=== PATIENT | male | born 1990 | race Hispanic/Latino ===

== ENCOUNTER 2023-03-18 17:21 | Inpatient (IN) | payer SELFPAY ==
[2023-03-18 18:14] LABS: Absolute Lymphocytes (CBC) 1.1 K/uL (0.7-4.9); Hematocrit 32.3 % (39.6-49.0); Lymphocytes % 29.8 % (15.3-44.8); RBC Red Blood Cell Count 3.17 M/uL (4.33-5.43)
[2023-03-18 18:19] LABS: Protime INR 1.43
--- NOTE | 2023-03-18 18:25 | RAD REPORT ---
EXAM DESCRIPTION: Jelani Single View03/18/2023 6:11 pm CLINICAL HISTORY: Abdominal pain COMPARISON: none FINDINGS: Mild opacity medial right base. Left lung appears clear. Heart is normal size IMPRESSION: Mild opacity medial right base may represent confluence of ribs and vessels or a mild in filtrate.
[2023-03-18 18:31] LABS: Albumin 2.3 g/dL (3.4-5.0); Bilirubin Total 2.9 mg/dL (0.2-1.0); Potassium 3.8 mEq/L (3.5-5.1); Protein, Total 7.9 g/dL (6.4-8.2)
[2023-03-18 18:42] LABS: Specific Gravity 1.017 (1.005-1.030); Urine Bacteria None Seen /HPF (<20); Urine Bilirubin 1+ (Negative); Urine Blood 2+ (Negative); Urine Clarity Clear (Clear); Urine Color Yellow (Yellow); Urine Crystals Unidentified Few /HPF (None Seen); Urine Glucose NEGATIVE (Negative); Urine Mucus Slight /HPF (None Seen); Urine Protein TRACE (Negative); Urine Urobilinogen 2+ (Normal); Urine pH 6.5 (5.0-7.0)
[2023-03-18 18:55] LABS: Barbiturates NEGATIVE (NEGATIVE); Benzodiazepines NEGATIVE (NEGATIVE); Cocaine NEGATIVE (NEGATIVE); METHAMPHETAM NEGATIVE (NEGATIVE); Methadone NEGATIVE (NEGATIVE); Opiates NEGATIVE (NEGATIVE); Phencyclidine NEGATIVE (NEGATIVE); THC Cannibis POSITIVE (NEGATIVE)
--- NOTE | 2023-03-18 20:04 | RAD REPORT ---
EXAM DESCRIPTION: CT - Abdomen Pelvis W Contrast - 03/18/2023 7:42 pm CLINICAL HISTORY: Abdominal pain COMPARISON: none. TECHNIQUE: Computed axial tomography of the abdomen pelvis was obtained. 100 cc Isovue-300 was admin istered intravenously. Oral contrast was not requested which limits evaluation of bowel and appendix All CT scans are performed using dose optimization technique as appropriate and may include automated exposure control or mA/KV adjustment according to patient size. FINDINGS: Cirrhotic liver. Mild fatty infiltration. A 1 centimeter nodule extends off of anterior as pect of the left lobe of the liver Spleen, pancreas, adrenals and kidneys unremarkable Large amount of ascites within the abdomen pelvis No evidence diverticulitis Umbilical hernia. Neck 1 centimeter. Herniated sac 3.5 centimeters. It contains ascites IMPRESSION: Cirrhosis Large amount ascites 1 centimeter hepatic nodule. Nonemergent MRI recommended for further evaluation
--- NOTE | 2023-03-18 20:47 | ER ---
Nurse's Notes [facility] Name: Hernando Maciel Age: 32 yrs Sex: Male : 1990 Arrival Date: 03/18/2023 Time: 17:21 Bed 19 Private MD: Diagnosis: Alcoholic cirrhosis of liver with ascites;Hepatic failure, unspecified without coma Presentation: 03/18 17:29 Chief complaint: Spouse and/or significant other states: "The last few weeks his mb9 stomach has been getting bloated and discomfort. He feels like SOB and nauseous. His belly button is sticking out and is growing". Coronavirus screen: At this time, the client does not indicate any symptoms associated with coronavirus-19. Ebola Screen: No symptoms or risks identified at this time. Initial Sepsis Screen: Does the patient meet any 2 criteria? No. Patient's initial sepsis screen is negative. Does the patient have a suspected source of infection? No. Patient's initial sepsis screen is negative. Risk Assessment: Do you want to hurt yourself or someone else? Patient reports no desire to harm self or others. Onset of symptoms was March 18, 2023. 17:29 Method Of Arrival: Ambulatory 9 17:29 Acuity: JAMA 3 mb9 Triage Assessment: 17:35 General: Appears uncomfortable, Behavior is calm, cooperative. Pain: Denies pain. EENT: mb9 Neuro: Garcia Agitation-Sedation Scale (RASS): 0 - Alert and Calm Level of Consciousness is awake, alert, obeys commands, Oriented to person, place, time, situation, Appropriate for age. Cardiovascular: Patient's skin is warm and dry. Respiratory: Airway is patent Respiratory effort is even, unlabored, Respiratory pattern is regular, symmetrical. Respiratory: Reports shortness of breath on exertion. GI: Abdomen is round distended, Bowel sounds present X 4 quads. Abd is soft and non tender X 4 quads. Patient currently denies nausea. Musculoskeletal: Range of motion: intact in all extremities. 17:35 Derm: Skin is jaundiced. mb9 17:35 EENT: Eyes eyes are jaundiced . mb9 Historical: - Allergies: 17:32 No Known Allergies; mb9 - Home Meds: 17:32 None [Active]; mb9 - PMHx: 17:32 None; mb9 - PSHx: 17:32 None; mb9 - Immunization history:: Adult Immunizations up to date. - Social history:: Smoking status: Patient reports the use of cigarette tobacco products, denies chronic smoking, but will smoke occasionally, Patient uses alcohol, 12 pack of beer daily x 12 yrs. Screenin:34 [facility] ED Fall Risk Assessment (Adult) History of falling in the last 3 months, mb9 including since admission No falls in past 3 months (0 pts) Confusion or Disorientation No (0 pts) Intoxicated or Sedated No (0 pts) Impaired Gait No (0 pts) Mobility Assist Device Used No (0 pt) Altered Elimination No (0 pt) Score/Fall Risk Level 0 - 2 = Low Risk Oriented to surroundings, Maintained a safe environment, Educated pt \\T\\ family on fall prevention, incl call for assistance when getting out of bed. Abuse screen: Denies threats or abuse. Nutritional screening: No deficits noted. Tuberculosis screening: No symptoms or risk factors identified. 21:28 [facility] [place] Withdrawal Assessment for Alcohol, revised (CIWA-Ar): mb9 Nausea/Vomitin - Intermittent nausea with dry heaves Headache: 0 - Not present Paroxysmal Sweats: 0 - No sweats visible Anxiety: 0 - No anxiety, at ease Agitation: 0 - Normal actiivty Tremor: 4 - Moderate when client's hands extended Auditory Disturbances: 0 - Not present Visual Disturbances: 0 - Not present Tactile Disturbances: 0 - None Orientation and Clouding of Sensorium: 0 - Oriented and can do serial additions Total Score: < 10 Very mild withdrawal. Assessment: 17:35 Reassessment: see triage assessment. mb9 20:07 Reassessment: No changes from previously documented assessment. Patient and/or family mb9 updated on plan of care and expected duration. Pain level reassessed. Patient is alert, oriented x 3, equal unlabored respirations, skin warm/dry/pink. Vital Signs: 17:29 BP 133 / 90; Pulse 88; Resp 18; Temp 99.2(O); Pulse Ox 98% on R/A; Weight 86.18 kg; mb9 Height 5 ft. 4 in. ; Pain 0/10; 18:29 BP 132 / 91; Pulse 78; Resp 19; Pulse Ox 98% on R/A; Pain 0/10; mb9 20:07 BP 134 / 71; Pulse 82; Resp 16; Pulse Ox 97% on R/A; mb9 21:29 BP 134 / 92; Pulse 90; Resp 17; Pulse Ox 98% on R/A; mb9 17:29 Body Mass Index 32.61 (86.18 kg, 162.56 cm) mb9 17:29 Pain Scale: Adult mb9 18:29 Pain Scale: Adult mb9 ED Course: 17:24 Patient arrived in ED. ts1 17:25 [facility] Garc[facility] cp 17:25 Ryne Mayen MD is Attending Physician. cp 17:32 Triage completed. mb9 17:32 Arm band placed on. mb9 17:34 Bessy Samuel, RN is Primary Nurse. mb9 17:34 No provider procedures requiring assistance completed. mb9 17:36 Placed in gown. Bed in low position. Call light in reach. Side rails up X 1. Client mb9 placed on continuous cardiac and pulse oximetry monitoring. NIBP monitoring applied. 17:52 Inserted saline lock: 18 gauge in left antecubital area, using aseptic technique. mb9 17:54 First set of blood cultures drawn by me. mb9 18:00 Second set of blood cultures drawn by me. mb9 18:06 AMMONIA Sent. mb9 18:06 Blood Culture Adult (2) Sent. mb9 18:06 CBC with Diff Sent. mb9 18:06 CMP Sent. mb9 18:06 ETOH Level Sent. mb9 18:06 Ptt, Activated Sent. mb9 18:06 Protime (+inr) Sent. mb9 18:06 Lactate w/ 2H reflex if indic. Sent. mb9 18:13 Chest Single View XRAY In Process Unspecified. EDMS 18:29 Urine collected: clean catch specimen, sydnee colored, EKG done, by ED staff, reviewed mb9 by Abilio WRIGHT. 18:30 UDS Sent. mb9 18:30 Urinalysis w/ reflexes Sent. mb9 19:44 CT Abd/Pelvis - IV Contrast Only In Process Unspecified. EDMS 20:44 Tee Méndez FNP-C is Hospitalizing Provider. cp 22:08 Hospitalizing Provider role handed off by Tee Méndez FNP-C mw 22:08 Fabián Mayen MD is Hospitalizing Provider. mw 22:43 Attending Physician role handed off by Ryne Mayen MD kd3 22:43 Primary Nurse role handed off by Bessy Samuel RN kd3 22:45 Patient admitted, IV remains in place. ll3 Administered Medications: 20:30 CANCELLED (Physician Discretion): Albumin IVPB 25 grams 100 ml IVPB once; (Note: cp Albumin 25% concentration) 20:50 Drug: Rocephin - Rocephin (cefTRIAXone) IVPB 1 grams Route: IVPB; Infused Over: 30 mb9 mins; Site: left antecubital; 21:27 Follow up: Response: No adverse reaction; IV Status: Completed infusion mb9 21:07 Drug: Phytonadione Sub-Q 10 mg Route: Sub-Q; Site: right upper arm; mb9 21:28 Follow up: Response: No adverse reaction mb9 21:07 Drug: Albumin IVPB 12.5 grams Volume: 50 ml; Route: IVPB; Site: left antecubital; mb9 21:27 Follow up: Response: No adverse reaction; IV Status: Completed infusion mb9 21:27 Drug: Ativan IVP 1 mg Route: IVP; Site: left antecubital; mb9 Medication: 17:34 VIS not applicable for this client. mb9 Outcome: 20:46 Decision to Hospitalize by Provider. cp 22:40 Patient left the ED. rv1 22:45 Admitted to ICU accompanied by nurse, via stretcher, room 2, on monitor, with chart, ll3 Report called to AURA Preciado 22:45 Condition: stable 22:45 Instructed on the need for admit, Demonstrated understanding of instructions. 22:55 Patient left the ED. jb4 Signatures: Dispatcher [employer] EDMS Estrella Taveras RN RN mw Page, Corey, PA PA cp Sid Gerber RN RN jb4 Ny Beasley RN RN ll3 Marlena Singh RN RN kd3 Bessy Samuel, AURA RN mb9 Katrina Radford rv1 Hafsa Diggs PAS PAS ts1 Corrections: (The following items were deleted from the chart) 17:32 17:29 Pulse 88bpm; Resp 18bpm; Pulse Ox 98% RA; Temp 99.2F Oral; 70.31 kg; Height 5 ft. mb9 4 in.; BMI: 26.6; Pain 0/10, Adult; mb9 17:34 17:29 BP 133 / 90; Pulse 88bpm; Resp 18bpm; Pulse Ox 98% RA; Temp 99.2F Oral; 70.31 kg; mb9 Height 5 ft. 4 in.; BMI: 26.6; Pain 0/10, Adult; mb9 :42 17:35 EENT: No deficits noted. 9 mb9 43 17:32 Social history: Smoking status: Patient reports the use of cigarette tobacco mb9 products, denies chronic smoking, but will smoke occasionally, 9 43 17:35 Derm: Skin is pink, warm \\T\\ dry. mb9 mb9 43 17:42 Derm: mb9 mb9
--- NOTE | 2023-03-18 20:47 | EDPHYS ---
Physician Documentation [facility] Name: Hernando Maciel Age: 32 yrs Sex: Male : 1990 Arrival Date: 03/18/2023 Time: 17:21 Bed 19 Private MD: ED Physician HPI: 03/18 17:55 This 32 yrs old Male presents to ER via Ambulatory with complaints of cp Abdominal Pain. 17:55 The patient presents with abdominal distention that is diffuse. Onset: The cp symptoms/episode began/occurred gradually, over past several weeks. 17:55 The symptoms do not radiate. Associated signs and symptoms: Pertinent positives: cp nausea, shortness of breath, Pertinent negatives: blood in stools, chest pain, vomiting. The symptoms are described as pressure. Severity of pain: in the emergency department the pain is unchanged despite home interventions. translating. Reports patient with history of daily drinking of 12 pack beer daily for 10 years. Historical: - Allergies: 17:32 No Known Allergies; mb9 - Home Meds: 17:32 None [Active]; mb9 - PMHx: 17:32 None; mb9 - PSHx: 17:32 None; mb9 - Immunization history:: Adult Immunizations up to date. - Social history:: Smoking status: Patient reports the use of cigarette tobacco products, denies chronic smoking, but will smoke occasionally, Patient uses alcohol, 12 pack of beer daily x 12 yrs. ROS: 18:00 Constitutional: Negative for body aches, chills, fever, poor PO intake. cp 18:00 Eyes: Negative for injury, pain, redness, and discharge. cp 18:00 ENT: Negative for drainage from ear(s), ear pain, sore throat, difficulty swallowing, difficulty handling secretions. 18:00 Cardiovascular: Positive for edema, Negative for chest pain, palpitations. 18:00 Respiratory: Positive for shortness of breath, at rest. 18:00 Abdomen/GI: Positive for abdominal pain, abdominal distension, Negative for black/tarry stool. 18:00 Neuro: Negative for altered mental status, dizziness, headache, syncope, weakness. cp 18:00 All other systems are negative. Exam: 18:05 Constitutional: The patient appears in no acute distress, alert, awake, cp non-diaphoretic, non-toxic, well developed, well nourished, uncomfortable. 18:05 Head/Face: Normocephalic, atraumatic. cp 18:05 Eyes: Periorbital structures: appear normal, Conjunctiva: normal, no exudate, no injection, Sclera: icterus, is present, Lids and lashes: appear normal, bilaterally. 18:05 ENT: External ear(s): are unremarkable, Nose: is normal, Mouth: Lips: moist, Oral mucosa: pink and intact, moist, Posterior pharynx: is normal, airway is patent, no erythema, no exudate. 18:05 Neck: ROM/movement: is normal, is supple, without pain, no range of motions limitations. 18:05 Chest/axilla: Inspection: normal. 18:05 Cardiovascular: Rate: normal, Rhythm: regular. 18:05 Respiratory: the patient does not display signs of respiratory distress, Respirations: normal, no use of accessory muscles, no retractions, labored breathing, is not present, Breath sounds: are clear throughout, no decreased breath sounds, no stridor, no wheezing. 18:05 Abdomen/GI: Inspection: distension, that is severe, Bowel sounds: active, all quadrants, Palpation: soft, in all quadrants, mild abdominal tenderness, in all quadrants. 18:05 Back: pain, is absent, ROM is normal. 18:05 Neuro: Orientation: to person, place \T\ time. Mentation: is normal, Motor: moves all fours, strength is normal. 18:29 ECG was reviewed by the Attending Physician. cp Vital Signs: 17:29 BP 133 / 90; Pulse 88; Resp 18; Temp 99.2(O); Pulse Ox 98% on R/A; Weight 86.18 kg; mb9 Height 5 ft. 4 in. ; Pain 0/10; 18:29 BP 132 / 91; Pulse 78; Resp 19; Pulse Ox 98% on R/A; Pain 0/10; mb9 20:07 BP 134 / 71; Pulse 82; Resp 16; Pulse Ox 97% on R/A; mb9 21:29 BP 134 / 92; Pulse 90; Resp 17; Pulse Ox 98% on R/A; mb9 17:29 Body Mass Index 32.61 (86.18 kg, 162.56 cm) mb9 17:29 Pain Scale: Adult mb9 18:29 Pain Scale: Adult mb9 MDM: 17:35 Patient medically screened. 20:35 Data reviewed: vital signs, nurses notes, lab test result(s), EKG, radiologic studies, cp CT scan. 20:35 Management of patient was discussed with the following: Political Theory Professor: DR Ladd who will cp be available for consult. Counseling: I had a detailed discussion with the patient and/or guardian regarding: the historical points, exam findings, and any diagnostic results supporting the discharge/admit diagnosis, lab results, radiology results, the need for further work-up and treatment in the hospital. 03/18 17:51 Order name: Blood Culture Adult (2) 03/18 17:51 Order name: CBC with Diff; Complete Time: 19:10 03/18 19:10 Interpretation: Normal except: WBC 3.80; RBC 3.17; HGB 10.6; HCT 32.3; MCV 102.0; PLT cp 67; RDW 16.0; MN% 16.5. 03/18 17:51 Order name: CMP; Complete Time: 19:10 03/18 19:10 Interpretation: Normal except: CL 109; BUN 5; CRE 0.44; AST 126; ALK 261; BILIT 2.9; CA cp 7.9; ALB 2.3; GLOB 5.6; A/G 0.4. 03/18 17:51 Order name: Lactate w/ 2H reflex if indic.; Complete Time: 19:10 03/18 17:51 Order name: Protime (+inr); Complete Time: 19:10 03/18 19:11 Interpretation: Abnormal: PT 15.7. 03/18 17:51 Order name: Ptt, Activated; Complete Time: 19:10 03/18 17:51 Order name: Urinalysis w/ reflexes; Complete Time: 19:10 03/18 17:51 Order name: AMMONIA; Complete Time: 19:10 03/18 17:51 Order name: ETOH Level; Complete Time: 19:10 03/18 19:12 Interpretation: Abnormal: ETOH 99. 03/18 17:51 Order name: UDS; Complete Time: 19:10 03/18 19:11 Interpretation: Normal except: THC POSITIVE. 03/18 17:51 Order name: Chest Single View XRAY; Complete Time: 19:10 03/18 19:16 Order name: CT Abd/Pelvis - IV Contrast Only; Complete Time: 20:05 cp 03/18 20:06 Interpretation: Report reviewed. 03/18 17:51 Order name: EKG; Complete Time: 17:52 cp 03/18 17:51 Order name: Accucheck; Complete Time: 18:06 cp 03/18 17:51 Order name: Cardiac monitoring; Complete Time: 17:52 cp 03/18 17:51 Order name: EKG - Nurse/Tech; Complete Time: 18:30 cp 03/18 17:51 Order name: IV Saline Lock - Large Bore; Complete Time: 17:52 cp 03/18 17:51 Order name: Labs collected and sent; Complete Time: 17:52 cp 03/18 17:51 Order name: O2 Per Protocol; Complete Time: 17:52 cp 03/18 17:51 Order name: O2 Sat Monitoring; Complete Time: 17:52 cp 03/18 17:51 Order name: Vital Signs; Complete Time: 17:52 cp EC:29 Rate is 70 beats/min. Rhythm is regular. WA interval is normal. QRS interval is normal. cp QT interval is normal. T waves are Inverted in lead III. Interpreted by me. Reviewed by me. Administered Medications: 20:30 CANCELLED (Physician Discretion): Albumin IVPB 25 grams 100 ml IVPB once; (Note: cp Albumin 25% concentration) 20:50 Drug: Rocephin - Rocephin (cefTRIAXone) IVPB 1 grams Route: IVPB; Infused Over: 30 mb9 mins; Site: left antecubital; 21:27 Follow up: Response: No adverse reaction; IV Status: Completed infusion mb9 21:07 Drug: Phytonadione Sub-Q 10 mg Route: Sub-Q; Site: right upper arm; mb9 21:28 Follow up: Response: No adverse reaction mb9 21:07 Drug: Albumin IVPB 12.5 grams Volume: 50 ml; Route: IVPB; Site: left antecubital; mb9 21:27 Follow up: Response: No adverse reaction; IV Status: Completed infusion mb9 21:27 Drug: Ativan IVP 1 mg Route: IVP; Site: left antecubital; mb9 Disposition Summary: 03/18/23 20:46 Hospitalization Ordered Hospitalization Status: Inpatient Admission cp Condition: Stable cp Problem: new cp Symptoms: have improved cp Bed/Room Type: Standard cp Location: Intensive Care Unit(03/18/23 22:08) mw Room Assignment: 2-(03/18/23 22:08) Provider: Fabián Mayen(03/18/23 22:08) colin Diagnosis - Alcoholic cirrhosis of liver with ascites cp - Hepatic failure, unspecified without coma cp Forms: - Medication Reconciliation Form cp - SBAR form cp Addendum: 03/20/2023 20:02 I agree with the assessment and plan of care. I reviewed the patient's care provided by calvin noble Advanced Practice Provider and agree with the diagnosis and treatment plan. Signatures: Dispatcher [employer] EDEstrella Edge RN RN Ryne Mayen MD MD rn Page, Corey, PA PA cp Breneman, Mary Beth, RN RN mb9 Corrections: (The following items were deleted from the chart) 03/18 17:43 17:32 Social history: Smoking status: Patient reports the use of cigarette tobacco mb9 products, denies chronic smoking, but will smoke occasionally, mb9 20:30 20:27 Albumin IVPB 25 grams 100 ml IVPB once; (Note: Albumin 25% concentration) cp ordered. cp 22:08 20:46 Tee Méndez cp 22:08 20:46 Telemetry/MedSurg (Inpatient) cp 22:08 20:46 cp mw
[2023-03-18] MEDS ORDERED: VITAMIN K (ADULT) 10 MG/ML ONE (20:48)
[2023-03-18] MEDS ORDERED: CEFTRIAXONE 1000 MG/VIAL ONE (20:48)
[2023-03-18] MEDS ORDERED: ALBUMIN HUMAN 25% 50 ML IV ONE (20:49)
[2023-03-18] MEDS ORDERED: LORazepam 2 MG/ML VIAL ONE (21:29)
--- NOTE | 2023-03-18 21:57 | P.HP ---
Certification for Inpatient Patient admitted to: Inpatient With expected LOS: >2 Midnights Patient will require the following post-hospital care: None Practitioner: I am a practitioner with admitting privileges, knowledge of patient current condition, hospital course, and medical plan of care. Services: Services provided to patient in accordance with Admission requirements found in Title 42 Section 412.3 of the Code of Federal Regulations Patient History Date of Service: 03/18/23 Reason for admission: Alcoholic cirrhosis, ascites History of Present Illness: 32-year-old male with history of chronic alcohol abuse presents emergency department with chief complaint of abdominal swelling/pain, shortness of breath. He is noted to have scleral icterus which his family reports is been there for "a few years". He reports increased abdominal swelling over the course of the last 2 to 3 weeks. He is never been diagnosed with alcoholic hepatitis/cirrh osis he drinks between 12 and 18 beers a day for the last 7 days cannot remember a time when he is gone more than a day without alcohol. He was evaluated in the emergency department his labs are significant for pancytopenia, macrocytic anemia, thrombocytopenia PT 15.7 INR 1.43 AST 126 ALT 49 alk phos 261 T. bili 2.9 lactic acid 1.2 alcohol level is 99 also positive for THC. CT was performed and revealed cirrhosis, large volume ascites, 1 cm hepatic nodule nonemergent MRI recommended to further evaluate. ED provider discussed case with GI services on-call who recommend Rocephin, albumin, admission, paracentesis. Patient is at high risk for alcohol withdrawals. - Past Medical/Surgical History -: None -: None Psychosocial/ Personal History: Patient is at home with his family - Family History Family History: Reviewed- Non-Contributory - Social History Smoking Status: Never smoker Alcohol use: Yes CD- Drugs: No Caffeine use: Yes Place of Residence: Home Review of Systems 10-point ROS is otherwise unremarkable Cardiovascular: Orthopnea, Edema Gastrointestinal: Nausea, Abdominal Pain Physical Examination - Physical Exam General: Alert, In no apparent distress, Oriented x3 HEENT: Atraumatic, PERRLA, Mucous membr. moist/pink, EOMI, Sclerae nonicteric Neck: Supple, 2+ carotid pulse no bruit, No LAD, Without JVD or thyroid ab normality Respiratory: Clear to auscultation bilaterally, Normal air movement Cardiovascular: Regular rate/rhythm, Normal S1 S2, Edema Capillary refill: <2 Seconds Gastrointestinal: Normal bowel sounds, No tenderness, Distended, Ascites Musculoskeletal: No tenderness Integumentary: No rashes Neurological: Normal speech, Normal strength at 5/5 x4 extr, Normal tone, Normal affect - Studies Laboratory Data (last 24 hrs) 03/18/23 18:00: PT 15.7 H, INR 1.43, APTT 36.4 03/18/23 18:00: Sodium 137, Potassium 3.8, BUN 5 L, Creatinine 0.44 L, Glucose 103, Total Bilirubin 2.9 H, AST 126 H, ALT 49, Alkaline Phosphatase 261 H 03/18/23 18:00: WBC 3.80 L, Hgb 10.6 L, Hct 32.3 L, Plt Count 67 L Assessment and Plan - Plan Assessment: Alcoholic cirrhosis of the liver with large volume ascites Chronic alcohol abuse/alcohol use disorder Pancytopenia/thrombocytopenia related to above Plan: Alcoholic cirrhosis of the liver with large volume ascites Chronic alcohol abuse/alcohol use disorder Pancytopenia/thrombocytopenia related to above GI consult in place, continue with banana bag, Librium/as needed Ativan, alcohol withdrawal assessments. Hepatitis panel, paracentesis ordered. No signs of active bleeding currently. Patient reports drinking 12-18 beers per day for last 7 years, at high risk for alcohol withdrawals. Counseled extensively on need for immediate cessation of all alcohol. Patient speaks Kiswahili primarily. DVT PPX: SCDs given thrombocytopenia Code status: Full Discharge Plan: Home Plan to discharge in: 72 Hours - Advance Directives Does patient have a Living Will: No Does patient have a Durable POA for Healthcare: Yes - Code Status/Comfort Care Code Status Assessed: Yes (Full code) Critical Care: No Time Spent Managing Pts Care (In Minutes): 70
[2023-03-18] MEDS ORDERED: ONDANSETRON 4 MG/2 ML VIAL IV PRN (22:55)
[2023-03-18] MEDS ORDERED: FOLIC ACID 1 MG, MULTIVITAMINS INJ 10 ML, THIAMINE HCL 100 MG in NA CHLORIDE 0.9% 1,000 ML IV SCH (23:00)
[2023-03-18 23:38] VITALS: BMI 30.2
[2023-03-19 00:25] VITALS: O2SAT 98
[2023-03-19] MEDS ORDERED: NA CHLORIDE 0.9% 1,000 ML ONE (00:45)
[2023-03-19] MEDS ORDERED: THIAMINE 200 MG/2 ML INJ ONE ×2 (00:45→07:33)
[2023-03-19] MEDS ORDERED: MULTIVITAMINS 10 ML VIAL (INJ) IV ONE (01:28)
[2023-03-19] MEDS ORDERED: Ringers Lactate 1,000 ML IV SCH (01:30)
[2023-03-19] MEDS: chlordiazePOXIDE HCl 25 MG CAP PO SCH ×4 (01:30→13:04)
[2023-03-19] MEDS ORDERED: Ringers Lactate 1,000 ML IV ONE (01:41)
[2023-03-19] MEDS ORDERED: CEPHALEXIN 250 MG CAP ONE (02:15)
[2023-03-19] MEDS ORDERED: TETANUS & DIPHTHERIA TOX,ADULT 0.5 ML VIAL ONE (02:15)
[2023-03-19 05:48] LABS: Protime INR 1.55
[2023-03-19 05:51] LABS: Hematocrit 28.4 % (39.6-49.0); Lymphocytes % 28.7 % (15.3-44.8); MCV 101.6 fL (80-100); MPV 8.3 fL (7.6-11.3); RBC Red Blood Cell Count 2.79 M/uL (4.33-5.43)
[2023-03-19 06:07] LABS: Albumin 2.1 g/dL (3.4-5.0); Bilirubin Total 2.7 mg/dL (0.2-1.0); Potassium 3.7 mEq/L (3.5-5.1)
[2023-03-19 06:13] LABS: Thyroid Stimulating Hormone 5.22 uIU/mL (0.358-3.740)
[2023-03-19] MEDS: LORazepam 2 MG/ML VIAL IV PRN ×4 (06:19→21:12)
--- NOTE | 2023-03-19 06:58 | P.PN ---
Date of Service: 03/19/23 Subjective: Feels like its much easier to breathe today after paracentesis (5.5L removed) no nausea / diarrhea / vomiting afebrile ROS: 10 point ROS as noted above, otherwise negative Physical Exam: GEN: Alert, oriented, NAD HEENT: Normal conjunctiva, sclera anicteric CV: Regular rate and rhythm, 2-3+ pitting edema b/l lower extremities Pulm: Nonlabored respirations on room air ABD: Soft, nontender, mild distention, +Ascites MSK: No joint tenderness Integumentary: No rashes Neuro: Normal speech, normal affect vitals reviewed Problem List: Alcoholic cirrhosis of the liver with large volume ascites Chronic alcohol abuse/alcohol use disorder Pancytopenia/thrombocytopenia related to above Alcoholic cirrhosis of the liver with large volume ascites Chronic alcohol abuse/alcohol use disorder Pancytopenia/thrombocytopenia related to above Patient reports drinking 12-18 beers per day for last 7 years, at high risk for alcohol withdrawal Counseled extensively on need for immediate cessation of all alcohol. Patient speaks Greek primarily. at bedside No signs of active bleeding currently. plt remain low, prolonged inr, low albumin, secondary to cirrhosis CT abdomen 03/18 - Cirrhosis, ascites, 1cm hepatic nodule discussed with Dr. Ladd - recommends MRI to eval nodule check AFP level s/p paracentesis 03/19 initial results - not consistent with infection further results pending start lasix/gita, monitor BP Blood cultures pending continue with banana bag, Librium/as needed Ativan, alcohol withdrawal assessments. VTE: SCD Code: Full Dispo: Home ~1-2 days
[2023-03-19] MEDS ORDERED: NA CHLORIDE 0.9% 0 ML ONE (07:33)
[2023-03-19] MEDS: NA CHLORIDE 0.9% 1,000 ML IV SCH (07:43)
[2023-03-19] MEDS: CEFTRIAXONE 2,000 MG in NA CHLORIDE 0.9% 100 ML IV SCH (07:44)
[2023-03-19] MEDS: THIAMINE 200 MG/2 ML INJ IV SCH (07:44)
[2023-03-19 08:16] LABS: Hepatitis B Core IgM Nonreactive (Nonreactive); Hepatitis B surface AG Interp. Nonreactive (Nonreactive); Hepatitis C Virus Ab Nonreactive (Nonreactive)
--- NOTE | 2023-03-19 09:25 | RAD REPORT ---
EXAM DESCRIPTION: US - Paracentesis Proc Guidance - 03/19/2023 9:11 am CLINICAL HISTORY: dyspnea, ascites Ascites COMPARISON: No comparisons FINDINGS: Informed consent was obtained and time-out was performed. Patient's abdomen was prepped and draped in the usual sterile fashion. 1% lidocaine was used for loca l anesthetic purposes. A small skin incision was made. A paracentesis catheter was guided into the peroneal cavity under son ographic guidance. A small amount of fluid was sent for requested lab studies. A large volume paracentesis was performed . The patient tolerated the procedure well. Patient was administered IV albumin per protocol following the procedure. IMPRESSION: Successful ultrasound-guided paracentesis.
[2023-03-19] MEDS: FOLIC ACID 1 MG in NA CHLORIDE 0.9% 50 ML IV SCH (09:50)
[2023-03-19 11:06] LABS: Specific Gravity 1.012 (1.005-1.030); Urine Bacteria None Seen /HPF (<20); Urine Bilirubin NEGATIVE (Negative); Urine Blood 1+ (Negative); Urine Clarity Clear (Clear); Urine Color Yellow (Yellow); Urine Glucose NEGATIVE (Negative); Urine Mucus Slight /HPF (None Seen); Urine Protein NEGATIVE (Negative); Urine Urobilinogen 2+ (Normal); Urine pH 7.5 (5.0-7.0)
[2023-03-19 11:39] LABS: Body Fluid WBC 116 /mm^3
[2023-03-19 11:49] LABS: Body Fluid Source PERITONEAL; Color of fluid Yellow (COLORLESS)
[2023-03-19 11:50] LABS: Appearance SLT. TURBID (CLEAR)
[2023-03-19] MEDS ORDERED: ALBUMIN HUMAN 25% 200 ML IV ONE (12:47)
[2023-03-19] MEDS: ALBUMIN HUMAN 25% 100 ML IV SCH ×3 (13:04→15:10)
--- NOTE | 2023-03-19 15:59 | EKG ---
Test Date: 2023-03-18 Test Time: 18:23:10 Mantel Craftsman: MB MEASUREMENT RESULTS: Intervals: Rate: 70 [place]: 158 QRSD: 80 QT: 404 QTc: 436 [place]: P: 9 [place]: 158 QRS: 13 T: 0 INTERPRETIVE STATEMENTS: Normal sinus rhythm Normal ECG No previous ECG available for comparison Electronically Signed On 03-19-23 15:57:23 CDT by Jonathan Green
[2023-03-19] MEDS: FUROSEMIDE 40 MG TABLET PO SCH (18:54)
[2023-03-19] MEDS: SPIRONOLACTONE 100 MG TAB PO SCH (18:54)
[2023-03-19] MEDS ORDERED: INSULIN LISPRO 100 UNIT/1 ML ONE (18:56)
--- NOTE | 2023-03-19 19:41 | RAD REPORT ---
EXAM DESCRIPTION: MRI - Mri Abdomen W/Wo Cont - 03/19/2023 6:38 pm CLINICAL HISTORY: eval liver lesion Abdominal pain, liver lesion. COMPARISON: Paracentesis Proc Guidance dated 03/19/2023; Abdomen Pelvis W Contrast dated 03/18/2023 FINDINGS: The liver is enlarged and heterogenous enhancement pattern noted. There is nodular appeara nce to the liver parenchyma likely related to underlying regenerating nodules. This would indicate ci rrhosis. There is no early arterial phase enhancing liver lesions identified. No intra or extrahepatic biliary tree dilatation. The spleen is normal size. The pancreas, adrenal glands and kidneys are within normal limits. Mild free fluid is seen. IMPRESSION: Mild ascites. Liver nodularity likely due underlying regenerating nodules. No lesion seen suspicious for an aggress wes neoplastic lesion.
[2023-03-20] MEDS: chlordiazePOXIDE HCl 25 MG CAP PO SCH ×6 (00:45→17:13)
[2023-03-20] MEDS: NA CHLORIDE 0.9% 1,000 ML IV SCH ×2 (00:47→10:40)
[2023-03-20 04:56] LABS: Absolute Lymphocytes (CBC) 1.1 K/uL (0.7-4.9); Hematocrit 30.5 % (39.6-49.0); Lymphocytes % 35.9 % (15.3-44.8); MCV 100.8 fL (80-100); MPV 7.9 fL (7.6-11.3); RBC Red Blood Cell Count 3.03 M/uL (4.33-5.43)
[2023-03-20 05:05] LABS: Protime INR 1.89
[2023-03-20 05:14] LABS: Albumin 2.7 g/dL (3.4-5.0); Bilirubin Total 3.9 mg/dL (0.2-1.0); Magnesium 1.6 mg/dL (1.6-2.4); Potassium 3.5 mEq/L (3.5-5.1); Protein, Total 7.2 g/dL (6.4-8.2)
[2023-03-20 05:29] LABS: Blood Morphology Comment NOTED (NOT SEEN); Platelet Estimate DECR; Target Cells 1+
[2023-03-20] MEDS ORDERED: MAGNESIUM SULFATE 1 gm IVPB 1 GM/100 ML BAG IV ONE (05:48)
--- NOTE | 2023-03-20 06:49 | P.PN ---
Date of Service: 03/20/23 Subjective: Feeling pretty good today, swelling improved no pain noted this morning, breathing is easier ~5L UOP after diuretics yesterday/overnight slightly tremulous last night; no tremors this morning ROS: 10 point ROS as noted above, otherwise negative Physical Exam: GEN: Alert, oriented, NAD HEENT: Normal conjunctiva, sclera mild icterus CV: Regular rate and rhythm, 1-2+ pitting edema b/l lower extremities to knees Pulm: Nonlabored respirations on room air ABD: Soft, nontender, non-distended Neuro: Normal speech, normal affect vitals reviewed Problem List: Alcoholic cirrhosis of the liver with large volume ascites Chronic alcohol abuse/alcohol use disorder Pancytopenia/thrombocytopenia related to above Alcoholic cirrhosis of the liver with large volume ascites Chronic alcohol abuse/alcohol use disorder Pancytopenia/thrombocytopenia related to above Patient reports drinking 12-18 beers per day for last 7 years, at high risk for alcohol withdrawal Counseled extensively on need for immediate cessation of all alcohol. Patient speaks Monegasque primarily. at bedside No signs of active bleeding currently. plt remain low, prolonged inr, low albumin, secondary to cirrhosis CT abdomen 03/18 - Cirrhosis, ascites, 1cm hepatic nodule Abdomen u/s 03/20 ordered to eval rise in tbili, suspect hepatocellular disease, no RUQ Tenderness on exam discussed with Dr. Ladd - recommends MRI to eval nodule MRI 03/19 - Mild ascites. Liver nodularity likely due underlying regenerating nodules check AFP level s/p paracentesis 03/19 initial results - not consistent with infection further results pending continue lasix/gita, monitor BP responded well, will lower dose Blood cultures pending continue with banana bag, Librium/as needed Ativan, alcohol withdrawal assessments. Code: Full Dispo: Home ~1 day
[2023-03-20] MEDS ORDERED: POTASSIUM 25 MEQ EFFERV TAB PO ONE (08:00)
[2023-03-20] MEDS: CEFTRIAXONE 2,000 MG in NA CHLORIDE 0.9% 100 ML IV SCH (09:49)
[2023-03-20] MEDS: FUROSEMIDE 40 MG TABLET PO SCH (09:49)
[2023-03-20] MEDS: FOLIC ACID 1 MG in NA CHLORIDE 0.9% 50 ML IV SCH (09:54)
[2023-03-20] MEDS: THIAMINE 200 MG/2 ML INJ IV SCH (09:55)
[2023-03-20] MEDS: SPIRONOLACTONE 100 MG TAB PO SCH (09:55)
--- NOTE | 2023-03-20 10:48 | RAD REPORT ---
EXAM DESCRIPTION: US - Abdomen Exam Limited - 03/20/2023 9:05 am CLINICAL HISTORY: eval gallbladder COMPARISON: Mri Abdomen W/Wo Cont dated 03/19/2023 TECHNIQUE: Sonographic grayscale and color flow images of the right upper abdominal quadrant were obtained. FINDINGS: The gallbladder demonstrates no gallstones. Contracted morphology. Diffuse gallbladder wal l thickening, with wall measuring up to 9 millimeter in thickness. Mild ascites. The common bile duct is normal measuring 3 mm. The liver demonstrates no findings of intrahepatic biliary dilatation. IMPRESSION: Mild ascites. Contracted gallbladder with diffuse wall thickening, a nonspecific finding in the setting of suspecte d cirrhosis and presence of ascites. No gallstone. No intra or extrahepatic biliary ductal dilation.
[2023-03-20] MEDS: LORazepam 2 MG/ML VIAL IV PRN (22:01)
[2023-03-21] MEDS: chlordiazePOXIDE HCl 25 MG CAP PO SCH ×2 (01:05→09:01)
[2023-03-21 03:35] LABS: Protime INR 1.75
[2023-03-21 03:36] LABS: Absolute Lymphocytes (CBC) 0.9 K/uL (0.7-4.9); Hematocrit 32.5 % (39.6-49.0); Lymphocytes % 26.3 % (15.3-44.8); MCV 102.3 fL (80-100); MPV 8.1 fL (7.6-11.3); RBC Red Blood Cell Count 3.17 M/uL (4.33-5.43)
[2023-03-21 03:52] LABS: Albumin 2.6 g/dL (3.4-5.0); Bilirubin Total 2.2 mg/dL (0.2-1.0); Potassium 3.6 mEq/L (3.5-5.1); Protein, Total 7.1 g/dL (6.4-8.2)
--- NOTE | 2023-03-21 07:09 | P.DS ---
Admission Date: 03/18/23 Discharge Date: 03/21/23 Disposition: ROUTINE DISCHARGE Discharge Condition: GOOD Reason for Admission: Alcoholic cirrhosis, ascites Consultations: Gastrointestinal - Dr. Ladd Brief History of Present Illness: 32yo M, PMH: chronic alcohol abuse Patient presents to the emergency department with chief complaint of abdominal swelling/pain, shortness of breath. He is noted to have scleral icterus which his family reports is been there for "a few years". He reports increased abdominal swelling over the course of the last 2 to 3 weeks. He is never been diagnosed with alcoholic hepatitis/cirrhosis he drinks between 12 and 18 beers a day for the last 7 days cannot remember a time when he is gone more than a day without alcohol. He was evaluated in the emergency department his labs are significant for pancytopenia, macrocytic anemia, thrombocytopenia PT 15.7 INR 1.43 AST 126 ALT 49 alk phos 261 T. bili 2.9 lactic acid 1.2 alcohol level is 99 also positive for THC. CT was performed and revealed cirrhosis, large volume ascites, 1 cm hepatic nodule nonemergent MRI recommended to further evaluate. ED provider discussed case with GI services on-call who recommend Rocephin, albumin, admission, paracentesis. Patient is at high risk for alcohol withdrawals. Hospital Course: Problem List: Alcoholic cirrhosis of the liver with large volume ascites Chronic alcohol abuse/alcohol use disorder Pancytopenia/thrombocytopenia related to above Patient presented with abdominal swelling/pain, shortness of breath. He was found to have signicant lower extremity edema and ascites by CT with incidental 1cm hepatic nodule. (cirrhosis with large volume ascites, 1 cm hepatic nodule) GI was consulted. Dr. Ladd recommended paracentesis. Initial fluid analysis consistent with cirrhosis/ascites, no infection noted. Patient's symptoms resolved after paracentesis (~5L removed). MRI of liver was performed per Dr. Ladd's recommendation to evaluate the hepatic nodule. Imaging more consistent with healing nodule and unlikely to be cancer. He was prophylactically treated with IV rocephin, remained afebrile and no evidence of infection. He also received prophylactic librium due to his significant daily alcohol use. He had mild tremors which improved as well. He received 40mg PO lasix and 100mg Spironolactone and responded very well with ~5L urine output in the first day. He was noted to have low-normal ranged blood pressure. Lasix and spironolactone dose cut in half on discharge. He is to continue with 2 more days of librium. Counselled on importance of discontinuation of alcohol use. Liver cirrhosis is significant and will worsen with high morbidity and mortality if continues to drink. New prescriptions: Furosemide/Lasix Spironolactone Librium Thiamine Follow up: PCP 3-5 days Gastrointestinal ~3-4 weeks Advised to monitor blood pressure, if feels lightheaded and blood pressure <110 systolic, hold diuretics (lasix/spironolactone) for that day. Physical Exam: GEN: Alert, oriented, NAD HEENT: Normal conjunctiva, sclera mild icterus CV: Regular rate and rhythm, no edema Pulm: Nonlabored respirations on room air ABD: Soft, nontender, non-distended Neuro: Normal speech, normal affect Vital Signs/Physical Exam: Temp Pulse Resp BP Pulse Ox 99.7 F 73 18 109/54 L 97 03/21/23 04:00 03/21/23 04:00 03/21/23 04:00 03/21/23 04:00 03/21/23 04:00 Laboratory Data at Discharge: WBC 3.60 thou/uL (4.3-10.9) L 03/21/23 02:55 Hgb 10.9 g/dL (13.6-17.9) L 03/21/23 02:55 Hct 32.5 % (39.6-49.0) L 03/21/23 02:55 Plt Count 81 thou/uL (152-406) L 03/21/23 02:55 PT 19.2 SECONDS (9.5-12.5) H 03/21/23 02:55 INR 1.75 03/21/23 02:55 APTT 36.4 SECONDS (24.3-36.9) 03/18/23 18:00 Sodium 136 mEq/L (136-145) 03/21/23 02:55 Potassium 3.6 mEq/L (3.5-5.1) 03/21/23 02:55 BUN 10 mg/dL (7-18) 03/21/23 02:55 Creatinine 0.54 mg/dL (0.70-1.30) L 03/21/23 02:55 Glucose 104 mg/dL (74-106) 03/21/23 02:55 Magnesium 1.6 mg/dL (1.6-2.4) 03/20/23 04:33 Total Bilirubin 2.2 mg/dL (0.2-1.0) H 03/21/23 02:55 AST 78 U/L (15-37) H 03/21/23 02:55 ALT 35 U/L (16-61) 03/21/23 02:55 Alkaline Phosphatase 159 U/L (45-117) H 03/21/23 02:55 Triglycerides 54 mg/dL (<150) 03/19/23 04:28 Cholesterol 84 mg/dL (<200) 03/19/23 04:28 HDL Cholesterol 22 mg/dL (40-60) L 03/19/23 04:28 Cholesterol/HDL Ratio 3.82 03/19/23 04:28 Home Medications: Folic Acid 1 mg PO DAILY 30 Days #30 tab 03/21/23 Furosemide [Lasix] 20 mg PO DAILY 30 Days #30 tab 03/21/23 Spironolactone [Aldactone] 50 mg PO DAILY 30 Days #30 tab 03/21/23 Thiamine HCl [B-1] 100 mg PO DAILY 30 Days #30 tab 03/21/23 chlordiazePOXIDE HCl [Librium] 25 mg PO SEECOM 3 Days #4 cap 03/21/23 New Medications: Spironolactone [Aldactone] 50 mg PO DAILY 30 Days #30 tab Thiamine HCl [B-1] 100 mg PO DAILY 30 Days #30 tab Folic Acid 1 mg PO DAILY 30 Days #30 tab Furosemide [Lasix] 20 mg PO DAILY 30 Days #30 tab chlordiazePOXIDE HCl [Librium] 25 mg PO SEECOM 3 Days #4 cap Physician Discharge Instructions: Patient presented with abdominal swelling/pain, shortness of breath. He was found to have signicant lower extremity edema and ascites by CT with incidental 1cm hepatic nodule. (cirrhosis with large volume ascites, 1 cm hepatic nodule) GI was consulted. Dr. Ladd recommended paracentesis. Initial fluid analysis consistent with cirrhosis/ascites, no infection noted. Patient's symptoms resolved after paracentesis (~5L removed). MRI of liver was performed per Dr. Ladd's recommendation to evaluate the hepatic nodule. Imaging more consistent with healing nodule and unlikely to be cancer. He was prophylactically treated with IV rocephin, remained afebrile and no evidence of infection. He also received prophylactic librium due to his significant daily alcohol use. He had mild tremors which improved as well. He received 40mg PO lasix and 100mg Spironolactone and responded very well with ~5L urine output in the first day. He was noted to have low-normal ranged blood pressure. Lasix and spironolactone dose cut in half on discharge. He is to continue with 2 more days of librium. Counselled on importance of discontinuation of alcohol use. Liver cirrhosis is significant and will worsen with high morbidity and mortality if continues to drink. New prescriptions: Furosemide/Lasix Spironolactone Librium Thiamine and folic acid Follow up: PCP 3-5 days Gastrointestinal ~3-4 weeks Advised to monitor blood pressure, if feels lightheaded and blood pressure <110 systolic, hold diuretics (lasix/spironolactone) for that day. May need to further decrease dose of furosemide/spironolactone in near future Followup: Unknown,U [Primary Care Provider] - Time spent managing pt's care (in minutes): 45
[2023-03-21 08:28] VITALS: BP 123/64; TEMP 98.9
[2023-03-21] MEDS ORDERED: FUROSEMIDE 20 MG TABLET PO SCH (09:00)
[2023-03-21] MEDS ORDERED: POTASSIUM CL SA 10 MEQ TAB PO ONE (09:00)
[2023-03-21] MEDS ORDERED: SPIRONOLACTONE 25 MG TABLET PO SCH (09:00)
[2023-03-21] MEDS ORDERED: MULTIVITAMIN TAB PO SCH (09:00)
[2023-03-21] MEDS: FOLIC ACID 1 MG in NA CHLORIDE 0.9% 50 ML IV SCH (09:01)
[2023-03-21] MEDS: CEFTRIAXONE 2,000 MG in NA CHLORIDE 0.9% 100 ML IV SCH (09:01)
[2023-03-21] MEDS: THIAMINE 200 MG/2 ML INJ IV SCH (09:01)
[2023-03-23 20:07] LABS: GLUCOSE, PERITONEAL FLUID 99 mg/dL; LD, PERITONEAL FLUID 77 U/L (<63); TOTAL PROTEIN,PERITONEAL FLUID <3.0 g/dL
== END 2023-03-21 10:53 | disposition home or self-care (01) | DRG 433 ==
LOC: ER 17:21 → 3RD-ICU 22:14 → 2ND 03-20 13:17
PROVIDERS: ADMIT Hospitalist; ATTEND Hospitalist
DX: K70.31 Alcoholic cirrhosis of liver with ascites (principal); D61.818 Other pancytopenia; F10.10 Alcohol abuse, uncomplicated; D69.6 Thrombocytopenia, unspecified; R25.1 Tremor, unspecified; K76.89 Other specified diseases of liver; R60.0 Localized edema; F12.90 Cannabis use, unspecified, uncomplicated; K72.90 Hepatic failure, unspecified without coma; Z71.41 Alcohol abuse counseling and surveillance of alcoholic; F17.210 Nicotine dependence, cigarettes, uncomplicated
CPT/HCPCS: 36415; 49083; 71045; 74177; 74183; 76705; 80053; 80061; 80074; 80307; 81001; 82042; 82105; 82140; 82945; 82947; 83605; 83615; 83735; 84157; 84439; 84443; 85025; 85610; 85730; 87040; 89050; 90714; 93005; 96365; 96372; 96375; 99285; A9577; G0480; J0696; J1815; J3411; J3430; J3475; J7030; J7120; P9047; Q9967

== ENCOUNTER 2024-01-09 08:50 | Inpatient (IN) | payer SELFPAY ==
[2024-01-09] MEDS ORDERED: FUROSEMIDE 40 MG/4 ML VIAL ONE (09:13)
[2024-01-09 09:42] LABS: Absolute Basophils 0.1 K/uL (0-0.5); Absolute Lymphocytes (CBC) 1.8 K/uL (0.7-4.9); Absolute Monocytes 0.7 K/uL (0.1-1.3); Absolute Neutrophil 2.1 K/uL (1.8-8.0); Basophils % 1.3 % (0-1.3); Eosinophils % 0.1 % (0-4.4); Hematocrit 21.2 % (39.6-49.0); Hemoglobin 7.1 g/dL (13.6-17.9); Lymphocytes % 39.1 % (15.3-44.8); MCH 27.5 pg (27.0-35.0); MCHC 33.5 g/dL (32.0-36.0); MCV 82.3 fL (80-100); MPV 7.6 fL (7.6-11.3); Monocytes % 14.3 % (3.3-12.3); Neutrophils % 45.2 % (41.7-73.7); Platelets 168 thou/uL (152-406); RBC Red Blood Cell Count 2.58 M/uL (4.33-5.43)
[2024-01-09] MEDS ORDERED: IBUPROFEN 400 MG TAB ONE ×2 (09:45→09:50)
[2024-01-09 09:50] LABS: SARS-CoV-2 Antigen Rapid Res Negative (Negative)
--- NOTE | 2024-01-09 09:55 | RAD REPORT ---
[facility]16 [facility] CLINICAL HISTORY: Dyspnea;Cough COMPARISON: Chest Single View dated 03/18/2023 TECHNIQUE: Portable AP view of the chest. FINDINGS: The lungs are clear. No pneumothorax or effusion. The cardiomediastinal contours are unre markable. IMPRESSION: No acute cardiopulmonary process.
[2024-01-09 10:04] LABS: Albumin 1.7 g/dL (3.4-5.0); Albumin/Globulin Ratio 0.3 (1.1-1.8); Anion Gap 9.7 mEq/L (5.0-15.0); Bilirubin Direct 0.6 mg/dL (0-0.2); Bilirubin Indirect, Calculated 0.5 mg/dL (0.2-0.8); Bilirubin Total 1.1 mg/dL (0.2-1.0); Globulin 5.3 g/dL (2.3-3.5); Magnesium 1.4 mg/dL (1.6-2.4); Potassium 3.7 mEq/L (3.5-5.1); Troponin High Sensitivity 25.5 pg/mL (<58.9)
[2024-01-09 10:13] LABS: PT Prothrombin Time 19.3 SECONDS (9.5-12.5); PTT, Activated Partial Thromb 39.6 SECONDS (24.3-36.9); Protime INR 1.78
--- NOTE | 2024-01-09 11:00 | RAD REPORT ---
EXAM DESCRIPTION: CT - Abdomen Pelvis W Contrast - 01/09/2024 10:14 am CLINICAL HISTORY: abd distension, cirrhosis COMPARISON: Abdomen Pelvis W Contrast dated 03/18/2023; Mri Abdomen W/Wo Cont dated 03/19/2023 TECHNIQUE: Thin cut axial CT imaging of the abdomen and pelvis was performed following intravenous a dministration of iodinated contrast. Multiplanar reformats were generated and reviewed. All CT scans are performed using dose optimization technique as appropriate and may include automated exposure control or mA/KV adjustment according to patient size. FINDINGS: No suspicious findings in the lung bases. The liver again demonstrates contour nodularity suggesting cirrhosis. Adrenal glands, spleen, and whipple creas show no suspicious findings. Gallbladder and biliary tree are also without suspicious finding. Symmetric renal function is seen with no hydronephrosis or suspicious renal mass. No dilated bowel loops or bowel wall thickening. Large volume free situs. New enlarged lymph nodes al abdias the right external iliac chain/ pelvic sidewall, largest measuring 2.8 cm. Umbilical hernia conta ining fluid has slightly increased in size since the prior exam. No free air, fluid collections, or i nflammatory stranding. No suspicious mass or bulky lymphadenopathy. The urinary bladder is without si gnificant finding. Mild prostatomegaly. No suspicious bony findings. IMPRESSION: Stigmata of cirrhosis with large volume free ascites. New lymphadenopathy along the right external iliac chain/ pelvic sidewall, nonspecific, and may be re active/ inflammatory in nature. Other stable findings as above.
--- NOTE | 2024-01-09 11:38 | EDPHYS ---
Physician Documentation [facility] Name: Hernando Crenshaw Age: 33 yrs Sex: Male : 1990 Arrival Date: 01/09/2024 Time: 08:50 Bed 6 Private MD: ED Physician Ryne Mayen HPI: 01/08 09:28 This 33 yrs old Male presents to ER via Ambulatory with complaints of rn Shortness Of Breath, Fever. 09:28 The patient has shortness of breath at rest, with light activity. Onset: The rn symptoms/episode began/occurred 3 day(s) ago. The patient's shortness of breath is aggravated by exertion, supine position, talking, walking. Severity of symptoms: At their worst the symptoms were moderate in the emergency department the symptoms are unchanged. The patient has experienced similar episodes in the past. Patient reports here for 2 problems. Feels like he is swollen all over for the last 2 weeks, still making urine, but abdomen feels swollen. Denies abdominal pain or vomiting. Also here for fever for the last 3 days and productive cough. No hemoptysis. Last drink was 2 days ago.. Historical: - Allergies: 09:14 No Known Allergies; hb - PMHx: 09:07 Cirrhosis of liver; rs5 - Immunization history:: Adult Immunizations unknown. - Family history:: not pertinent. - Social history:: Smoking status: Patient denies any tobacco usage or history of. - Hospitalizations: : No recent hospitalization is reported. ROS: 09:28 Constitutional: Positive for fever and chills Cardiovascular: Negative for chest pain, rn palpitations, and edema, Respiratory: Positive for cough and shortness of breath Abdomen/GI: Positive for abdominal distention but negative for abdominal pain MS/Extremity: Negative for injury and deformity, Skin: Negative for injury, rash, and discoloration, Neuro: Negative for headache, weakness, numbness, tingling, and seizure, Exam: 09:28 Constitutional: Patient ambulatory to triage, mild tachypnea noted Head/Face: rn Normocephalic, atraumatic. ENT: Dry mucous membranes, no stridor Cardiovascular: Tachycardic, regular. Respiratory: Moderate tachypnea, crackles at bases. Abdomen/GI: Soft, no focal tenderness or guarding or rebound. Positive for fluid wave and umbilical hernia that is easily reducible with primarily fluid contents inside. MS/ Extremity: Pulses equal, no cyanosis. 2+ pitting edema bilateral lower extremities Neuro: Awake and alert, GCS 15 Vital Signs: 09:04 BP 115 / 67; Pulse 90; Resp 32; Temp 101.6(TE); Pulse Ox 98% on R/A; Pain 5/10; hb 09:41 BP 128 / 88; Pulse 84; Resp 24; Pulse Ox 99% on R/A; mb9 10:37 Temp 100.6(O); rs5 10:52 BP 117 / 63; Pulse 79; Resp 24; Pulse Ox 99% on R/A; mb9 11:50 BP 112 / 59; Pulse 80; Resp 22; Temp 98.6(O); Pulse Ox 99% on R/A; rs5 09:04 Pain Scale: Adult hb MDM: 09:01 Patient medically screened. rn 11:06 Data reviewed: vital signs, nurses notes, lab test result(s), radiologic studies, CT rn scan, plain films, and as a result, I will admit patient. I considered the following discharge prescriptions or medication management in the emergency department. Care significantly affected by the following chronic conditions: Liver Disease. 11:35 Differential diagnosis: pneumonia, Pneumothorax pulmonary edema, Volume overload, rn priscila. Counseling: I had a detailed discussion with the patient and/or guardian regarding the historical points, exam findings, and any diagnostic results supporting the discharge/admit diagnosis, lab results, radiology results, the need for further work-up and treatment in the hospital. Response to treatment: the patient's symptoms have mildly improved after treatment, and as a result, I will admit patient. ED course: Patient clinically with pneumonia, blood cultures lactate ordered, antibiotics administered. Chest x-ray is clear. No significant pulmonary edema. Will admit to hospitalist for IV antibiotics for pneumonia as well as diuresis for anasarca. Patient with abdominal distention but does not require immediate paracentesis at this time. No abdominal tenderness or guarding on exam. 01/08 09:06 Order name: BMP; Complete Time: 11:04 [facility] 01/08 09:06 Order name: Blood Culture Adult (2) [facility] 01/08 09:06 Order name: CBC with Diff; Complete Time: 11:04 01/08 09:06 Order name: Hepatic Function; Complete Time: 11:04 01/08 09:06 Order name: Lipase; Complete Time: 11:04 01/08 09:06 Order name: Magnesium; Complete Time: 11:04 01/08 09:06 Order name: NT PRO-BNP; Complete Time: 11:04 01/08 09:06 Order name: PT-INR; Complete Time: 11:04 01/08 09:06 Order name: Ptt, Activated; Complete Time: 11:04 01/08 09:06 Order name: Troponin HS; Complete Time: 11:04 01/08 09:06 Order name: Lactate w/ 2H reflex if indic.; Complete Time: 11:01/08 09:06 Order name: SARS RAPID; Complete Time: 11:04 01/08 09:06 Order name: Flu; Complete Time: 11:04 01/08 09:06 Order name: Strep 7 01/08 09:51 Order name: Throat Culture EDMS 01/08 12:54 Order name: Urinalysis w/ reflexes EDMS 01/08 12:54 Order name: CBC with Automated Diff EDMS 01/08 12:54 Order name: CBC with Automated Diff EDMS 01/08 12:54 Order name: CBC with Automated Diff EDMS 01/08 12:54 Order name: CBC with Automated Diff EDMS 01/08 12:54 Order name: Comprehensive Metabolic Panel EDMS 01/08 12:54 Order name: Comprehensive Metabolic Panel EDMS 01/08 12:54 Order name: Comprehensive Metabolic Panel EDMS 01/08 12:54 Order name: Comprehensive Metabolic Panel EDMS 01/08 12:54 Order name: Magnesium EDMS 01/08 12:54 Order name: Magnesium EDMS 01/08 12:54 Order name: Magnesium EDMS 01/08 12:54 Order name: Magnesium EDMS 01/08 09:06 Order name: XRAY CXR (1 view); Complete Time: 11:04 01/08 09:06 Order name: CT Abd/Pelvis - IV Contrast Only; Complete Time: 11:04 01/08 13:01 Order name: Paracentesis Proc Guidance EDMS 01/08 09:06 Order name: EKG; Complete Time: 09:07 01/08 09:06 Order name: Cardiac monitoring; Complete Time: 09:41 01/08 09:06 Order name: EKG - Nurse/Tech; Complete Time: 10:01/08 09:06 Order name: IV Saline Lock; Complete Time: 10:01/08 09:06 Order name: Labs collected and sent; Complete Time: 10:01/08 09:06 Order name: O2 Per Protocol; Complete Time: :01/08 09:06 Order name: O2 Sat Monitoring; Complete Time: : Administered Medications: 09:51 Drug: Ibuprofen PO 800 mg PO once Route: PO; rs5 11:50 Follow up: Response: No adverse reaction; Temperature is decreased rs5 09:52 Drug: Furosemide IVP 40 mg IVP once; give over 2 minutes Route: IVP; Site: right rs5 antecubital; 10:15 Follow up: Response: No adverse reaction rs5 11:57 Drug: Rocephin IV 1 grams IV at calculated rate once; Given slow IV push per pharmacy as6 instructions Route: IV; Rate: calculated rate; Site: right antecubital; 12:15 Follow up: Response: No adverse reaction rs5 11:57 Drug: Zithromax IVPB 500 mg IVPB once over 1 hrs; mix in 250 mL NS Route: IVPB; Infused as6 Over: 1 hrs; Site: right antecubital; 12:15 Follow up: Response: No adverse reaction rs5 Disposition Summary: 01/09/24 11:38 Hospitalization Ordered Notes: Hospitalization Status: Inpatient Admission rn Provider: Fabián Mayen rn Condition: Stable rn Problem: new rn Symptoms: have improved rn Bed/Room Type: Standard rn Location: Intensive Care Unit(01/09/24 13:04) [email or web address] Room Assignment: 1-(01/09/24 13:04) [facility] Diagnosis - Pneumonia, unspecified organism rn - Alcoholic cirrhosis of liver with ascites rn - Priscila rn Forms: - Medication Reconciliation Form rn - SBAR form rn - Leadership Thank You Letter rn Signatures: Dispatcher [employer] Ryne Miller MD MD rn Baxter, Heather RN David Clifford RN RN jl7 Giuseppe De La Garza RN RN as6 Justin Bran RN RN rs5 Veda Moran jr12 Corrections: (The following items were deleted from the chart) : 11:38 Telemetry/MedSurg (Inpatient) lynda jr12 : 11:38 lynda jr12
--- NOTE | 2024-01-09 11:38 | ER ---
Nurse's Notes [facility] Name: Hernando Crenshaw Age: 33 yrs Sex: Male : 1990 Arrival Date: 01/09/2024 Time: 08:50 Bed 6 Private MD: Diagnosis: Pneumonia, unspecified organism;Alcoholic cirrhosis of liver with ascites;Anasarca Presentation: 01/08 09:04 Chief complaint: BLE and abdominal swelling x 2 weeks, fever, SOB, and cough x 3 days. hb Coronavirus screen: At this time, the client does not indicate any symptoms associated with coronavirus-19. Ebola Screen: No symptoms or risks identified at this time. Initial Sepsis Screen: Does the patient meet any 2 criteria? RR > 20 per min. Temp <36.0*C (96.8*F)) or > 38.3*C (100.9*F). Yes Does the patient have a suspected source of infection? No. Patient's initial sepsis screen is negative. Risk Assessment: Do you want to hurt yourself or someone else? Patient reports no desire to harm self or others. Onset of symptoms was December 26, 2023. 09:04 Method Of Arrival: Ambulatory 09:04 Acuity: JAMA 2 hb Triage Assessment: 09:14 General: Appears distressed, uncomfortable, ill, Behavior is calm, cooperative. Pain: hb Pain currently is 5 out of 10 on a pain scale. Neuro: Level of Consciousness is awake, alert, obeys commands, Oriented to person, place, time, situation. Cardiovascular: Patient's skin is warm and dry. Rhythm is regular. Respiratory: Reports shortness of breath at rest on exertion cough that is Airway is patent Respiratory effort is labored, Respiratory pattern is tachypnea Onset: The symptoms/episode began/occurred 3 days, the patient has moderate shortness of breath. GI: Abdomen is distended. Historical: - Allergies: 09:14 No Known Allergies; hb - PMHx: 09:07 Cirrhosis of liver; rs5 - Immunization history:: Adult Immunizations unknown. - Family history:: not pertinent. - Social history:: Smoking status: Patient denies any tobacco usage or history of. - Hospitalizations: : No recent hospitalization is reported. Screenin:10 [facility] ED Fall Risk Assessment (Adult) History of falling in the last 3 months, rs5 including since admission No falls in past 3 months (0 pts) Confusion or Disorientation No (0 pts) Intoxicated or Sedated No (0 pts) Impaired Gait No (0 pts) Mobility Assist Device Used No (0 pt) Altered Elimination No (0 pt) Score/Fall Risk Level 0 - 2 = Low Risk Oriented to surroundings, Maintained a safe environment. Abuse screen: Denies threats or abuse. Nutritional screening: No deficits noted. Tuberculosis screening: No symptoms or risk factors identified. Assessment: 09:07 General: Appears uncomfortable, Behavior is cooperative. Pain: Complains of pain in rs5 chest and head Pain does not radiate. Pain currently is 5 out of 10 on a pain scale. Quality of pain is described as aching, Pain began one week ago Is continuous. Neuro: Level of Consciousness is awake, alert, obeys commands, Oriented to person, place, time, situation. Cardiovascular: Patient's skin is warm and dry. Rhythm is regular. Respiratory: Airway is patent Respiratory effort is even, unlabored, Respiratory pattern is symmetrical, Breath sounds with wheezes. GI: Abdomen is round distended, large hernia noted to mid lower abdomen, pt states "the hernia doesn't hurt, this happened several years ago, and I was told by a doctor that I didn't need surgery " Bowel sounds present X 4 quads. Reports bloating, Patient currently denies nausea, pain. : No signs and/or symptoms were reported regarding the genitourinary system. EENT: No signs and/or symptoms were reported regarding the EENT system. Derm: Skin is intact, Skin is dry, Skin is normal. Musculoskeletal: Circulation, motion, and sensation intact. Range of motion: intact in all extremities. 09:08 Reassessment: pt states "I used to drink about 12 beers a day, now I only drink about rs5 4. I'm trying to stop drinking, I haven't drank with alcohol in two days". 09:20 Reassessment: pt dropped ibuprofen tablets on the floor. rs5 10:40 Reassessment: Patient and/or family updated on plan of care and expected duration. Pain rs5 level reassessed. Patient is alert, oriented x 3, equal unlabored respirations, skin warm/dry/pink. Patient denies pain at this time. 12:02 Reassessment: No changes from previously documented assessment. rs5 Vital Signs: 09:04 BP 115 / 67; Pulse 90; Resp 32; Temp 101.6(TE); Pulse Ox 98% on R/A; Pain 5/10; hb 09:41 BP 128 / 88; Pulse 84; Resp 24; Pulse Ox 99% on R/A; mb9 10:37 Temp 100.6(O); rs5 10:52 BP 117 / 63; Pulse 79; Resp 24; Pulse Ox 99% on R/A; mb9 11:50 BP 112 / 59; Pulse 80; Resp 22; Temp 98.6(O); Pulse Ox 99% on R/A; rs5 09:04 Pain Scale: Adult hb ED Course: 08:53 Patient arrived in ED. mg5 09:01 Ryne Mayen MD is Attending Physician. rn 09:06 Justin Bran RN is Primary Nurse. rs5 09:10 Patient has correct armband on for positive identification. Bed in low position. Call rs5 light in reach. Side rails up X2. 09:14 Triage completed. hb 09:14 Arm band placed on left wrist. hb 09:15 Client placed on continuous cardiac and pulse oximetry monitoring. NIBP monitoring hb applied. conveyor monitor on. Pulse ox on. NIBP on. 09:18 XRAY CXR (1 view) In Process Unspecified. EDMS 10:16 CT Abd/Pelvis - IV Contrast Only In Process Unspecified. EDMS 11:37 Fabián Mayen MD is Hospitalizing Provider. rn 12:34 No provider procedures requiring assistance completed. Patient admitted, IV remains in rs5 place. Administered Medications: 09:51 Drug: Ibuprofen PO 800 mg PO once Route: PO; rs5 11:50 Follow up: Response: No adverse reaction; Temperature is decreased rs5 09:52 Drug: Furosemide IVP 40 mg IVP once; give over 2 minutes Route: IVP; Site: right rs5 antecubital; 10:15 Follow up: Response: No adverse reaction rs5 11:57 Drug: Rocephin IV 1 grams IV at calculated rate once; Given slow IV push per pharmacy as6 instructions Route: IV; Rate: calculated rate; Site: right antecubital; 12:15 Follow up: Response: No adverse reaction rs5 11:57 Drug: Zithromax IVPB 500 mg IVPB once over 1 hrs; mix in 250 mL NS Route: IVPB; Infused as6 Over: 1 hrs; Site: right antecubital; 12:15 Follow up: Response: No adverse reaction rs5 Medication: 12:33 VIS not applicable for this client. rs5 Outcome: 11:38 Decision to Hospitalize by Provider. rn 12:34 Admitted to ER Hold. Please see [facility] for further documentation. rs5 12:34 Condition: stable 12:34 Discharge instructions given to patient, Instructed on the need for admit, Demonstrated understanding of instructions, 13:21 Patient left the ED. rs5 Signatures: Dispatcher [employer] EDMS Ryne Mayen MD MD rn Baxter, Heather, RN RN hb Slawson, Ashby, RN RN as6 Bessy Samuel RN RN mb9 Justin Bran RN RN rs5 Padmini Luciano mg5 Corrections: (The following items were deleted from the chart) 12:32 12:31 Response: No adverse reaction; Temperature is decreased rs5 rs5
[2024-01-09] MEDS ORDERED: CEFTRIAXONE 1000 MG/VIAL ONE (11:50)
[2024-01-09] MEDS ORDERED: AZITHROMYCIN 500 MG INJ IVPB ONE (11:50)
[2024-01-09] MEDS ORDERED: NA CHLORIDE 0.9% 250 ML ONE (11:50)
[2024-01-09] MEDS ORDERED: ONDANSETRON 4 MG/2 ML VIAL IV PRN (12:50)
--- NOTE | 2024-01-09 13:05 | P.HP ---
Certification for Inpatient Patient admitted to: Inpatient With expected LOS: >2 Midnights Practitioner: I am a practitioner with admitting privileges, knowledge of patient current condition, hospital course, and medical plan of care. Services: Services provided to patient in accordance with Admission requirements found in Title 42 Section 412.3 of the Code of Federal Regulations Patient History Date of Service: 01/09/24 Reason for admission: sepsis, decompensated cirrhosis History of Present Illness: 33yo M, PMH: alcoholic cirrhosis presents to ED due to ~1 week of fever, cough, generalized malaise, and worsening abdominal distention and lower extremity edema. He states he stopped taking his lasix/aldactone a few months ago and starting drinking beer again. Over the last 3 months, he has slowly been retaining fluid. He denies nausea/vomiting, no diarrhea, no rashes/skin lesions, no sick contacts. He has been having chills and fever at home, much worse in the last day. He described abdominal pain due to the swelling and "tightness". He has taken some tylenol for fever/chills at home. ~1 year ago he was drinking ~12 beers/day and was hospitalized for similar. He quit for a few months, then started feeling better, and unfortunately stopped taking his meds and started drinking. In the ED he was noted to have a fever of 101, lactate: 1.6, mildly elevated LFTs, elevated INR, hyponatremia, and significant ascites/edema. CXR was without acute findings. He received empiric antibiotics - after cultures were obtained. Radiology consulted for paracentesis Allergies No Known Allergies Allergy (Unverified 03/18/23 22:54) Home Medications: NK [No Home Meds] 01/09/24 - Past Medical/Surgical History Diabetic: No -: hypercholesterolemia -: alcoholic cirrhosis Past Surgical History: Patient denies surgical history -: None Psychosocial/ Personal History: Patient is at home with his family - Family History Family History: Reviewed- Non-Contributory - Family History Mother -: Diabetes - Social History Smoking Status: Former smoker Alcohol use: Yes CD- Drugs: Yes Caffeine use: Yes Place of Residence: Home Review of Systems 10-point ROS is otherwise unremarkable Physical Examination - Physical Exam General: Alert, Oriented x3, Mild distress HEENT: PERRLA, EOMI, Sclerae nonicteric, Scleral icterus Neck: Supple, No LAD Respiratory: Diminished, Other (shallow respirations, non labored at rest) Cardiovascular: Edema (2+ b/l lower extremities) Gastrointestinal: Hypoactive, Ascites, Tenderness (mild; no guarding, no rebound) Musculoskeletal: No contractures, No tenderness Integumentary: No rashes, No significant lesion Neurological: Normal speech, Normal strength at 5/5 x4 extr, Normal affect - Studies Laboratory Data (last 24 hrs) 01/09/24 01/09/24 01/09/24 09:50 09:25 09:25 WBC 4.70 Hgb 7.1 L Hct 21.2 L Plt Count 168 PT 19.3 H INR 1.78 APTT 39.6 H Sodium 125 L Potassium 3.7 BUN 9 Creatinine 0.95 Glucose 101 Magnesium 1.4 L Total Bilirubin 1.1 H AST 129 H ALT 39 Alkaline Phosphatase 155 H Lipase 63 Microbiology Data (last 24 hrs): 01/09/24 09:25 Nasopharnyx Influenza Type A Antigen Screen - Final 01/09/24 09:25 Nasopharnyx Influenza Type B Antigen Screen - Final 01/09/24 09:25 Throat Group A Streptococcus Rapid Screen - Final Assessment and Plan - Advance Directives Does patient have a Living Will: No Does patient have a Durable POA for Healthcare: No Physician Review Additional Text: Problem List: Alcoholic cirrhosis of the liver with large volume ascites Sepsis, with unclear etiology, possible SBP Chronic alcohol dependence/alcohol use disorder hypoalbuminemia secondary to above Anemia, acute on chronic. Alcoholic cirrhosis of the liver with large volume ascites Sepsis, with unclear etiology, possible SBP Patient reports drinking 12-18 beers per day for last 7 years up until the last year, now drinking ~4-6 beers/day was hospitalized for similar last year and started on lasix/spironolactone stopped these medications ~3 months ago, and started drinking alcohol again progressive ascites and now lower extremity edema over the last 2-3 months Counseled extensively on need for immediate cessation of all alcohol. Patient speaks [place] primarily hypoalbuminemia sepsis - febrile, tachypneic, briefly tachycardic with unclear etiology lactate 1.6 reports cough, chills, and abdominal discomfort for last week no sick contacts abd discomfort described as mild, and more due to distention; only minimally tender to deep palpation, no peritoneal signs less likely SBP, however he is at high risk CT with new lymphadenopathy - right external iliac chain/ pelvic sidewall, nonspecific, and may be reactive/ inflammatory in nature f/u cultures, check urine - denies any dysuria, no diarrhea, no vomiting, no meningeal signs paracentesis ordered, diagnostic and therapeutic, will likely need albumin after monitor in ICU for now MELD: 24 INR: 1.7 Chronic alcohol dependence/alcohol use disorder withdrawal protocol ordered IV thiamine / folic acid ICU for now currently not in withdrawal Anemia, acute on chronic. No signs of active bleeding currently. reports ~1 week of having bleeding gums and dark stool, resolved ~1 month ago denies melena currently Code: full Dispo: admit to ICU for liver failure, alcohol withdrawal Time Spent Managing Pts Care (In Minutes): 65
[2024-01-09 14:00] VITALS: BMI 28.4
[2024-01-09] MEDS ORDERED: FLUMAZENIL 0.1 MG/ML (5 mL VIAL) IV PRN (14:28)
--- NOTE | 2024-01-09 14:36 | RAD REPORT ---
EXAM DESCRIPTION: US - Paracentesis Proc Guidance - 01/09/2024 1:58 pm CLINICAL HISTORY: Ascites. Diagnostic and therapeutic COMPARISON: Paracentesis Proc Guidance dated 03/19/2023 FINDINGS: Informed consent was obtained and time-out was performed. Patient's abdomen was prepped and draped in the usual sterile fashion. 1% lidocaine was used for loca l anesthetic purposes. A small skin incision was made. A paracentesis catheter was guided into the peroneal cavity under son ographic guidance. Return of straw-colored ascitic fluid was noted. A small amount of fluid was sent for requested lab studies. A large volume paracentesis was performed . The patient tolerated the procedure well. Patient was administered IV albumin per protocol following the procedure. IMPRESSION: Successful ultrasound-guided diagnostic and therapeutic paracentesis.
[2024-01-09 16:01] LABS: Appearance CLEAR (CLEAR); Body Fluid Source PERITONEAL; Body Fluid WBC 38 /mm^3; Color of Supernate Not Xanthochromic (Not Xantho); Color of fluid Yellow (COLORLESS)
[2024-01-09 16:04] LABS: Body Fluid Lymphocytes 16 %; Fluid Total Cells Count 100
[2024-01-09 16:33] LABS: Specific Gravity 1.011 (1.005-1.030); Urine Bacteria <20 /HPF (<20); Urine Bilirubin NEGATIVE (Negative); Urine Blood 3+ (Negative); Urine Clarity Clear (Clear); Urine Color Colorless (Yellow); Urine Glucose NEGATIVE (Negative); Urine Mucus Slight /HPF (None Seen); Urine Protein NEGATIVE (Negative); Urine Urobilinogen Normal (Normal)
[2024-01-09] MEDS: FUROSEMIDE 20 MG/ 2ML VIAL IV SCH (17:16)
[2024-01-09] MEDS: LORazepam 2 MG/ML VIAL IV ONE (17:51)
[2024-01-09] MEDS: ACETAMINOPHEN 325 MG TABLET PO PRN (20:00)
[2024-01-09] MEDS ORDERED: ACETAMINOPHEN 325 MG TABLET ONE (20:03)
[2024-01-09] MEDS ORDERED: THIAMINE HCL 100 MG TABLET ONE (20:04)
[2024-01-09] MEDS ORDERED: FOLIC ACID 1 MG TABLET ONE (20:04)
[2024-01-09] MEDS: FOLIC ACID 1 MG TABLET PO SCH (20:07)
[2024-01-09] MEDS: SPIRONOLACTONE 25 MG TABLET PO SCH (20:08)
[2024-01-09] MEDS: THIAMINE 200 MG/2 ML INJ IVP SCH (20:11)
[2024-01-09] MEDS ORDERED: THIAMINE 200 MG/2 ML INJ ONE (20:11)
[2024-01-09] MEDS: LORazepam 2 MG/ML VIAL IV PRN (21:29)
[2024-01-10 05:05] LABS: Absolute Lymphocytes (CBC) 1.7 K/uL (0.7-4.9); Absolute Monocytes 0.5 K/uL (0.1-1.3); Absolute Neutrophil 1.6 K/uL (1.8-8.0); Basophils % 0.6 % (0-1.3); Eosinophils % 0.1 % (0-4.4); Hemoglobin 7.6 g/dL (13.6-17.9); Lymphocytes % 44.6 % (15.3-44.8); MCH 27.4 pg (27.0-35.0); MCHC 33.2 g/dL (32.0-36.0); MCV 82.4 fL (80-100); MPV 7.8 fL (7.6-11.3); Monocytes % 13.7 % (3.3-12.3); Percent Reticulocyte Count 1.57 % (0.4-2.05); Platelets 149 thou/uL (152-406); RBC Red Blood Cell Count 2.79 M/uL (4.33-5.43); Red Cell Distribution Width 20.1 % (12.1-15.2)
[2024-01-10 05:43] LABS: Albumin 1.5 g/dL (3.4-5.0); Albumin/Globulin Ratio 0.3 (1.1-1.8); Anion Gap 8.6 mEq/L (5.0-15.0); Ferritin 131.2 ng/mL (26-388); Globulin 4.7 g/dL (2.3-3.5); Magnesium 1.4 mg/dL (1.6-2.4); Potassium 3.6 mEq/L (3.5-5.1); Protein, Total 6.2 g/dL (6.4-8.2)
[2024-01-10] MEDS ORDERED: NA CHLORIDE 0.9% 100 ML ONE ×2 (06:06→08:08)
[2024-01-10] MEDS: Magnesium Sulfate 2gm IVPB 2 G/50 ML BAG IV ONE (06:10)
[2024-01-10] MEDS: ALBUMIN HUM 5% 500 ML IV ONE ×2 (07:00→08:37)
--- NOTE | 2024-01-10 07:27 | P.PN ---
Date of Service: 01/10/24 Subjective: had diagnostic / therapeutic paracentesis done yesterday ~6L removed mild-mod tremors reported overnight +sweating and fever throughout the night denies any significant abdominal pain / discomfort ROS: 10 point ROS as noted above, otherwise negative Physical Exam: GEN: Alert, oriented, drowsy HEENT: Normal conjunctiva, sclera anicteric CV: Regular rate and rhythm, 1+ b/l lower extremities Pulm: shallow respirations on room air, diminished at bases b/l ABD: Hypoactive, mild tenderness on deep palpation, no guarding, no rebound, +Ascites, +umbilical hernia Neuro: Normal speech, drowsy, +tremors vitals reviewed Problem List: Alcoholic cirrhosis of the liver with large volume ascites Sepsis, with unclear etiology, possible SBP Hypocalcemia / Pseudohypocalcemia in setting of hypoalbuminemia Chronic alcohol dependence/alcohol use disorder hypoalbuminemia secondary to above Mod-severe Iron deficiency anemia, acute on chronic. Alcoholic cirrhosis of the liver with large volume ascites Sepsis, with unclear etiology, possible SBP Hypocalcemia / Pseudohypocalcemia in setting of hypoalbuminemia Patient reports drinking 12-18 beers per day for last 7 years up until the last year, now drinking ~4-6 beers/day was hospitalized for similar last year and started on lasix/spironolactone stopped these medications ~3 months ago, and started drinking alcohol again sepsis - febrile, tachypneic, briefly tachycardic with unclear etiology lactate 1.6 reports cough, chills, and abdominal discomfort for last week. no sick contacts abd discomfort described as mild, and more due to distention; only minimally tender to deep palpation, no peritoneal signs less likely SBP, however he is at high risk CT with new lymphadenopathy - right external iliac chain/ pelvic sidewall, nonspecific, and may be reactive/ inflammatory in nature f/u cultures, check urine - denies any dysuria, no diarrhea, no vomiting, no meningeal signs Blood cx (01/08): NGTD Paracentesis cx (01/08): prelim no growth febrile to 102 overnight, expanded to cefepime/vanc on 01/09 monitor in ICU for now MELD: 24 INR: 1.7 s/p diagnostic and therapeutic paracentesis (01/08) ~6L removed given albumin / Chronic alcohol dependence/alcohol use disorder withdrawal protocol ordered IV thiamine / folic acid ICU for now mild-mod tremors noted overnight, +sweating / fever PRN ativan will monitor today, may need scheduled regimen suspect some of symptoms from fever severe Iron deficiency anemia, acute on chronic. No signs of active bleeding currently. reports ~1 week of having bleeding gums and dark stool, resolved ~1 month ago iron studies this hospitalization consistent with severe iron deficiency denies melena currently Code: Full Dispo: home, ~2 days Continue ICU level of care
[2024-01-10] MEDS ORDERED: FOLIC ACID 1 MG TABLET ONE ×2 (08:08→19:40)
[2024-01-10] MEDS ORDERED: CEFEPIME 2 GM VIAL ONE ×2 (08:08→15:34)
[2024-01-10] MEDS ORDERED: THIAMINE 200 MG/2 ML INJ ONE ×2 (08:08→19:40)
[2024-01-10] MEDS: CEFEPIME 2 GM in NA CHLORIDE 0.9% 100 ML IV SCH ×2 (08:24→09:00)
[2024-01-10] MEDS: POTASSIUM 25 MEQ EFFERV TAB PO ONE (08:24)
[2024-01-10] MEDS: VANCOMYCIN 2 GM in NA CHLORIDE 0.9% 500 ML IVPB ONE (08:38)
[2024-01-10] MEDS ORDERED: CEFTRIAXONE 2,000 MG in NA CHLORIDE 0.9% 100 ML IV SCH (09:00)
[2024-01-10] MEDS ORDERED: VANCOMYCIN 1.5 GM in NA CHLORIDE 0.9% 500 ML IVPB SCH (09:00)
[2024-01-10 09:05] LABS: Anisocytosis 1+; Blood Morphology Comment NOTED (NOT SEEN); Hypochromasia 1+; Platelet Estimate ADEQ; White Blood Cell Scan OK (OK)
[2024-01-10] MEDS ORDERED: ACETAMINOPHEN 325 MG TABLET ONE (15:33)
[2024-01-10] MEDS ORDERED: NA CHLORIDE 0.9% 50 ML ONE (15:34)
[2024-01-10] MEDS: VANCOMYCIN 1.5 GM in NA CHLORIDE 0.9% 500 ML IVPB SCH (20:04)
[2024-01-11 05:13] LABS: Absolute Lymphocytes (CBC) 1.4 K/uL (0.7-4.9); Absolute Monocytes 0.5 K/uL (0.1-1.3); Absolute Neutrophil 0.4 K/uL (1.8-8.0); Basophils % 1.3 % (0-1.3); Eosinophils % 1.8 % (0-4.4); Hematocrit 19.8 % (39.6-49.0); Hemoglobin 6.6 g/dL (13.6-17.9); Lymphocytes % 55.9 % (15.3-44.8); MCH 27.6 pg (27.0-35.0); MCHC 33.5 g/dL (32.0-36.0); MCV 82.3 fL (80-100); Neutrophils % 18.4 % (41.7-73.7); Nucleated Red Blood Cells % 0.2 % (0-0); Platelets 144 thou/uL (152-406); Red Cell Distribution Width 20.5 % (12.1-15.2)
[2024-01-11 05:15] LABS: Monocytes % 22.6 % (3.3-12.3)
[2024-01-11 05:20] LABS: Albumin 1.4 g/dL (3.4-5.0); Albumin/Globulin Ratio 0.3 (1.1-1.8); Anion Gap 9.5 mEq/L (5.0-15.0); Bilirubin Total 0.9 mg/dL (0.2-1.0); Globulin 4.2 g/dL (2.3-3.5); Magnesium 1.7 mg/dL (1.6-2.4); Phosphorus 2.7 mg/dL (2.5-4.9); Potassium 3.5 mEq/L (3.5-5.1); Protein, Total 5.6 g/dL (6.4-8.2)
[2024-01-11] MEDS: MAGNESIUM SULFATE 1 gm IVPB 1 GM/100 ML BAG IV ONE (05:48)
[2024-01-11] MEDS: PANTOPRAZOLE 40MG TABLET PO SCH (06:25)
[2024-01-11] MEDS ORDERED: NA CHLORIDE 0.9% 250 ML IV SCH (07:00)
[2024-01-11] MEDS ORDERED: FOLIC ACID 1 MG TABLET ONE ×2 (07:13→19:49)
[2024-01-11] MEDS ORDERED: THIAMINE 200 MG/2 ML INJ ONE ×2 (07:13→19:49)
[2024-01-11] MEDS ORDERED: ACETAMINOPHEN 325 MG TABLET ONE ×2 (07:17→16:43)
--- NOTE | 2024-01-11 07:30 | P.PN ---
Date of Service: 01/11/24 Subjective: Mild tremors noted overnight Intermittent fever continues, 101 temp overnight +tachypneic, +soft BP, HR stable in 70-80s overall feels better lasix/aldactone held yesterday due to low/borderline BP ROS: 10 point ROS as noted above, otherwise negative Physical Exam: GEN: Alert, oriented, NAD HEENT: Normal conjunctiva, sclera anicteric CV: Regular rate and rhythm, 1+ b/l lower extremities up to thighs Pulm: shallow respirations on room air, diminished at bases b/l, nonlabored at rest ABD: Hypoactive, mild tenderness on deep palpation, no guarding, no rebound, +Ascites, +umbilical hernia Neuro: Normal speech, +mild tremors vitals reviewed Problem List: Alcoholic cirrhosis of the liver with large volume ascites Sepsis, with unclear etiology, possible SBP Hypocalcemia / Pseudohypocalcemia in setting of hypoalbuminemia Chronic alcohol dependence/alcohol use disorder hypoalbuminemia secondary to above Mod-severe Iron deficiency anemia, acute on chronic. Alcoholic cirrhosis of the liver with large volume ascites Sepsis, with unclear etiology, possible SBP Hypocalcemia / Pseudohypocalcemia in setting of hypoalbuminemia Patient reports drinking 12-18 beers per day for last 7 years up until the last year, now drinking ~4-6 beers/day was hospitalized for similar last year and was started on lasix/spironolactone then stopped these medications ~3 months ago, and started drinking alcohol again sepsis - febrile, tachypneic, briefly tachycardic with unclear etiology, lactate 1.6 reports cough, chills, and abdominal discomfort for last week. no sick contacts CXR, and CT abd noted clear bases of lungs, no opacities on CXR. flu and covid negative abd discomfort described as mild, and more due to distention; only minimally tender to deep palpation, no peritoneal signs less likely SBP, however he is at high risk CT with new lymphadenopathy - right external iliac chain/ pelvic sidewall, nonspecific, and may be reactive/ inflammatory in nature can be seen due to ascites/sbp, doubt malignancy f/u cultures, check urine - denies any dysuria, no diarrhea, no vomiting, no meningeal signs Blood cx (01/08): NGTD Paracentesis cx (01/08): no growth abx expanded to cefepime/vanc on 3/2 given high / ongoing fever MELD: 24 on admission; INR: 1.7 s/p diagnostic and therapeutic paracentesis (01/08) ~6L removed given albumin 01/08 and 01/09 restart lasix IV 20 BID, and aldactone 01/10 Chronic alcohol dependence/alcohol use disorder withdrawal protocol ordered IV thiamine / folic acid mild tremors noted overnight, +Intermittent fever PRN ativan suspect some of symptoms from fever improving, likely downgrade from ICU today severe Iron deficiency anemia, acute on chronic. No obvious signs of active bleeding currently. Patient denies melena currently reports ~1 week of having bleeding gums and dark stool, resolved ~1 month ago iron studies this hospitalization consistent with severe iron deficiency PPI hgb 7.6 -> 6.6 (01/10) 1 uPRBC ordered (01/10) Repeat H&H post transfusion no bleeding noted on exam Code: Full Dispo: home, ~2 days Continue ICU level of care; downgrade later today after blood transfusion and if remains stable
[2024-01-11] MEDS: POTASSIUM 25 MEQ EFFERV TAB PO ONE (07:57)
[2024-01-11] MEDS: CALCIUM CARBONATE CHEW 500MG TAB PO SCH (08:04)
[2024-01-11] MEDS ORDERED: NA CHLORIDE 0.9% 100 ML ONE (08:57)
[2024-01-11 14:20] LABS: Hematocrit 24.5 % (39.6-49.0); Hemoglobin 8.2 g/dL (13.6-17.9)
[2024-01-12] MEDS: VANCOMYCIN 250 MG in NA CHLORIDE 0.9% 100 ML IVPB ONE (01:15)
[2024-01-12] MEDS ORDERED: NA CHLORIDE 0.9% 100 ML ONE ×2 (01:20→01:22)
[2024-01-12] MEDS ORDERED: CEFEPIME 2 GM VIAL ONE (01:20)
[2024-01-12] MEDS ORDERED: VANCOMYCIN 500 MG/VIAL ONE (01:22)
[2024-01-12 04:53] LABS: Absolute Eosinophils 0.1 K/uL (0-0.5); Absolute Lymphocytes (CBC) 1.7 K/uL (0.7-4.9); Absolute Monocytes 0.7 K/uL (0.1-1.3); Absolute Neutrophil 0.3 K/uL (1.8-8.0); Basophils % 1.3 % (0-1.3); Eosinophils % 1.9 % (0-4.4); Hemoglobin 8.1 g/dL (13.6-17.9); Lymphocytes % 62.2 % (15.3-44.8); MCH 27.8 pg (27.0-35.0); MCHC 33.9 g/dL (32.0-36.0); MCV 82.1 fL (80-100); MPV 7.5 fL (7.6-11.3); Neutrophils % 9.4 % (41.7-73.7); Nucleated Red Blood Cells % 0.1 % (0-0); Platelets 144 thou/uL (152-406); RBC Red Blood Cell Count 2.92 M/uL (4.33-5.43); Red Cell Distribution Width 20.1 % (12.1-15.2)
[2024-01-12 04:55] LABS: Monocytes % 25.2 % (3.3-12.3)
[2024-01-12 05:10] LABS: Albumin 1.4 g/dL (3.4-5.0); Albumin/Globulin Ratio 0.3 (1.1-1.8); Anion Gap 11.3 mEq/L (5.0-15.0); Bilirubin Total 1.4 mg/dL (0.2-1.0); Globulin 4.6 g/dL (2.3-3.5); Magnesium 1.5 mg/dL (1.6-2.4); Potassium 4.3 mEq/L (3.5-5.1)
[2024-01-12] MEDS ORDERED: PANTOPRAZOLE 40MG TABLET PO ONE (06:00)
--- NOTE | 2024-01-12 07:15 | P.PN ---
Date of Service: 01/12/24 Subjective: doing well, denies any new/worsening symptoms legs less swollen. eating well ~3 small loose BMs yesterday, no blood, not dark/black afebrile overnight ROS: 10 point ROS as noted above, otherwise negative Physical Exam: GEN: Alert, oriented, NAD HEENT: Normal conjunctiva, sclera anicteric CV: Regular rate and rhythm, 1+ b/l lower extremities up to thighs Pulm: diminished at bases b/l, nonlabored at rest, on room air ABD: +ascites, soft, nontender Neuro: Normal speech, normal affect vitals reviewed Problem List: Alcoholic cirrhosis of the liver with large volume ascites Sepsis, with unclear etiology, possible SBP Hypocalcemia / Pseudohypocalcemia in setting of hypoalbuminemia Chronic alcohol dependence/alcohol use disorder hypoalbuminemia secondary to above Mod-severe Iron deficiency anemia, acute on chronic. Alcoholic cirrhosis of the liver with large volume ascites Sepsis, with unclear etiology, possible SBP Hypocalcemia / Pseudohypocalcemia in setting of hypoalbuminemia sepsis - febrile, tachypneic, briefly tachycardic with unclear etiology, lactate 1.6 reports cough, chills, and abdominal discomfort for last week. no sick contacts CXR, and CT abd noted clear bases of lungs, no opacities on CXR. flu and covid negative abd discomfort described as mild, and more due to distention; only minimally tender to deep palpation, no peritoneal signs less likely SBP, however he is at high risk CT with new lymphadenopathy - right external iliac chain/ pelvic sidewall, nonspecific, and may be reactive/ inflammatory in nature can be seen due to ascites/sbp, doubt malignancy denies any dysuria, no diarrhea, no vomiting, no meningeal signs Blood cx (01/08): NGTD Paracentesis cx (01/08): no growth abx expanded to cefepime/vanc on 01/09 given high / ongoing fever ID consulted afebrile last 24hrs, ROS remains negative. will de-escalate antibiotic and monitor for fever. if febrile, will repeat CT abd/pelvis MELD: 24 on admission; INR: 1.7 s/p diagnostic and therapeutic paracentesis (01/08) ~6L removed given albumin 01/08 and 01/09 Continue lasix, PO aldactone; restarted 3/3 Chronic alcohol dependence/alcohol use disorder withdrawal protocol ordered IV thiamine / folic acid PRN ativan tremors improving; afebrile last 24 hours improving, downgraded from ICU 01/10 severe Iron deficiency anemia, acute on chronic. No obvious signs of active bleeding currently. Patient denies melena currently reports ~1 week of having bleeding gums and dark stool, resolved ~1 month ago iron studies this hospitalization consistent with severe iron deficiency s/p 1 uPRBC (01/10) hgb 6.6 -> 8.2 -> 8.1 (01/11) no bleeding noted on exam PPI Code: Full Dispo: home, ~1 day downgraded from ICU 01/10 Pending stable hgb, afebrile > 24 hours
[2024-01-12] MEDS ORDERED: THIAMINE 200 MG/2 ML INJ ONE (08:08)
[2024-01-12] MEDS: VANCOMYCIN 1.75 GM in NA CHLORIDE 0.9% 500 ML IVPB SCH (09:49)
[2024-01-12] MEDS ORDERED: FOLIC ACID 1 MG TABLET ONE (09:52)
--- NOTE | 2024-01-12 10:05 | P.CNS ---
Date of Consult: 01/12/24 Reason for Consult: fever unknown origin Requesting Physician: Fabián Mayen Chief Complaint: sepsis, decompensated cirrhosis History of Present Illness: Patient is a 33 yo male with a medical history of alcoholic cirrhosis who presen ericka to the ED with complaints of fever, cough, generalized weakness and abdominal distention x 1 week prior to arrival. Patient was noted to have significant ascites and underwent paracentesis 01/08 with ~6L removed. Patient continued to have fevers 101-102 F, antibiotics escalated to cefepime and vancomycin pending culture results on 01/09. Infectious disease consulted. Allergies No Known Allergies Allergy (Unverified 03/18/23 22:54) Home Medications: NK [No Home Meds] 01/09/24 - Past Medical/Surgical History Diabetic: No -: hypercholesterolemia -: alcoholic cirrhosis -: ascities -: None Psychosocial/ Personal History: Patient is at home with his family - Family History Mother Medical History: Diabetes - Social History Smoking Status: Current some day smoker Alcohol use: Yes CD- Drugs: Yes Caffeine use: Yes Place of Residence: Home Review of Systems 10-point ROS is otherwise unremarkable General: Weakness Physical Examination Temp Pulse Resp BP Pulse Ox 99.4 F 90 20 108/62 99 01/12/24 04:00 01/12/24 09:49 01/12/24 05:43 01/12/24 09:49 01/12/24 05:43 General: Alert, In no apparent distress, Oriented x3 HEENT: Atraumatic, Normocephalic Respiratory: Clear to auscultation bilaterally, Normal air movement Cardiovascular: No edema, Regular rate/rhythm Gastrointestinal: Normal bowel sounds, Distended, Tenderness (mild) Integumentary: No rashes Neurological: Normal speech Laboratory Data - Reviewed Microbiology Data - Reviewed Imagings Data: - Reviewed Conclusions/Impression: Problem List Alcoholic Cirrhosis Alcohol use disorder Iron deficiency anemia Alcoholic Cirrhosis Ascites - CT abdomen pelvis 01/08: "Stigmata of cirrhosis with large volume free ascites. New lymphadenopathy along the right external iliac chain/ pelvic sidewall, nonspecific, and may be reactive/ inflammatory in nature. Other stable findings as above" - XR Chest 01/08: "No acute cardiopulmonary process" - s/p paracentesis 01/08, 6L fluid removed. - fluid culture no growth to date - Currently on Cefepime and Vancomycin (01/09-) - Blood cultures 01/08: no growth to date - Negative influenza. negative covid. - throat culture 01/08: normal respiratory shanon. no strep. - urinalysis not suggestive of UTI - Fever curve downtrending - Leukopenia Recommendations - Discontinue Cefepime and Vancomycin. Consider switch to Rocephin IV and continue to monitor fever curve. Alternative: Ciprofloxacin IV -> PO as tolerated. Continue antibiotic therapy for 7 days (01/09-01/16). - Follow up with peritoneal fluid analysis - alcohol cessation counseling. - withdrawal protocol - continue supportive care Case discussed with Ladonna Lock
[2024-01-12] MEDS ORDERED: CIPROFLOXACIN 400mg IV 400 MG/200 ML BAG IV ONE (13:41)
[2024-01-12] MEDS: CIPROFLOXACIN 400mg IV 400 MG/200 ML BAG IV SCH (13:53)
--- NOTE | 2024-01-12 23:39 | RAD REPORT ---
EXAM DESCRIPTION: CT - Chest Abdomen Pelvis W Cont - 01/12/2024 10:15 pm CLINICAL HISTORY: persistent fever, unknown etiology, cirrhosis COMPARISON: Abdomen Pelvis W Contrast dated 01/09/2024; Abdomen Pelvis W Contrast dated 03/18/2023 TECHNIQUE: Thin axial CT images of the chest, abdomen, and pelvis, performed following intravenous a dministration of iodinated contrast. Multiplanar reformats were generated and reviewed. All CT scans are performed using dose optimization technique as appropriate and may include automated exposure control or mA/KV adjustment according to patient size. FINDINGS: The lungs are clear.No pleural or pericardial effusion.No intrathoracic adenopathy. The liver demonstrates nodular contour and relative caudate lobe hypertrophy suggesting cirrhosis. Sm all hyperenhancing lesions, largest measuring 1 cm along the inferior margin of the right liver lobe, more conspicuous than on prior exam. Spleen, pancreas, adrenal glands and kidneys are within normal limits. Gallbladder is contracted limiting evaluation. No bowel obstruction, free air, or fluid collections. Large volume ascitis again seen. Normal appendi x. Stained fluid-filled umbilical hernia. Stable enlarged lymph nodes along the right pelvic sidewal l and external iliac chain as well as the right inguinal region, largest measuring 3 cm. No worrisome osseous finding. IMPRESSION: Stigmata of cirrhosis with large volume ascites. Small hyperenhancing hepatic lesions, up to 1 cm in size, not well characterized, but may represent d ysplastic nodules. Additional evaluation by liver protocol MRI would be helpful if clinically indicat ed. Stable right pelvic sidewall/ external iliac chain adenopathy. No acute findings in the chest.
--- NOTE | 2024-01-13 13:58 | P.PN ---
Subjective Date of Service: 01/13/24 Chief Complaint: sepsis, decompensated cirrhosis Patient has been experiencing low-grade fever today. He denies new complaint and wants to go home. Physical Examination - Vital Signs Temperature: 99.4 F Blood Pressure: 140/71 Pulse: 80 Respirations: 18 Pulse Ox (%): 100 Assessment And Plan - Plan Physical Exam: GEN: Alert, oriented, NAD HEENT: Normal conjunctiva, sclera icteric CV: Regular rate and rhythm, 1+ b/l lower extremities up to thighs Pulm: Clear to auscultation bilaterally, no rhonchi or wheezes ABD: +ascites, soft, nontender, moderately distended. Neuro: Normal speech, normal affect vitals reviewed Problem List: Alcoholic cirrhosis of the liver with large volume ascites Sepsis, with unclear etiology, possible SBP Hypocalcemia / Pseudohypocalcemia in setting of hypoalbuminemia Chronic alcohol dependence/alcohol use disorder hypoalbuminemia secondary to above Mod-severe Iron deficiency anemia, acute on chronic. Alcoholic cirrhosis of the liver with large volume ascites Sepsis, with unclear etiology, possible SBP Hypocalcemia / Pseudohypocalcemia in setting of hypoalbuminemia Fever of unknown origin sepsis - febrile, tachypneic, briefly tachycardic with unclear etiology, lactate 1.6 reports cough, chills, and abdominal discomfort for last week. no sick contacts CXR, and CT abd noted clear bases of lungs, no opacities on CXR. flu and covid negative No peritoneal signs less likely SBP. CT with new lymphadenopathy - right external iliac chain/ pelvic sidewall, nonspecific, and may be reactive/ inflammatory in nature can be seen due to ascites/sbp, doubt malignancy. Also noted higher lymphocyte differential with suggest inflammatory reaction. denies any dysuria, no diarrhea, no vomiting, no meningeal signs Blood cultures and peritoneal fluid culture all shows no growth. Peritoneal fluid analysis shows insignificant WBC Infectious disease input appreciated Continue cefepime and vancomycin Obtain venous Doppler to rule out thromboembolism given hypercoagulable state with liver cirrhosis MELD: 24 on admission; INR: 1.7 s/p diagnostic and therapeutic paracentesis (01/08) ~6L removed given albumin / and 3/2 Continue lasix, PO aldactone; restarted 01/10 Chronic alcohol dependence/alcohol use disorder withdrawal protocol ordered. IV thiamine / folic acid PRN ativan Currently patient has no symptoms of alcohol withdrawal severe Iron deficiency anemia, acute on chronic. No obvious signs of active bleeding currently. Patient denies melena currently reports ~1 week of having bleeding gums and dark stool, resolved ~1 month ago iron studies this hospitalization consistent with severe iron deficiency s/p 1 uPRBC (3/) hgb 6.6 -> 8.2 -> 8.1 (3/) no bleeding noted on exam PPI. Oral iron therapy on discharge. Hyponatremia Hypervolemic hyponatremia secondary to liver cirrhosis. Manage with fluid restriction. Code: Full Dispo: home once afebrile.
--- NOTE | 2024-01-13 16:38 | RAD REPORT ---
EXAM DESCRIPTION: US - Extrem Venous W Compress Bryson - 01/13/2024 3:26 pm CLINICAL HISTORY: Unexplained fever. R/O DVT COMPARISON: None. TECHNIQUE: Real-time sonographic evaluation of the bilateral lower extremity deep venous systems was performed. FINDINGS: Normal compressibility, flow augmentation, phasic flow and spontaneous flow is identified in both the left and right lower extremity deep venous systems. 1.3 cm well-circumscribed structure i nseparable from the right popliteal vein, may represent a venous varix or a closely adjacent cyst, gi fortino that some venous flow is seen along its deeper aspect. No intraluminal filling defects seen. Mil dly prominent right groin lymph nodes with preserved fatty penny. IMPRESSION: No DVT in either lower extremity.
--- NOTE | 2024-01-13 17:21 | EKG ---
Test Date: 2024-01-09 Test Time: 09:26:10 Director Cost: EM MEASUREMENT RESULTS: Intervals: Rate: 85 IA: 140 QRSD: 76 QT: 360 QTc: 428 [place]: P: 7 IA: 140 QRS: 36 T: 42 INTERPRETIVE STATEMENTS: Normal sinus rhythm Normal ECG No previous ECG available for comparison Electronically Signed On 01-13-24 17:07:[address]NAGER by Naresh Pierce
[2024-01-13] MEDS: predniSONE 20 MG TAB PO ONE (17:39)
[2024-01-14 07:11] LABS: Albumin 1.4 g/dL (3.4-5.0); Albumin/Globulin Ratio 0.3 (1.1-1.8); Anion Gap 10.2 mEq/L (5.0-15.0); Globulin 5.1 g/dL (2.3-3.5); Potassium 4.2 mEq/L (3.5-5.1); Protein, Total 6.5 g/dL (6.4-8.2)
[2024-01-14 09:26] VITALS: O2SAT 100
[2024-01-14 12:51] VITALS: BP 129/81; TEMP 97.5
--- NOTE | 2024-01-14 15:49 | P.DS ---
Admission Date: 01/09/24 Discharge Date: 01/14/24 Disposition: AMA-LEFT AGAINST MEDICAL ADVIC Reason for Admission: sepsis, decompensated cirrhosis Brief History of Present Illness: 33yo M, PMH: alcoholic cirrhosis presents to ED due to about 1 week of fever, c ough, generalized malaise, and worsening abdominal distention and lower extremity edema. He states he stopped taking his lasix/aldactone a few months ago and starting drinking beer again. He stated he is slowly retained fluid over the last 3 months. He denies nausea/vomiting, no diarrhea, no rashes/skin lesions, no sick contacts. He reported chills and fever at home. He described abdominal pain due to the swelling and "tightness". 1 year ago he was drinking 12 beers/day and was hospitalized for similar symptoms. He quit drinking for a few months, then started feeling better, and unfortunately stopped taking his meds and started drinking again. In the ED he was noted to have a fever of 101, lactate: 1.6, mildly elevated LFTs, elevated INR, hyponatremia, and significant ascites/edema. CXR was without acute findings. He received empiric antibiotics - after cultures were obtained. Radiology consulted for paracentesis and patient hospitalized for further management. Hospital Course: Problem List: Alcoholic cirrhosis of the liver with large volume ascites Sepsis, with unclear etiology, possible SBP Hypocalcemia / Pseudohypocalcemia in setting of hypoalbuminemia Chronic alcohol dependence/alcohol use disorder hypoalbuminemia secondary to above Mod-severe Iron deficiency anemia, acute on chronic. Alcoholic cirrhosis of the liver with large volume ascites Sepsis, with unclear etiology, possible SBP Hypocalcemia / Pseudohypocalcemia in setting of hypoalbuminemia Fever of unknown origin sepsis - febrile, tachypneic, briefly tachycardic with unclear etiology, lactate 1.6 CXR, and CT abd noted clear bases of lungs, no opacities on CXR. flu and covid negative No peritoneal signs, peritoneal fluid cell count showed WBC less than 100. SBP is unlikely CT with new lymphadenopathy - right external iliac chain/ pelvic sidewall, nonspecific, and may be reactive/ inflammatory in nature can be seen due to ascites/sbp, doubt malignancy. Also noted higher lymphocyte differential with suggest inflammatory reaction. He denies any dysuria, no diarrhea, no vomiting, no meningeal signs Blood cultures and peritoneal fluid culture all showed no growth. Peritoneal fluid analysis shows insignificant WBC Seen by infectious disease Patient treated with broad-spectrum antibiotics cefepime and vancomycin Venous Doppler to rule out thromboembolism given hypercoagulable state with liver cirrhosis was negative MELD: 24 on admission; INR: 1.7 s/p diagnostic and therapeutic paracentesis (01/08) ~6L removed He was given albumin infusion Patient was placed on maintenance lasix and aldactone. He was given a trial of oral prednisone. Patient had no fever the following day after the steroid. Patient decided to leave AMA. I discussed risk of leaving AGAINST MEDICAL ADVICE via a presetter operator, risk include being sick again with fever , septic shock, cardiac arrest. Patient voiced understanding and stated he will return to the hospital if he feels sick again but at the moment he feels fine. Patient requested for medications for his ascites-Lasix and Aldactone which were prescribed. He also requested for antibiotics. Patient was prescribed ciprofloxacin and doxycycline. Chronic alcohol dependence/alcohol use disorder withdrawal protocol ordered. Patient also managed with IV thiamine / folic acid He had no further symptoms of alcohol withdrawal. He did not develop delirium tremens. I strongly advised alcohol cessation. Patient voiced understanding severe Iron deficiency anemia, acute on chronic. No obvious signs of active bleeding currently. Patient denies melena currently reports ~1 week of having bleeding gums and dark stool, resolved ~1 month ago iron studies this hospitalization consistent with severe iron deficiency s/p 1 uPRBC (01/10) hgb 6.6 -> 8.2 -> 8.1 (01/11) no bleeding noted on exam PPI. Oral iron therapy on discharge. Hyponatremia Hypervolemic hyponatremia secondary to liver cirrhosis. Managed with fluid restriction. Sodium level improved to 134. Vital Signs/Physical Exam: Temp Pulse Resp BP Pulse Ox 97.5 F 69 18 129/81 100 01/14/24 12:00 01/14/24 12:00 01/14/24 12:00 01/14/24 12:00 01/14/24 12:00 Laboratory Data at Discharge: WBC 2.80 thou/uL (4.3-10.9) L 01/12/24 04:37 Hgb 8.1 g/dL (13.6-17.9) L 01/12/24 04:37 Hct 24.0 % (39.6-49.0) L 01/12/24 04:37 Plt Count 144 thou/uL (152-406) L 01/12/24 04:37 PT 19.3 SECONDS (9.5-12.5) H 01/09/24 09:50 INR 1.78 01/09/24 09:50 APTT 39.6 SECONDS (24.3-36.9) H 01/09/24 09:50 Sodium 134 mEq/L (136-145) L 01/14/24 06:26 Potassium 4.2 mEq/L (3.5-5.1) 01/14/24 06:26 BUN 14 mg/dL (7-18) 01/14/24 06:26 Creatinine 0.66 mg/dL (0.70-1.30) L 01/14/24 06:26 Glucose 160 mg/dL (74-106) H 01/14/24 06:26 Phosphorus 2.7 mg/dL (2.5-4.9) 01/11/24 04:36 Magnesium 1.6 mg/dL (1.6-2.4) 01/14/24 06:26 Total Bilirubin 1.0 mg/dL (0.2-1.0) 01/14/24 06:26 AST 89 U/L (15-37) H 01/14/24 06:26 ALT 44 U/L (16-61) 01/14/24 06:26 Alkaline Phosphatase 205 U/L (45-117) H 01/14/24 06:26 Lipase 63 U/L (13-75) 01/09/24 09:25 Home Medications: Ciprofloxacin HCl [Cipro] 500 mg PO BID #18 tab 01/14/24 Doxycycline Hyclate [Vibramycin] 100 mg PO BID #18 cap 01/14/24 Folic Acid 1 mg PO DAILY #30 tab 01/14/24 Furosemide [Lasix] 40 mg PO DAILY #30 tab 01/14/24 Pantoprazole [Protonix Tab] 40 mg PO DAILY #30 tab 01/14/24 Spironolactone [Aldactone] 50 mg PO DAILY #30 tab 01/14/24 Thiamine HCl 100 mg PO DAILY #30 tab 01/14/24 New Medications: Spironolactone [Aldactone] 50 mg PO DAILY #30 tab Ciprofloxacin HCl [Cipro] 500 mg PO BID #18 tab Folic Acid 1 mg PO DAILY #30 tab Furosemide [Lasix] 40 mg PO DAILY #30 tab Pantoprazole [Protonix Tab] 40 mg PO DAILY #30 tab Thiamine HCl 100 mg PO DAILY #30 tab Doxycycline Hyclate [Vibramycin] 100 mg PO BID #18 cap Followup: NONE,NONE [Primary Care Provider] - Naresh Pierce MD [ACTIVE - CAN ADMIT] - 1 Week
[2024-01-21 08:52] LABS: GLUCOSE, PERITONEAL FLUID 106
[2024-01-21 08:53] LABS: TOTAL PROTEIN,PERITONEAL FLUID <3.0
[2024-01-21 08:54] LABS: LD, PERITONEAL FLUID 79
== END 2024-01-14 15:07 | disposition left against medical advice (07) | DRG 872 ==
LOC: ER 08:50 → ERHOLD 12:48 → 3RD-ICU 13:13 → 4TH 01-12 14:37
PROVIDERS: ADMIT Hospitalist; ATTEND Internal Medicine
PROC: 0W9G3ZX Drainage of Peritoneal Cavity, Percutaneous Approach, Diagnostic (ICD-10-PCS; principal; 2024-01-09)
PROC: 30233N1 Transfusion of Nonautologous Red Blood Cells into Peripheral Vein, Percutaneous Approach (ICD-10-PCS; 2024-01-09)
DX: A41.9 Sepsis, unspecified organism (principal); E87.1 Hypo-osmolality and hyponatremia; F10.239 Alcohol dependence with withdrawal, unspecified; D64.9 Anemia, unspecified; E83.51 Hypocalcemia; K70.31 Alcoholic cirrhosis of liver with ascites; F10.20 Alcohol dependence, uncomplicated; E78.00 Pure hypercholesterolemia, unspecified; K72.90 Hepatic failure, unspecified without coma; E88.09 Other disorders of plasma-protein metabolism, not elsewhere classified; Z11.52 Encounter for screening for COVID-19; Z71.41 Alcohol abuse counseling and surveillance of alcoholic; Z53.29 Procedure and treatment not carried out because of patient's decision for other reasons; Z87.891 Personal history of nicotine dependence; Z79.899 Other long term (current) drug therapy
CPT/HCPCS: 36415; 36430; 49083; 71045; 71260; 74177; 80048; 80053; 80076; 80202; 81001; 82042; 82150; 82247; 82607; 82728; 82945; 83540; 83605; 83615; 83690; 83735; 83880; 84100; 84145; 84157; 84466; 84484; 85014; 85018; 85025; 85044; 85610; 85730; 86850; 86900; 86901; 86920; 87040; 87070; 87081; 87804; 87811; 88108; 88305; 89050; 93005; 93970; 96374; 96375; 99285; J0692; J0696; J0744; J1940; J3411; J3475; J7040; J7050; J7512; P9016; P9045; Q9967

== ENCOUNTER 2024-06-24 09:41 | Emergency (ER) | payer SELFPAY ==
[2024-06-24 10:22] LABS: Absolute Basophils 0.1 K/uL (0-0.5); Absolute Eosinophils 0.1 K/uL (0-0.5); Absolute Lymphocytes (CBC) 1.5 K/uL (0.7-4.9); Absolute Monocytes 1.2 K/uL (0.1-1.3); Basophils % 0.8 % (0-1.3); Eosinophils % 1.4 % (0-4.4); Hemoglobin 7.9 g/dL (13.6-17.9); Lymphocytes % 18.5 % (15.3-44.8); MCH 33.1 pg (27.0-35.0); MCHC 34.3 g/dL (32.0-36.0); MCV 96.4 fL (80-100); MPV 6.6 fL (7.6-11.3); Monocytes % 15.5 % (3.3-12.3); Neutrophils % 63.8 % (41.7-73.7); Platelets 196 thou/uL (152-406); RBC Red Blood Cell Count 2.39 M/uL (4.33-5.43); Red Cell Distribution Width 19.5 % (12.1-15.2)
[2024-06-24 10:33] LABS: PT Prothrombin Time 22.3 SECONDS (9.4-12.5); PTT, Activated Partial Thromb 43.1 SECONDS (24.3-36.9); Protime INR 2.03
[2024-06-24 10:42] LABS: Albumin 1.5 g/dL (3.4-5.0); Albumin/Globulin Ratio 0.3 (1.1-1.8); Anion Gap 11.4 mEq/L (5.0-15.0); Bilirubin Total 2.2 mg/dL (0.2-1.0); Globulin 4.4 g/dL (2.3-3.5); Potassium 3.4 mEq/L (3.5-5.1); Protein, Total 5.9 g/dL (6.4-8.2); Troponin High Sensitivity 6.3 pg/mL (<58.9)
[2024-06-24] MEDS ORDERED: ONDANSETRON 4 MG/2 ML VIAL ONE (11:00)
[2024-06-24] MEDS ORDERED: MORPHINE 4 MG/ML SYR ONE (11:01)
--- NOTE | 2024-06-24 11:11 | RAD REPORT ---
EXAM DESCRIPTION: CT - Abdomen Pelvis W Contrast - 06/24/2024 10:21 am CLINICAL HISTORY: Abdominal pain COMPARISON: January 2024 TECHNIQUE: Computed axial tomography of the abdomen pelvis was obtained. 100 cc Isovue-300 was admin istered intravenously. Oral contrast was not requested which limits evaluation of bowel and appendix All CT scans are performed using dose optimization technique as appropriate and may include automated exposure control or mA/KV adjustment according to patient size. FINDINGS: Cirrhotic liver. Portal vein is patent. Previously described 1 centimeter enhancing lesion right lobe of liver is not clearly visualized on the current exam. It may still be present but not s een secondary different timing of the bolus of IV contrast. Nodular appearance of liver unchanged Spleen, pancreas, adrenals and kidneys are unremarkable Large amount of ascites. Moderate umbilical hernia contains ascites. Normal appendix. No evidence of diverticulitis IMPRESSION: Cirrhosis with large amount ascites
[2024-06-24 11:33] LABS: Specific Gravity > 1.030 (1.005-1.030); Sqamous Epithelial <5 /HPF (None Seen); Urine Bacteria <20 /HPF (<20); Urine Bilirubin NEGATIVE (Negative); Urine Blood 2+ (Negative); Urine Clarity Clear (Clear); Urine Color Yellow (Yellow); Urine Culture Reflex Order NOT NEEDED; Urine Glucose NEGATIVE (Negative); Urine Ketones NEGATIVE (Negative); Urine Microscopic Reflex YN ORDER UMIC; Urine Mucus Slight /HPF (None Seen); Urine Nitrite NEGATIVE (Negative); Urine Protein TRACE (Negative); Urine Urobilinogen Normal (Normal)
--- NOTE | 2024-06-24 11:58 | ER ---
Nurse's Notes [facility] Name: Hernando Crenshaw Age: 34 yrs Sex: Male : 1990 Arrival Date: 06/24/2024 Time: 09:41 Bed 13 Private MD: Diagnosis: Liver failure, ascites, hyponatremia, anemia Presentation: 06/24 10:16 Chief complaint: Patient states: abd pain and swelling with hx of cirrhosis. states he kc6 normally gets a paracentesis every 2 weeks but his doctor isn't available until Friday and he can't take the pain anymore. 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 [id number]. Coronavirus screen: At this time, the client does not indicate any symptoms associated with coronavirus-19. Ebola Screen: No symptoms or risks identified at this time. Initial Sepsis Screen: Does the patient meet any 2 criteria? No. Patient's initial sepsis screen is negative. Does the patient have a suspected source of infection? No. Patient's initial sepsis screen is negative. Risk Assessment: Do you want to hurt yourself or someone else? Patient reports no desire to harm self or others. Onset of symptoms was June 24, 2024. 10:16 Method Of Arrival: Ambulatory [facility] 10:16 Acuity: JAMA [facility] Historical: - Allergies: 10:17 No Known Allergies; kc6 - Home Meds: 10:17 None [Active]; kc6 - PMHx: 09:48 cirrhosis of liver; ld1 10:17 Alcoholism; kc6 - PSHx: 10:17 paracentesis; kc6 - Immunization history:: Adult Immunizations not up to date. - Infectious Disease History:: Denies. - Social history:: Smoking status: Patient denies any tobacco usage or history of. Screenin:18 [facility] ED Fall Risk Assessment (Adult) History of falling in the last [address], [facility] including since admission No falls in past 3 months (0 pts) Confusion or Disorientation No (0 pts) Intoxicated or Sedated No (0 pts) Impaired Gait No (0 pts) Mobility Assist Device Used No (0 pt) Altered Elimination No (0 pt) Score/Fall Risk Level 0 - 2 = Low Risk. Abuse screen: Denies threats or abuse. Denies injuries from another. Nutritional screening: No deficits noted. Tuberculosis screening: No symptoms or risk factors identified. Assessment: 10:16 General: Appears in no apparent distress. uncomfortable, well groomed, well developed, kc6 Behavior is calm, cooperative, appropriate for age. Pain: Complains of pain in abdomen diffusely. Neuro: Level of Consciousness is awake, alert, obeys commands, Oriented to person, place, time, situation, Appropriate for age. Cardiovascular: Denies chest pain, Capillary refill < 3 seconds Edema is 4+ to left midcalf, left ankle, right midcalf and right ankle pitting to left midcalf, left ankle, right midcalf and right ankle. Respiratory: Reports shortness of breath Airway is patent Trachea midline Respiratory effort is even, labored, Respiratory pattern is regular, symmetrical, tachypnea. GI: Abdomen is distended, noted to have ascites, Bowel sounds present X 4 quads. Abdomen is tender to palpation in abdomen diffusely Reports diarrhea, Patient currently denies nausea, vomiting. : No signs and/or symptoms were reported regarding the genitourinary system. EENT: No signs and/or symptoms were reported regarding the EENT system. Derm: No signs and/or symptoms reported regarding the dermatologic system. Skin is intact, is healthy with good turgor, Skin is dry, Skin is jaundiced, pale, Skin temperature is warm. Musculoskeletal: No signs and/or symptoms reported regarding the musculoskeletal system. Circulation, motion, and sensation intact. Capillary refill < 3 seconds, Range of motion: intact in all extremities, Swelling present in abdomen, right leg and left leg. 10:30 Reassessment: pt states via translator and interpreter Marilynn [id number] "if you can't drain the fluid from kc6 my abdomen today then I'd like to go home." Dr. Ley notified. 11:16 Reassessment: Patient appears in no apparent distress at this time. No changes from kc6 previously documented assessment. Patient and/or family updated on plan of care and expected duration. Pain level reassessed. Patient is alert, oriented x 3, equal unlabored respirations, skin warm/dry/pink. 11:49 Reassessment: Dr. Ley at bedside using translator and interpreter Erlinda [id number], updating pt kc6 regarding his critical condition and plan of care. Vital Signs: 10:16 BP 120 / 69; Pulse 83; Resp 20 S; Temp 98.3(O); Pulse Ox 100% on R/A; Weight 72.57 kg kc6 (R); Height 5 ft. 6 in. (R); 10:47 BP 119 / 72; Pulse 83; Resp 19 S; Pulse Ox 100% on R/A; kc6 11:50 BP 120 / 68; Pulse 80; Resp 19 S; Pulse Ox 100% on R/A; kc6 10:16 Body Mass Index 25.82 (72.57 kg, 167.64 cm) kc6 ED Course: 09:46 Patient arrived in ED. ra3 09:47 Solitario Ley MD is Attending Physician. sp3 10:14 Jeannie Krause, AURA is Primary Nurse. kc6 10:17 Triage completed. kc6 10:17 Arm band placed on. kc6 10:18 Patient has correct armband on for positive identification. Placed in gown. Bed in low kc6 position. Call light in reach. Side rails up X 1. Pulse ox on. NIBP on. Door closed. Noise minimized. Lights dimmed. Warm blanket given. Pillow given. 10:18 Inserted saline lock: 22 gauge in right forearm, using aseptic technique. Blood kc6 collected. Flushed with 10 mL NS. 10:23 CT Abd/Pelvis - IV Contrast Only In Process Unspecified. EDMS 10:48 Patient requests pain medication. kc6 11:19 Urinalysis w/ reflexes Sent. mb9 11:19 Urine collected: clean catch specimen, sydnee colored. mb9 12:04 No provider procedures requiring assistance completed. IV discontinued, intact, kc6 bleeding controlled, No redness/swelling at site. Pressure dressing applied. 14:29 1200 CM attempted assessment. Patient leaving AMA. ane Administered Medications: 11:06 Drug: morphine IVP or IV 4 mg IVP once over 4 mins Route: IVP; Infused Over: 4 mins; kc6 Site: right forearm; 11:50 Follow up: Response: No adverse reaction; Pain is decreased; RASS: Alert and Calm (0) kc6 11:06 Drug: Ondansetron IVP 4 mg IVP once; over 2 minutes Route: IVP; Site: right forearm; kc6 11:50 Follow up: Response: No adverse reaction kc6 Outcome: 12:04 AMA AMA form signed kc6 12:04 critical 12:04 Instructed on the need for transfer, 12:05 Patient left the ED. kc6 Signatures: Dispatcher [employer] EDMS Ilana Sanders RN RN ld1 Solitario Ley MD MD sp3 Jeannie Krause RN RN kc6 JaxBessy RN RN mb9 Rachele Ku ra3 Trinidad Velasco RN RN ane Corrections: (The following items were deleted from the chart) 11:50 10:46 Reassessment: pt states, "if you can't drain the fluid from my abdomen today then kc6 I'd like to go home." Dr. Ley notified. kc6 11:53 10:16 Cardiovascular: Capillary refill < 3 seconds kc6 kc6 11:53 10:16 Respiratory: Airway is patent Trachea midline Respiratory effort is even, kc6 labored, Respiratory pattern is regular, symmetrical, tachypnea kc6 11:53 10:16 Musculoskeletal: No signs and/or symptoms reported regarding the musculoskeletal kc6 system. Circulation, motion, and sensation intact. Capillary refill < 3 seconds, Range of motion: intact in all extremities, kc6
--- NOTE | 2024-06-24 11:58 | EDPHYS ---
Physician Documentation [facility] Name: Hernando Crenshaw Age: 34 yrs Sex: Male : 1990 Arrival Date: 06/24/2024 Time: 09:41 Bed 13 Private MD: ED Physician Solitario Ley HPI: 06/24 10:27 This 34 yrs old Male presents to ER via Ambulatory with complaints of sp3 Abdominal Swelling. 10:27 34-year-old male with a history of alcoholism, cirrhosis presents to the ED with chief sp3 complaint distended abdomen asking for paracentesis. Patient states that he gets drained every 2 weeks and his doctor in [place] is currently unavailable. He denies any significant symptoms other than pain and swelling diffusely. He denies fever, chest pain, shortness of breath, bleeding, or any other signs or symptoms on ROS at this time.. Historical: - Allergies: 10:17 No Known Allergies; kc6 - Home Meds: 10:17 None [Active]; kc6 - PMHx: 09:48 cirrhosis of liver; ld1 10:17 Alcoholism; kc6 - PSHx: 10:17 paracentesis; kc6 - Immunization history:: Adult Immunizations not up to date. - Infectious Disease History:: Denies. - Social history:: Smoking status: Patient denies any tobacco usage or history of. ROS: 10:28 Constitutional: Negative for fever, chills, and weight loss, Eyes: Negative for injury, sp3 pain, redness, and discharge, ENT: Negative for injury, pain, and discharge, Neck: Negative for injury, pain, and swelling, Cardiovascular: Negative for chest pain, palpitations, and edema, Respiratory: Negative for shortness of breath, cough, wheezing, and pleuritic chest pain, Back: Negative for injury and pain, MS/Extremity: Negative for injury and deformity, Skin: Negative for injury, rash, and discoloration, Neuro: Negative for headache, weakness, numbness, tingling, and seizure, Psych: Negative for depression, anxiety, suicide ideation, homicidal ideation, and hallucinations, Allergy/Immunology: Negative for hives, rash, and allergies, Endocrine: Negative for neck swelling, polydipsia, polyuria, polyphagia, and marked weight changes, Hematologic/Lymphatic: Negative for swollen nodes, abnormal bleeding, and unusual bruising, 10:28 All other systems are negative, Exam: 10:28 Constitutional: This is a well developed, well nourished patient who is awake, alert, sp3 and in no acute distress. Head/Face: Normocephalic, atraumatic. Eyes: Pupils equal round and reactive to light, extra-ocular motions intact. Lids and lashes normal. Conjunctiva and sclera are non-icteric and not injected. Cornea within normal limits. Periorbital areas with no swelling, redness, or edema. Neck: Trachea midline, no thyromegaly or masses palpated, and no cervical lymphadenopathy. Supple, full range of motion without nuchal rigidity, or vertebral point tenderness. No Meningismus. Chest/axilla: Normal chest wall appearance and motion. Nontender with no deformity. No lesions are appreciated. Cardiovascular: Regular rate and rhythm with a normal S1 and S2. No gallops, murmurs, or rubs. Normal PMI, no JVD. No pulse deficits. Respiratory: Lungs have equal breath sounds bilaterally, clear to auscultation and percussion. No rales, rhonchi or wheezes noted. No increased work of breathing, no retractions or nasal flaring. Neuro: Awake and alert, GCS 15, oriented to person, place, time, and situation. Cranial nerves II-XII grossly intact. Motor strength 5/5 in all extremities. Sensory grossly intact. Cerebellar exam normal. Normal gait. Psych: Awake, alert, with orientation to person, place and time. Behavior, mood, and affect are within normal limits. 10:28 Abdomen/GI: Significantly distended abdomen full of ascites. Peripheral anasarca also noted. Patient is mildly jaundiced. Vital signs are normal., Vital Signs: 10:16 BP 120 / 69; Pulse 83; Resp 20 S; Temp 98.3(O); Pulse Ox 100% on R/A; Weight 72.57 kg kc6 (R); Height 5 ft. 6 in. (R); 10:47 BP 119 / 72; Pulse 83; Resp 19 S; Pulse Ox 100% on R/A; kc6 11:50 BP 120 / 68; Pulse 80; Resp 19 S; Pulse Ox 100% on R/A; kc6 10:16 Body Mass Index 25.82 (72.57 kg, 167.64 cm) kc6 MDM: 09:51 Patient medically screened. sp3 10:30 Data reviewed: vital signs, nurses notes, lab test result(s), EKG, radiologic studies. sp3 ED course: 34-year-old male with cirrhosis and alcoholism now with distended abdomen full of ascites. Differential diagnosis includes ascites, peritonitis,, electrolyte abnormality, among others. Will obtain CT scan of the abdomen pelvis with IV contrast, laboratory values and EKG. Patient states he will leave if he does not get drained today. No interventional radiology available today. I will communicate this to the patient and let him decide on what he wants to do. I offered admission to the hospital however he has declined thus far.. 11:52 ED course: Laboratory values reviewed demonstrates hyponatremia and anemia. Ammonia sp3 slightly elevated. CT demonstrates cirrhosis with extensive ascites. I offered patient transfer to [facility] for hepatology and potential liver transplant evaluation. Patient states he was evaluated in [place] already and may decide to go back there for further treatment. Currently he states he wants to go back to his doctor in [place] for Friday appointment to see if he can do the paracentesis there. I stressed to him his abnormal lab values and need for urgent transfer today. Coagulation profile is normal and ammonia is only slightly elevated. However his other lab values are critical. 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 I told him he has a high chance of or permanent disability along with within 6 months of transplant is not obtained. Patient again acknowledged and still wants to go home currently. I do not believe informed discharge is appropriate given high chance of continued complications. We will place patient in leaving AGAINST MEDICAL ADVICE status and urged him to return if he changes his mind whatsoever.. 06/24 09:51 Order name: CBC with Diff; Complete Time: 11: sp3 06/24 09:51 Order name: CMP; Complete Time: : sp3 06/24 09:51 Order name: Lipase; Complete Time: 11: sp3 06/24 09:51 Order name: Urinalysis w/ reflexes; Complete Time: 11:52 sp3 06/24 09:51 Order name: PT-INR; Complete Time: 11: sp3 06/24 09:51 Order name: Ptt, Activated; Complete Time: 11:25 sp3 06/24 09:51 Order name: Lactate w/ 2H reflex if indic.; Complete Time: 11: sp3 06/24 09:51 Order name: AMMONIA; Complete Time: 11: sp3 06/24 09:52 Order name: Troponin High Sensitivity; Complete Time: 11:25 sp3 06/24 09:52 Order name: BNP; Complete Time: 11: sp3 06/24 09:51 Order name: CT Abd/Pelvis - IV Contrast Only; Complete Time: 11: sp3 06/24 09:51 Order name: IV Saline Lock; Complete Time: 10:14 sp3 06/24 09:51 Order name: Labs collected and sent; Complete Time: : sp3 06/24 09:52 Order name: EKG - Nurse/Tech; Complete Time: 10: sp3 06/24 09:52 Order name: Monitor; Complete Time: 10:14 sp3 Administered Medications: 11:06 Drug: morphine IVP or IV 4 mg IVP once over 4 mins Route: IVP; Infused Over: 4 mins; kc6 Site: right forearm; 11:50 Follow up: Response: No adverse reaction; Pain is decreased; RASS: Alert and Calm (0) 6 11:06 Drug: Ondansetron IVP 4 mg IVP once; over 2 minutes Route: IVP; Site: right forearm; kc6 11:50 Follow up: Response: No adverse reaction kc6 Disposition Summary: 06/24/24 11:57 Left Against Medical Advice Notes: Location: Home sp3 Problem: an acute exacerbation sp3 Symptoms: have worsened sp3 Condition: Critical sp3 Diagnosis - Liver failure, ascites, hyponatremia, anemia sp3 Followup: sp3 - With: Private Physician - When: Upon discharge from the Emergency Department - Reason: Continuance of care Signatures: Dispatcher [employer] EDMS Ilana Sanders RN RN ld1 Solitario Ley MD MD sp3 Jeannie Krause RN RN kc6 Corrections: (The following items were deleted from the chart) 09: 09:52 CBC+H.LAB.BRZ ordered. EDMS EDMS 09:52 09:52 COMPREHENSIVE METABOLIC PANEL+C.LAB.BRZ ordered. EDMS EDMS 09:52 09:52 LIPASE+C.LAB.BRZ ordered. EDMS EDMS 09: 09:52 Urinalysis+U.LAB.BRZ ordered. EDMS EDMS 09:52 09:52 PROTIME (+INR)+COAG.LAB.BRZ ordered. EDMS EDMS 09:52 09:52 PTT, ACTIVATED+COAG.LAB.BRZ ordered. EDMS EDMS 09:52 09:52 LACTATE+C.LAB.BRZ ordered. EDMS EDMS 09:52 09:52 AMMONIA+C.LAB.BRZ ordered. EDMS EDMS 09:52 09:52 Abdomen Pelvis W Con+CT.RAD.BRZ ordered. EDMS EDMS 09: 09:52 Troponin High Sensitivity+C.LAB.BRZ ordered. EDMS EDMS 09: 09:52 PROBNP+C.LAB.BRZ ordered. EDMS EDMS 11:54 11:52 ED course: Laboratory values reviewed demonstrates hyponatremia and anemia. sp3 Ammonia slightly elevated.. sp3
[2024-06-24 12:12] VITALS: TEMP 98.3; O2SAT 100
[2024-06-24 12:14] VITALS: BP 120/68
== END 2024-06-24 12:05 | disposition left against medical advice (07) ==
LOC: ER 09:41
DX: K70.31 Alcoholic cirrhosis of liver with ascites (principal); K72.90 Hepatic failure, unspecified without coma; D64.9 Anemia, unspecified; E87.1 Hypo-osmolality and hyponatremia; F10.20 Alcohol dependence, uncomplicated
CPT/HCPCS: 36415; 74177; 80053; 81001; 82140; 83605; 83690; 83880; 84484; 85025; 85610; 85730; 96374; 96375; 99284; J2405; Q9967

== ENCOUNTER 2024-09-10 21:19 | Emergency (ER) | payer BC, OTHER ==
--- OUTSIDE RECORDS SUMMARY | 2024-09-10 21:26 | XMS REPORT | Continuity of Care Document ---
Author Name Unknown Address [address] [facility] [place] [address] [facility] thconnect Address [address] [facility] [place] [address] Care Team Providers Care Patent Examiner Name Role Phone NO PHYSICIAN, . Primary Care Physician Unavailab JALEESA Patel Attending Clinician UnavailYARIEL Evans Attending Clinician Unavailable SULTANA العراقي Attending Clinician UnavailJOSE Martinez Attending Clinician Unavailable AYESHA BAIN I Attending Clinician Unavailable CONSUELO JIMENEZ Attending Clinician Unavailab Shagufta Mitchell Attending Clinician Unav ailRAQUEL Corbin Attending Clinician UnavailBRENDA Ochoa Attending Clinician Unavailab CHANTEL Blackwell Attending Clinician Unavailable KASHIF CELESTE Attending Clinician Unavailable Bhupendra Mario Attending Clinician Unavailable GERALD LOVELACE Attending Clinician Unavailable DANIELLE AGUILERA Attending Clinician Unavailable NADIA LUTHER Admitting Clinician Unav ailable [place], Shagufta Admitting Clinician Unav ailable Physician, No Primary or Family Admitting Clinic claudia Unavailable RAQUEL HEADLEY Admitting Clinician UnavailDONA Terrell Admitting Clinician Unavailable COLT EMERSON Admitting Clinician Un available Bhupendra Mario Admitting Clinician Unavailable Payers Payer Name Policy Type Policy Number Effective Date Expirati on Date Source Problems Condition Name Condition Details Condition Category Status Onset Date Resolution Date Last Treatment Date Treating Clinician Comments Source Cirrhosis of liver Cirrhosis of Liver Problem Active 07-19 00:00: 00 [facility] ABDOM PAIN ABDOM PAIN Active 11/27/2023 [facility] Diagnosis Active 11-27 00:00: 00 2023-11-27 08:11:00 Buzz Ansari SMALL BOWEL OBSTRUCTIO N SMALL BOWEL OBSTRUCTIO N Active 11/27/2023 [facility] Diagnosis Active 11-27 00:00: 00 2023-12-04 21:49:00 Buzz Ansari Hypocalcem ia (disorder) Hypocalcem ia (disorder) Active Problem 12/01/2023 [facility] Problem Active 2023-12-01 12:37:52 Buzz Ansari Umbilical hernia (disorder) Umbilical hernia (disorder) Active Problem 12/01/2023 [facility] Problem Active 2023-12-01 12:37:52 Memoria l Elan UNSP INTESTNL OBST, UNSP TO PARTIAL V UNSP INTESTNL OBST, UNSP TO PARTIAL V Active [facility] Diagnosis Active 2023-12-04 21:49:00 Memoria fracisco Ansari Blood coagulatio n disorder (disorder) Blood coagulatio n disorder (disorder) Active Problem 12/01/2023 [facility] Problem Active 2023-12-01 12:37:52 Memoria fracisco LatifElan Pleural effusion on right [facility] Spontaneou s bacterial peritoniti s [facility] Acute kidney injury [facility] Abdominal distension Problem [facility] Alcohol abuse [facility] Alcoholic intoxicati on Problem [facility] Alcohol use disorder [facility] Alcoholic cirrhosis of liver with ascites Problem [facility] Transfusio n-dependen t anemia Problem [facility] Abdominal ascites Problem [facility] Decompensa tion of cirrhosis of liver Problem [facility] Hepatic encephalop athy Problem [facility] Hepatorena l syndrome Problem [facility] Hyponatrem ia Problem [facility] Irreducibl e umbilical hernia Problem [facility] Localized swelling of left forearm [facility] Palpitatio ns Problem [facility] Pancytopen ia Problem [facility] Polysubsta nce abuse Problem [facility] Puncture wound of left forearm Problem [facility] Thrombocyt openia Problem [facility] History of Past Illness Condition Name Condition Details Condition Category Status Onset Date Resolution Date Last Treatment Date Treating Clinician Comments Source Other pancytopen ia Other pancytopen ia 11/28/2023 [facility] Problem 11-28 22:23: 00 2023-12-01 12:37:52 2023-12-01 12:37:52 Buzz Ansari Allergies, Adverse Reactions, Alerts Allergy Name Allergy Type Status Severity Reaction(s) Onset Date Inactive Date Treating Clinician Comments Source No Known Allergie s DA Active U 8-06 00:00: 00 [facility] No Known Allergie s DA Active U 2022-11 2-07 00:00: 00 [facility] No Known Medicati on Allergie s No Known Medicati on Allergie s Active Buzz Ansari Social History Social Habit Start Date Stop Date Quantity Comments Source History of tobacco use [facility] Social History 2023-11-27 15:26:18 2023-11-27 15:26:18 Nacho Ansari Smoking Status Start Date Stop Date Source Never Smoker [facility] Medications Ordered Medication Name Filled Medication Name Start Date Stop Date Current Medication? Ordering Clinician Indication Dosage Frequency Signature (SIG) Comments Components Source Collagenase (Santyl) 250 Unit/Gm OIN Collagenase (Santyl) 250 Unit/Gm OIN 05-20 17:23: 00 Yes 250 [facility] influenza virus vaccine, inactivated 11-27 15:20: 30 No Notes: (Same as: Fluzone Quadrivale nt, Fluarix Quadrivale nt) For patients 6 - 35 months of age (0.5 mL IM) For 3 years of age and older (0.5 mL IM) Shake well before use Buzz Ansari trazodone 11-27 15:11: 00 No Notes: (Same As: Demetrio) Buzz Ansari Dextrose 50% Syringe (D50W) 11-27 15:11: 00 No 12.5 gm, 25 mL, Route: IVP, Drug Form: INJ, Dosing Weight 79.545, kg, PRN, PRN Blood Glucose Results, Start date: 11/27/23 9:11:00 [employer]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, Duration: 30 day, Stop date: 12/27/23 9:10:00 S[employer]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, 0 Buzz Ansari glucagon 11-27 15:11: 00 No 1 mg, Route: IM, Drug form: PDR/INJ, PRN, Dosing Weight 79.545, kg, PRN Blood Glucose Results, Start date: 11/27/23 9:11:00 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, Duration: 30 day, Stop date: 12/27/23 9:10:00 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 Buzz Latifann morphine Sulfate 11-27 15:09: 00 No Notes: (Same as:MORPhin e Sulfate) Buzz Ansari NS 1,000 mL 11-27 15:09: 00 No 1,000 mL, Rate: 100 ml/hr, Infuse over: 10 hr, Route: IV, Dosing Weight 79.545 kg, Total Volume: 1,000, Start date: 11/27/23 9:09:00 S[employer]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, Duration: 30 day, Stop date: 12/27/23 9:08:00 SEN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, BSA: 1.94 m2, 0 Buzz Ansari [place] 5/325 oral tablet 11-27 15:09: 00 No Notes: (Same as: [place] 325/5) Do not exceed 4gm/day of acetaminop hen. Buzz Ansari Tylenol 11-27 15:09: 00 No Notes: Do not exceed 4 gm/day. (Same as: Tylenol) Buzz Ansari Zofran 11-27 15:09: 00 No Notes: (Same as: Zofran) MEDICATION WASTE Product Size: 4 mg Product Wasted: ___ mg Danielleana Latifann Phenergan 11-27 15:09: 00 No Notes: Do not give IV push. (Same as: Phenergan) Buzz Ansari Amoxicillin /Clavulanat e Potassium (Augmentin *) 875 Mg TAB Amoxicillin /Clavulanat e Potassium (Augmentin *) 875 Mg TAB 02-14 16:36: 00 Yes 1 [facility] chlordiazep oxide 25 mg capsule TAKE ONE (1) CAPSULE(S) BY MOUTH TWICE A DAY FOR 1 DAY, THEN 1 CAPSULE DAILY FOR 2 DAYS. chlordiazep oxide 25 mg capsule TAKE ONE (1) CAPSULE(S) BY MOUTH TWICE A DAY FOR 1 DAY, THEN 1 CAPSULE DAILY FOR 2 DAYS. No chlordiaze poxide 25 mg capsule TAKE ONE (1) CAPSULE(S) BY MOUTH TWICE A DAY FOR 1 DAY, THEN 1 CAPSULE DAILY FOR 2 DAYS. [facility] Constulose 10 gram/15 mL oral solution TAKE 15 ML(S) BY MOUTH TWICE A DAY. Constulose 10 gram/15 mL oral solution TAKE 15 ML(S) BY MOUTH TWICE A DAY. No Constulose 10 gram/15 mL oral solution TAKE 15 ML(S) BY MOUTH TWICE A DAY. [facility] doxycycline hyclate 100 mg capsule TAKE 1 CAPSULE BY MOUTH TWICE DAILY doxycycline hyclate 100 mg capsule TAKE 1 CAPSULE BY MOUTH TWICE DAILY No doxycyclin e hyclate 100 mg capsule TAKE 1 CAPSULE BY MOUTH TWICE DAILY [facility] FeroSul 325 mg (65 mg iron) tablet TAKE ONE (1) TABLET(S) BY MOUTH TWICE A DAY. FeroSul 325 mg (65 mg iron) tablet TAKE ONE (1) TABLET(S) BY MOUTH TWICE A DAY. No FeroSul 325 mg (65 mg iron) tablet TAKE ONE (1) TABLET(S) BY MOUTH TWICE A DAY. [facility] folic acid 1 mg tablet TAKE ONE (1) TABLET BY MOUTH ONCE DAILY. folic acid 1 mg tablet TAKE ONE (1) TABLET BY MOUTH ONCE DAILY. No folic acid 1 mg tablet TAKE ONE (1) TABLET BY MOUTH ONCE DAILY. [facility] furosemide 20 mg tablet TAKE ONE (1) TABLET(S) BY MOUTH DAILY. furosemide 20 mg tablet TAKE ONE (1) TABLET(S) BY MOUTH DAILY. No furosemide 20 mg tablet TAKE ONE (1) TABLET(S) BY MOUTH DAILY. [facility] furosemide 40 mg tablet TAKE ONE (1) TABLET(S) BY MOUTH DAILY. furosemide 40 mg tablet TAKE ONE (1) TABLET(S) BY MOUTH DAILY. No furosemide 40 mg tablet TAKE ONE (1) TABLET(S) BY MOUTH DAILY. [facility] hydrocodone 5 mg-acetamin ophen 325 mg tablet TAKE ONE (1) TABLET(S) BY MOUTH EVERY FOUR HOURS NEEDED FOR SEVERE PAIN. hydrocodone 5 mg-acetamin ophen 325 mg tablet TAKE ONE (1) TABLET(S) BY MOUTH EVERY FOUR HOURS NEEDED FOR SEVERE PAIN. No hydrocodon e 5 mg-acetami nophen 325 mg tablet TAKE ONE (1) TABLET(S) BY MOUTH EVERY FOUR HOURS NEEDED FOR SEVERE PAIN. [facility] Kristalose 10 gram oral packet MIX ONE (1) PACKET(S) WITH 4 OUNCES OF WATER AND TAKE BY MOUTH ONCE DAILY. Kristalose 10 gram oral packet MIX ONE (1) PACKET(S) WITH 4 OUNCES OF WATER AND TAKE BY MOUTH ONCE DAILY. No Kristalose 10 gram oral packet MIX ONE (1) PACKET(S) WITH 4 OUNCES OF WATER AND TAKE BY MOUTH ONCE DAILY. [facility] midodrine 10 mg tablet TAKE ONE (1) TABLET(S) BY MOUTH THREE TIMES A DAY WITH MEALS. midodrine 10 mg tablet TAKE ONE (1) TABLET(S) BY MOUTH THREE TIMES A DAY WITH MEALS. No midodrine 10 mg tablet TAKE ONE (1) TABLET(S) BY MOUTH THREE TIMES A DAY WITH MEALS. [facility] pantoprazol e 40 mg tablet,sarita yed release TAKE ONE (1) TABLET(S) BY MOUTH TWICE A DAY AT 9 AM AND 5 PM. pantoprazol e 40 mg tablet,sarita yed release TAKE ONE (1) TABLET(S) BY MOUTH TWICE A DAY AT 9 AM AND 5 PM. No pantoprazo le 40 mg tablet,del ayed release TAKE ONE (1) TABLET(S) BY MOUTH TWICE A DAY AT 9 AM AND 5 PM. [facility] propranolol 10 mg tablet TAKE ONE (1) TABLET(S) BY MOUTH TWICE A DAY. propranolol 10 mg tablet TAKE ONE (1) TABLET(S) BY MOUTH TWICE A DAY. No propranolo l 10 mg tablet TAKE ONE (1) TABLET(S) BY MOUTH TWICE A DAY. [facility] spironolact one 50 mg tablet _TAKE ONE (1) TABLET BY MOUTH ONCE DAILY. spironolact one 50 mg tablet _TAKE ONE (1) TABLET BY MOUTH ONCE DAILY. No spironolac tone 50 mg tablet _TAKE ONE (1) TABLET BY MOUTH ONCE DAILY. [facility] thiamine HCl (vitamin B1) 100 mg tablet TAKE 1 TABLET BY MOUTH ONCE DAILY thiamine HCl (vitamin B1) 100 mg tablet TAKE 1 TABLET BY MOUTH ONCE DAILY No thiamine HCl (vitamin B1) 100 mg tablet TAKE 1 TABLET BY MOUTH ONCE DAILY [facility] tramadol 50 mg tablet TAKE ONE (1) TABLET(S) BY MOUTH EVERY SIX HOURS NEEDED FOR PAIN. tramadol 50 mg tablet TAKE ONE (1) TABLET(S) BY MOUTH EVERY SIX HOURS NEEDED FOR PAIN. No tramadol 50 mg tablet TAKE ONE (1) TABLET(S) BY MOUTH EVERY SIX HOURS NEEDED FOR PAIN. [facility] Immunizations Ordered Immunization Name Filled Immunization Name Date Status Comments Source TDaP TDaP 2022-02-14 00:00:00 Completed [facility] Tdap Tdap Unknown Completed [facility] Vital Signs Vital Name Observation Time Observation Value Comments S ource Height 2024-07-19 00:00:00 65 [in_i] [facility] BMI (Body Mass Index) 2024-07-19 00:00:00 24.3 kg/m2 [facility] Body Weight 2024-07-19 00:00:00 146 [lb_av] [facility] Height 2024-06-29 12:58:00 152.801835 cm [facility] Weight 2024-06-29 12:58:00 79.576178 kg [facility] BMI (Body Mass Index) 2024-06-29 12:58:00 34.2 kg/m2 [facility] Height 2024-06-15 09:24:00 167.692966 cm [facility] Weight 2024-06-15 09:24:00 61.215285 kg [facility] BMI (Body Mass Index) 2024-06-15 09:24:00 21.8 kg/m2 [facility] Heart Rate 2023-11-28 21:00:40 [facility] Respitory Rate 2023-11-28 21:00:40 [facility] Heart Rate 2023-11-28 21:00:25 [facility] Systolic (mm Hg) 2023-11-28 21:00:25 [facility] Diastolic (mm Hg) 2023-11-28 21:00:25 [facility] Temperature Oral (F) 2023-11-28 21:00:22 99.1 F [facility] Heart Rate 2023-11-28 17:48:50 [facility] Respitory Rate 2023-11-28 17:48:50 [facility] Systolic (mm Hg) 2023-11-28 17:48:39 [facility] Diastolic (mm Hg) 2023-11-28 17:48:39 [facility] Temperature Oral (F) 2023-11-28 17:48:32 98.6 F [facility] Respitory Rate 2023-11-28 13:14:02 [facility] Temperature Oral (F) 2023-11-28 13:13:27 101 [facility] Systolic (mm Hg) 2023-11-28 13:13:03 [facility] Diastolic (mm Hg) 2023-11-28 13:13:03 [facility] Height 2023-11-27 15:13:00 167.64 cm [facility] Weight 2023-11-27 15:13:00 [facility] BMI Calculated 2023-11-27 15:13:00 [facility] Height 2023-11-27 12:29:00 167.64 cm [facility] BMI Calculated 2023-11-27 12:29:00 [facility] Weight 2023-11-27 12:29:00 [facility] Procedures Procedure Date / Time Performed Performing Clinicia n Source [id number] 2024-06-19 00:00:00 PHILIP [facility] [id number] 2023-10-17 00:00:00 KI [facility] Encounters Start Date/Time End Date/Time Encounter Type Admission Type Attending [facility] Care Department Encounter ID Source 2024-06-23 12:00:00 Inpatient JALEESA MARTÍNEZ [facility] [id number] [facility] 2024-05-06 12:00:00 Inpatient JALEESA MARTÍNEZ [facility] [id number] [facility] 2024-08-27 09:00:00 2024-09-09 00:01:00 Outpatient YARIEL HASKINS [facility] [id number] [facility] 2024-09-08 13:51:00 2024-09-08 15:06:00 Emergency ER ALIESULTANA CHAVARRIA [facility] [id number] [facility] 2024-08-31 17:33:00 2024-08-31 22:02:00 Emergency ER JOSE GAONA [facility] [id number] [facility] 2024-08-16 09:44:00 2024-08-16 09:44:00 Outpatient YARIEL HASKINS [facility] [id number] [facility] 2024-08-02 09:32:00 2024-08-02 09:32:00 Outpatient YARIEL HASKINS [facility] [id number] [facility] 2024-07-21 09:09:00 2024-07-21 09:09:00 Outpatient YARIEL HASKINS [facility] [id number] [facility] 2024-07-19 00:00:00 2024-07-19 00:00:00 Yariel Escobar, DO: [address], [address], [place] [address] , Ph. [phone] [facility] General surgery [id number] [facility] 2024-07-16 13:10:00 2024-07-16 13:10:00 Outpatient YARIEL HASKINS [facility] [id number] [facility] 2024-06-30 00:36:00 2024-07-09 18:57:00 Inpatient E AYESHA [facility] [id number] [facility] [[email or web address] 2024-06-29 11:46:00 2024-06-29 23:00:00 Emergency ER CONSUELO JIMENEZ [facility] [id number] [facility] 2024-06-29 11:46:00 2024-06-29 23:00:00 Departed Emergency Room [facility] [id number] [facility] 2024-06-15 18:34:00 2024-06-19 13:52:00 Inpatient EM Vallabhajos Shagufta dasilva [facility] [id number] 30 [facility] 2024-06-15 18:34:00 2024-06-19 13:52:00 Inpatient EM Vallabhajos Shagufta dasilva [facility] [id number] 30 [facility] 2024-06-15 23:39:00 2024-06-15 23:39:00 Outpatient VallabhajoShagufta chaudhary [facility] [id number] 03 [facility] 2024-06-15 23:39:00 2024-06-15 23:39:00 Outpatient Vallabhajos Shagufta dasilva [facility] [id number] 03 [facility] 2024-06-15 09:22:00 2024-06-15 15:07:00 Emergency ER SULTANA العراقي [facility] [id number] [facility] 2024-06-15 09:22:00 2024-06-15 15:07:00 Departed Emergency Room [facility] [id number] 53 [facility] 2024-06-15 09:22:00 2024-06-15 09:22:00 Emergency ER SULTANA العراقي [facility] [id number] [facility] 2024-06-14 12:07:00 2024-06-14 12:07:00 Outpatient JALEESA MARTÍNEZ [facility] [id number] [facility] 2024-06-14 12:07:00 2024-06-14 12:07:00 Registered Clinic [facility] [id number] [facility] 2024-05-23 10:35:00 2024-05-23 14:47:00 Inpatient ER RAQUEL HEADLEY [facility] MED [id number] [facility] 2024-05-23 10:35:00 2024-05-23 14:47:00 Discharged Inpatient (obs) [facility] [id number] 30 [facility] 2024-05-22 18:28:00 2024-05-22 18:28:00 Emergency ER CONSUELO JIMENEZ [facility] MED [id number] [facility] 2024-05-20 15:59:00 2024-05-20 15:59:00 Outpatient JALEESA MARTÍNEZ [facility] [id number] [facility] 2024-05-20 15:59:00 2024-05-20 15:59:00 Registered Clinic [facility] [id number] [facility] 2024-04-22 11:48:00 2024-04-22 11:48:00 Outpatient JALEESA MARTÍNEZ [facility] [id number] [facility] 2024-04-22 11:48:00 2024-04-22 11:48:00 Registered Clinic [facility] [id number] [facility] 2024-04-07 09:09:00 2024-04-07 09:09:00 Outpatient YARIEL HASKINS [facility] [id number] [facility] 2024-03-23 10:05:00 2024-03-23 10:05:00 Outpatient YARIEL AHSKINS [facility] [id number] [facility] 2024-03-18 09:33:00 2024-03-18 11:05:00 Emergency ER BRENDA RODRIGUEZ [facility] [id number] [facility] 2024-03-09 10:22:00 2024-03-09 10:22:00 Outpatient YARIEL HASKINS [facility] [id number] [facility] 2024-02-26 07:57:00 2024-02-26 07:57:00 Outpatient YARIEL HASKINS [facility] [id number] [facility] 2024-02-25 10:08:00 2024-02-25 14:20:00 Emergency ER CONSUELO JIMENEZ [facility] [id number] [facility] 2023-11-27 08:08:00 2023-11-28 16:55:00 Outpatient [facility]ANTEL IZQUIERDO [facility] [id number] 00 [facility] [[email or web address]] 2023-11-27 00:06:00 2023-11-27 04:54:00 Emergency ER KASHIF CELESTE [facility] [id number] [facility] 2023-10-16 16:15:00 2023-10-18 21:34:00 Inpatient EM Bhupendra Mario [facility] [id number] [facility] 2023-10-16 09:21:00 2023-10-16 12:50:00 Emergency ER CONSUELO JIMENEZ [facility] [id number] [facility] 2023-10-16 09:21:00 2023-10-16 12:50:00 emergency [facility] [id number] 2022-02-14 10:49:00 2022-02-14 17:08:00 Emergency ER GERALD LOVELACE [facility] [id number] [facility] 2018-01-05 03:36:00 2018-01-05 07:30:00 Emergency ER DANIELLE AGUILERA [facility] [id number] [facility] Results Test Description Test Time Test Comments Results Result Co mments Source [facility]trColor of Urine by [id number] 15:31:00* Test Item Value Reference Range Interpretation Comme [facility] Urine Color (test code = 11010-8) Dark Yellow [facility] CtrAppearance of [id number] 15:31:00* Test Item Value Reference Range Interpretation Comme [facility] Urine Appearance (test code = 5767-9) SL CLOUDY [facility] CtrUrine glucose [id number] 15:31:00* Test Item Value Reference Range Interpretation Comme [facility] Urine Glucose (UA) (test cod e = 2349-9) Negative [facility] CtrBilirubin [id number] 15:31:00* Test Item Value Reference Range Interpretation Comme [facility] Urine Bilirubin (test code = 930519772) 1+ (SMALL) [facility] CtrKetones [id number] 15:31:00* Test Item Value Reference Range Interpretation Comme [facility] Urine Ketones (test code = 45728201) Trace [facility] CtrSpecific gravity of Urine by Automated test strip 2024-06-29 15:31:00* Test Item Value Reference Range Interpretation Comme [facility] Urine Specific [place] (test code = 01312-8) 1.027 [facility] CtrUrine blood [id number] 15:31:00* Test Item Value Reference Range Interpretation Comme [facility] Urine Blood (test code = 86036-4) 2+ (MODERATE) [facility] CtrpH [id number] 15:31:00* Test Item Value Reference Range Interpretation Comme nts Urine pH (test code = 2756-5) 6.000 [facility] CtrProtein [id number] 15:31:00* Test Item Value Reference Range Interpretation Comme nts Urine Protein (test code = 70292200) Trace [facility] CtrUrobilinogen, urine, [id number] 15:31:00* Test Item Value Reference Range Interpretation Comme nts Urine Urobilinogen (test cod e = 469448063) 1.0 [facility] CtrUrine nitrate [id number] 15:31:00* Test Item Value Reference Range Interpretation Comme nts Urine Nitrate (test code = 65252-5) Negative [facility] [facility]trUrine leukocyte esterase yjyxjpimb1243-22-08 15:31:00* Test Item Value Reference Range Interpretation Comme nts Urine Leukocyte Esterase (te st code = 889156103) 2+ [facility] CtrRBC count ur aaru3743-17-39 15:31:00* Test Item Value Reference Range Interpretation Comme nts Urine RBC (test code = 798-9) 6-10 [facility] CtrUrine examination for white blood cells (WBC) 2024-06-29 15:31:00* Test Item Value Reference Range Interpretation Comme nts Urine WBC (test code = 183375049) 6- [facility] CtrAutomated epithelial cells count in urine sediment (number/area)2024-06-29 15:31:00* Test Item Value Reference Range Interpretation Comme nts Urine Epithelial Cells (test code = 19831-9) 6- [facility] CtrBacteria detection in urine sediment by light fpptuyffjs3427-26-36 15:31:00* Test Item Value Reference Range Interpretation Comme nts Urine Bacteria (test code = 35689-6) None Seen [facility] CtrUrine casts detection by automated method 2024-06-29 15:31:00* Test Item Value Reference Range Interpretation Comme nts Urine Casts (test code = 79672-0) 09-29 [facility] CtrSerum or plasma cardiac troponin I panel by high sensitivity ijwayc3097-14-33 14:58:00* Test Item Value Reference Range Interpretation Comme nts Troponin T High Sensitivity (test code = 16707-6) 28.1 [facility] CtrBilirubin wtkay1139-03-91 14:56:00* Test Item Value Reference Range Interpretation Comme nts Total Bilirubin (test code = QOI7115) 2.1 [facility] CtrSerum or plasma urea nitrogen measurement (mass/volume)2024-06-29 14:56:00* Test Item Value Reference Range Interpretation Comme nts Blood Urea Nitrogen (test co de = 3094-0) 39 [facility] BwwJFH4557-40-16 14:56:00* Test Item Value Reference Range Interpretation Comme nts Aspartate Amino Transf (AST/ SGOT) (test code = QCC2789) 115 [facility] CtrCreatinine zegkt6102-28-35 14:56:00* Test Item Value Reference Range Interpretation Comme nts Creatinine (test code = 229881892) 0.86 [facility] CtrEstimated glomerular filtration rate (GFR) vmtvhweujqpux1456-09-37 14:56:00* Test Item Value Reference Range Interpretation Comme [facility] Glomerular Filtration Rate C alc (test code = 848017752) > 60.00 [facility] CtrBUN/creatinine lcjqq9564-26-89 14:56:00* Test Item Value Reference Range Interpretation Comme nts BUN/Creatinine Ratio (test c ode = 91404627) 45.3 [facility] CtrBody fluid potassium pibphdwqueq5593-86-72 14:56:00* Test Item Value Reference Range Interpretation Comme nts Potassium Level (test code = 2821-7) 3.2 [facility] DtoVE04475-23-32 14:56:00* Test Item Value Reference Range Interpretation Comme nts Carbon Dioxide Level (test c ode = 20568069) 15 [facility] CtrAnion gap mlemiefybix4450-80-32 14:56:00* Test Item Value Reference Range Interpretation Comme nts Anion Gap (test code = 92308722) 14.2 [facility] CtrCalcium fwpuj0910-95-82 14:56:00* Test Item Value Reference Range Interpretation Comme nts Calcium Level (test code = 85959849) 7.0 [facility] CtrBilirubin zuagha6349-99-82 14:56:00* Test Item Value Reference Range Interpretation Comme nts Direct Bilirubin (test code = 1968-7) 1.08 [facility] CtrALT (SGPT) ser/zsta1119-28-29 14:56:00* Test Item Value Reference Range Interpretation Comme nts Alanine Aminotransferase (AL T/SGPT) (test code = 1742-6) 47 [facility] LbrOalgih5745-39-96 14:56:00* Test Item Value Reference Range Interpretation Comme nts Lipase (test code = 43583602) 58 [facility] CtrALP ser/fmwc3885-87-07 14:56:00* Test Item Value Reference Range Interpretation Comme nts Total Alkaline Phosphatase ( test code = 6768-6) 229 [facility] CtrProthrombin tbpm6243-97-91 14:55:00* Test Item Value Reference Range Interpretation Comme [facility] Prothrombin Time (test code = 750472117) 19.4 [facility] CtrWhole blood INR ucmylvbtytc0470-02-17 14:55:00* Test Item Value Reference Range Interpretation Comme [facility] Prothromb Time International Ratio (test code = 86914-2) 1.76 [facility] CtrAbsolute eosinophil dsxur0214-50-21 14:54:00* Test Item Value Reference Range Interpretation Comme [facility] Eosinophils # (Auto) (test c ode = CKC2892) 0.09 [facility] CtrRBC unpfu6728-86-46 14:54:00* Test Item Value Reference Range Interpretation Comme nts Red Blood Count (test code = 07002704) 2.08 [facility] KaeOmlekbcspj3524-28-52 14:54:00* Test Item Value Reference Range Interpretation Comme nts Hematocrit (test code = 58715302) 18.5 [facility] CtrMCV (mean corpuscular volume) determination 2024-06-29 14:54:00* Test Item Value Reference Range Interpretation Comme [facility] Mean Corpuscular Volume (rakel t code = 06326-0) 88.9 [facility] CtrMean corpuscular hemoglobin (MCH) determination 2024-06-29 14:54:00* Test Item Value Reference Range Interpretation Comme [facility] Mean Corpuscular Hemoglobin (test code = 62596029) 30.8 [facility] concentration (MCHC) adodymhselpkx9719-57-90 14:54:00* Test Item Value Reference Range Interpretation Comme [facility] Mean Corpuscular Hemoglobin Concent (test code = 85373276) 34.6 [facility] CtrRBC distribution width coefficient of variation 2024-06-29 14:54:00* Test Item Value Reference Range Interpretation Comme [facility] Red Cell Distribution Width (test code = 27387475) 18.3 [facility] CtrPlatelet uftme4656-41-79 14:54:00* Test Item Value Reference Range Interpretation Comme [facility] Platelet Count (test code = 12839268) 187 [facility] platelet rppwai7011-74-11 14:54:00* Test Item Value Reference Range Interpretation Comme [facility] Mean Platelet Volume (test c ode = 70645941) 9.1 [facility] CtrNeutrophils seg % voi8041-20-12 14:54:00* Test Item Value Reference Range Interpretation Comme [facility] Neutrophils (%) (Auto) (test code = 35369-2) 65.6 [facility] CtrAbsolute immature granulocyte ghnmj2796-54-56 14:54:00* Test Item Value Reference Range Interpretation Comme [facility] Absolute Immature Granulocyt e (auto (test code = 53006-7) 0.04 [facility] CtrBlood band neutrophils count (number/volume) 2024-06-29 14:54:00* Test Item Value Reference Range Interpretation Comme [facility] Neutrophils # (Auto) (test c ode = 80241-9) 4.71 [facility] CtrAbsolute lymphocyte iwucu3689-60-07 14:54:00* Test Item Value Reference Range Interpretation Comme [facility] Lymphocytes # (Auto) (test c ode = 29268-9) 1.24 [facility] basophil xmmpf5054-14-63 14:54:00* Test Item Value Reference Range Interpretation Comme nts Basophils # (Auto) (test cod e = 85900294) 0.02 [facility] CtrAbsolute NR aqsjx5025-25-99 14:54:00* Test Item Value Reference Range Interpretation Comme nts Nucleated Red Blood Cells # (test code = 653522651) 0 [facility] PfnQQRUDBWH1090-36-68 10:08:00* Test Item Value Reference Range Interpretation Comme nts SURGICAL (test code = SR) R UN DATE: 06/23/24 [facility] - Lab PAGE 1 RUN TIME: 1008 Specimen Inquiry RUN USER: INTERFACE P ATIENT: HERNANDO AMOS LOC: [facility] U #: [id number] AGE/SX: 33/M ROOM: [facility] RE06/15/24REG DR: Shagufta Brikn : 91 BED: 1 DIS: 06/19/24 STATUS: DIS IN TLOC: SPEC #: [id number] RECD: 06/21/24 STATUS: IVELISSE MORTON #: [id number] LYNDSEY: 06/19/24- SUBM DR: Justyn Salinas MD ENTERED: 06/21/24 SP TYPE: SURGICAL OTHR DR: Self Referred Bessy Bal MD, Nawras MD R1 Justyn Salinas MD Undefined ProviderORDERED: GM LEVEL 4, 11903, ANATOMIC SPEC COPIES TO: Self Referred Bessy Bal MD [address] [place] [address] Lindsay Neil MD R1 [address] [place] [address] Justyn Salinas MD [address] [place] [address] OTHER PHONE [phone] (CELL) Undefined Provider PROCEDURES: GM LEVEL 4 (06/21/24-1024) 91024 (06/22/24-1628) TISSUES: A. 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 Professional and Technical component performed [facility],[address] [place] [address] [id number] Unless gross only, the diagnosis is based upon microscopic examination.Immunohistochemistr y: This test was developed and its performance characteristicsdetermined by this laboratory. It has not been approved nor does it need approvalby the [place] FDA. Appropriate positive and negative controls are reviewed and judgedto be acceptable for performed immunohistochemistry and/or special stains. This laboratoryis certified under the Clinical Laboratory Improvement Amendments (CLIA-88) as qualified toperform high complexity clinical laboratory testing. MICROSCOPIC DESCRIPTION A microscopic examination was performed. The clinical impression and/or histologic (H E) findings suggest the possibility ofHelicobacter gastritis by H E stains. Helicobacter immunostaining is therefore performed. CLINICAL INFORMATION ANEMIA ----- Signed SIGNATURE ON FILE Judith Jones 06/23/24 1008 END OF REPORT Blood qzzindj1323-71-63 10:12:00* Test Item Value Reference Range Interpretation Comme [facility] Blood Culture (test code = 82401687) FINAL REPORT. [facility] METABOLIC [id number] 03:01:00* Test Item Value Reference Range Interpretation Comme nts SODIUM (test code = NA) 125 mmol/l 134.0-147.0 L POTASSIUM (test code = K) 3.3 mmol/L 3.6-5.2 L CHLORIDE (test code = CL) 98 mmol/l 98.0-107.0 N CARBON DIOXIDE (test code = CO2) 15.9 mmol/l 21.0-33.0 L ANION GAP (test code = GAP) 14.4 0-20 N GLUCOSE (test code = GLU) 91 mg/dl 70.0-110.0 N BLOOD UREA NITROGEN (test code = BUN) 33 mg/dl 7.0-18.0 H GLOMERULAR FILTRATION RATE (test code = GFR) 98 mL/min The Glomerular Filtration Rate is a calculated parameterbased on serum Creatinine, patient age and sex. GFR valuesless than 60 mL/min/1.73 square meters are indicative ofChronic Kidney Disease. Values less than 15 mL/min/1.73square meters indicate Kidney failure. The calculation forGFR is based on the CKD-EPI (2020) calculation. This formulais race indifferent and is the recommended formula for GFRby the National Kidney Foundation for Adults.The GFR will not calculate if the sex is unknown or if thepatient's age is <18 years. CREATININE (test code = CREAT) 1.04 mg/dL 0.60-1.30 N ESTIMATED CREAT CLEARANCE (test code = ECRCL) 102 mL/min >30 CALCIUM (test code = CA) 6.6 mg/dl 8.0-10.5 L [id number] 17:16:00* Test Item Value Reference Range Interpretation Comme nts GLUBED (test code = GLUBED) 89 mg/dL 70-110 N CBC W/AUTO [id number] 07:07:00* Test Item Value Reference Range Interpretation Comme nts WHITE BLOOD CELL (test code = WBC) 9.0 K/mm3 4.5-11.0 N RED BLOOD CELL (test code = RBC) 2.70 M/mm3 4.40-5.90 L HEMOGLOBIN (test code = HGB) 8.1 gm/dL 13.0-17.0 L HEMATOCRIT (test code = HCT) 23.2 % 36.0-48.0 L MEAN CELL VOLUME (test code = MCV) 85.9 UM3 80.0-94.0 N MEAN CELL HGB (test code = MCH) 30.0 UUG 25.5-32.5 N MEAN CELL HGB CONCETRATION (test code = MCHC) 34.9 gm/dL 29.0-35.5 N RED CELL DISTRIBUTION WIDTH (test code = RDW) 18.6 % 11.5-15.0 H RED CELL DISTRIBUTION WIDTH SD (test code = RDW-SD) 58.1 fL 34.8-50.2 H PLATELET COUNT (test code = PLT) 164 K/mm3 150-400 N MEAN PLATELET VOLUME (test c ode = MPV) 8.8 fl 7.4-10.4 N NEUTROPHIL % (test code = NT%) 58.7 % 49.0-76.0 N IMMATURE GRANULOCYTE % (test code = IG%) 0.7 % 0.0-0.4 H LYMPHOCYTE % (test code = LY%) 19.7 % 23.0-38.0 L MONOCYTE % (test code = MO%) 16.3 % 1.0-10.0 H EOSINOPHIL % (test code = EO%) 3.9 % 1.0-5.0 N BASOPHIL % (test code = BA%) 0.7 % 0.0-1.0 N NUCLEATED RBC % (test code = NRBC%) 0.0 % 0.0-0.1 N NEUTROPHIL # (test code = NT#) 5.3 K/mm3 2.4-6.3 N IMMATURE GRANULOCYTE # (test code = IG#) 0.06 x10 3/uL 0.00-0.07 N LYMPHOCYTE # (test code = LY#) 1.8 K/mm3 1.2-4.0 N MONOCYTE # (test code = MO#) 1.5 K/mm3 0.0-0.6 H EOSINOPHIL # (test code = EO#) 0.4 K/MM3 0.0-0.7 N BASOPHIL # (test code = BA#) 0.1 K/mm3 0.0-0.2 N NUCLEATED RBC # (test code = NRBC#) 0.00 X10 3uL 0.00-0.01 N BASIC METABOLIC [id number] 06:18:00* Test Item Value Reference Range Interpretation Comme nts SODIUM (test code = NA) 125 mmol/l 134.0-147.0 L POTASSIUM (test code = K) 2.9 mmol/L 3.6-5.2 L CHLORIDE (test code = CL) 96 mmol/l 98.0-107.0 L CARBON DIOXIDE (test code = CO2) 16.2 mmol/l 21.0-33.0 L ANION GAP (test code = GAP) 14.6 0-20 N GLUCOSE (test code = GLU) 94 mg/dl 70.0-110.0 N BLOOD UREA NITROGEN (test code = BUN) 36 mg/dl 7.0-18.0 H GLOMERULAR FILTRATION RATE (test code = GFR) 118 mL/min The Glomerular Filtration Rate is a calculated parameterbased on serum Creatinine, patient age and sex. GFR valuesless than 60 mL/min/1.73 square meters are indicative ofChronic Kidney Disease. Values less than 15 mL/min/1.73square meters indicate Kidney failure. The calculation forGFR is based on the CKD-EPI (202) calculation. This formulais race indifferent and is the recommended formula for GFRby the National Kidney Foundation for Adults.The GFR will not calculate if the sex is unknown or if thepatient's age is <18 years. CREATININE (test code = CREAT) 0.85 mg/dL 0.60-1.30 N ESTIMATED CREAT CLEARANCE (test code = ECRCL) 125 mL/min >30 CALCIUM (test code = CA) 6.9 mg/dl 8.0-10.5 L CBC W/AUTO [id number] 08:51:00* Test Item Value Reference Range Interpretation Comme nts WHITE BLOOD CELL (test code = WBC) 9.0 K/mm3 4.5-11.0 N RED BLOOD CELL (test code = RBC) 2.28 M/mm3 4.40-5.90 L HEMOGLOBIN (test code = HGB) 7.1 gm/dL 13.0-17.0 L HEMATOCRIT (test code = HCT) 20.2 % 36.0-48.0 L MEAN CELL VOLUME (test code = MCV) 88.6 UM3 80.0-94.0 MEAN CELL HGB (test code = MCH) 31.1 UUG 25.5-32.5 N MEAN CELL HGB CONCETRATION (test code = MCHC) 35.1 gm/dL 29.0-35.5 N RED CELL DISTRIBUTION WIDTH (test code = RDW) 19.5 % 11.5-15.0 H RED CELL DISTRIBUTION WIDTH SD (test code = RDW-SD) 62.3 fL 34.8-50.2 H PLATELET COUNT (test code = PLT) 186 K/mm3 150-400 N MEAN PLATELET VOLUME (test c ode = MPV) 8.6 fl 7.4-10.4 N NEUTROPHIL % (test code = NT%) 61.4 % 49.0-76.0 N IMMATURE GRANULOCYTE % (test code = IG%) 0.8 % 0.0-0.4 H LYMPHOCYTE % (test code = LY%) 21.2 % 23.0-38.0 L MONOCYTE % (test code = MO%) 14.9 % 1.0-10.0 H EOSINOPHIL % (test code = EO%) 1.4 % 1.0-5.0 N BASOPHIL % (test code = BA%) 0.3 % 0.0-1.0 N NUCLEATED RBC % (test code = NRBC%) 0.0 % 0.0-0.1 N NEUTROPHIL # (test code = NT#) 5.5 K/mm3 2.4-6.3 N IMMATURE GRANULOCYTE # (test code = IG#) 0.07 x10 3/uL 0.00-0.07 N LYMPHOCYTE # (test code = LY#) 1.9 K/mm3 1.2-4.0 N MONOCYTE # (test code = MO#) 1.3 K/mm3 0.0-0.6 H EOSINOPHIL # (test code = EO#) 0.1 K/MM3 0.0-0.7 N BASOPHIL # (test code = BA#) 0.0 K/mm3 0.0-0.2 N NUCLEATED RBC # (test code = NRBC#) 0.00 X10 3uL 0.00-0.01 N PT IS RECEIVING BLOOD, [facility]IF[facility] 2024-06-17 08:44:00* Test Item Value Reference Range Interpretation Comme nts SODIUM (test code = NA) 125 mmol/l 134.0-147.0 L POTASSIUM (test code = K) 3.0 mmol/L 3.6-5.2 L CHLORIDE (test code = CL) 97 mmol/l 98.0-107.0 L CARBON DIOXIDE (test code = CO2) 18.3 mmol/l 21.0-33.0 L ANION GAP (test code = GAP) 14.7 0-20 N GLUCOSE (test code = GLU) 90 mg/dl 70.0-110.0 N BLOOD UREA NITROGEN (test code = BUN) 42 mg/dl 7.0-18.0 H GLOMERULAR FILTRATION RATE (test code = GFR) 122 mL/min The Glomerular Filtration Rate is a calculated parameterbased on serum Creatinine, patient age and sex. GFR valuesless than 60 mL/min/1.73 square meters are indicative ofChronic Kidney Disease. Values less than 15 mL/min/1.73square meters indicate Kidney failure. The calculation forGFR is based on the CKD-EPI (2020) calculation. This formulais race indifferent and is the recommended formula for GFRby the National Kidney Foundation for Adults.The GFR will not calculate if the sex is unknown or if thepatient's age is <18 years. CREATININE (test code = CREAT) 0.76 mg/dL 0.60-1.30 N ESTIMATED CREAT CLEARANCE (test code = ECRCL) 140 mL/min >30 TOTAL PROTEIN (test code = PROT) 5.3 gm/dL 6.4-8.2 L ALBUMIN (test code = ALB) 1.5 gm/dl 3.2-4.7 L CALCIUM (test code = CA) 7.0 mg/dl 8.0-10.5 L BILIRUBIN TOTAL (test code = BILT) 2.5 mg/dl 0.0-1.0 H SGOT/AST (test code = AST) 127 Units/L 15-37 H SGPT/ALT (test code = ALT) 53 Units/L 12.0-78.0 N ALKALINE PHOSPHATASE TOTAL (test code = ALKP) 283 Units/L 50.0-136.0 H PT IS RECEIVING BLOOD, NOTIFIED NURSE [id number] 00:50:00* Test Item Value Reference Range Interpretation Comme nts GLUBED (test code = GLUBED) 118 mg/dL 70-110 H BASIC METABOLIC [id number] 21:14:00* Test Item Value Reference Range Interpretation Comme nts SODIUM (test code = NA) 125 mmol/l 134.0-147.0 L POTASSIUM (test code = K) 3.4 mmol/L 3.6-5.2 L CHLORIDE (test code = CL) 95 mmol/l 98.0-107.0 L CARBON DIOXIDE (test code = CO2) 19.6 mmol/l 21.0-33.0 L ANION GAP (test code = GAP) 13.8 0-20 N GLUCOSE (test code = GLU) 104 mg/dl 70.0-110.0 N BLOOD UREA NITROGEN (test code = BUN) 52 mg/dl 7.0-18.0 H GLOMERULAR FILTRATION RATE (test code = GFR) 98 mL/min The Glomerular Filtration Rate is a calculated parameterbased on serum Creatinine, patient age and sex. GFR valuesless than 60 mL/min/1.73 square meters are indicative ofChronic Kidney Disease. Values less than 15 mL/min/1.73square meters indicate Kidney failure. The calculation forGFR is based on the CKD-EPI (202) calculation. This formulais race indifferent and is the recommended formula for GFRby the National Kidney Foundation for Adults.The GFR will not calculate if the sex is unknown or if thepatient's age is <18 years. CREATININE (test code = CREAT) 1.04 mg/dL 0.60-1.30 N ESTIMATED CREAT CLEARANCE (test code = ECRCL) 102 mL/min >30 CALCIUM (test code = CA) 6.6 mg/dl 8.0-10.5 L CBC W/AUTO [id number] 20:45:00* Test Item Value Reference Range Interpretation Comme nts WHITE BLOOD CELL (test code = WBC) 10.6 K/mm3 4.5-11.0 N RED BLOOD CELL (test code = RBC) 1.29 M/mm3 4.40-5.90 L HEMOGLOBIN (test code = HGB) 6.1 gm/dL 13.0-17.0 LL HEMATOCRIT (test code = HCT) 12.9 % 36.0-48.0 LL MEAN CELL VOLUME (test code = MCV) 100.0 UM3 80.0-94.0 H MEAN CELL HGB (test code = MCH) 47.3 UUG 25.5-32.5 H MEAN CELL HGB CONCETRATION (test code = MCHC) 47.3 gm/dL 29.0-35.5 H RED CELL DISTRIBUTION WIDTH (test code = RDW) 23.9 % 11.5-15.0 H RED CELL DISTRIBUTION WIDTH SD (test code = RDW-SD) 63.9 fL 34.8-50.2 H PLATELET COUNT (test code = PLT) 197 K/mm3 150-400 N MEAN PLATELET VOLUME (test c ode = MPV) 8.7 fl 7.4-10.4 N NEUTROPHIL % (test code = NT%) 67.2 % 49.0-76.0 N IMMATURE GRANULOCYTE % (test code = IG%) 0.5 % 0.0-0.4 H LYMPHOCYTE % (test code = LY%) 16.4 % 23.0-38.0 L MONOCYTE % (test code = MO%) 14.3 % 1.0-10.0 H EOSINOPHIL % (test code = EO%) 1.2 % 1.0-5.0 N BASOPHIL % (test code = BA%) 0.4 % 0.0-1.0 N NUCLEATED RBC % (test code = NRBC%) 0.0 % 0.0-0.1 N NEUTROPHIL # (test code = NT#) 7.2 K/mm3 2.4-6.3 H IMMATURE GRANULOCYTE # (test code = IG#) 0.05 x10 3/uL 0.00-0.07 N LYMPHOCYTE # (test code = LY#) 1.7 K/mm3 1.2-4.0 N MONOCYTE # (test code = MO#) 1.5 K/mm3 0.0-0.6 H EOSINOPHIL # (test code = EO#) 0.1 K/MM3 0.0-0.7 N BASOPHIL # (test code = BA#) 0.0 K/mm3 0.0-0.2 N NUCLEATED RBC # (test code = NRBC#) 0.00 X10 3uL 0.00-0.01 N UR SODIUM [id number] 17:35:00* Test Item Value Reference Range Interpretation Comme nts UR SODIUM RANDOM (test code = NARA) 3 mmol/L 40-220 L UR CREATININE [id number] 17:35:00* Test Item Value Reference Range Interpretation Comme nts UR CREATININE RESULT (test c ode = CREATU) 114.47 MG/DL 30-125 N UR OSMOLALITY [id number] 17:35:00* Test Item Value Reference Range Interpretation Comme nts UR OSMOLALITY RANDOM (test c ode = OSMOU) 452 MOS/KG 300-1000 N COMPREHENSIVE METABOLIC [id number] 14:39:00* Test Item Value Reference Range Interpretation Comme nts SODIUM (test code = NA) 124 mmol/l 134.0-147.0 L POTASSIUM (test code = K) 3.9 mmol/L 3.6-5.2 N CHLORIDE (test code = CL) 94 mmol/l 98.0-107.0 L CARBON DIOXIDE (test code = CO2) 20.0 mmol/l 21.0-33.0 L ANION GAP (test code = GAP) 14.9 0-20 N GLUCOSE (test code = GLU) 63 mg/dl 70.0-110.0 L BLOOD UREA NITROGEN (test code = BUN) 51 mg/dl 7.0-18.0 H GLOMERULAR FILTRATION RATE (test code = GFR) 117 mL/min The Glomerular Filtration Rate is a calculated parameterbased on serum Creatinine, patient age and sex. GFR valuesless than 60 mL/min/1.73 square meters are indicative ofChronic Kidney Disease. Values less than 15 mL/min/1.73square meters indicate Kidney failure. The calculation forGFR is based on the CKD-EPI (202) calculation. This formulais race indifferent and is the recommended formula for GFRby the National Kidney Foundation for Adults.The GFR will not calculate if the sex is unknown or if thepatient's age is <18 years. CREATININE (test code = CREAT) 0.89 mg/dL 0.60-1.30 N ESTIMATED CREAT CLEARANCE (test code = ECRCL) 119 mL/min >30 TOTAL PROTEIN (test code = PROT) 5.4 GM/DL 6.0-8.1 L ALBUMIN (test code = ALB) 1.5 gm/dL 3.2-4.7 L CALCIUM (test code = CA) 6.9 mg/dl 8.0-10.5 L BILIRUBIN TOTAL (test code = BILT) 2.8 mg/dl 0.0-1.0 H SGOT/AST (test code = AST) 149 Units/L 15-37 H SGPT/ALT (test code = ALT) 63 Units/L 12.0-78.0 N ALKALINE PHOSPHATASE TOTAL (test code = ALKP) 200 Units/L 50.0-136.0 H PROTHROMBIN [id number] 13:12:00* Test Item Value Reference Range Interpretation Comme nts PROTHROMBIN TIME PATIENT (test code = PTP) 22.5 SECONDS 9.9-12.8 H INTERNATIONAL NORMAL RATIO (test code = INR) 2.0 0.89-1.14 H THE INR IS TO BE USED ONLY FOR MONITORING ORAL ANTICOAGULANTTHERAPY. THE FOLLOWING ARE SUGGESTED RANGES FROM THEAMERICAN COLLEGE OF CHEST PHYSICIANS:INDICATION INR VALUEPROPHYLAXIS OF VENOUS THROMBOSIS (ORTHOPEDIC SURGERY) 2.0 - 3.0PROPHYLAXIS OF VENOUS THROMBOSIS (OTHER THAN HIGH-RISK SURGERY) 2.0 - 3.0TREATMENT OF DEEP VEIN THROMBOSIS OR PULMONARY EMBOLISM 2.0 - 3.0PREVENTION OF SYSTEMIC EMBOLISM TISSUE HEART VALVES 2.0 - 3.0 ACUTE MYOCARDIAL INFARCTION (TO PREVENT SYSTEMIC EMBOLISM) 2.0 - 3.0 ACUTE MYOCARDIAL INFARCTION (TO PREVENT RECURRENT INFARCT) 2.5 - 3.0 VALVULAR HEART DISEASE 2.0 - 3.0 ATRIAL FIBRILATION 2.0 - 3.0BILEAFLET MECHANICAL VALVE IN AORTIC POSITION 2.0 - 3.0MECHANICAL PROSTHETIC VALVES (HIGH RISK) 2.5 - 3.5PRESENCE OF LUPUS ANTICOAGULANT OR ANTIPHOSPHOLIPID ANTIBODIES 2.5 - 3.5 CBC W/AUTO [id number] 11:57:00* Test Item Value Reference Range Interpretation Comme nts WHITE BLOOD CELL (test code = WBC) 9.0 K/mm3 4.5-11.0 N RED BLOOD CELL (test code = RBC) 1.28 M/mm3 4.40-5.90 L HEMOGLOBIN (test code = HGB) 6.6 gm/dL 13.0-17.0 LL HEMATOCRIT (test code = HCT) 12.6 % 36.0-48.0 LL BY [id number] 06/16/24 1156 MEAN CELL VOLUME (test code = MCV) 98.4 UM3 80.0-94.0 H MEAN CELL HGB (test code = MCH) 51.6 UUG 25.5-32.5 H MEAN CELL HGB CONCETRATION (test code = MCHC) 52.4 gm/dL 29.0-35.5 H RED CELL DISTRIBUTION WIDTH (test code = RDW) 22.7 % 11.5-15.0 H RED CELL DISTRIBUTION WIDTH SD (test code = RDW-SD) 60.7 fL 34.8-50.2 H PLATELET COUNT (test code = PLT) 207 K/mm3 150-400 N MEAN PLATELET VOLUME (test code = MPV) 8.8 fl 7.4-10.4 N NEUTROPHIL % (test code = NT%) 65.9 % 49.0-76.0 N IMMATURE GRANULOCYTE % (test code = IG%) 0.6 % 0.0-0.4 H LYMPHOCYTE % (test code = LY%) 16.8 % 23.0-38.0 L MONOCYTE % (test code = MO%) 15.1 % 1.0-10.0 H EOSINOPHIL % (test code = EO%) 1.0 % 1.0-5.0 N BASOPHIL % (test code = BA%) 0.6 % 0.0-1.0 N NUCLEATED RBC % (test code = NRBC%) 0.0 % 0.0-0.1 N NEUTROPHIL # (test code = NT#) 6.0 K/mm3 2.4-6.3 N IMMATURE GRANULOCYTE # (test code = IG#) 0.05 x10 3/uL 0.00-0.07 N LYMPHOCYTE # (test code = LY#) 1.5 K/mm3 1.2-4.0 N MONOCYTE # (test code = MO#) 1.4 K/mm3 0.0-0.6 H EOSINOPHIL # (test code = EO#) 0.1 K/MM3 0.0-0.7 N BASOPHIL # (test code = BA#) 0.1 K/mm3 0.0-0.2 N NUCLEATED RBC # (test code = NRBC#) 0.00 X10 3uL 0.00-0.01 N OSMOLALITY [id number] 11:13:00* Test Item Value Reference Range Interpretation Comme nts OSMOLALITY SERUM (test code = OSMO) 305 MOS/KG 275-295 H [id number] 08:37:00* Test Item Value Reference Range Interpretation Comme nts AMMONIA (test code = AMM) 24.0 MCMOL/L 11.0-32.0 N BASIC METABOLIC [id number] 00:55:00* Test Item Value Reference Range Interpretation Comme nts SODIUM (test code = NA) 122 mmol/l 134.0-147.0 L POTASSIUM (test code = K) 4.0 mmol/L 3.6-5.2 N CHLORIDE (test code = CL) 92 mmol/l 98.0-107.0 L CARBON DIOXIDE (test code = CO2) 19.7 mmol/l 21.0-33.0 L ANION GAP (test code = GAP) 14.2 0-20 N GLUCOSE (test code = GLU) 90 mg/dl 70.0-110.0 N BLOOD UREA NITROGEN (test code = BUN) 56 mg/dl 7.0-18.0 H GLOMERULAR FILTRATION RATE (test code = GFR) 96 mL/min The Glomerular Filtration Rate is a calculated parameterbased on serum Creatinine, patient age and sex. GFR valuesless than 60 mL/min/1.73 square meters are indicative ofChronic Kidney Disease. Values less than 15 mL/min/1.73square meters indicate Kidney failure. The calculation forGFR is based on the CKD-EPI (2020) calculation. This formulais race indifferent and is the recommended formula for GFRby the National Kidney Foundation for Adults.The GFR will not calculate if the sex is unknown or if thepatient's age is <18 years. CREATININE (test code = CREAT) 1.06 mg/dL 0.60-1.30 N ESTIMATED CREAT CLEARANCE (test code = ECRCL) 100 mL/min >30 CALCIUM (test code = CA) 7.2 mg/dl 8.0-10.5 L LACTIC ACID 2ND [id number] 00:46:00* Test Item Value Reference Range Interpretation Comme nts LACTIC ACID 2ND REPEAT (test code = LACT2) 2.2 mmol/L 0.4-2.0 H DRUGS OF ABUSE SCREEN [id number] 20:09:00* Test Item Value Reference Range Interpretation Comments URN COCAINE (test code = COCAURN) NEGATIVE NEGATIVE Cocaine cut-off concentration: 300 ng/mL URN CANNABINOIDS (test code = CANNABURN) POSITIVE NEGATIVE A UNCONFIRMED INIT IAL SCREENING ONLY; SUGGEST ADDITIONALCONFIRMATORY TESTING.Cannabinoids cut-off concentration: 50 ng/mL URN AMPHETAMINE (test code = AMPHETURN) NEGATIVE NEGATIVE Amphetamine cut- off concentration: 1000 ng/mL URN BARBITURATE (test code = BARBITURN) NEGATIVE NEGATIVE Barbiturate cut- off concentration: 200 ng/mL URN BENZODIAZEPINE (test code = BENZOURN) NEGATIVE NEGATIVE Benzodiazepine c ut-off concentration: 200 ng/mL URN OPIATES (test code = OPIATURN) NEGATIVE NEGATIVE Opiates cut-off concentration: 2000 ng/mL URN PHENCYCLIDINE (PCP) (test code = PHENCURN) NEGATIVE NEGATIVE Phencyclidine(PC P) cut-off concentration: 25 ng/ml URN METHADONE (test code = METHAURN) NEGATIVE NEGATIVE Methadone cut-o ff concentration: 300 ng/mL WHAT DRUGS HAVE BEEN TAKEN? ?UA RFLX MICR CULT IF [id number] 20:08:00* Test Item Value Reference Range Interpretation Comme nts UA COLOR (test code = COLU) YELLOW UA APPEARANCE (test code = APPU) CLEAR UA GLUCOSE DIPSTICK (test code = DGLUU) NORMAL mg/dl NORMAL UA BILIRUBIN DIPSTICK (test code = BILU) NEGATIVE mg/dL NEGATIVE UA KETONE DIPSTICK (test code = KETU) NEGATIVE mg/dl NEGATIVE UA SPECIFIC GRAVITY (test code = SGU) 1.015 1.000-1.030 UA BLOOD DIPSTICK (test code = ALEXANDER) 25 Marcos/micL Marcos/micL NEGATIVE A UA PH DIPSTICK (test code = BENOIT) 6.0 5.0-9.0 UA PROTEIN DIPSTICK (test code = PROU) NEGATIVE mg/dl NEGATIVE UA UROBILINIOGEN DIPSTICK (test code = URO) NORMAL mg/dl NORMAL UA NITRITE DIPSTICK (test code = MINH) NEGATIVE NEGATIVE UA LEUKOCYTE ESTERASE DIPSTICK (test code = LEUU) 25 Marsha/micL Marsha/micL NEGATIVE A UA WBC (test code = WBCU) 10-15 WBC/HPF NONE A UA RBC (test code = RBCU) 3-5 RBC/HPF 0-3 UA EPITHELIAL CELLS (test code = EPIU) 2-5 EPI/HPF 0-3 A UA BACTERIA (test code = BACU) MANY NONE A UA YEAST (test code = YEASTU) FEW NEGATIVE Indication for culture: Gross HematuriaSpecimen Description: CLEAN CATCHLACTIC ACID [id number] 20:00:00* Test Item Value Reference Range Interpretation Comme nts LACTIC ACID REPEAT (test cod e = LACTR) 3.2 mmol/L 0.4-2.0 H LACTIC [id number] 18:08:00* Test Item Value Reference Range Interpretation Comme nts LACTIC ACID (test code = LACT) 2.5 mmol/L 0.4-2.0 H BASIC METABOLIC [id number] 18:07:00* Test Item Value Reference Range Interpretation Comme nts SODIUM (test code = NA) 121 mmol/l 134.0-147.0 L POTASSIUM (test code = K) 3.9 mmol/L 3.6-5.2 N CHLORIDE (test code = CL) 90 mmol/l 98.0-107.0 L CARBON DIOXIDE (test code = CO2) 19.0 mmol/l 21.0-33.0 L ANION GAP (test code = GAP) 15.9 0-20 N GLUCOSE (test code = GLU) 102 mg/dl 70.0-110.0 N BLOOD UREA NITROGEN (test code = BUN) 60 mg/dl 7.0-18.0 H GLOMERULAR FILTRATION RATE (test code = GFR) 78 mL/min The Glomerular Filtration Rate is a calculated parameterbased on serum Creatinine, patient age and sex. GFR valuesless than 60 mL/min/1.73 square meters are indicative ofChronic Kidney Disease. Values less than 15 mL/min/1.73square meters indicate Kidney failure. The calculation forGFR is based on the CKD-EPI (202) calculation. This formulais race indifferent and is the recommended formula for GFRby the National Kidney Foundation for Adults.The GFR will not calculate if the sex is unknown or if thepatient's age is <18 years. CREATININE (test code = CREAT) 1.25 mg/dL 0.60-1.30 N ESTIMATED CREAT CLEARANCE (test code = ECRCL) 85 mL/min >30 CALCIUM (test code = CA) 7.2 mg/dl 8.0-10.5 L [id number] 18:07:00* Test Item Value Reference Range Interpretation Comme nts PHOSPHOROUS (test code = PHOS) 5.2 mg/dl 2.5-4.9 H [id number] 18:07:00* Test Item Value Reference Range Interpretation Comme nts MAGNESIUM (test code = MAG) 2.1 mg/dl 1.8-2.4 N [id number] 18:07:00* Test Item Value Reference Range Interpretation Comme nts ALCOHOL (test code = ALC) 0.00 gm/dL 0.00-0.00 N ETHYL ALCOHOL SANDRA MERCEDES - INTERPRETATION: 0.050 GM/DL - NOT INTOXICATED 0.100 GM/DL - INTOXICATED 0.350-0.450 GM/DL - SEVERELY INTOXICATED 0.550 GM/DL- FATAL INTOXICATION Lactic [id number] 13:39:00* Test Item Value Reference Range Interpretation Comme nts Lactic Acid Level (test code = VVQ6468) 3.35 [facility] CtrLactic bbwa1832-53-12 13:39:00* Test Item Value Reference Range Interpretation Comme nts Lactic Acid Level (test code = BDL0251) 3.35 [facility] CtrAdenovirus antibody nwfam1931-22-28 12:02:00* Test Item Value Reference Range Interpretation Comme nts Adenovirus (PCR) (test code = 33749-7) Not Detected [facility] CtrCoronavirus antibody dtasc8408-06-32 12:02:00* Test Item Value Reference Range Interpretation Comme nts Coronavirus (PCR) (test code = 5099-7) Not Detected [facility] CtrHuman metapneumovirus (hMPV) RNA detection by probe and target amplification aykiie4117-54-03 12:02:00* Test Item Value Reference Range Interpretation Comme nts Human Metapneumovirus (PCR) (test code = 85118-5) Not Detected [facility] CtrRhinovirus and Enterovirus RNA detection by probe and target amplification pmipsq4654-70-24 12:02:00* Test Item Value Reference Range Interpretation Comme nts Enterovirus/Rhinovirus (PCR) (test code = 23137-2) Not Detected [facility] CtrNasopharyngeal specimen influenza virus A RNA detection by probe and target amplification fsqdok9222-77-09 12:02:00* Test Item Value Reference Range Interpretation Comme nts Influenza Type A (RT-PCR) (t est code = 22618-6) Not Detected [facility] CtrInfluenza A virus H1N1 RNA chicgjmpz1753-66-02 12:02:00* Test Item Value Reference Range Interpretation Comme nts Influenza Type A (H1N1/09) ( PCR) (test code = 17355-3) Not Detected [facility] CtrInfluenza A H3 virus RNA detection by probe and target amplification method in cuture aoaxrtu6595-46-57 12:02:00* Test Item Value Reference Range Interpretation Comme nts Influenza Type A (H3) (PCR) (test code = 29800-3) Not Detected [facility] CtrNasopharyngeal specimen influenza virus B RNA detection by probe and target amplification menrtl1747-67-97 12:02:00* Test Item Value Reference Range Interpretation Comme nts Influenza Type B (RT-PCR) (t est code = 17085-7) Not Detected [facility] CtrParainfluenza virus 1 antibody qjipo1894-96-92 12:02:00* Test Item Value Reference Range Interpretation Comme nts Parainfluenza Type 1 (PCR) ( test code = 5268-8) Not Detected [facility] CtrParainfluenza virus 2 antibody alitj2607-62-13 12:02:00* Test Item Value Reference Range Interpretation Comme nts Parainfluenza Type 2 (PCR) ( test code = 5269-6) Not Detected [facility] CtrParainfluenza virus 3 RNA detection in isolate by probe and target amplification ytsyaq9563-82-36 12:02:00* Test Item Value Reference Range Interpretation Comme nts Parainfluenza Type 3 (PCR) ( test code = 47638-9) Not Detected [facility] CtrParainfluenza virus 4 RNA detection by probe and target amplification ygvzae1504-34-89 12:02:00* Test Item Value Reference Range Interpretation Comme nts Parainfluenza Type 4 (PCR) ( test code = 62275-3) Not Detected [facility] CtrRespiratory syncytial virus (RSV) B detection by WRR8150-65-14 12:02:00* Test Item Value Reference Range Interpretation Comme nts Resp Syncytial Virus Type B (PCR) (test code = KTL0023) Not Detected [facility] CtrMycoplasma pneumoniae antibody bjuhq5254-09-36 12:02:00* Test Item Value Reference Range Interpretation Comme nts Mycoplasma pneumoniae (PCR) (test code = 84217-3) Not Detected [facility] CtrAdenovirus antibody gvmgv8527-40-38 12:02:00* Test Item Value Reference Range Interpretation Comme nts Adenovirus (PCR) (test code = 18094-3) Not Detected [facility] CtrCoronavirus antibody xljtq6091-39-74 12:02:00* Test Item Value Reference Range Interpretation Comme nts Coronavirus (PCR) (test code = 5099-7) [facility] ([facility]MPV) RNA detection by probe and target amplification gcgxxw0534-82-93 12:02:00* Test Item Value Reference Range Interpretation Comme nts Human Metapneumovirus (PCR) (test code = 96532-6) Not Detected [facility] CtrRhinovirus and Enterovirus RNA detection by probe and target amplification cunjji7567-18-03 12:02:00* Test Item Value Reference Range Interpretation Comme nts Enterovirus/Rhinovirus (PCR) (test code = 77383-8) Not Detected [facility] CtrNasopharyngeal specimen influenza virus A RNA detection by probe and target amplification jplbhr3206-50-71 12:02:00* Test Item Value Reference Range Interpretation Comme nts Influenza Type A (RT-PCR) (t est code = 96255-3) Not Detected [facility] CtrInfluenza A virus H1N1 RNA xysmeyanb7554-89-27 12:02:00* Test Item Value Reference Range Interpretation Comme nts Influenza Type A (H1N1/09) ( PCR) (test code = 45996-0) Not Detected [facility] CtrInfluenza A H3 virus RNA detection by probe and target amplification method in cuture gjlzlky3755-26-24 12:02:00* Test Item Value Reference Range Interpretation Comme nts Influenza Type A (H3) (PCR) (test code = 99807-1) Not Detected [facility] CtrNasopharyngeal specimen influenza virus B RNA detection by probe and target amplification kxqfsu0698-54-18 12:02:00* Test Item Value Reference Range Interpretation Comme nts Influenza Type B (RT-PCR) (t est code = 50590-1) Not Detected [facility] CtrParainfluenza virus 1 antibody xkcnq5150-93-62 12:02:00* Test Item Value Reference Range Interpretation Comme nts Parainfluenza Type 1 (PCR) ( test code = 5268-8) Not Detected [facility] CtrParainfluenza virus 2 antibody abwwp2696-10-10 12:02:00* Test Item Value Reference Range Interpretation Comme nts Parainfluenza Type 2 (PCR) ( test code = 5269-6) Not Detected [facility] CtrParainfluenza virus 3 RNA detection in isolate by probe and target amplification ghvcal4307-15-09 12:02:00* Test Item Value Reference Range Interpretation Comme nts Parainfluenza Type 3 (PCR) ( test code = 86424-4) Not Detected [facility] CtrParainfluenza virus 4 RNA detection by probe and target amplification wviyiy0401-41-01 12:02:00* Test Item Value Reference Range Interpretation Comme nts Parainfluenza Type 4 (PCR) ( test code = 72448-0) Not Detected [facility] CtrRespiratory syncytial virus (RSV) B detection by [id number] 12:02:00* Test Item Value Reference Range Interpretation Comme nts Resp Syncytial Virus Type B (PCR) (test code = RHY3991) Not Detected [facility] CtrMycoplasma pneumoniae antibody tvdbi4915-29-56 12:02:00* Test Item Value Reference Range Interpretation Comme nts Mycoplasma pneumoniae (PCR) (test code = 77969-0) Not Detected [facility] CtrAlcohol level, rktwu7581-38-05 12:00:00* Test Item Value Reference Range Interpretation Comme nts Ethyl Alcohol Level (test co de = 738418931) < 10.0 [facility] CtrAlcohol level, powlw4764-52-63 12:00:00* Test Item Value Reference Range Interpretation Comme nts Ethyl Alcohol Level (test co de = 717362386) < 10.0 [facility] CtrBilirubin udaeey1703-16-90 11:20:00* Test Item Value Reference Range Interpretation Comme nts Direct Bilirubin (test code = 1968-7) 1.49 [facility] TkdBtvobgg4818-49-25 11:05:00* Test Item Value Reference Range Interpretation Comme nts Ammonia (test code = OLG9515) 129.5 [facility] 11:05:00* Test Item Value Reference Range Interpretation Comme nts Ammonia (test code = UDE4618) 129.5 [facility] CtrSerum or plasma glucose measurement (mass/volume) 2024-06-15 11:04:00* Test Item Value Reference Range Interpretation Comme nts Random Glucose (test code = 2345-7) 132 [facility] CtrSerum or plasma urea nitrogen measurement (mass/volume)2024-06-15 11:04:00* Test Item Value Reference Range Interpretation Comme nts Blood Urea Nitrogen (test co de = 3094-0) 63 [facility] TsiUZO4775-88-94 11:04:00* Test Item Value Reference Range Interpretation Comme nts Aspartate Amino Transf (AST/ SGOT) (test code = NJU8853) 167 [facility] CtrBilirubin vxyta8211-80-91 11:04:00* Test Item Value Reference Range Interpretation Comme nts Total Bilirubin (test code = SZW7537) 3.3 [facility] CtrEstimated glomerular filtration rate (GFR) supdqqgsxsakv6160-16-97 11:04:00* Test Item Value Reference Range Interpretation Comme nts Glomerular Filtration Rate C alc (test code = 455769586) > 60.00 [facility] CtrBUN/creatinine bxklw5178-92-46 11:04:00* Test Item Value Reference Range Interpretation Comme nts BUN/Creatinine Ratio (test c ode = 25983813) 49.6 [facility] CplHL11295-79-28 11:04:00* Test Item Value Reference Range Interpretation Comme nts Carbon Dioxide Level (test c ode = 21005215) 16 [facility] CtrAnion gap csymmpnhnkz8754-36-21 11:04:00* Test Item Value Reference Range Interpretation Comme nts Anion Gap (test code = 17518000) 23.3 [facility] CtrCalcium xfqxp3929-85-43 11:04:00* Test Item Value Reference Range Interpretation Comme nts Calcium Level (test code = 49399242) 8.3 [facility] IvvWssycguct5150-24-13 11:04:00* Test Item Value Reference Range Interpretation Comme nts Magnesium Level (test code = 48713452) 2.2 [facility] CtrGlobulin dmz3565-30-11 11:04:00* Test Item Value Reference Range Interpretation Comme nts Globulin (test code = 921166040) 4.1 [facility] CtrALT (SGPT) ser/niqz2661-78-49 11:04:00* Test Item Value Reference Range Interpretation Comme nts Alanine Aminotransferase (AL T/SGPT) (test code = 1742-6) 67 [facility] CtrAmylase datjd0360-11-49 11:04:00* Test Item Value Reference Range Interpretation Comme nts Amylase Level (test code = 1798-8) 129 [facility] BfiFdlesh4994-06-16 11:04:00* Test Item Value Reference Range Interpretation Comme nts Lipase (test code = 16609155) 92 [facility] CtrALP ser/jste0228-46-72 11:04:00* Test Item Value Reference Range Interpretation Comme nts Total Alkaline Phosphatase ( test code = 6768-6) 325 [facility] BtdAozjbvnsi8073-40-88 11:04:00* Test Item Value Reference Range Interpretation Comme nts Magnesium Level (test code = 42783763) 2.2 [facility] CtrGlobulin kjh4034-64-11 11:04:00* Test Item Value Reference Range Interpretation Comme nts Globulin (test code = 439526895) 4.1 [facility] CtrAlbumin-globulin ratio xyw1867-30-92 11:04:00* Test Item Value Reference Range Interpretation Comme nts Albumin/Globulin Ratio (test code = VUZ4502) 0.6 [facility] CtrAmylase jumno3871-26-38 11:04:00* Test Item Value Reference Range Interpretation Comme nts Amylase Level (test code = 1798-8) 129 [facility] CtrSerum procalcitonin qizsaunsssi1026-26-47 11:01:00 * Test Item Value Reference Range Interpretation Comme nts Procalcitonin (test code = 54364-6) 0.6 [facility] CtrSerum procalcitonin oklqxpthuyp4605-43-34 11:01:00 * Test Item Value Reference Range Interpretation Comme nts Procalcitonin (test code = 53504-1) 0.6 [facility] CtrAbsolute eosinophil snzbp1230-87-33 10:44:00* Test Item Value Reference Range Interpretation Comme nts Eosinophils # (Auto) (test c ode = CRV6347) 0.03 [facility] CtrRBC urutg9620-69-17 10:44:00* Test Item Value Reference Range Interpretation Comme [facility] Red Blood Count (test code = 88150041) 2.63 [facility] WtpEbiynzytch4921-02-76 10:44:00* Test Item Value Reference Range Interpretation Comme nts Hematocrit (test code = 22007285) 22.9 [facility] CtrMCV (mean corpuscular volume) determination 2024-06-15 10:44:00* Test Item Value Reference Range Interpretation Comme [facility] Mean Corpuscular Volume (rakel t code = 48951-9) 87.1 [facility] CtrMean corpuscular hemoglobin (MCH) determination 2024-06-15 10:44:00* Test Item Value Reference Range Interpretation Comme [facility] Mean Corpuscular Hemoglobin (test code = 70175263) 30.8 [facility] CtrMean corpuscular hemoglobin concentration (MCHC) tnjcmlrzoohag8869-52-89 10:44:00* Test Item Value Reference Range Interpretation Comme [facility] Mean Corpuscular Hemoglobin Concent (test code = 30606374) 35.4 [facility] CtrRBC distribution width coefficient of variation 2024-06-15 10:44:00* Test Item Value Reference Range Interpretation Comme [facility] Red Cell Distribution Width (test code = 39570179) 18.7 [facility] CtrPlatelet cblnx3819-49-23 10:44:00* Test Item Value Reference Range Interpretation Comme [facility] Platelet Count (test code = 41876589) 292 [facility] CtrMean platelet dclbsl1834-57-45 10:44:00* Test Item Value Reference Range Interpretation Comme nts Mean Platelet Volume (test c ode = 33461941) 8.7 [facility] CtrNeutrophils seg % vnb7016-70-46 10:44:00* Test Item Value Reference Range Interpretation Comme [facility] Neutrophils (%) (Auto) (test code = 57977-1) 80.9 [facility] CtrAbsolute immature granulocyte ggiis4270-08-33 10:44:00* Test Item Value Reference Range Interpretation Comme [facility] Absolute Immature Granulocyt e (auto (test code = 42346-4) 0.16 [facility] CtrBlood band neutrophils count (number/volume) 2024-06-15 10:44:00* Test Item Value Reference Range Interpretation Comme [facility] Neutrophils # (Auto) (test c ode = 57312-5) 12.63 [facility] CtrAbsolute lymphocyte beznl4623-90-39 10:44:00* Test Item Value Reference Range Interpretation Comme [facility] Lymphocytes # (Auto) (test c ode = 46751-3) 1.18 [facility] CtrAbsolute basophil hsslc7148-47-00 10:44:00* Test Item Value Reference Range Interpretation Comme [facility] Basophils # (Auto) (test cod e = 36253257) 0.02 [facility] CtrAbsolute NRBC ksrod8196-83-57 10:44:00* Test Item Value Reference Range Interpretation Comme [facility] Nucleated Red Blood Cells # (test code = 493688878) 0 [facility] CtrProthrombin dajc2120-94-44 10:40:00* Test Item Value Reference Range Interpretation Comme nts Prothrombin Time (test code = 429316441) 16.7 [facility] CtrWhole blood INR tgowkdxdvmy7307-31-41 10:40:00* Test Item Value Reference Range Interpretation Comme [facility] Prothromb Time International Ratio (test code = 52097-8) 1.51 [facility] CtrPO2 xwdisl3811-70-87 10:27:00* Test Item Value Reference Range Interpretation Comme [facility] Venous Blood Partial Pressur e O2 (test code = 2705-2) 40 [facility] CtrVenous blood bicarbonate bbavtksigun1181-34-76 10:27:00* Test Item Value Reference Range Interpretation Comme [facility] Venous Blood HCO3 (test code = 550706606) 19.6 [facility] base excess determination by shprpnurddf4397-22-72 10:27:00* Test Item Value Reference Range Interpretation Comme [facility] Venous Blood Base Excess (te st code = 1927-3) -6.6 [facility]hamBlood venous total MW01006-34-33 10:27:00* Test Item Value Reference Range Interpretation Comme [facility] Venous Blood Total Carbon Di oxide (test code = 2027-1) 16.1 [facility] CtrCalculated venous blood oxygen saturation ohatsaebcrh0916-97-92 10:27:00* Test Item Value Reference Range Interpretation Comme [facility] Venous Blood O2 Saturation ( Calc) (test code = 232731682) 75 [facility] CtrVenous blood oxygen sjtjwtw8547-03-10 10:27:00* Test Item Value Reference Range Interpretation Comme [facility] Venous Blood Oxygen Content (test code = 15158-2) 4.0 [facility] CtrVenous blood pH dbmyxsiexuw8141-72-96 10:27:00* Test Item Value Reference Range Interpretation Comme [facility] Venous Blood pH (test code = 2746-6) 7.472 [facility] CtrPCO2 kmulsn8137-61-56 10:27:00* Test Item Value Reference Range Interpretation Comme [facility] Venous Blood pCO2 at Patient Temp (test code = 2021-4) 23 [facility]hamPO2 dqiqdf7043-68-36 10:27:00* Test Item Value Reference Range Interpretation Comme [facility] Venous Blood Partial Pressur e O2 (test code = 2705-2) 40 [facility] CtrVenous blood bicarbonate zgypizsoplb4397-50-68 10:27:00* Test Item Value Reference Range Interpretation Comme [facility] Venous Blood HCO3 (test code = 325156987) 19.6 [facility] CtrVenous blood base excess determination by jqvpixadldo4664-40-85 10:27:00* Test Item Value Reference Range Interpretation Comme [facility] Venous Blood Base Excess (te st code = 1927-3) -6.6 [facility] CtrBlood venous total NP40593-26-44 10:27:00* Test Item Value Reference Range Interpretation Comme [facility] Venous Blood Total Carbon Di oxide (test code = 2027-1) 16.1 [facility] CtrCalculated venous blood oxygen saturation anrkealxusu6759-84-35 10:27:00* Test Item Value Reference Range Interpretation Comme [facility] Venous Blood O2 Saturation ( Calc) (test code = 062722546) 75 [facility] [facility]trVenous blood oxygen onnxklp9573-28-25 10:27:00* Test Item Value Reference Range Interpretation Comme [facility] Venous Blood Oxygen Content (test code = 01883-7) 4.0 [facility] knccfiokviv9912-10-72 10:27:00* Test Item Value Reference Range Interpretation Comme [facility] Venous Blood pH (test code = 2746-6) 7.472 [facility]trPCO2 rkxahi5342-21-04 10:27:00* Test Item Value Reference Range Interpretation Comme [facility] Venous Blood pCO2 at Patient Temp (test code = 2021-4) 23 [facility] CtrBlood ozdifxc2367-60-80 10:13:00* Test Item Value Reference Range Interpretation Comme [facility] Blood Culture (test code = 12777460) SPECIMEN HAS BEEN RECEIVED IN LAB AND IS IN PROGRESS. [facility] CtrUrine vtnkmuyvia1604-08-30 15:15:00* Test Item Value Reference Range Interpretation Comme nts Urine Osmolality (test code = 2695-5) 301 [facility] CtrUrine npwfxetaak2315-37-13 15:15:00* Test Item Value Reference Range Interpretation Comme nts Urine Osmolality (test code = 2695-5) 301 [facility] CtrColor of Urine by Xuoz2120-02-87 14:40:00* Test Item Value Reference Range Interpretation Comme nts Urine Color (test code = 63187-4) Dark Yellow [facility] CtrAppearance of Luxmw2640-56-54 14:40:00* Test Item Value Reference Range Interpretation Comme nts Urine Appearance (test code = 5767-9) Clear [facility] glucose vsquzmjyw8747-08-57 14:40:00* Test Item Value Reference Range Interpretation Comme [facility] Urine Glucose (UA) (test cod e = 2349-9) Negative [facility] CtrBilirubin ik1448-60-68 14:40:00* Test Item Value Reference Range Interpretation Comme nts Urine Bilirubin (test code = 707326752) 1+ (SMALL) [facility] CtrKetones ex1751-84-48 14:40:00* Test Item Value Reference Range Interpretation Comme [facility] Urine Ketones (test code = 85205288) Trace [facility] CtrSpecific gravity of Urine by Automated test strip 2024-05-23 14:40:00* Test Item Value Reference Range Interpretation Comme nts Urine Specific [place] (test code = 94819-8) 1.017 [facility] blood lcadngykx6094-57-24 14:40:00* Test Item Value Reference Range Interpretation Comme nts Urine Blood (test code = 49217-6) 1+ (SMALL) [facility] CtrpH dg2142-48-63 14:40:00* Test Item Value Reference Range Interpretation Comme nts Urine pH (test code = 2756-5) 5.000 [facility] CtrProtein cb4997-83-33 14:40:00* Test Item Value Reference Range Interpretation Comme [facility] Urine Protein (test code = 72337476) Trace [facility] CtrUrobilinogen, urine, zl7719-18-25 14:40:00* Test Item Value Reference Range Interpretation Comme [facility] Urine Urobilinogen (test cod e = 778695773) 1.0 [facility] nitrate fcfwfcqfx8167-03-40 14:40:00* Test Item Value Reference Range Interpretation Comme nts Urine Nitrate (test code = 62825-2) Negative [facility]trUrine leukocyte esterase twtwouaym7586-17-75 14:40:00* Test Item Value Reference Range Interpretation Comme nts Urine Leukocyte Esterase (te st code = 927740977) 2+ [facility] CtrRBC count ur qevp8003-32-76 14:40:00* Test Item Value Reference Range Interpretation Comme nts Urine RBC (test code = 798-9) 6-10 [facility] CtrUrine examination for white blood cells (WBC) 2024-05-23 14:40:00* Test Item Value Reference Range Interpretation Comme nts Urine WBC (test code = 468807329) 21-50 [facility] CtrAutomated epithelial cells count in urine sediment (number/area)2024-05-23 14:40:00* Test Item Value Reference Range Interpretation Comme nts Urine Epithelial Cells (test code = 43874-9) 3-5 [facility] CtrBacteria detection in urine sediment by light yczdembzhg4115-87-11 14:40:00* Test Item Value Reference Range Interpretation Comme nts Urine Bacteria (test code = 86538-7) None Seen [facility] CtrUrine casts detection by automated method 2024-05-23 14:40:00* Test Item Value Reference Range Interpretation Comme nts Urine Casts (test code = 95875-8) 0-2 [facility] urea nitrogen xattchowufa1072-01-83 14:25:00 * Test Item Value Reference Range Interpretation Comme nts Urine Urea Nitrogen (test co de = 650808411) 312.3 [facility]trUrine sodium cwvmn7675-25-09 14:25:00* Test Item Value Reference Range Interpretation Comme nts Urine Sodium (test code = 071480553) 4 [facility] urea nitrogen lyhhopouiwi3102-82-61 14:25:00 * Test Item Value Reference Range Interpretation Comme nts Urine Urea Nitrogen (test co de = 584843553) 312.3 [facility]trUrine sodium harqz9537-81-54 14:25:00* Test Item Value Reference Range Interpretation Comme nts Urine Sodium (test code = 095930188) 4 [facility] Ctr24 hour urine creatinine vipwrhnquhu9137-60-44 14:23:00* Test Item Value Reference Range Interpretation Comme nts Urine Creatinine (test code = 9781245) 190.6 [facility]24 hour urine creatinine zjyfkbiutpv8290-92-32 14:23:00* Test Item Value Reference Range Interpretation Comme nts Urine Creatinine (test code = 6253987) 190.6 [facility] CtrWhole blood INR pgemmyqxlkp4080-71-22 04:39:00* Test Item Value Reference Range Interpretation Comme nts Activated Partial Thrombopla st Time (test code = 40481-3) 46.9 [facility] CtrWhole blood INR tfhakbfevzz7245-16-93 04:39:00* Test Item Value Reference Range Interpretation Comme nts Activated Partial Thrombopla st Time (test code = 56181-0) 46.9 [facility] cortisol memuyisphzs3416-09-71 01:48:00* Test Item Value Reference Range Interpretation Comme nts Random Cortisol (test code = 2143-6) 10.1 [facility] CtrSerum or plasma thyroid stimulating hormone (TSH) pujkzddyyta6722-92-93 01:48:00* Test Item Value Reference Range Interpretation Comme nts Thyroid Stimulating Hormone (TSH) (test code = 3016-3) 3.55 [facility] cortisol dmmmorcpibz9667-03-05 01:48:00* Test Item Value Reference Range Interpretation Comme nts Random Cortisol (test code = 2143-6) 10.1 [facility] CtrSerum or plasma thyroid stimulating hormone (TSH) rfhzcxzhciv1278-78-94 01:48:00* Test Item Value Reference Range Interpretation Comme nts Thyroid Stimulating Hormone (TSH) (test code = 3016-3) 3.55 [facility] CtrPOINT OF YVZI7305-64-01 11:53:00* Test Item Value Reference Range Interpretation Comme nts Glucose POC (test code = Glucose POC) 98 70-99 Gluc POC Comment 1 (test cod e = Gluc POC Comment 1) Notified RN/ [facility]2024-01-19 10:26:00* Test Item Value Reference Range Interpretation Comme nts Glucose Lvl (test code = Glucose Lvl) 97 70-99 BUN (test code = BUN) 9 7-22 Creatinine Lvl (test code = Creatinine Lvl) 0.50 0.50-1.40 Sodium Lvl (test code = Sodium Lvl) 139 135-145 Potassium Lvl (test code = P otassium Lvl) 3.7 3.5-5.1 Chloride Lvl (test code = Chloride Lvl) 109 95-109 CO2 (test code = CO2) 24 24-32 Calcium Lvl (test code = Calcium Lvl) 8.1 8.5-10.5 Total Protein (test code = T otal Protein) 6.7 6.4-8.4 Albumin Lvl (test code = Albumin Lvl) 2.1 3.5-5.0 ALT (test code = ALT) 21 <=65 AST (test code = AST) 42 <=37 Alk Phos (test code = Alk Phos) 94 39-136 Bili Total (test code = Bili Total) 2.2 0.2-1.3 AGAP (test code = AGAP) 9.7 10.0-20.0 B/C Ratio (test code = B/C Ratio) 18 1 6-25 Globulin (test code = Globulin) 4.6 2.7-4.2 A/G Ratio (test code = A/G Ratio) 0.5 1 0.7-1.6 eGFR (test code = eGFR) 139 [facility]yx[facility]FVXZAHBZS4925[facility]-58 10:26:00* Test Item Value Reference Range Interpretation Comme nts Glucose Lvl (test code = Glucose Lvl) 97 70-99 BUN (test code = BUN) 9 7-22 Creatinine Lvl (test code = Creatinine Lvl) 0.50 0.50-1.40 Sodium Lvl (test code = Sodium Lvl) 139 135-145 Potassium Lvl (test code = P otassium Lvl) 3.7 3.5-5.1 Chloride Lvl (test code = Chloride Lvl) 109 95-109 CO2 (test code = CO2) 24 24-32 Calcium Lvl (test code = Calcium Lvl) 8.1 8.5-10.5 Total Protein (test code = T otal Protein) 6.7 6.4-8.4 Albumin Lvl (test code = Albumin Lvl) 2.1 3.5-5.0 ALT (test code = ALT) 21 <=65 AST (test code = AST) 42 <=37 Alk Phos (test code = Alk Phos) 94 39-136 Bili Total (test code = Bili Total) 2.2 0.2-1.3 AGAP (test code = AGAP) 9.7 10.0-20.0 B/C Ratio (test code = B/C Ratio) 18 1 6-25 Globulin (test code = Globulin) 4.6 2.7-4.2 A/G Ratio (test code = A/G Ratio) 0.5 1 0.7-1.6 eGFR (test code = eGFR) 139 [facility] CenterUrgbcdpFVPDPYKIPH3859-39-84 10:26:00* Test Item Value Reference Range Interpretation Comme nts WBC X 10x3 (test code = WBC X 10x3) 3.3 3.7-10.4 RBC X 10x6 (test code = RBC X 10x6) 2.65 4.70-6.10 Hgb (test code = Hgb) 8.5 14.0-18.0 Hct (test code = Hct) 25.3 42.0-54.0 MCV (test code = MCV) 95.4 80.0-94.0 MCH (test code = MCH) 32.0 pg 27.0-31.0 MCHC (test code = MCHC) 33.6 32.0-36.0 RDW (test code = RDW) 18.0 11.5-14.5 Platelet (test code = Platelet) 31 133-450 MPV (test code = MPV) 7.8 7.4-10.4 Plt Morph (test code = Plt Morph) Normal (11/28/23 4:26 AM) Segs (test code = Segs) 49.4 45.0-75.0 Lymphocytes (test code = Lymphocytes) 29.6 20.0-40.0 Monocytes (test code = Monocytes) 14.9 2.0-12.0 Eosinophils (test code = Eosinophils) 5.9 <=4.0 Basophils (test code = Basophils) 0.2 <=1.0 Neutrophils # (test code = Neutrophils #) 1.6 1.5-8.1 Lymphocytes # (test code = Lymphocytes #) 1.0 1.0-5.5 Monocytes # (test code = Monocytes #) 0.5 <=0.8 Eosinophils # (test code = Eosinophils #) 0.2 <=0.5 Target Cell (test code = Target Cell) Moderate *ABN*(11/28/23 4:26 AM) [facility]NxxywtbGSXUZFYGHX1109-30-99 15:51:00* Test Item Value Reference Range Interpretation Comme nts Coronavirus (COVID-19) MIGUEL (test code = Coronavirus (COVID-19) MIGUEL) Not Detected 7(11/27/23 9:51 AM) [facility] BANK KQXPNHC2383-62-56 12:56:00* Test Item Value Reference Range Interpretation Comme nts ABO/Rh (test code = ABO/Rh) O POS Antibody Scrn (test code = Antibody Scrn) Negative (11/27/23 6:56 AM) [facility] MarshallRlrlqmsODIQXEBYSO4757-59-86 12:56:00* Test Item Value Reference Range Interpretation Comme nts PT (test code = PT) 17.4 s 12.0-14.7 INR (test code = INR) 1.40 1 0.85-1.17 PTT (test code = PTT) 38.1 s 22.9-35.8 [facility] TNLXN2252-64-01 12:45:00* Test Item Value Reference Range Interpretation Comme nts Glucose Lvl (test code = Glucose Lvl) 105 70-99 BUN (test code = BUN) 5 7-22 Creatinine Lvl (test code = Creatinine Lvl) 0.50 0.50-1.40 Sodium Lvl (test code = Sodium Lvl) 142 135-145 Potassium Lvl (test code = P otassium Lvl) 3.9 3.5-5.1 Chloride Lvl (test code = Chloride Lvl) 111 95-109 CO2 (test code = CO2) 25 24-32 Calcium Lvl (test code = Calcium Lvl) 8.3 8.5-10.5 AGAP (test code = AGAP) 9.9 10.0-20.0 eGFR (test code = eGFR) 139 Total Protein (test code = T otal Protein) 7.8 6.4-8.4 Albumin Lvl (test code = Albumin Lvl) 2.3 3.5-5.0 ALT (test code = ALT) 24 <=65 AST (test code = AST) 55 <=37 Alk Phos (test code = Alk Phos) 128 39-136 Bili Total (test code = Bili Total) 1.6 0.2-1.3 Bili Direct (test code = Bili Direct) 0.7 <=0.3 Bili Indirect (test code = B tana Indirect) 0.9 <=1.0 Globulin (test code = Globulin) 5.5 2.7-4.2 A/G Ratio (test code = A/G Ratio) 0.4 1 0.7-1.6 Lactic Acid Lvl (test code = Lactic Acid Lvl) 1.5 0.5-2.2 [facility] HospitalLymysknNKZHOCVBS9810-11-58 12:45:00* Test Item Value Reference Range Interpretation Comme nts Hgb A1C (test code = Hgb A1C) 4.5 Bili Direct (test code = Bili Direct) 0.7 <=0.3 Bili Indirect (test code = B tana Indirect) 0.9 <=1.0 Lactic Acid Lvl (test code = Lactic Acid Lvl) 1.5 0.5-2.2 [facility] CenterKrfwwxkBVGOIMROMG0210-22-30 12:45:00* Test Item Value Reference Range Interpretation Comme nts WBC X 10x3 (test code = WBC X 10x3) 4.5 3.7-10.4 RBC X 10x6 (test code = RBC X 10x6) 3.08 4.70-6.10 Hgb (test code = Hgb) 9.9 14.0-18.0 Hct (test code = Hct) 29.0 42.0-54.0 MCV (test code = MCV) 94.1 80.0-94.0 MCH (test code = MCH) 32.2 pg 27.0-31.0 MCHC (test code = MCHC) 34.2 32.0-36.0 RDW (test code = RDW) 18.1 11.5-14.5 Platelet (test code = Platelet) 37 133-450 MPV (test code = MPV) 8.0 7.4-10.4 Segs (test code = Segs) 57.5 45.0-75.0 Lymphocytes (test code = Lymphocytes) 31.7 20.0-40.0 Monocytes (test code = Monocytes) 9.0 2.0-12.0 Eosinophils (test code = Eosinophils) 1.5 <=4.0 Basophils (test code = Basophils) 0.3 <=1.0 Neutrophils # (test code = Neutrophils #) 2.6 1.5-8.1 Lymphocytes # (test code = Lymphocytes #) 1.4 1.0-5.5 Monocytes # (test code = Monocytes #) 0.4 <=0.8 Eosinophils # (test code = Eosinophils #) 0.1 <=0.5 [facility] RWYOPZNCY8831-80-20 12:45:00* Test Item Value Reference Range Interpretation Comme nts Hgb A1C (test code = Hgb A1C) 4.5 [facility] FLD CELL CT/QIZX6460-29-52 23:11:00* Test Item Value Reference Range Interpretation Comme nts PERITONEAL FLD COLOR (test code = COLPT) YELLOW COLORLESS PERITONEAL FLD APPEARANCE (test code = APPPT) HAZY CLEAR A PERITONEAL FLD WBC (test code = WBCPT) 123 /mm3 0-10 H PERITONEAL FLD RBC (test code = RBCPT) 3000 /mm3 0-0 H PERITONEAL POLYNUCLEAR (test code = POLYPT) 2 % PERITONEAL FLD LYMPHOCYTE (test code = LYMPHPT) 37 % PERITONEAL FLD MONONUCLEAR (test code = MONOPT) 61 % TOTAL CELLS COUNTED ON DIFF (test code = TOTCELLFL) 100 PATHOLOGIST INTERPRETATION (test code = PATHPHLEB) . COMMENTS: NO MALIGNANT CELLS SEENPATHOLOGIST: HEATH BURRIS MDENTERED BY:DaveyMMH4, on 10/21/23, @ 5839. BODY FLUID SOURCE: ASCITES FLUIDDoes this specimen need cyto and/or path orders? NOCBC W/AUTO [id number] 17:13:00* Test Item Value Reference Range Interpretation Comme nts WHITE BLOOD CELL (test code = WBC) 4.2 x10 3/uL 5.0-12.0 L RED BLOOD CELL (test code = RBC) 3.18 x10 6/uL 4.70-6.10 L HEMOGLOBIN (test code = HGB) 9.8 g/dL 14.0-18.0 L HEMATOCRIT (test code = HCT) 29.5 % 37.0-49.0 L MEAN CELL VOLUME (test code = MCV) 93 fL 80-94 N MEAN CELL HGB (test code = MCH) 30.8 pg 27-31 N MEAN CELL HGB CONCENTRATION (test code = MCHC) 33.2 g/dL 33-37 N RED CELL DISTRIBUTION WIDTH (test code = RDW) 16.1 % 11.5-15.5 H PLATELET COUNT (test code = PLT) 50 x10 3/uL 130-400 L MEAN PLATELET VOLUME (test code = MPV) 11.0 fL 9.4-16.4 N NEUTROPHIL % (test code = NT%) 55.0 % 43-65 N IMMATURE GRANULOCYTE % (test code = IG%) 0.2 % 0.0-2.0 N LYMPHOCYTE % (test code = LY%) 27.5 % 20.5-45.5 N MONOCYTE % (test code = MO%) 14.6 % 5.5-11.7 H EOSINOPHIL % (test code = EO%) 2.2 % 0.9-2.9 N BASOPHIL % (test code = BA%) 0.5 % 0.2-1.0 N NUCLEATED RBC % (test code = NRBC%) 0.0 % 0-1.0 N NEUTROPHIL # (test code = NT#) 2.30 x10 3/uL 2.2-4.8 N IMMATURE GRANULOCYTE # (test code = IG#) 0.01 x10 3/uL 0-0.03 N LYMPHOCYTE # (test code = LY#) 1.15 x10 3/uL 1.3-2.9 L MONOCYTE # (test code = MO#) 0.61 x10 3/uL 0.3-0.8 N EOSINOPHIL # (test code = EO#) 0.09 x10 3/uL 0.0-0.2 N BASOPHIL # (test code = BA#) 0.02 x10 3/uL 0.0-0.1 N PLATELET ESTIMATE (test code = PLTEST) SIGNIF DECREASED ADEQUATE PLATELET MORPHOLOGY (test code = PLTMORPH) LARGE PLATELETS SEEN NORMAL Spec Comments: check after platelets are transfusedDIFFERENTIAL [id number] 17:13:00* Test Item Value Reference Range Interpretation Comme nts POLYCHROMASIA (test code = POLC) 1+ NONE SEEN A POIKILOCYTOSIS (test code = POIK) 1+ NONE SEEN A ANISOCYTOSIS (test code = ANISO) 3+ NONE SEEN A MACROCYTOSIS (test code = MACR) 3+ NONE SEEN A TARGET CELLS (test code = TGT) 1+ NONE SEEN A OVALOCYTES (test code = OVAL) 1+ NONE SEEN A Spec Comments: check after platelets are transfusedCBC W/AUTO [id number] 07:05:00* Test Item Value Reference Range Interpretation Comme nts WHITE BLOOD CELL (test code = WBC) 3.7 x10 3/uL 5.0-12.0 L RED BLOOD CELL (test code = RBC) 3.11 x10 6/uL 4.70-6.10 L HEMOGLOBIN (test code = HGB) 9.6 g/dL 14.0-18.0 L HEMATOCRIT (test code = HCT) 28.5 % 37.0-49.0 L MEAN CELL VOLUME (test code = MCV) 92 fL 80-94 N MEAN CELL HGB (test code = MCH) 30.9 pg 27-31 N MEAN CELL HGB CONCENTRATION (test code = MCHC) 33.7 g/dL 33-37 N RED CELL DISTRIBUTION WIDTH (test code = RDW) 16.1 % 11.5-15.5 H PLATELET COUNT (test code = PLT) 13 x10 3/uL 130-400 LL MEAN PLATELET VOLUME (test code = MPV) 11.8 fL 9.4-16.4 N NEUTROPHIL % (test code = NT%) 46.4 % 43-65 N IMMATURE GRANULOCYTE % (test code = IG%) 0.3 % 0.0-2.0 N LYMPHOCYTE % (test code = LY%) 31.4 % 20.5-45.5 N MONOCYTE % (test code = MO%) 18.9 % 5.5-11.7 H EOSINOPHIL % (test code = EO%) 2.5 % 0.9-2.9 N BASOPHIL % (test code = BA%) 0.5 % 0.2-1.0 N NUCLEATED RBC % (test code = NRBC%) 0.0 % 0-1.0 N NEUTROPHIL # (test code = NT#) 1.70 x10 3/uL 2.2-4.8 L IMMATURE GRANULOCYTE # (test code = IG#) 0.01 x10 3/uL 0-0.03 N LYMPHOCYTE # (test code = LY#) 1.15 x10 3/uL 1.3-2.9 L MONOCYTE # (test code = MO#) 0.69 x10 3/uL 0.3-0.8 N EOSINOPHIL # (test code = EO#) 0.09 x10 3/uL 0.0-0.2 N BASOPHIL # (test code = BA#) 0.02 x10 3/uL 0.0-0.1 N PLATELET ESTIMATE (test code = PLTEST) SIGNIF DECREASED ADEQUATE PLATELET MORPHOLOGY (test code = PLTMORPH) LARGE PLATELETS SEEN NORMAL DIFFERENTIAL [id number] 07:05:00* Test Item Value Reference Range Interpretation Comme nts HYPOCHROMIA (test code = HYPO) 1+ NONE SEEN A ANISOCYTOSIS (test code = ANISO) 3+ NONE SEEN A MACROCYTOSIS (test code = MACR) 3+ NONE SEEN A TARGET CELLS (test code = TGT) 1+ NONE SEEN A COMPREHENSIVE METABOLIC [id number] 05:28:00* Test Item Value Reference Range Interpretation Comme nts SODIUM (test code = NA) 136 mmol/L 137-145 L POTASSIUM (test code = K) 3.6 mmol/L 3.4-5.0 N CHLORIDE (test code = CL) 105 mmol/L 98-107 N CARBON DIOXIDE (test code = CO2) 24 mmol/L 22-30 N ANION GAP (test code = GAP) 10 GLUCOSE (test code = GLU) 96 mg/dL 74-106 N BLOOD UREA NITROGEN (test code = BUN) 7 mg/dL 9-20 L GLOMERULAR FILTRATION RATE (test code = GFR) 139 mL/min The Glomerular Filtration Rate is a calculated parameterbased on serum Creatinine, patient age and sex. GFR valuesless than 60 mL/min/1.73 square meters are indicative ofChronic Kidney Disease. Values less than 15 mL/min/1.73square meters indicate Kidney failure. The calculation forGFR is based on the CKD-EPI (202) calculation. This formulais race indifferent and is the recommended formula for GFRby the National Kidney Foundation for Adults.The GFR will not calculate if the sex is unknown or if thepatient's age is <18 years. CREATININE (test code = CREAT) 0.5 mg/dL 0.7-1.3 L TOTAL PROTEIN (test code = PROT) 6.7 g/dL 6.3-8.2 N "A positive bias may occur for patients taking Eltrombopag(a bone marrow stimulant used to treat thrombocytopenia andaplastic anemia)." ALBUMIN (test code = ALB) 2.8 g/dL 3.5-5.0 L CALCIUM (test code = CA) 7.6 mg/dL 8.4-10.2 L BILIRUBIN TOTAL (test code = BILT) 2.1 mg/dL 0.2-1.3 H "A positive b ias may occur for patients taking Eltrombopag(a bone marrow stimulant used to treat thrombocytopenia andaplastic anemia)." BILIRUBIN CONJUGATED (test code = BILCON) 0 mg/dL 0-0.3 N "A positive bias may occur for patients taking Eltrombopag(a bone marrow stimulant used to treat thrombocytopenia andaplastic anemia)." CONJUGATE D BILIRUBIN IS THE REPLACEMENT ASSAY FOR DIRECTBILIRUBIN. BILIRUBIN UNCONJUGATED (test code = BILUNC) 1.8 mg/dL 0-1.1 H SGOT/AST (test code = AST) 79 U/L 15-46 H SGPT/ALT (test code = ALT) 28 U/L 0-49 N ALKALINE PHOSPHATASE (test code = ALKP) 121 U/L 38-126 N INDEX HEMOLYSIS (test code = HEMINDEX) < 15 Index/DL 0-100 N - SP PARACENTESIS W/NLSVQ0634-23-58 17:14:[address] [facility] : 1990 Sex: M FAX: Bhupendra Rubin MD [place]: St: ADM Name: HERNANDO ARRIAGA [facility] : 1990 Age/S: 33/M [address] Unit #: [id number] Loc: [address] [address] Phys: Bhupendra Mario MD Acct: [id number] Dis Date: Status: ADM IN PHONE #: [phone] Exam Date: 10/17/2023 1432 FAX #: [phone] Reason: ascites EXAMS: CPT CODE: [id number] SP PARACENTESIS W/IMAGE [id number] EXAMINATION: IMAGE- GUIDED PARACENTESIS.LOCATION: C3. HISTORY: Ascites, Abdominal distension [employer] Superintendent: Esteban Ritter PA-C Assisted by: Alexandra - Resident Physician SEDATION: The patient did not require conscious sedation for the procedure. ANTIBIOTICS: None. Not indicated. CONTRAST: None. TECHNIQUE: The risks, benefits, and alternatives were discussed and informed consent was obtained. Prior to beginning the procedure, [place] Protocol was used to confirm the patient's identity and planned procedure. Sterile barriers including cap, mask, hand hygiene, sterile gloves, sterile drape and cutaneous antisepsis were used. The patient's abdomen was examined with ultrasound and a suitable pocket of ascitic fluid in the left side abdomenwas identified. The overlying skin was anesthetized with lidocaine. Using real-time ultrasound guidance, a Ugae-T-Maeuldex needle was advanced into the ascitic fluid. Approximately 12.2 liters of clear sydnee fluid was drained. Samples were sent for lab analysis. At the conclusion of the procedure,the catheter was removed and a sterile dressing applied to the site. ESTIMATED BLOOD LOSS: Less than 10 milliliters. COMPLICATIONS: None. MEDICATIONS: 100 grams of Albumin 25% IV. DISCHARGED TO: Inpatient unit. FINDINGS: Ultrasound demonstrated a large amount of ascitic fluid. PAGE 1 Signed Report(CONTINUED) FAX: Bhupendra Rubin MD [place]: St: ADM Name: HERNANDO ARRIAGA [facility] : 1990 Age/S: 33/M [address] Unit #: [id number] Loc: [address] [address] Phys: Bhupendra Mario MD Acct: [id number] Dis Date: Status: ADM IN PHONE #: [phone] Exam Date: 10/17/2023 1432 FAX #: [phone] Reason: ascites EXAMS: CPT CODE: [id number] SP PARACENTESIS W/IMAGE [id number] (Continued) IMPRESSION:Successful image-guided paracentesis. at 7554 Reported and signed by: Baron ORLANDO Sage CC: Bhupendra Mario MD Technologist: Julio Oliveira RDMO Trnscrd Date/Time/By: 10/17/2023 (1074) : By: [email or web address] PAGE 2 Signed Report FAX: Jaime Rubin MD [place]: St: ADM -- Name: HERNANDO ARRIAGA [facility] : 1990 Age/S: 33/M [address] Unit #: [id number]: [facility] [place] [address] Phys: Bhupendra Mario MD Acct: [id number] Dis Date: Status: ADM IN PHONE #: [phone] Exam Date: 10/17/2023 1432 FAX #: [phone] Reason: ascites EXAMS: CPT CODE: [id number] SP PARACENTESIS W/IMAGE 50302 (Continued) Orig Print D/T: S: 10/17/2023 (8538) PAGE 3 Signed ReportCBC W/AUTO [id number] 12:16:00* Test Item Value Reference Range Interpretation Comme nts WHITE BLOOD CELL (test code = WBC) 3.7 x10 3/uL 5.0-12.0 L RED BLOOD CELL (test code = RBC) 2.98 x10 6/uL 4.70-6.10 L HEMOGLOBIN (test code = HGB) 9.0 g/dL 14.0-18.0 L HEMATOCRIT (test code = HCT) 27.3 % 37.0-49.0 L MEAN CELL VOLUME (test code = MCV) 92 fL 80-94 N MEAN CELL HGB (test code = MCH) 30.2 pg 27-31 N MEAN CELL HGB CONCENTRATION (test code = MCHC) 33.0 g/dL 33-37 N RED CELL DISTRIBUTION WIDTH (test code = RDW) 16.5 % 11.5-15.5 H PLATELET COUNT (test code = PLT) 15 x10 3/uL 130-400 LL MEAN PLATELET VOLUME (test code = MPV) 12.0 fL 9.4-16.4 N NEUTROPHIL % (test code = NT%) 54.4 % 43-65 N IMMATURE GRANULOCYTE % (test code = IG%) 0.3 % 0.0-2.0 N LYMPHOCYTE % (test code = LY%) 28.5 % 20.5-45.5 N MONOCYTE % (test code = MO%) 15.2 % 5.5-11.7 H EOSINOPHIL % (test code = EO%) 1.1 % 0.9-2.9 N BASOPHIL % (test code = BA%) 0.5 % 0.2-1.0 N NUCLEATED RBC % (test code = NRBC%) 0.0 % 0-1.0 N NEUTROPHIL # (test code = NT#) 2.01 x10 3/uL 2.2-4.8 L IMMATURE GRANULOCYTE # (test code = IG#) 0.01 x10 3/uL 0-0.03 N LYMPHOCYTE # (test code = LY#) 1.05 x10 3/uL 1.3-2.9 L MONOCYTE # (test code = MO#) 0.56 x10 3/uL 0.3-0.8 N EOSINOPHIL # (test code = EO#) 0.04 x10 3/uL 0.0-0.2 N BASOPHIL # (test code = BA#) 0.02 x10 3/uL 0.0-0.1 N PLATELET ESTIMATE (test code = PLTEST) SIGNIF DECREASED ADEQUATE PLATELET MORPHOLOGY (test code = PLTMORPH) NORMAL NORMAL Spec Comments: draw after platelet transfusion is completedDIFFERENTIAL SCAN 2023-10-17 12:16:00* Test Item Value Reference Range Interpretation Comme nts HYPOCHROMIA (test code = HYPO) 2+ NONE SEEN A POIKILOCYTOSIS (test code = POIK) 1+ NONE SEEN A ANISOCYTOSIS (test code = ANISO) 2+ NONE SEEN A MACROCYTOSIS (test code = MACR) 2+ NONE SEEN A TARGET CELLS (test code = TGT) 1+ NONE SEEN A Spec Comments: draw after platelet transfusion is completed- US ABDOMEN LTD 2023-10-17 07:12:[address] [facility] : 1990 Sex: M FAX: Bhupendra Rubin MD [place]: St: ADM Name: HERNANDO ARRIAGA [facility] : 1990 Age/S: 33/M [address] Unit #: [id number] Loc: [address] [address] Phys: Bhupendra Mario MD Acct: [id number] Dis Date: Status: ADM IN PHONE #: [phone] Exam Date: 10/17/2023629 FAX #: [phone] Reason: cirrhosis EXAMS: CPT CODE: [id number] US ABDOMEN LTD 54181 EXAM: - US ABDOMEN LTD HISTORY: cirrhosis Location code:C3 COMPARISON: None available time of interpretation. TECHNIQUE: Grayscale B-mode and colorDoppler sonographic images of the right upper quadrant were obtained. FINDINGS: Liver: Right hepatic lobe length: 17.8 cm Parenchyma/Contour: Nodular contour to the liver is present. Main portal vein : Patent with normal (hepatopetal) flow. Biliary ducts: No intrahepatic biliary ductal dilation. Common duct measures 4 mm in diameter at the jonathan hepatis. Gallbladder: Unremarkable. No cholelithiasis. No gallbladder wall thickening or pericholecystic fluid. Pancreas: The visualized portions of the pancreas are unremarkable. Right Kidney: The right kidney has a normal sonographic appearance. Nosolid mass lesion is seen. No hydronephrosis is present. Renal cortical thickness and echogenicity is within normal limits. Length: 13.2 cm Other: Ascites is noted greatest in the right lower quadrant with greatest transaxial dimension of 13 cm. IMPRESSION: 1. Cirrhotic morphology of the liver with ascites is present as above. at 0712 Reported and signed by: Jaleesa Purvis MD PAGE 1 Signed Report (CONTINUED) FAX: Bhupendra Rubin MD [place]: [facility]: ADM Name: HERNANDO ARRIAGA [facility] : 1990 Age/S: 33/M [address] Unit #: [id number] Loc: [place] [address] Phys: Bhupendra Mario MD Acct: [id number] Dis Date: Status: ADM IN PHONE #: [phone] Exam Date: 10/17/2023629 FAX #: [phone] Reason: cirrhosis EXAMS: CPT CODE: [id number] ABDOMEN LTD 83294 (Continued) CC: Bhupendra Mario MD Technologist: GENNY Espinoza Date/Time/By: 10/17/2023 (12) : By: [email or web address] PAGE 2 Signed Report FAX: Bhupendra Rubin MD [place]: [facility]: ADM Name: HERNANDO ARRIAGA [facility] : 1990 Age/S: 33/M [address] Unit #: [id number] Loc: [place] [address] Phys: Bhupendra Mario MD Acct: [id number] Dis Date: Status: ADM IN PHONE #: [phone] Exam Date: 10/17/2023629 FAX #: [phone] Reason: cirrhosis EXAMS: CPT CODE: [id number] US ABDOMEN LTD 29747 (Continued) Orig Print D/T: S: 10/17/2023 (0715) PAGE 3 Signed ReportACUTE HEPATITIS [id number] 05:43:00 * Test Item Value Reference Range Interpretation Comme nts HEP A AB TOTAL ONLY (test code = HAVAB) POSITIVE NEGATIVE A A COPY OF TH IS RESULT MUST BE SENT TO INFECTION CONTROL- ~~~~~~~~~~~~~~~~~~~~~~~~ ~~~~~~~~~~~~~~~~~~~~~~~~ ~~~~~~~~~~~~THIS TEST DETECTS TOTAL ANTIBODIES TO HEPATITIS A, AND DOESNOT DIFFERENTIATE BETWEEN IGG AND IGM.~~~~~~~~~~~~~~~~~~~~ ~~~~~~~~~~~~~~~~~~~~~~~~ ~~~~~~~~~~~~~~~~ A POSITIVE BIAS MAY OCCUR IN PATIENTS TAKING BIOTIN SUPPLEMENTS~~~~~~~~~~~~~ ~~~~~~~~~~~~~~~~~~~~~~~~ ~~~~~~~~~~~~~~~~~~~~~~~ HEP A AB IGM QUAL (test code = HAVMAB) NEGATIVE NEGATIVE A positive bias may occur for patients taking BIOTINsupplements. AG HEPATITIS B SURFACE (test code = HBSAG) NEGATIVE NEGATIVE HEP B CORE AB IGM QL (test code = HBCMAB) NEGATIVE NEGATIVE AB HEPATITIS C (test code = HCVAB) NEGATIVE NEGATIVE COMPREHENSIVE METABOLIC [id number] 03:53:00* Test Item Value Reference Range Interpretation Comme nts SODIUM (test code = NA) 135 mmol/L 137-145 L POTASSIUM (test code = K) 4.0 mmol/L 3.4-5.0 N CHLORIDE (test code = CL) 107 mmol/L 98-107 N CARBON DIOXIDE (test code = CO2) 21 mmol/L 22-30 L ANION GAP (test code = GAP) 10 GLUCOSE (test code = GLU) 91 mg/dL 74-106 N BLOOD UREA NITROGEN (test code = BUN) 8 mg/dL 9-20 L GLOMERULAR FILTRATION RATE (test code = GFR) 149 mL/min The Glomerular Filtration Rate is a calculated parameterbased on serum Creatinine, patient age and sex. GFR valuesless than 60 mL/min/1.73 square meters are indicative ofChronic Kidney Disease. Values less than 15 mL/min/1.73square meters indicate Kidney failure. The calculation forGFR is based on the CKD-EPI (202) calculation. This formulais race indifferent and is the recommended formula for GFRby the National Kidney Foundation for Adults.The GFR will not calculate if the sex is unknown or if thepatient's age is <18 years. CREATININE (test code = CREAT) < 0.4 mg/dL 0.7-1.3 L TOTAL PROTEIN (test code = PROT) 7.3 g/dL 6.3-8.2 N "A positive bias may occur for patients taking Eltrombopag(a bone marrow stimulant used to treat thrombocytopenia andaplastic anemia)." ALBUMIN (test code = ALB) 2.5 g/dL 3.5-5.0 L CALCIUM (test code = CA) 7.4 mg/dL 8.4-10.2 L BILIRUBIN TOTAL (test code = BILT) 2.1 mg/dL 0.2-1.3 H "A positive b ias may occur for patients taking Eltrombopag(a bone marrow stimulant used to treat thrombocytopenia andaplastic anemia)." BILIRUBIN CONJUGATED (test code = BILCON) 0 mg/dL 0-0.3 N "A positive bias may occur for patients taking Eltrombopag(a bone marrow stimulant used to treat thrombocytopenia andaplastic anemia)." CONJUGATE D BILIRUBIN IS THE REPLACEMENT ASSAY FOR DIRECTBILIRUBIN. BILIRUBIN UNCONJUGATED (test code = BILUNC) 1.5 mg/dL 0-1.1 H SGOT/AST (test code = AST) 103 U/L 15-46 H SGPT/ALT (test code = ALT) 34 U/L 0-49 N ALKALINE PHOSPHATASE (test code = ALKP) 169 U/L 38-126 H INDEX HEMOLYSIS (test code = HEMINDEX) < 15 Index/DL 0-100 N [id number] 03:53:00* Test Item Value Reference Range Interpretation Comme nts PHOSPHOROUS (test code = PHOS) 3.9 mg/dL 2.5-4.5 N [id number] 03:53:00* Test Item Value Reference Range Interpretation Comme nts MAGNESIUM (test code = MAG) 1.6 mg/dL 1.6-2.3 N CBC W/AUTO [id number] 03:28:00* Test Item Value Reference Range Interpretation Comme nts WHITE BLOOD CELL (test code = WBC) 4.2 x10 3/uL 5.0-12.0 L RED BLOOD CELL (test code = RBC) 2.88 x10 6/uL 4.70-6.10 L HEMOGLOBIN (test code = HGB) 8.8 g/dL 14.0-18.0 L HEMATOCRIT (test code = HCT) 26.3 % 37.0-49.0 L MEAN CELL VOLUME (test code = MCV) 91 fL 80-94 N MEAN CELL HGB (test code = MCH) 30.6 pg 27-31 N MEAN CELL HGB CONCENTRATION (test code = MCHC) 33.5 g/dL 33-37 N RED CELL DISTRIBUTION WIDTH (test code = RDW) 16.8 % 11.5-15.5 H PLATELET COUNT (test code = PLT) 14 x10 3/uL 130-400 LL MEAN PLATELET VOLUME (test c ode = MPV) 11.0 fL 9.4-16.4 N NEUTROPHIL % (test code = NT%) 52.3 % 43-65 N IMMATURE GRANULOCYTE % (test code = IG%) 0.2 % 0.0-2.0 N LYMPHOCYTE % (test code = LY%) 30.3 % 20.5-45.5 N MONOCYTE % (test code = MO%) 15.5 % 5.5-11.7 H EOSINOPHIL % (test code = EO%) 1.2 % 0.9-2.9 N BASOPHIL % (test code = BA%) 0.5 % 0.2-1.0 N NUCLEATED RBC % (test code = NRBC%) 0.0 % 0-1.0 N NEUTROPHIL # (test code = NT#) 2.19 x10 3/uL 2.2-4.8 L IMMATURE GRANULOCYTE # (test code = IG#) 0.01 x10 3/uL 0-0.03 N LYMPHOCYTE # (test code = LY#) 1.27 x10 3/uL 1.3-2.9 L MONOCYTE # (test code = MO#) 0.65 x10 3/uL 0.3-0.8 N EOSINOPHIL # (test code = EO#) 0.05 x10 3/uL 0.0-0.2 N BASOPHIL # (test code = BA#) 0.02 x10 3/uL 0.0-0.1 N PROTHROMBIN [id number] 03:25:00* Test Item Value Reference Range Interpretation Comme [facility] PROTHROMBIN TIME PATIENT (test code = PTP) 18.9 SECONDS 9.4-12.5 H INTERNATIONAL NORMAL RATIO (test code = INR) 1.7 The INR is to be used only for monitoring ORAL ANTICOAGULANTTHERAPY. Indication INR Value1. Prophylaxis/treatment of: Venous Thrombosis, Pulmonary Embolism 2.0 - 3.02. Prevention of systemic embolism from: Tissue heart valves 2.0 - 3.0 Acute myocardial infarction (to present systemic embolism)* 2.0 - 3.0 Valvular heart disease 2.0 - 3.0 Atrial fibrillation 2.0 - 3.03. Mechanical prosthetic valves (high risk) 2.5 - 3.5 * If oral anticoagulant therapy is elected to preventrecurrent myocardial infarction, an INR of 2.5-3.5 isrecommended, consistent with Food and Drug Administrationrecommen dations. THROMBOPLASTIN TIME [id number] 03:25:00* Test Item Value Reference Range Interpretation [facility] PARTIAL (test code = PTT) 34.4 SECONDS 23.4-37.0 N Therapeutic Rang e for Heparin EFFECTIVE 05/19/13 Heparin IU/mL aPTT Seconds0.3 64.30.7 88.8 LIPID PROFILE (CORONARY RISK)2023-10-16 22:31:00* Test Item Value Reference Range Interpretation Comme [facility] TRIGLYCERIDES (test code = TRIG) 65 mg/dL TRIGLYCERIDES REFERENCE RANGE:Normal: <150 mg/dLBorderline High: 150-199 mg/dLHigh: 200-499 mg/dLVery High: >=500 mg/dL CHOLESTEROL (test code = CHOL) 88 mg/dL CHOLESTEROL REFE RENCE RANGE:DESIRABLE: < 200 mg/dLBORDERLINE: 200-239 mg/dLHIGH: >=240 mg/dL HDL CHOLESTEROL (test code = HDL) 21 mg/dL 40-59 L LIPOPROTEIN LDL (test code = LDLC) 61.83 mg/dL 32-99 N CORONARY RISK FACTOR (test code = RISK) 4.19 CHOL/HDL RISK MALE: 1/2 AVG 3.43 FEMALE: 1/2 AVG 3.27 AVG 4.97 AVG 4.44 2X AVG 9.55 2X AVG 7.05 3X AVG 23.39 3X AVG 11.04~~~~~~~~~~~~~~~~ ~~~~~~~~~~~~~~~~~~~~~ ~~~~~~~~~~~~~~~~~~~~~ ~~National Cholesterol Education (NCEP) Guidelines:~~~~~~~~~~ ~~~~~~~~~~~~~~~~~~~~~ ~~~~~~~~~~~~~~~~~~~~~ ~~~~~~~~ HDL Cholesterol<40mg/dL : HDL Cholesterol (Major risk factor for CHD)>60mg/dL: HDL Cholesterol (Negative risk factor for CHD)40-59mg/dL: Borderline Risk LDL Cholesterol<100mg/d L: Desirable LDL-C [id number] g/dL: Borderline High Risk LDL-C -812v g/dL: High risk LDL-C concentration HDL-LDL Cholesterol is affected by a number of factors suchas smoking, age and sex.~~~~~~~~~~~~~~~~~ ~~~~~~~~~~~~~~~~~~~~~ ~~~~~~~~~~~~~~~~~~~~~ ~ DIFFERENTIAL [id number] 19:24:00* Test Item Value Reference Range Interpretation Comme nts TARGET CELLS (test code = TGT) 1+ NONE SEEN A CBC W/AUTO [id number] 19:24:00* Test Item Value Reference Range Interpretation Comme nts WHITE BLOOD CELL (test code = WBC) 4.7 x10 3/uL 5.0-12.0 L RED BLOOD CELL (test code = RBC) 3.17 x10 6/uL 4.70-6.10 L HEMOGLOBIN (test code = HGB) 9.8 g/dL 14.0-18.0 L HEMATOCRIT (test code = HCT) 29.4 % 37.0-49.0 L MEAN CELL VOLUME (test code = MCV) 93 fL 80-94 N MEAN CELL HGB (test code = MCH) 30.9 pg 27-31 N MEAN CELL HGB CONCENTRATION (test code = MCHC) 33.3 g/dL 33-37 N RED CELL DISTRIBUTION WIDTH (test code = RDW) 16.6 % 11.5-15.5 H PLATELET COUNT (test code = PLT) 22 x10 3/uL 130-400 L MEAN PLATELET VOLUME (test code = MPV) 11.0 fL 9.4-16.4 N NEUTROPHIL % (test code = NT%) 45.9 % 43-65 N IMMATURE GRANULOCYTE % (test code = IG%) 0.2 % 0.0-2.0 N LYMPHOCYTE % (test code = LY%) 35.4 % 20.5-45.5 N MONOCYTE % (test code = MO%) 16.4 % 5.5-11.7 H EOSINOPHIL % (test code = EO%) 1.7 % 0.9-2.9 N BASOPHIL % (test code = BA%) 0.4 % 0.2-1.0 N NUCLEATED RBC % (test code = NRBC%) 0.0 % 0-1.0 N NEUTROPHIL # (test code = NT#) 2.15 x10 3/uL 2.2-4.8 L IMMATURE GRANULOCYTE # (test code = IG#) 0.01 x10 3/uL 0-0.03 N LYMPHOCYTE # (test code = LY#) 1.66 x10 3/uL 1.3-2.9 N MONOCYTE # (test code = MO#) 0.77 x10 3/uL 0.3-0.8 N EOSINOPHIL # (test code = EO#) 0.08 x10 3/uL 0.0-0.2 N BASOPHIL # (test code = BA#) 0.02 x10 3/uL 0.0-0.1 N PLATELET ESTIMATE (test code = PLTEST) SIGNIF DECREASED ADEQUATE PLATELET MORPHOLOGY (test code = PLTMORPH) NORMAL NORMAL COMPREHENSIVE METABOLIC [id number] 17:32:00* Test Item Value Reference Range Interpretation Comme nts SODIUM (test code = NA) 139 mmol/L 137-145 N POTASSIUM (test code = K) 3.7 mmol/L 3.4-5.0 N CHLORIDE (test code = CL) 109 mmol/L 98-107 H CARBON DIOXIDE (test code = CO2) 23 mmol/L 22-30 N ANION GAP (test code = GAP) 11 GLUCOSE (test code = GLU) 84 mg/dL 74-106 N BLOOD UREA NITROGEN (test code = BUN) 7 mg/dL 9-20 L GLOMERULAR FILTRATION RATE (test code = GFR) 139 mL/min The Glomerular Filtration Rate is a calculated parameterbased on serum Creatinine, patient age and sex. GFR valuesless than 60 mL/min/1.73 square meters are indicative ofChronic Kidney Disease. Values less than 15 mL/min/1.73square meters indicate Kidney failure. The calculation forGFR is based on the CKD-EPI (202) calculation. This formulais race indifferent and is the recommended formula for GFRby the National Kidney Foundation for Adults.The GFR will not calculate if the sex is unknown or if thepatient's age is <18 years. CREATININE (test code = CREAT) < 0.5 mg/dL 0.7-1.3 L TOTAL PROTEIN (test code = PROT) 7.7 g/dL 6.3-8.2 N "A positive bias may occur for patients taking Eltrombopag(a bone marrow stimulant used to treat thrombocytopenia andaplastic anemia)." ALBUMIN (test code = ALB) 2.7 g/dL 3.5-5.0 L CALCIUM (test code = CA) 7.4 mg/dL 8.4-10.2 L BILIRUBIN TOTAL (test code = BILT) 1.8 mg/dL 0.2-1.3 H "A positive b ias may occur for patients taking Eltrombopag(a bone marrow stimulant used to treat thrombocytopenia andaplastic anemia)." BILIRUBIN CONJUGATED (test code = BILCON) 0 mg/dL 0-0.3 N "A positive bias may occur for patients taking Eltrombopag(a bone marrow stimulant used to treat thrombocytopenia andaplastic anemia)." CONJUGATE D BILIRUBIN IS THE REPLACEMENT ASSAY FOR DIRECTBILIRUBIN. BILIRUBIN UNCONJUGATED (test code = BILUNC) 1.3 mg/dL 0-1.1 H SGOT/AST (test code = AST) 103 U/L 15-46 H SGPT/ALT (test code = ALT) 33 U/L 0-49 N ALKALINE PHOSPHATASE (test code = ALKP) 204 U/L 38-126 H INDEX HEMOLYSIS (test code = HEMINDEX) < 15 Index/DL 0-100 N PROTHROMBIN [id number] 17:04:00* Test Item Value Reference Range Interpretation Comme nts PROTHROMBIN TIME PATIENT (test code = PTP) 17.7 SECONDS 9.4-12.5 H INTERNATIONAL NORMAL RATIO (test code = INR) 1.6 The INR is to be used only for monitoring ORAL ANTICOAGULANTTHERAPY. Indication INR Value1. Prophylaxis/treatment of: Venous Thrombosis, Pulmonary Embolism 2.0 - 3.02. Prevention of systemic embolism from: Tissue heart valves 2.0 - 3.0 Acute myocardial infarction (to present systemic embolism)* 2.0 - 3.0 Valvular heart disease 2.0 - 3.0 Atrial fibrillation 2.0 - 3.03. Mechanical prosthetic valves (high risk) 2.5 - 3.5 * If oral anticoagulant therapy is elected to preventrecurrent myocardial infarction, an INR of 2.5-3.5 isrecommended, consistent with Food and Drug Administrationrecommen dations. THROMBOPLASTIN TIME [id number] 17:04:00* Test Item Value Reference Range Interpretation Comme nts THROMBOPLASTIN TIME PARTIAL (test code = PTT) 36.3 SECONDS 23.4-37.0 N Therapeutic Rang e for Heparin EFFECTIVE 05/19/13 Heparin IU/mL aPTT Seconds0.3 64.30.7 88.8 History and Physical Notes Date/Time Note Provider Source 2023-11-28 22:55:00 Marielos Thomas i VIDEO GAME MAKER: PERFORM, MODIFY, MODIFY, MODIFY, MODIFY, MODIFY, MODIFYEvent Display: History and PhysicalAuthored Date: [id number] and Physical Primary Team Name:Team Contact Info:PCP Contact info:Family contact info: Code Status: None Specified=FULL CODE Chief Complaint: Sent from [facility] for a procedure with Dr. Rolando Morales. Pt has an incarcerated inguinal hernia and an NG tube to L nare in place. Hx Cirrhosis History of Present Illness: Patient is a sick looking, 33-year-old male with a known past medical history of alcoholic liver cirrhosis that presented to [facility] facility for evaluation of abdominal pain and was found to have a small bowel obstruction secondary to umbilical hernia. He also has labs significant for leukocytosis and unremarkable BMP. Patient denied any fever, chills, diarrhea, chest pain, headaches or any other symptoms. Patient denies any cigarette smoking or recreational drug use but he states "I drink too much alcohol and I am going to stop." I spoke with him using Peruvian translation and counseled him against alcohol intoxication and abuse. Outside CT and x-ray imaging. He was transferred and accepted by general surgeon Dr. Bonilla. Patient currently has a clamped NG tube in place and is aware to remain n.p.o. we will follow-up with general surgery who has been consulted for his recommendation. Of report, hernia was reduced in the ED and patient admitted to observation status for further evaluation and treatment. Review of Systems: Constitutional symptoms: Negative except as noted in the HPI.Skin symptoms: Negative except as noted in the HPI.Eye symptoms: Negative except as noted in the HPI.. ENMT symptoms: Negative except as noted in the HPI.Respiratory symptoms: Negative except as noted in the HPI. Cardiovascular symptoms: Negative except as noted in the HPI.Gastrointestinal symptoms: Negative except as noted in the HPI.Genitourinary symptoms: Negative except as noted in the HPI.Musculoskeletal symptoms: Negative except as noted in the HPI.Neurologic symptoms: Negative except as noted in the HPI. Hematologic/Lymphatic symptoms: Negative except as noted in the HPI. Problem List/Past Medical History: Ongoing No qualifying data Procedure/Surgical History: Patient denies any previous surgical history Family History: Mom: : Diabetes mellitus Social History: Electronic Cigarette/Vaping Electronic Cigarette Use: Never. Tobacco Use: Never smoker. Tobacco smoke exposure: None. Did the Patient Smoke Cigarettes Anytime During the Last 365 Days? No. Cessation Counseling Provided? Yes. Allergies: No Known Medication Allergies Home Medications: No active home medications Physical Exam: Vitals and Measurements T: 98.4 F (Oral) HR: 86 (Peripheral) RR: 18 BP: 108/72 SpO2: 94% WT: 79.545 kg BMI: 28.3 General: awake, alert, in no apparent distressHEENT: normocephalic, atraumatic, moist mucus membranes, PERRLA, EOMI, dry lips, poor dentitionCardiovascular: regular rate and rhythm, no murmurs, rubs or gallopsRespiratory: clear to auscultation bilaterally, no rhonchi, wheezing or ralesAbdomen: soft, tenderness, non distended, positive bowel soundsExtremities: no clubbing, cyanosis. No pedal edemaIntegumentary: no rash, no jaundiceNeurologic: no focal deficits, awake, alert and orientedPsychiatric: cooperative, responds appropriately to questions Pertinent Labs: ClinicAllLabs*A/G Ratio: 0.4 Low (11/27/23)ABO/Rh: O POS (11/27/23)AGAP: 9.9 mEq/L Low (11/27/23)Albumin Lvl: 2.3 g/dL Low (11/27/23)Alk Phos: 128 unit/L (11/27/23)ALT: 24 unit/L (11/27/23)Antibody Scrn: Negative (11/27/23)AST: 55 unit/L High (11/27/23)Basophils: 0.3 % (11/27/23)Bili Direct: 0.7 mg/dL High (11/27/23)Bili Indirect: 0.9 mg/dL (11/27/23)Bili Total: 1.6 mg/dL High (11/27/23)BUN: 5 mg/dL Low (11/27/23)Calcium Lvl: 8.3 mg/dL Low (11/27/23)Chloride Lvl: 111 mEq/L High (11/27/23)CO2: 25 mEq/L (11/27/23)Creatinine Lvl: 0.5 mg/dL (11/27/23)eGFR: 139 mL/min/1.73m2 (11/27/23)Eosinophils: 1.5 % (11/27/23)Eosinophils #: 0.1 K/CMM (11/27/23)Globulin: 5.5 g/dL High (11/27/23)Glucose Lvl: 105 mg/dL High (11/27/23)Hct: 29 % Low (11/27/23)Hgb: 9.9 g/dL Low (11/27/23)INR: 1.4 High (11/27/23)Lactic Acid Lvl: 1.5 mMol/L (11/27/23)Lymphocytes: 31.7 % (11/27/23)Lymphocytes #: 1.4 K/CMM (11/27/23)MCH: 32.2 pg High (11/27/23)MCHC: 34.2 g/dL (11/27/23)MCV: 94.1 fL High (11/27/23)Monocytes: 9 % (11/27/23)Monocytes #: 0.4 K/CMM (11/27/23)MPV: 8 fL (11/27/23)Neutrophils #: 2.6 K/CMM (11/27/23)Platelet: 37 K/CMM Low (11/27/23)Potassium Lvl: 3.9 mEq/L (11/27/23)PT: 17.4 seconds High (11/27/23)PTT: 38.1 seconds High (11/27/23)RBC: 3.08 M/CMM Low (11/27/23)RDW: 18.1 % High (11/27/23)Segs: 57.5 % (11/27/23)Sodium Lvl: 142 mEq/L (11/27/23)Total Protein: 7.8 g/dL (11/27/23)WBC: 4.5 K/CMM (11/27/23) Pertinent Imaging: OSH CT scan Assessment/Plan: 1. SBO (small bowel obstruction) (K56.609) Strict NPO. Continuous IV fluid hydrationNG tube is clamped and we will appreciate general surgeons recommendationsGeneral surgeon consultedNausea control with IV Zofran or Phenergan as needed 2. Abdominal pain (R10.9) Multimodal pain control. 3. Liver cirrhosis, alcoholic (K70.30) Counseled against alcohol abuse and intoxicationMonitor liver enzymes 4. Anemia (D64.9) Hemoglobin is stable at 9.9 5. Umbilical hernia (K42.9) Reduced in the ED. Continue monitoringMultimodal pain control Admit to observation for further evaluation and treatmentMultimodal pain control as neededControl blood pressure with IV hydralazine or labetalol every 4 hourly as needed for BP greater than 160/90Control fever with acetaminophen 650 mg p.o. every 4 hourly as needed temp greater than 100.4Control nausea with Zofran 4 mg IV as neededContinue home medications for chronic comorbidities once availableFall precautionsSupportive oxygen therapy to keep O2 saturation greater than 92%. Wean as toleratedContinuous IV fluid hydrationSocial worker for provision of community health and substance abuse resourcesCheck CBC and CMP in a.m. Prophylaxis SCDs Disposition Likely hospitalization 1 to 2 days. Final disposition is pendingMarielos Thomas NPElectronically Signed: 11/27/23 13:00 [facility] 2023-11-28 22:55:00 Colt Emerson MD: PERFORMEvent Display: History and PhysicalAuthored Date: personally evaluated and examined the patient and agree with above H&P by NP33M with alcoholic cirrhosis and previously incarcerated umbilical hernia, now reduced. On examination abdomen soft nontender. ER consulted surgeon. NG tube is clamped. Pain management, nausea vomiting protocol and IV fluid hydration. Will admit patient for observation.Colt Emerson MDElectronically Signed: 11/28/23 16:30 [facility] Notes <thead> Date/Time Note Provider Source [facility] [id number] 01:26:09 Future Tests Future scheduled test information is unavailable Pending Tests Pending diagnostic test information is unavailable Future Visits Future appointment information is unavailable Referrals to Other Providers <thead> Reason for Referral Referral Start Date Provider Provider Contact Information Provider Address NO PHYSICIAN NO PHYSICIAN NO PHYSICIAN YARIEL ESCOBAR , DO Work Phone: [address] [address] NO PHYSICIAN NO PHYSICIAN NO PHYSICIAN NO PHYSICIAN Future Procedures <thead> Procedure Name Ordered Date Scheduled Date Insert Peripheral IV Access October 16, 2023 9 :31am October 16, 2023 Cardiac, BP, Pulse Ox Monitor February 25, 2024 1 0:45am February 25, 2024 10:40am Insert Peripheral IV Access February 25, 2024 10: 45am February 25, 2024 10:40am Remove Clothing/Place in Gown February 25, 2024 1 0:45am February 25, 2024 10:40am VS - Adult February 25, 2024 10:45am February 082023 10:40am Electrocardiogram, Complete February 25, 2024 10: 45am February 25, 2024 10:40am Insert Peripheral IV Access March 18, 2024 10:15a m March 18, 2024 Electrocardiogram, Complete March 18, 2024 10:15a m March 18, 2024 10:15am Discharge when criteria met April 22, 2024 1:46 pm April 22, 2024 1:45pm Discharge when criteria met May 20, 2024 5:11 pm May 20, 2024 5:10pm CRITICAL CARE CONSULT May 22, 2024 8:41pm May NEPHROLOGY CONSULT May 22, 2024 11:46pm May 22, 2024 Place in Observation May 23, 2024 10:35am May 10:34am Diet,Low Sodium May 23, 2024 4:38pm Resuscitation Status May 23, 2024 4:38pm May 23, 2024 4:35pm Discharge when criteria met June 14, 2024 1:1 3pm June 14, 2024 1:13pm NPO except Meds June 15, 2024 9:26am June 152023 9:23am Insert Peripheral IV Access June 15, 2024 9:2 6am June 15, 2024 9:23am Cardiac, BP, Pulse Ox Monitor June 15, 2024 9 :26am June 15, 2024 9:23am Remove Clothing/Place in Gown June 15, 2024 9 :26am June 15, 2024 9:23am VS - Adult June 15, 2024 9:26am June 152023 9:23am Electrocardiogram, Complete June 15, 2024 9:2 6am June 15, 2024 9:23am EKG,INITIAL June 29, 2024 1:46pm June 29, 2024 Electrocardiogram, Complete June 29, 2024 1: 46pm June 29, 2024 1:44pm TRANSFUSE PRBC'S June 29, 2024 2:58pm June 29, 2024 2:55pm TRANSFUSE PRBC'S June 29, 2024 8:22pm June 29, 2024 8:20pm Future Medications Future medication information is unavailable Patient Instructions <tbody> Contusion, [id number]-Fwfg Puncture Wound, Frhf-pn-[id number] Ascites Alcoholic Liver Disease, Eas y-to-Read Cirrhosis Cirrhosis Abdominal Bloating Alcohol Intoxication, Easy-t o-Read Substance Use Disorder Palpitations, Bnsy-xw-Vjft [facility] [id number] 11:31:00 [facility] ([facility] Hospitalist Discharge Summary REPORT#:[id number] REPORT STATUS: Signed REPORT INITIALIZATION DATE:06/19/24 TIME: 113 PATIENT: HERNANDO AMOS UNIT #: [id number] ROOM/BED: [place] [address] : [birth year] AGE: 33 SEX: M ATTEND: Shagufta Brink MD ADM AUTHOR: Maegan Salcido MD REPT SERVICE DT/TIME: 06/19/24 1131 * ALL edits or amendments must be made on the electronic/computer document * General Information Discharge date: 06/19/24 Discharge diagnosis: hepatic enecphalopathy anemia Hospital course: 1. Hepatic Encephalopathy: - Likely metabolic in nature, secondary to chronic alcohol and cannabis use. - Continue lactulose and rifaximin. 2. Hyponatremia: - Likely related to cirrhosis; this is a chronic issue and correction is gradual. - Continue to monitor renal function, liver status, and electrolyte levels. - Gradual correction of sodium levels as appropriate. 3. Cirrhosis with Ascites: - Confirmed by CT scan and lab results, secondary to chronic ethanol use/ abuse. - Abdomen remains distended. Paracentesis is recommended, but PT is 22.5 and INR is 2, which may affect bleeding risk. - Consider paracentesis, taking into account the elevated PT and INR. - Monitor abdominal distension and fluid status. 4. Anemia: - Hemoglobin decreased from 8.1 g/dL to 6.6 g/dL, likely due to acute blood loss superimposed on chronic disease. - 2 units of blood transfused; hemoglobin was 8.1 g/dL. - Monitor hemoglobin levels closely and transfuse as needed. 5. Acute Gastritis: - Possibly related to alcohol abuse. - EGD planned for tomorrow. - Continue Protonix therapy. Disposition: - Regularly monitor liver function tests, renal function, electrolytes, and ammonia levels. - Repeat imaging or tests as needed based on clinical progression. - Continue supportive care and adjust treatment based on ongoing assessments. . 06/19 mentation normal pending egd likely dc today Pt. condition on discharge: improved Allergies: Allergies: No Known Allergies (Coded, 06/15/24) Med Rec Med Rec Discharge meds: Start taking the following new medications: RIFAXIMIN (XIFAXAN) 550 MG TAB 550 MILLIGRAM ORAL TWICE DAILY. Qty = [address] (PROTONIX) 40 MG TAB.DR 40 MILLIGRAM ORAL TWICE DAILY AT 9AM AND 5PM. Qty = 60 No Refills LACTULOSE (KRISTALOSE) 10 GRAM PACKET 10 GRAM ORAL DAILY. Qty = 30 No Refills FERROUS SULFATE (FEOSOL) 325 MG (65 MG IRON) TAB 325 MILLIGRAM ORAL TWICE DAILY. Qty = 60 No Refills Objective VS/I O Last Documented: Result Date Time Pulse Ox 100 06/19 712 B/P 132/82 06/19 712 B/P Mean 98.7 06/19 712 Temp 36.6 06/19 712 Pulse 84 06/19 712 Resp 16 06/19 712 O2 Delivery Room air 06/16 0343 24 hour I O ending at 0700: 06/19 1900 Intake Total 1000 Output Total 650 Balance 350 Intake, Oral 1000 Output, Urine 650 General appearance: alert, awake, oriented Head/Eyes: atraumatic, Jaundice ENT: moist mucosal membranes Neck: non-tender, normal thyroid, no masses or swelling Cardiovascular: murmur, tachycardic Murmur: systolic 2/6 Respiratory: aerating well, clear to auscultation Abdomen: ascites, distended, guarding, hernia, rebound, tenderness, ambilical hernia Genitourinary: urinary catheter Extremities: no edema Results Findings/Data: Laboratory Tests: 06/19 0154 Chemistry Sodium (134.0 - 147.0 mmol/l) 125 L Potassium (3.6 - 5.2 mmol/L) 3.3 L Chloride (98.0 - 107.0 mmol/l) 98 Carbon Dioxide (21.0 - 33.0 mmol/l) 15.9 L Anion Gap (0 - 20) 14.4 BUN (7.0 - 18.0 mg/dl) 33 H Creatinine (0.60 - 1.30 mg/dL) 1.04 Estimated Creat Clear (>30 mL/min) 102 Glomerular Filtr Rate (mL/min) 98 Glucose (70.0 - 110.0 mg/dl) 91 Calcium (8.0 - 10.5 mg/dl) 6.6 L Discharge Instructions PCP PCP follow-up: PCP: Undefined Provider Discharge to: Home/Self Care Additional Discharge Routines: PCP Follow-Up, [employer] Follow-Up Diet: Resume Home Diet/Feeds Activity: Resume Normal Activity Discharge management: greater than 30 mins, face to face encounter Follow-up Appointments PCP follow-up: PCP: Undefined Provider PCP follow up timeframe: In 1-2 weeks Consulting provider 1: Provider 1: Justyn Salinas MD Specialty: Gastroenterology Consult follow up timeframe: In 1-2 weeks at 1131 RPT #:[id number] END OF [id number] 11:27:00 [facility] ([facility] Hospitalist Progress Note REPORT#:[id number] REPORT STATUS: Signed REPORT INITIALIZATION DATE:06/19/24 TIME: 1127 PATIENT: HERNANDO AMOS UNIT #: [id number] ROOM/BED: [place] [address] : [birth year] AGE: 33 SEX: M ATTEND: Shagufta Brink MD ADM AUTHOR: Maegan Salcido MD REPT SERVICE DT/TIME: 06/19/24 1127 * ALL edits or amendments must be made on the electronic/computer document * Subjective Chief complaint: mentation baseline no complaints 14 point ROS negative unless stated Objective General VS/I O: Vital Signs: Date Time Temp Pulse Resp B/P B/P Pulse O2 O2 Flow FiO2 Mean Ox Delivery Rate 06/19 0712 36.6 84 16 132/82 98.7 100 06/19 0449 36.7 82 15 129/80 96.6 100 06/18 2308 38.3 94 16 116/75 88.6 98 06/18 1913 37.9 96 16 134/75 94.9 99 06/18 1458 36.9 85 13 122/76 91.4 100 24 hour I O ending at 0700: 06/19 0700 06/18 1900 Intake Total 1000 Output Total 650 Balance 350 Intake, Oral 1000 Output, Urine 650 PATIENT WEIGHT: Weight (lb): 146 Weight (oz): 9.72 Weight (kg): 66.500 Medications: Active Meds + DC'd Last 24 Hrs Lidocaine HCl (XYLOCAINE MPF 2% VIAL) 0 .STK-MED ONE .ROUTE (DC) Propofol (DIPRIVAN) 20 ML .STK-MED ONE IV (DC) Potassium Chloride (POTASSIUM CHLORIDE 20 MEQ TAB.ER) 40 MEQ BID PO Sodium Chloride (SODIUM CHLORIDE 0.9%) 500 ML PREOP ONCALL IV (DC) Ceftriaxone Sodium (cefTRIAXone 1,000 MG VIAL) 1,000 MG Q24H IV Sodium Chloride (SODIUM CHLORIDE 0.9% 10ML) 10 ML Pantoprazole (PROTONIX) 40 MG BID 9A 5P PO Acetaminophen (TYLENOL 325MG) 650 MG Q4H PRN PRN PO Lactulose (LACTULOSE) 20 GM TID PO Dextrose/Water (DEXTROSE 10%) 125 ML ASDIR PRN IV (CKD) Dextrose/Water (DEXTROSE 10%) 250 ML ASDIR PRN IV (CKD) Glucagon (GLUCAGON) 1 MG ASDIR PRN IM Rifaximin (XIFAXAN) 550 MG BID PO Dietitian nutrition assessment The data set between the solid lines has been imported from the dietitian's assessment. BMI Calculated: 21.6 Nutrition related diagnosis: Nutrition diagnosis details: Nutrition problem: Nutrition etiology: Nutrition signs and symptoms: Nutrition prescription: Dietitian name: Assessment completed: Physical Exam General appearance: alert, awake, oriented Head/Eyes: atraumatic, Jaundice ENT: moist mucosal membranes Neck: non-tender, normal thyroid, no masses or swelling Cardiovascular: murmur, tachycardic Murmur: systolic 2/6 Respiratory: aerating well, clear to auscultation Abdomen: ascites, distended, guarding, hernia, rebound, tenderness, ambilical hernia Genitourinary: urinary catheter Extremities: no edema Results Findings/Data: Laboratory Tests 06/19 0154 Chemistry Sodium (134.0 - 147.0 mmol/l) 125 L Potassium (3.6 - 5.2 mmol/L) 3.3 L Chloride (98.0 - 107.0 mmol/l) 98 Carbon Dioxide (21.0 - 33.0 mmol/l) 15.9 L Anion Gap (0 - 20) 14.4 BUN (7.0 - 18.0 mg/dl) 33 H Creatinine (0.60 - 1.30 mg/dL) 1.04 Estimated Creat Clear (>30 mL/min) 102 Glomerular Filtr Rate (mL/min) 98 Glucose (70.0 - 110.0 mg/dl) 91 Calcium (8.0 - 10.5 mg/dl) 6.6 L Diagnosis, Assessment Plan Free Text DxA P Notes Free text DxA P notes: 1. Hepatic Encephalopathy: - Likely metabolic in nature, secondary to chronic alcohol and cannabis use. - Continue lactulose and rifaximin. 2. Hyponatremia: - Likely related to cirrhosis; this is a chronic issue and correction is gradual. - Continue to monitor renal function, liver status, and electrolyte levels. - Gradual correction of sodium levels as appropriate. 3. Cirrhosis with Ascites: - Confirmed by CT scan and lab results, secondary to chronic ethanol use/ abuse. - Abdomen remains distended. Paracentesis is recommended, but PT is 22.5 and INR is 2, which may affect bleeding risk. - Consider paracentesis, taking into account the elevated PT and INR. - Monitor abdominal distension and fluid status. 4. Anemia: - Hemoglobin decreased from 8.1 g/dL to 6.6 g/dL, likely due to acute blood loss superimposed on chronic disease. - 2 units of blood transfused; hemoglobin was 8.1 g/dL. - Monitor hemoglobin levels closely and transfuse as needed. 5. Acute Gastritis: - Possibly related to alcohol abuse. - EGD planned for tomorrow. - Continue Protonix therapy. Disposition: - Regularly monitor liver function tests, renal function, electrolytes, and ammonia levels. - Repeat imaging or tests as needed based on clinical progression. - Continue supportive care and adjust treatment based on ongoing assessments. . 06/19 mentation normal pending egd likely dc today at 1128 RPT #:[id number] END OF [id number] 08:55:[id number] [place] [address] PATIENT NAME: HERNANDO AMOS ADMIT DATE: 06/15/24 ACCOUNT NO: [id number] [facility] REPORT DATE OF : [birth year] AGE: 33 SEX: M ADMITTING PHYSICIAN:Shagufta Brink MD ATTENDING PHYSICIAN:Shagufta Brink MD [facility] Patient Name: Hernando Crenshaw Procedure Date: 06/19/2024 8:55 AM Date of : 1990 Admit Type: Inpatient Age: 33 Gender: Male Attending MD: Justyn Salinas MD Procedure: Upper GI endoscopy Indications: Hematemesis Providers: Justyn Salinas MD (Doctor) Referring MD: Self Referred Requesting Provider: Medicines: General Anesthesia Procedure: Pre-Anesthesia Assessment: - Prior to the procedure, a History and Physical was performed, and patient medications and allergies were reviewed. The patient's tolerance of previous anesthesia was also reviewed. The risks and benefits of the procedure and the sedation options and risks were discussed with the patient. All questions were answered, and informed consent was obtained. Prior Anticoagulants: The patient has taken no anticoagulant or antiplatelet agents. ASA Grade Assessment: III - A patient with severe systemic disease. After reviewing the risks and benefits, the patient was deemed in satisfactory condition to undergo the procedure. After obtaining informed consent, the endoscope was passed under direct vision. Throughout the procedure, the patient's blood pressure, pulse, and oxygen saturations were monitored continuously. The Endoscope was introduced through the mouth, and advanced to the second part of duodenum. The upper GI endoscopy was accomplished without difficulty. The patient tolerated the procedure well. Findings: The examined esophagus was normal. Patchy mild inflammation characterized by congestion (edema) and erythema was found in the gastric antrum. Biopsies were taken with a cold forceps for histology. PATIENT NAME: HERNANDO AMOS The examined duodenum was normal. Complications: No immediate complications. Estimated Blood Loss: Estimated blood loss: none. Impression: - Normal esophagus. - Acute gastritis. Biopsied. - Normal examined duodenum. Recommendation: - Await pathology results. Procedure Code(s): --- Professional --- 12211, Esophagogastroduodenoscopy, flexible, transoral; with biopsy, single or multiple CPT copyright 2020 [employer]. All rights reserved. The codes documented in this report are preliminary and upon chip drier review may be revised to meet current compliance requirements. Justyn Salinas MD Justyn Salinas MD 06/19/2024 11:23:14 AM This report has been signed electronically. Number of Addenda: 0 Note Initiated On: 06/19/2024 8:55 AM Provation {[id number] ProVation FT PDF at 1123 PATIENT NAME: HERNANDO AMOS 08:36:00 [facility] Nephrology Progress Note REPORT#:[id number] REPORT STATUS: Signed REPORT INITIALIZATION DATE:06/19/24 TIME: 835 PATIENT: HERNANDO AMOS UNIT #: [id number] ROOM/BED: [place] [address] : [birth year] AGE: 33 SEX: M ATTEND: Shagufta Brink MD ADM AUTHOR: Bessy Bal MD REPT SERVICE DT/TIME: 06/19/24 0836 * ALL edits or amendments must be made on the electronic/computer document * Subjective Chief complaint: JOHNATOHN, Hyponatremia Objective General VS/I O: Vital Signs: Date Time Temp Pulse Resp B/P B/P Pulse O2 O2 Flow FiO2 Mean Ox Delivery Rate 06/19 0712 36.6 84 16 132/82 98.7 100 06/19 0449 36.7 82 15 129/80 96.6 100 06/18 2308 38.3 94 16 116/75 88.6 98 08/09 1913 37.9 96 16 134/75 94.9 99 06/18 1458 36.9 85 13 122/76 91.4 100 06/18 1105 37.0 85 13 111/68 82.8 100 24 hour I O ending at 0700: 06/19 0700 06/18 1900 Intake Total 1000 Output Total 650 Balance 350 Intake, Oral 1000 Output, Urine 650 PATIENT WEIGHT: Weight (lb): 146 Weight (oz): 9.72 Weight (kg): 66.500 Medications Active Meds + DC'd Last 24 Hrs Potassium Chloride (POTASSIUM CHLORIDE 20 MEQ TAB.ER) 40 MEQ BID PO Sodium Chloride (SODIUM CHLORIDE 0.9%) 500 ML PREOP ONCALL IV (DC) Ceftriaxone Sodium (cefTRIAXone 1,000 MG VIAL) 1,000 MG Q24H IV Sodium Chloride (SODIUM CHLORIDE 0.9% 10ML) 10 ML Pantoprazole (PROTONIX) 40 MG BID 9A 5P PO Acetaminophen (TYLENOL 325MG) 650 MG Q4H PRN PRN PO Lactulose (LACTULOSE) 20 GM TID PO Dextrose/Water (DEXTROSE 10%) 125 ML ASDIR PRN IV (CKD) Dextrose/Water (DEXTROSE 10%) 250 ML ASDIR PRN IV (CKD) Glucagon (GLUCAGON) 1 MG ASDIR PRN IM Sodium Chloride (SODIUM CHLORIDE 0.9%) 1,000 ML .Q20H IV (DC) Rifaximin (XIFAXAN) 550 MG BID PO Physical Exam General appearance: sleeping comfortably (arrousable) Head/eyes: normal conjunctiva/sclera, normocephalic ENT: moist mucous membranes Neck: supple/no meningismus, no JVD Cardiovascular: normal heart sounds, regular rate and rhythm, no murmur Respiratory: aerating well, clear to auscultation, normal breath sounds, symmetric expansion Abdomen: non-tender, normal bowel sounds, soft Genitourinary: no bladder distention Extremities: no edema, no swelling Musculoskeletal: normal inspection Neuro/FISH PEDDLER: alert, oriented to person and place; amnestic for how he arrived here. Skin: intact Psychiatry: abnl judgment/insight Results Findings/Data: Laboratory Tests 06/19 0154 Chemistry Sodium (134.0 - 147.0 mmol/l) 125 L Potassium (3.6 - 5.2 mmol/L) 3.3 L Chloride (98.0 - 107.0 mmol/l) 98 Carbon Dioxide (21.0 - 33.0 mmol/l) 15.9 L Anion Gap (0 - 20) 14.4 BUN (7.0 - 18.0 mg/dl) 33 H Creatinine (0.60 - 1.30 mg/dL) 1.04 Estimated Creat Clear (>30 mL/min) 102 Glomerular Filtr Rate (mL/min) 98 Glucose (70.0 - 110.0 mg/dl) 91 Calcium (8.0 - 10.5 mg/dl) 6.6 L Diagnosis, Assessment Plan Free Text A P: IMPRESSION: 1. Acute kidney injury. 06/19 Variable SCr within narrow range. / RESOLVED. There has been a rise in the serum creatinine from at least a level of 1.06 to a peak of 1.25. The etiology may be related to intravascular volume depletion with BUN to creatinine ratio greater than 20:1. 2. Hyponatremia. 06/19 Unchanged with cirrhosis and free water intake. 06/18 Unchanged, especially with all the drinking containers on the side table. 06/17 Unchanged. Related to cirrhosis. It will not be easy or quick to fix this problem. 06/16 May be related to ETOH ingestion; however, there is no alcohol in the blood. 3. Cirrhosis. 06/[address] scan and labs. EtOH use/abuse 4. Anemia. 06/17 Acute blood loss superimposed on chronic disease. 5. ETOH use. Has a diagnosis of hepatic encephalopathy. Liver function tests may be forthcoming. 6. Hyperphosphatemia secondary to renal failure. 7. Hypokalemia. 06/19 Better. Replete. 06/18 Replete. 8. Bacteuria. 06/18 Young for UTI as common shanon culture has panned out. PLAN: Fluid restrict Potassium repletion Periodic labs at 0838 RPT #:[id number] END OF [id number] 15:16:00 [facility] Hospitalist Progress Note REPORT#:[id number] REPORT STATUS: Signed REPORT INITIALIZATION DATE:06/18/24 TIME: 1516 PATIENT: BART CRENSHAWHERNANDO CLINTON UNIT #: [id number] ROOM/BED: [place] [address] : [birth year] AGE: 33 SEX: M ATTEND: Shagufta Brink MD ADM AUTHOR: Lindsay Neil MD R1 REPT SERVICE DT/TIME: 06/18/24 6027 * ALL edits or amendments must be made on the electronic/computer document * Subjective Chief complaint: AMS HPI: A 33-year-old male with a history of alcohol abuse presented with altered mental status, agitation, and violent behavior Symptoms included fever, abdominal pain, nausea, vomiting, and diarrhea. He was disoriented, confused, and unable to provide a history. Lab results showed bacteriuria, cannabis use, and metabolic acidosis with an increased anion gap. No alcohol was detected. The patient was admitted for hepatic encephalopathy, hyponatremia, and mental status changes. Objective General VS/I O: Vital Signs: Date Time Temp Pulse Resp B/P B/P Pulse O2 O2 Flow FiO2 Mean Ox Delivery Rate 06/18 1458 36.9 85 13 122/76 91.4 100 06/18 1105 37.0 85 13 111/68 82.8 100 06/18 0653 36.8 89 14 124/77 92.6 99 06/18 0340 37.1 88 18 113/68 83.2 99 06/17 2342 36.8 95 18 133/75 94.5 100 06/17 1911 37.0 86 18 123/74 90.0 100 06/17 1547 37.2 88 17 120/71 0.0 100 06/17 1547 37.2 88 17 120/71 0.0 100 24 hour I O ending at 0700: 06/18 0700 06/17 1900 Intake Total 1000.00 375 Output Total 250 Balance 750.00 375 Intake, IV 1000.00 30 Intake, 345 Packed Cells Output, Urine 250 PATIENT WEIGHT: Weight (lb): 146 Weight (oz): 9.72 Weight (kg): 66.500 Physical Exam General appearance: alert, awake, oriented Head/Eyes: atraumatic, Jaundice ENT: moist mucosal membranes Neck: non-tender, normal thyroid, no masses or swelling Cardiovascular: murmur, tachycardic Murmur: systolic 2/6 Respiratory: aerating well, clear to auscultation Abdomen: ascites, distended, guarding, hernia, rebound, tenderness, ambilical hernia Genitourinary: urinary catheter Extremities: no edema Diagnosis, Assessment Plan Free Text DxA P Notes Free text DxA P notes: 1. Hepatic Encephalopathy: - Likely metabolic in nature, secondary to chronic alcohol and cannabis use. - Continue lactulose and rifaximin. 2. Hyponatremia: - Likely related to cirrhosis; this is a chronic issue and correction is gradual. - Continue to monitor renal function, liver status, and electrolyte levels. - Gradual correction of sodium levels as appropriate. 3. Cirrhosis with Ascites: - Confirmed by CT scan and lab results, secondary to chronic ethanol use/ abuse. - Abdomen remains distended. Paracentesis is recommended, but PT is 22.5 and INR is 2, which may affect bleeding risk. - Consider paracentesis, taking into account the elevated PT and INR. - Monitor abdominal distension and fluid status. 4. Anemia: - Hemoglobin decreased from 8.1 g/dL to 6.6 g/dL, likely due to acute blood loss superimposed on chronic disease. - 2 units of blood transfused; hemoglobin was 8.1 g/dL. - Monitor hemoglobin levels closely and transfuse as needed. 5. Acute Gastritis: - Possibly related to alcohol abuse. - EGD planned for tomorrow. - Continue Protonix therapy. Disposition: - Regularly monitor liver function tests, renal function, electrolytes, and ammonia levels. - Repeat imaging or tests as needed based on clinical progression. - Continue supportive care and adjust treatment based on ongoing assessments. at 1525 at 1131 RPT #:[id number] END OF [id number] 15:10:00 [facility] ([facility] Gastroenterology Progress Note REPORT#:[id number] REPORT STATUS: Signed REPORT INITIALIZATION DATE:06/18/24 TIME: 1510 PATIENT: HERNANDO AMOS UNIT #: [id number] ROOM/BED: [place] [address] : [birth year] AGE: 33 SEX: M ATTEND: Shagufta Brink MD ADM AUTHOR: Marcie Toscano VIDEO GAME [employer]KER REPT SERVICE DT/TIME: 06/18/24 1510 * ALL edits or amendments must be made on the electronic/computer document * Subjective Chief complaint: better mentation Review of Systems Constitutional: Denies: chills, fever. Skin: Denies: laceration, rash. Allergy/Immun: Denies: allergic reaction, anaphylaxis. Eyes: Denies: redness, discharge. ENT: Denies: nasal congestion, sinus problem. GI: Denies: nausea, vomiting. Psych: Denies: agitation, anxiety. Objective General VS/I O: Last Documented: Result Date Time Pulse Ox 100 06/18 1458 B/P 122/76 06/18 1458 B/P Mean 91.4 06/18 1458 Temp 36.9 06/18 1458 Pulse 85 06/18 1458 Resp 13 06/18 1458 O2 Delivery Room air 06/16 0343 24 hour I O ending at 0700: 06/18 0700 06/17 1900 Intake Total 1000.00 375 Output Total 250 Balance 750.00 375 Intake, IV 1000.00 30 Intake, 345 Packed Cells Output, Urine 250 PATIENT WEIGHT: Weight (lb): 146 Weight (oz): 9.72 Weight (kg): 66.500 Medications: Active Meds + DC'd Last 24 Hrs Potassium Chloride (POTASSIUM CHLORIDE 20 MEQ TAB.ER) 40 MEQ BID PO Sodium Chloride (SODIUM CHLORIDE 0.9%) 500 ML PREOP ONCALL IV Ceftriaxone Sodium (cefTRIAXone 1,000 MG VIAL) 1,000 MG Q24H IV Sodium Chloride (SODIUM CHLORIDE 0.9% 10ML) 10 ML Pantoprazole (PROTONIX) 40 MG BID 9A 5P PO Acetaminophen (TYLENOL 325MG) 650 MG Q4H PRN PRN PO Lactulose (LACTULOSE) 20 GM TID PO Dextrose/Water (DEXTROSE 10%) 125 ML ASDIR PRN IV (CKD) Dextrose/Water (DEXTROSE 10%) 250 ML ASDIR PRN IV (CKD) Glucagon (GLUCAGON) 1 MG ASDIR PRN IM Sodium Chloride (SODIUM CHLORIDE 0.9%) 1,000 ML .Q20H IV (DC) Rifaximin (XIFAXAN) 550 MG BID PO Physical Exam General appearance: alert, awake HEENT: anicteric, atraumatic, normocephalic Neck: full range of motion, non-tender, supple/no meningismus Cardiovascular: normal S1/S2, regular rate rhythm Respiratory: aerating well, symmetric expansion, no distress Abdomen: non-tender, normal bowel sounds, soft, no distention Extremities: moves all Skin: dry, intact Results Findings/Data: Laboratory Tests 06/18/24427: [Embedded Image Not Available] Laboratory Tests 06/18 428 Chemistry Sodium (134.0 - 147.0 mmol/l) 125 L Potassium (3.6 - 5.2 mmol/L) 2.9 L Chloride (98.0 - 107.0 mmol/l) 96 L Carbon Dioxide (21.0 - 33.0 mmol/l) 16.2 L Anion Gap (0 - 20) 14.6 BUN (7.0 - 18.0 mg/dl) 36 H Creatinine (0.60 - 1.30 mg/dL) 0.85 Estimated Creat Clear (>30 mL/min) 125 Glomerular Filtr Rate (mL/min) 118 Glucose (70.0 - 110.0 mg/dl) 94 Calcium (8.0 - 10.5 mg/dl) 6.9 L Laboratory Tests 06/18 428 Hematology WBC (4.5 - 11.0 K/mm3) 9.0 RBC (4.40 - 5.90 M/mm3) 2.70 L Hgb (13.0 - 17.0 gm/dL) 8.1 L Hct (36.0 - 48.0 %) 23.2 L MCV (80.0 - 94.0 UM3) 85.9 MCH (25.5 - 32.5 UUG) 30.0 MCHC (29.0 - 35.5 gm/dL) 34.9 RDW (11.5 - 15.0 %) 18.6 H Plt Count (150 - 400 K/mm3) 164 MPV (7.4 - 10.4 fl) 8.8 Neut % (Auto) (49.0 - 76.0 %) 58.7 Lymph % (Auto) (23.0 - 38.0 %) 19.7 L Butler % (Auto) (1.0 - 10.0 %) 16.3 H Eos % (Auto) (1.0 - 5.0 %) 3.9 Baso % (Auto) (0.0 - 1.0 %) 0.7 Neut # (Auto) (2.4 - 6.3 K/mm3) 5.3 Lymph # (Auto) (1.2 - 4.0 K/mm3) 1.8 Butler # (Auto) (0.0 - 0.6 K/mm3) 1.5 H Eos # (Auto) (0.0 - 0.7 K/MM3) 0.4 Baso # (Auto) (0.0 - 0.2 K/mm3) 0.1 Absolute Nucleated RBC (0.00 - 0.01 X10 3uL) 0.00 Immature Gran % (0.0 - 0.4 %) 0.7 H Nucleated RBC % (0.0 - 0.1 %) 0.0 Immature Gran # (0.00 - 0.07 x10 3/uL) 0.06 Results: labs reviewed Diagnosis, Assessment Plan Free Text A P: 1. Hepatic encephalopathy, likely metabolic encephalopathy is likely related to use of cannabis and alcohol. We will await ultrasound results to check status of liver. 2. Acute kidney injury, likely related to dehydration. 3. Acute gastritis related to alcohol abuse. Recommend PPI. 4. We will continue to monitor the patient's progress. 06/17- no overt GIB, cont lactulose and PPI 06/18-No overt GIB. No anesthesia available today. Plan for EGD in the morning at 1514 RPT #:[id number] END OF [id number] 15:10:00 [facility] ([facility] Gastroenterology Progress Note REPORT#:[id number] REPORT STATUS: Signed REPORT INITIALIZATION DATE:06/18/24 TIME: 151 PATIENT: HERNANDO AMOS UNIT #: [id number] ROOM/BED: [place] [address] : 91 AGE: 34 SEX: M ATTEND: Shagufta Brink MD ADM AUTHOR: Marcie Toscano NP REPT SERVICE DT/TIME: 06/18/24 1510 * ALL edits or amendments must be made on the electronic/computer document * Marcie Toscano 06/18/24 1510: Subjective Chief complaint: better mentation Review of Systems Constitutional: Denies: chills, fever. Skin: Denies: laceration, rash. Allergy/Immun: Denies: allergic reaction, anaphylaxis. Eyes: Denies: redness, discharge. ENT: Denies: nasal congestion, sinus problem. GI: Denies: nausea, vomiting. Psych: Denies: agitation, anxiety. Objective General VS/I O: Last Documented: Result Date Time Pulse Ox 100 06/18 1458 B/P 122/76 06/18 1458 B/P Mean 91.4 06/18 1458 Temp 36.9 06/18 1458 Pulse 85 06/18 1458 Resp 13 06/18 1458 O2 Delivery Room air 06/16 0343 24 hour I O ending at 0700: 06/18 0700 06/17 1900 Intake Total 1000.00 375 Output Total 250 Balance 750.00 375 Intake, IV 1000.00 30 Intake, 345 Packed Cells Output, Urine 250 PATIENT WEIGHT: Weight (lb): 146 Weight (oz): 9.72 Weight (kg): 66.500 Medications: Active Meds + DC'd Last 24 Hrs Potassium Chloride (POTASSIUM CHLORIDE 20 MEQ TAB.ER) 40 MEQ BID PO Sodium Chloride (SODIUM CHLORIDE 0.9%) 500 ML PREOP ONCALL IV Ceftriaxone Sodium (cefTRIAXone 1,000 MG VIAL) 1,000 MG Q24H IV Sodium Chloride (SODIUM CHLORIDE 0.9% 10ML) 10 ML Pantoprazole (PROTONIX) 40 MG BID 9A 5P PO Acetaminophen (TYLENOL 325MG) 650 MG Q4H PRN PRN PO Lactulose (LACTULOSE) 20 GM TID PO Dextrose/Water (DEXTROSE 10%) 125 ML ASDIR PRN IV (CKD) Dextrose/Water (DEXTROSE 10%) 250 ML ASDIR PRN IV (CKD) Glucagon (GLUCAGON) 1 MG ASDIR PRN IM Sodium Chloride (SODIUM CHLORIDE 0.9%) 1,000 ML .Q20H IV (DC) Rifaximin (XIFAXAN) 550 MG BID PO Physical Exam General appearance: alert, awake HEENT: anicteric, atraumatic, normocephalic Neck: full range of motion, non-tender, supple/no meningismus Cardiovascular: normal S1/S2, regular rate rhythm Respiratory: aerating well, symmetric expansion, no distress Abdomen: non-tender, normal bowel sounds, soft, no distention Extremities: moves all Skin: dry, intact Results Findings/Data: Laboratory Tests 06/18/24427: [Embedded Image Not Available] Laboratory Tests 06/18 428 Chemistry Sodium (134.0 - 147.0 mmol/l) 125 L Potassium (3.6 - 5.2 mmol/L) 2.9 L Chloride (98.0 - 107.0 mmol/l) 96 L Carbon Dioxide (21.0 - 33.0 mmol/l) 16.2 L Anion Gap (0 - 20) 14.6 BUN (7.0 - 18.0 mg/dl) 36 H Creatinine (0.60 - 1.30 mg/dL) 0.85 Estimated Creat Clear (>30 mL/min) 125 Glomerular Filtr Rate (mL/min) 118 Glucose (70.0 - 110.0 mg/dl) 94 Calcium (8.0 - 10.5 mg/dl) 6.9 L Laboratory Tests 06/18 428 Hematology WBC (4.5 - 11.0 K/mm3) 9.0 RBC (4.40 - 5.90 M/mm3) 2.70 L Hgb (13.0 - 17.0 gm/dL) 8.1 L Hct (36.0 - 48.0 %) 23.2 L MCV (80.0 - 94.0 UM3) 85.9 MCH (25.5 - 32.5 UUG) 30.0 MCHC (29.0 - 35.5 gm/dL) 34.9 RDW (11.5 - 15.0 %) 18.6 H Plt Count (150 - 400 K/mm3) 164 MPV (7.4 - 10.4 fl) 8.8 Neut % (Auto) (49.0 - 76.0 %) 58.7 Lymph % (Auto) (23.0 - 38.0 %) 19.7 L Butler % (Auto) (1.0 - 10.0 %) 16.3 H Eos % (Auto) (1.0 - 5.0 %) 3.9 Baso % (Auto) (0.0 - 1.0 %) 0.7 Neut # (Auto) (2.4 - 6.3 K/mm3) 5.3 Lymph # (Auto) (1.2 - 4.0 K/mm3) 1.8 Butler # (Auto) (0.0 - 0.6 K/mm3) 1.5 H Eos # (Auto) (0.0 - 0.7 K/MM3) 0.4 Baso # (Auto) (0.0 - 0.2 K/mm3) 0.1 Absolute Nucleated RBC (0.00 - 0.01 X10 3uL) 0.00 Immature Gran % (0.0 - 0.4 %) 0.7 H Nucleated RBC % (0.0 - 0.1 %) 0.0 Immature Gran # (0.00 - 0.07 x10 3/uL) 0.06 Results: labs reviewed Diagnosis, Assessment Plan Free Text A P: 1. Hepatic encephalopathy, likely metabolic encephalopathy is likely related to use of cannabis and alcohol. We will await ultrasound results to check status of liver. 2. Acute kidney injury, likely related to dehydration. 3. Acute gastritis related to alcohol abuse. Recommend PPI. 4. We will continue to monitor the patient's progress. 06/17- no overt GIB, cont lactulose and PPI 06/18-No overt GIB. No anesthesia available today. Plan for EGD in the morning Justyn Salinas 07/20/24 0845: Diagnosis, Assessment Plan Free Text A P: The patient's chart is reviewed, as well as exam and interview with the nurse practitioner, I agree with the plan as noted above. at 1514 at 0846 RPT #:[id number] END OF [id number] 08:58:00 [facility] ([facility] Nephrology Progress Note REPORT#:[id number] REPORT STATUS: Signed REPORT INITIALIZATION DATE:06/18/24 TIME: 0858 PATIENT: HERNANDO AMOS UNIT #: [id number] ROOM/BED: [place] [address] : 91 AGE: 33 SEX: M ATTEND: Shagufta Brink MD ADM AUTHOR: Bessy Bal MD REPT SERVICE DT/TIME: 06/18/24 0858 * ALL edits or amendments must be made on the electronic/computer document * Subjective Chief complaint: JOHNATHON, Hyponatremia Comments: Seen and examined at 0700. Awake, alert, conversive in Peruvian. Accompanied by Peruvian-speaking father. They are both concerned this am with getting a sugar level by glucometer, and otherwise has no new problems or complaints. HPI unchanged,. PMFShx unchanged. ROS unchanged. Objective General VS/I O: Vital Signs: Date Time Temp Pulse Resp B/P B/P Pulse O2 O2 Flow FiO2 Mean Ox Delivery Rate 06/18 0653 36.8 89 14 124/77 92.6 99 06/18 0340 37.1 88 18 113/68 83.2 99 06/17 2342 36.8 95 18 133/75 94.5 100 06/17 1911 37.0 86 18 123/74 90.0 100 06/17 1547 37.2 88 17 120/71 0.0 100 06/17 1547 37.2 88 17 120/71 0.0 100 / 1120 37.1 87 14 121/72 88.2 100 /08 1011 37.2 89 14 121/76 91.2 100 / 0910 37.2 86 16 112/65 80.5 100 /08 0910 37.2 86 16 112/65 80.5 100 24 hour I O ending at 0700: 06/18 0700 06/17 1900 Intake Total 1000.00 375 Output Total 250 Balance 750.00 375 Intake, IV 1000.00 30 Intake, 345 Packed Cells Output, Urine 250 PATIENT WEIGHT: Weight (lb): 146 Weight (oz): 9.72 Weight (kg): 66.500 Medications Active Meds + DC'd Last 24 Hrs Potassium Chloride (POTASSIUM CHLORIDE 20 MEQ TAB.ER) 40 MEQ BID PO (UNV ) Sodium Chloride (SODIUM CHLORIDE 0.9%) 500 ML PREOP ONCALL IV Ceftriaxone Sodium (cefTRIAXone 1,000 MG VIAL) 1,000 MG Q24H IV Sodium Chloride (SODIUM CHLORIDE 0.9% 10ML) 10 ML Pantoprazole (PROTONIX) 40 MG BID 9A 5P PO Acetaminophen (TYLENOL 325MG) 650 MG Q4H PRN PRN PO Lactulose (LACTULOSE) 20 GM TID PO Dextrose/Water (DEXTROSE 10%) 125 ML ASDIR PRN IV (CKD) Dextrose/Water (DEXTROSE 10%) 250 ML ASDIR PRN IV (CKD) Glucagon (GLUCAGON) 1 MG ASDIR PRN IM Sodium Chloride (SODIUM CHLORIDE 0.9%) 500 ML ONCE ONE IV (DC) Sodium Chloride (SODIUM CHLORIDE 0.9%) 1,000 ML .Q20H IV (DCr) Rifaximin (XIFAXAN) 550 MG BID PO Physical Exam General appearance: alert, awake, no acute distress Head/eyes: normal conjunctiva/sclera, normocephalic ENT: moist mucous membranes Neck: supple/no meningismus, no JVD Cardiovascular: normal heart sounds, regular rate and rhythm, no murmur Respiratory: aerating well, clear to auscultation, normal breath sounds, symmetric expansion Abdomen: non-tender, normal bowel sounds, soft Genitourinary: no bladder distention Extremities: no edema, no swelling Musculoskeletal: normal inspection Neuro/FISH PEDDLER: alert, oriented to person and place; amnestic for how he arrived here. Skin: intact Psychiatry: abnl judgment/insight Results Findings/Data: Laboratory Tests 06/18 428 Chemistry Sodium (134.0 - 147.0 mmol/l) 125 L Potassium (3.6 - 5.2 mmol/L) 2.9 L Chloride (98.0 - 107.0 mmol/l) 96 L Carbon Dioxide (21.0 - 33.0 mmol/l) 16.2 L Anion Gap (0 - 20) 14.6 BUN (7.0 - 18.0 mg/dl) 36 H Creatinine (0.60 - 1.30 mg/dL) 0.85 Estimated Creat Clear (>30 mL/min) 125 Glomerular Filtr Rate (mL/min) 118 Glucose (70.0 - 110.0 mg/dl) 94 Calcium (8.0 - 10.5 mg/dl) 6.9 L Laboratory Tests 06/18 428 Hematology WBC (4.5 - 11.0 K/mm3) 9.0 RBC (4.40 - 5.90 M/mm3) 2.70 L Hgb (13.0 - 17.0 gm/dL) 8.1 L Hct (36.0 - 48.0 %) 23.2 L MCV (80.0 - 94.0 UM3) 85.9 MCH (25.5 - 32.5 UUG) 30.0 MCHC (29.0 - 35.5 gm/dL) 34.9 RDW (11.5 - 15.0 %) 18.6 H Plt Count (150 - 400 K/mm3) 164 MPV (7.4 - 10.4 fl) 8.8 Neut % (Auto) (49.0 - 76.0 %) 58.7 Lymph % (Auto) (23.0 - 38.0 %) 19.7 L Butler % (Auto) (1.0 - 10.0 %) 16.3 H Eos % (Auto) (1.0 - 5.0 %) 3.9 Baso % (Auto) (0.0 - 1.0 %) 0.7 Neut # (Auto) (2.4 - 6.3 K/mm3) 5.3 Lymph # (Auto) (1.2 - 4.0 K/mm3) 1.8 Butler # (Auto) (0.0 - 0.6 K/mm3) 1.5 H Eos # (Auto) (0.0 - 0.7 K/MM3) 0.4 Baso # (Auto) (0.0 - 0.2 K/mm3) 0.1 Absolute Nucleated RBC (0.00 - 0.01 X10 3uL) 0.00 Immature Gran % (0.0 - 0.4 %) 0.7 H Nucleated RBC % (0.0 - 0.1 %) 0.0 Immature Gran # (0.00 - 0.07 x10 3/uL) 0.06 Diagnosis, Assessment Plan Free Text A P: IMPRESSION: 1. Acute kidney injury. 06/17 RESOLVED. 06/16 There has been a rise in the serum creatinine from at least a level of 1.06 to a peak of 1.25. The etiology may be related to intravascular volume depletion with BUN to creatinine ratio greater than 20:1. 2. Hyponatremia. 06/18 Unchanged, especially with all the drinking containers on the side table. 06/17 Unchanged. Related to cirrhosis. It will not be easy or quick to fix this problem. 06/16 May be related to ETOH ingestion; however, there is no alcohol in the blood. 3. Cirrhosis. 06/[address] scan and labs. EtOH use/abuse 4. Anemia. 06/17 Acute blood loss superimposed on chronic disease. 5. ETOH use. Has a diagnosis of hepatic encephalopathy. Liver function tests may be forthcoming. 6. Hyperphosphatemia secondary to renal failure. 7. Hypokalemia. 06/18 Replete. 8. Bacteuria. 06/18 Young for UTI as common shanon culture has panned out. PLAN: Fluid restrict Blood as needed Periodic labs at 0927 RPT #:[id number] END OF [id number] 10:10:00 [facility] Gastroenterology Progress Note REPORT#:[id number] REPORT STATUS: Signed REPORT INITIALIZATION DATE:06/17/24 TIME: 1010 PATIENT: HERNANDO AMOS UNIT #: [id number] ROOM/BED: [place] [address] : 91 AGE: 33 SEX: M ATTEND: Shagufta Brink MD ADM AUTHOR: Justyn Salinas MD REPT SERVICE DT/TIME: 06/17/24 1010 * ALL edits or amendments must be made on the electronic/computer document * See Addendum Subjective Chief complaint: better mentation Review of Systems All systems rev neg: except as marked Objective General VS/I O: Last Documented: Result Date Time Pulse Ox 100 06/17 910 B/P 112/65 06/17 910 B/P Mean 80.5 06/17 910 Temp 99.0 06/17 910 Pulse 86 06/17 09 Resp 16 06/17 910 O2 Delivery Room air 06/16 0343 24 hour I O ending at 0700: 06/17 0700 06/16 1900 Intake Total 800.00 750.00 Output Total 1000 Balance -200.00 750.00 Intake, IV 500.00 600.00 Intake, Oral 150 Intake, 300 Packed Cells Output, Urine 1000 PATIENT WEIGHT: Weight (lb): 146 Weight (oz): 9.72 Weight (kg): 66.500 Medications: Active Meds + DC'd Last 24 Hrs Albumin Human (ALBUMIN HUMAN) 100 ML ONCE ONE IV (CAN) Ceftriaxone Sodium (cefTRIAXone 1,000 MG VIAL) 1,000 MG Q24H IV Sodium Chloride (SODIUM CHLORIDE 0.9% 10ML) 10 ML Pantoprazole (PROTONIX) 40 MG BID 9A 5P PO Sodium Chloride (Hypertonic) (SODIUM CHLORIDE 3%) 500 ML .Q24H IV (CAN) Acetaminophen (TYLENOL 325MG) 650 MG Q4H PRN PRN PO Lactulose (LACTULOSE) 20 GM TID PO Dextrose/Water (DEXTROSE 10%) 125 ML ASDIR PRN IV (CKD) Dextrose/Water (DEXTROSE 10%) 250 ML ASDIR PRN IV (CKD) Glucagon (GLUCAGON) 1 MG ASDIR PRN IM Sodium Chloride (SODIUM CHLORIDE 0.9%) 500 ML ONCE ONE IV Lactulose (LACTULOSE) 20 GM TID RECTAL (DC) Sodium Chloride (SODIUM CHLORIDE 0.9%) 1,000 ML .Q20H IV Hydralazine HCl (APRESOLINE) 10 MG Q2H PRN PRN IV (DC) Morphine Sulfate (morphine SULFATE) 2 MG Q4H PRN PRN IV (DC) Ondansetron HCl (ZOFRAN 2ML) 4 MG Q6H PRN PRN IV (DC) Rifaximin (XIFAXAN) 550 MG BID PO Physical Exam General appearance: alert, awake HEENT: anicteric, atraumatic, normocephalic Neck: full range of motion, non-tender, supple/no meningismus Cardiovascular: normal S1/S2, regular rate rhythm Respiratory: aerating well, symmetric expansion, no distress Abdomen: non-tender, normal bowel sounds, soft, no distention Extremities: moves all Skin: dry, intact Results Findings/Data: Laboratory Tests 06/17/24 075: [Embedded Image Not Available] 06/16/24 1930: [Embedded Image Not Available] Laboratory Tests 06/17 1930 1449 Chemistry Sodium (134.0 - 147.0 mmol/l) 125 L 125 L Potassium (3.6 - 5.2 mmol/L) 3.0 L 3.4 L Chloride (98.0 - 107.0 mmol/l) 97 L 95 L Carbon Dioxide (21.0 - 33.0 mmol/l) 18.3 L 19.6 L Anion Gap (0 - 20) 14.7 13.8 BUN (7.0 - 18.0 mg/dl) 42 H 52 H Creatinine (0.60 - 1.30 mg/dL) 0.76 1.04 Estimated Creat Clear (>30 mL/min) 140 102 Glomerular Filtr Rate (mL/min) 122 98 Glucose (70.0 - 110.0 mg/dl) 90 104 POC Glucose (70 - 110 mg/dL) 118 H Calcium (8.0 - 10.5 mg/dl) 7.0 L 6.6 L Total Bilirubin (0.0 - 1.0 mg/dl) 2.5 H AST (15 - 37 Units/L) 127 H ALT (12.0 - 78.0 Units/L) 53 Total Alk Phosphatase (50.0 - 136.0 Units/L) 283 H Total Protein (6.4 - 8.2 gm/dL) 5.3 L Albumin (3.2 - 4.7 gm/dl) 1.5 L Laboratory Tests 06/16 1238 Coagulation INR (0.89 - 1.14) 2.0 H PT Patient/Control Mix (9.9 - 12.8 SECONDS) 22.5 H Laboratory Tests 06/17 06/16 0757 1930 Hematology WBC (4.5 - 11.0 K/mm3) 9.0 10.6 RBC (4.40 - 5.90 M/mm3) 2.28 L 1.29 L Hgb (13.0 - 17.0 gm/dL) 7.1 L 6.1 *L Hct (36.0 - 48.0 %) 20.2 L 12.9 *L MCV (80.0 - 94.0 UM3) 88.6 100.0 H MCH (25.5 - 32.5 UUG) 31.1 47.3 H MCHC (29.0 - 35.5 gm/dL) 35.1 47.3 H RDW (11.5 - 15.0 %) 19.5 H 23.9 H Plt Count (150 - 400 K/mm3) 186 197 MPV (7.4 - 10.4 fl) 8.6 8.7 Neut % (Auto) (49.0 - 76.0 %) 61.4 67.2 Lymph % (Auto) (23.0 - 38.0 %) 21.2 L 16.4 L Butler % (Auto) (1.0 - 10.0 %) 14.9 H 14.3 H Eos % (Auto) (1.0 - 5.0 %) 1.4 1.2 Baso % (Auto) (0.0 - 1.0 %) 0.3 0.4 Neut # (Auto) (2.4 - 6.3 K/mm3) 5.5 7.2 H Lymph # (Auto) (1.2 - 4.0 K/mm3) 1.9 1.7 Butler # (Auto) (0.0 - 0.6 K/mm3) 1.3 H 1.5 H Eos # (Auto) (0.0 - 0.7 K/MM3) 0.1 0.1 Baso # (Auto) (0.0 - 0.2 K/mm3) 0.0 0.0 Absolute Nucleated RBC (0.00 - 0.01 X10 3uL) 0.00 0.00 Immature Gran % (0.0 - 0.4 %) 0.8 H 0.5 H Nucleated RBC % (0.0 - 0.1 %) 0.0 0.0 Immature Gran # (0.00 - 0.07 x10 3/uL) 0.07 0.05 Laboratory Tests 06/16 1652 Urines Urine Osmolality (300 - 1000 MOS/KG) 452 Ur Random Sodium (40 - 220 mmol/L) 3 L Urine Creatinine (30 - 125 MG/DL) 114.47 Diagnosis, Assessment Plan Free Text A P: 1. Hepatic encephalopathy, likely metabolic encephalopathy is likely related to use of cannabis and alcohol. We will await ultrasound results to check status of liver. 2. Acute kidney injury, likely related to dehydration. 3. Acute gastritis related to alcohol abuse. Recommend PPI. 4. We will continue to monitor the patient's progress. 06/17- no overt GIB, cont lactulose and PPI at 1013 Addendum 1: 06/17/24 1125 by Justyn Salinas MD 06/17- plan for EGD tomorrow at 1127 RPT #:[id number] END OF [id number] 09:59:00 [facility] ([facility] Gastroenterology Progress Note REPORT#:[id number] REPORT STATUS: Signed REPORT INITIALIZATION DATE:06/17/24 TIME: 958 PATIENT: HERNANDO AMOS UNIT #: [id number] ROOM/BED: [place] [address] : 91 AGE: 34 SEX: M ATTEND: Shagufta Brink MD ADM AUTHOR: Justyn Salinas MD REPT SERVICE DT/TIME: 06/17/24 0959 * ALL edits or amendments must be made on the electronic/computer document * Diagnosis, Assessment Plan Free Text A P: 1. Hepatic encephalopathy, likely metabolic encephalopathy is likely related to use of cannabis and alcohol. We will await ultrasound results to check status of liver. 2. Acute kidney injury, likely related to dehydration. 3. Acute gastritis related to alcohol abuse. Recommend PPI. 4. We will continue to monitor the patient's progress. 06/17- at 0841 RPT #:[id number] END OF [id number] 09:16:00 [facility] ([facility]) Nephrology Progress Note REPORT#:[id number] REPORT STATUS: Signed REPORT INITIALIZATION DATE:06/17/24 TIME: 0916 PATIENT: HERNANDO AMOS UNIT #: [id number] ROOM/BED: [place] [address] : 91 AGE: 33 SEX: M ATTEND: Shagufta Brink MD ADM AUTHOR: Bessy Bal MD REPT SERVICE DT/TIME: 06/17/24 0916 * ALL edits or amendments must be made on the electronic/computer document * Subjective Chief complaint: JOHNATHON, Hyponatremia Comments: Seen and examined at 0800. Awake, alert, conversive. No new or overnight events. HPI Unchanged. PMFSHx unchanged. ROS unchanged. Objective General VS/I O: Vital Signs: Date Time Temp Pulse Resp B/P B/P Pulse O2 O2 Flow FiO2 Mean Ox Delivery Rate 08/08 0910 37.2 86 16 112/65 80.5 100 08/08 0837 37.1 90 16 105/65 78.2 100 08/08 0805 37.0 87 14 109/69 82.5 100 08/08 0658 36.8 95 14 117/72 87.2 100 08/08 0625 37.2 97 115/68 83.3 100 08/08 0525 37.5 94 15 115/73 87.3 99 08/08 0445 37.3 94 134/84 100.5 100 08/08 0427 36.8 94 14 114/69 84.0 100 08/08 0336 37.0 97 18 112/64 80.3 100 08/08 0336 37.0 97 18 112/64 80.3 100 08/07 2332 36.9 99 18 114/63 80.0 100 08/07 2332 36.9 99 18 114/63 80.0 100 08/07 2332 36.9 99 18 114/63 80.0 100 08/07 1921 37.2 106 18 113/56 74.8 99 08/07 1921 37.2 106 18 113/56 74.8 99 08/07 1921 37.2 106 18 113/56 74.8 99 08/07 1921 37.2 106 18 113/56 74.8 99 08/07 1534 110 24 103/58 0.0 100 08/07 1534 110 24 103/58 0.0 100 08/07 1534 110 24 103/58 0.0 100 08/07 1534 110 24 103/58 0.0 100 08/07 1504 24 08/07 1452 38.8 119 14 101/53 69.0 99 08/07 1452 38.8 119 14 101/53 69.0 99 08/07 1452 38.8 119 14 101/53 69.0 99 08/07 1452 38.8 119 14 101/53 69.0 99 08/07 1135 37.5 108 14 127/66 86.1 100 08/07 1135 37.5 108 14 127/66 86.1 100 08/07 1135 37.5 108 14 127/66 86.1 100 08/07 1135 37.5 108 14 127/66 86.1 100 24 hour I O ending at 0700: 08/08 0700 08/07 1900 Intake Total 800.00 750.00 Output Total 1000 Balance -200.00 750.00 Intake, IV 500.00 600.00 Intake, Oral 150 Intake, 300 Packed Cells Output, Urine 1000 PATIENT WEIGHT: Weight (lb): 146 Weight (oz): 9.72 Weight (kg): 66.500 Medications Active Meds + DC'd Last 24 Hrs Albumin Human (ALBUMIN HUMAN) 100 ML ONCE ONE IV (CAN) Ceftriaxone Sodium (cefTRIAXone 1,000 MG VIAL) 1,000 MG Q24H IV Sodium Chloride (SODIUM CHLORIDE 0.9% 10ML) 10 ML Pantoprazole (PROTONIX) 40 MG BID 9A 5P PO Sodium Chloride (Hypertonic) (SODIUM CHLORIDE 3%) 500 ML .Q24H IV (CAN) Acetaminophen (TYLENOL 325MG) 650 MG Q4H PRN PRN PO Lactulose (LACTULOSE) 20 GM TID PO Dextrose/Water (DEXTROSE 10%) 125 ML ASDIR PRN IV (CKD) Dextrose/Water (DEXTROSE 10%) 250 ML ASDIR PRN IV (CKD) Glucagon (GLUCAGON) 1 MG ASDIR PRN IM Sodium Chloride (SODIUM CHLORIDE 0.9%) 500 ML ONCE ONE IV Lactulose (LACTULOSE) 20 GM TID RECTAL (DC) Sodium Chloride (SODIUM CHLORIDE 0.9%) 1,000 ML .Q20H IV Hydralazine HCl (APRESOLINE) 10 MG Q2H PRN PRN IV (DC) Morphine Sulfate (morphine SULFATE) 2 MG Q4H PRN PRN IV (DC) Ondansetron HCl (ZOFRAN 2ML) 4 MG Q6H PRN PRN IV (DC) Rifaximin (XIFAXAN) 550 MG BID PO Physical Exam General appearance: alert, awake Head/eyes: normal conjunctiva/sclera, normocephalic ENT: moist mucous membranes Neck: supple/no meningismus, no JVD Cardiovascular: normal heart sounds, regular rate and rhythm, no murmur Respiratory: aerating well, clear to auscultation, normal breath sounds, symmetric expansion Abdomen: non-tender, normal bowel sounds, soft Genitourinary: no bladder distention Extremities: no edema, no swelling Musculoskeletal: normal inspection Neuro/FISH PEDDLER: alert, oriented to person and place; amnestic for how he arrived here. Skin: intact Psychiatry: abnl judgment/insight Results Findings/Data: Laboratory Tests 06/17 1449 Chemistry Sodium (134.0 - 147.0 mmol/l) 125 L 125 L Potassium (3.6 - 5.2 mmol/L) 3.0 L 3.4 L Chloride (98.0 - 107.0 mmol/l) 97 L 95 L Carbon Dioxide (21.0 - 33.0 mmol/l) 18.3 L 19.6 L Anion Gap (0 - 20) 14.7 13.8 BUN (7.0 - 18.0 mg/dl) 42 H 52 H Creatinine (0.60 - 1.30 mg/dL) 0.76 1.04 Estimated Creat Clear (>30 mL/min) 140 102 Glomerular Filtr Rate (mL/min) 122 98 Glucose (70.0 - 110.0 mg/dl) 90 104 POC Glucose (70 - 110 mg/dL) 118 H Calcium (8.0 - 10.5 mg/dl) 7.0 L 6.6 L Total Bilirubin (0.0 - 1.0 mg/dl) 2.5 H AST (15 - 37 Units/L) 127 H ALT (12.0 - 78.0 Units/L) 53 Total Alk Phosphatase (50.0 - 136.0 Units/L) 283 H Total Protein (6.4 - 8.2 gm/dL) 5.3 L Albumin (3.2 - 4.7 gm/dl) 1.5 L Laboratory Tests 06/16 1238 Coagulation INR (0.89 - 1.14) 2.0 H PT Patient/Control Mix (9.9 - 12.8 SECONDS) 22.5 H Laboratory Tests 06/17 Hematology WBC (4.5 - 11.0 K/mm3) 9.0 10.6 RBC (4.40 - 5.90 M/mm3) 2.28 L 1.29 L Hgb (13.0 - 17.0 gm/dL) 7.1 L 6.1 *L Hct (36.0 - 48.0 %) 20.2 L 12.9 *L MCV (80.0 - 94.0 UM3) 88.6 100.0 H MCH (25.5 - 32.5 UUG) 31.1 47.3 H MCHC (29.0 - 35.5 gm/dL) 35.1 47.3 H RDW (11.5 - 15.0 %) 19.5 H 23.9 H Plt Count (150 - 400 K/mm3) 186 197 MPV (7.4 - 10.4 fl) 8.6 8.7 Neut % (Auto) (49.0 - 76.0 %) 61.4 67.2 Lymph % (Auto) (23.0 - 38.0 %) 21.2 L 16.4 L Butler % (Auto) (1.0 - 10.0 %) 14.9 H 14.3 H Eos % (Auto) (1.0 - 5.0 %) 1.4 1.2 Baso % (Auto) (0.0 - 1.0 %) 0.3 0.4 Neut # (Auto) (2.4 - 6.3 K/mm3) 5.5 7.2 H Lymph # (Auto) (1.2 - 4.0 K/mm3) 1.9 1.7 Butler # (Auto) (0.0 - 0.6 K/mm3) 1.3 H 1.5 H Eos # (Auto) (0.0 - 0.7 K/MM3) 0.1 0.1 Baso # (Auto) (0.0 - 0.2 K/mm3) 0.0 0.0 Absolute Nucleated RBC (0.00 - 0.01 X10 3uL) 0.00 0.00 Immature Gran % (0.0 - 0.4 %) 0.8 H 0.5 H Nucleated RBC % (0.0 - 0.1 %) 0.0 0.0 Immature Gran # (0.00 - 0.07 x10 3/uL) 0.07 0.05 Laboratory Tests 06/16 1652 Urines Urine Osmolality (300 - 1000 MOS/KG) 452 Ur Random Sodium (40 - 220 mmol/L) 3 L Urine Creatinine (30 - 125 MG/DL) 114.47 Diagnosis, Assessment Plan Free Text A P: IMPRESSION: 1. Acute kidney injury. 06/17 RESOLVED. 06/16 There has been a rise in the serum creatinine from at least a level of 1.06 to a peak of 1.25. The etiology may be related to intravascular volume depletion with BUN to creatinine ratio greater than 20:1. 2. Hyponatremia. 06/17 Unchanged. Related to cirrhosis. It will not be easy or quick to fix this problem. 06/16 May be related to ETOH ingestion; however, there is no alcohol in the blood. 3. Cirrhosis. 06/[address] scan and labs. EtOH use/abuse 4. Anemia. 06/17 Acute blood loss superimposed on chronic disease. 5. ETOH use. Has a diagnosis of hepatic encephalopathy. Liver function tests may be forthcoming. 6. Hyperphosphatemia secondary to renal failure. PLAN: Fluid restrict Blood as needed Periodic labs at 0934 RPT #:[id number] END OF [id number] 08:37:00 [facility] Hospitalist Progress Note REPORT#:[id number] REPORT STATUS: Signed REPORT INITIALIZATION DATE:06/17/24 TIME: 836 PATIENT: HERNANDO AMOS UNIT #: [id number] ROOM/BED: [place] [id number] : 91 AGE: 33 SEX: M ATTEND: Shagufta Brink MD ADM AUTHOR: Lindsay Neil MD R1 REPT SERVICE DT/TIME: 06/17/24 0837 * ALL edits or amendments must be made on the electronic/computer document * Lindsay Neil 06/17/24 0837: Subjective Chief complaint: AMS HPI: A 33-year-old male with a history of alcohol abuse presented with altered mental status, agitation, and violent behavior Symptoms included fever, abdominal pain, nausea, vomiting, and diarrhea. He was disoriented, confused, and unable to provide a history. Lab results showed bacteriuria, cannabis use, and metabolic acidosis with an increased anion gap. No alcohol was detected. The patient was admitted for hepatic encephalopathy, hyponatremia, and mental status changes. Patient reports: Yes: abdominal pain, diarrhea, feeling better. Objective General VS/I O: Vital Signs: Date Time Temp Pulse Resp B/P B/P Pulse O2 O2 Flow FiO2 Mean Ox Delivery Rate 06/17 837 37.1 90 16 105/65 78.2 100 08/08 0805 37.0 87 14 109/69 82.5 100 08/08 0658 36.8 95 14 117/72 87.2 100 08/08 0625 37.2 97 115/68 83.3 100 08/08 0525 37.5 94 15 115/73 87.3 99 08/08 0445 37.3 94 134/84 100.5 100 08/08 0427 36.8 94 14 114/69 84.0 100 08/08 0336 37.0 97 18 112/64 80.3 100 08/08 0336 37.0 97 18 112/64 80.3 100 08/07 2332 36.9 99 18 114/63 80.0 100 08/07 2332 36.9 99 18 114/63 80.0 100 08/07 2332 36.9 99 18 114/63 80.0 100 08/07 1921 37.2 106 18 113/56 74.8 99 08/07 1921 37.2 106 18 113/56 74.8 99 08/07 1921 37.2 106 18 113/56 74.8 99 08/07 1921 37.2 106 18 113/56 74.8 99 08/07 1534 110 24 103/58 0.0 100 08/07 1534 110 24 103/58 0.0 100 08/07 1534 110 24 103/58 0.0 100 08/07 1534 110 24 103/58 0.0 100 08/07 1504 24 08/07 1452 38.8 119 14 101/53 69.0 99 08/07 1452 38.8 119 14 101/53 69.0 99 08/07 1452 38.8 119 14 101/53 69.0 99 08/07 1452 38.8 119 14 101/53 69.0 99 08/07 1135 37.5 108 14 127/66 86.1 100 08/07 1135 37.5 108 14 127/66 86.1 100 08/07 1135 37.5 108 14 127/66 86.1 100 08/07 1135 37.5 108 14 127/66 86.1 100 24 hour I O ending at 0700: 08/08 0700 08/07 1900 Intake Total 800.00 750.00 Output Total 1000 Balance -200.00 750.00 Intake, IV 500.00 600.00 Intake, Oral 150 Intake, 300 Packed Cells Output, Urine 1000 PATIENT WEIGHT: Weight (lb): 146 Weight (oz): 9.72 Weight (kg): 66.500 Physical Exam General appearance: alert, awake, no acute distress, mental status normal Head/Eyes: atraumatic, Jaundice ENT: moist mucosal membranes Neck: non-tender, normal thyroid, no masses or swelling Cardiovascular: murmur, tachycardic Murmur: systolic 2/6 Respiratory: aerating well, clear to auscultation Abdomen: ascites, distended, guarding, hernia, rebound, tenderness, ambilical hernia Genitourinary: urinary catheter Extremities: no edema Results Findings/Data: Laboratory Tests 06/16 1449 Chemistry Sodium (134.0 - 147.0 mmol/l) 125 L Potassium (3.6 - 5.2 mmol/L) 3.4 L Chloride (98.0 - 107.0 mmol/l) 95 L Carbon Dioxide (21.0 - 33.0 mmol/l) 19.6 L Anion Gap (0 - 20) 13.8 BUN (7.0 - 18.0 mg/dl) 52 H Creatinine (0.60 - 1.30 mg/dL) 1.04 Estimated Creat Clear (>30 mL/min) 102 Glomerular Filtr Rate (mL/min) 98 Glucose (70.0 - 110.0 mg/dl) 104 POC Glucose (70 - 110 mg/dL) 118 H Calcium (8.0 - 10.5 mg/dl) 6.6 L Laboratory Tests 06/16 1238 Coagulation INR (0.89 - 1.14) 2.0 H PT Patient/Control Mix (9.9 - 12.8 SECONDS) 22.5 H Laboratory Tests 06/16 1930 Hematology WBC (4.5 - 11.0 K/mm3) 10.6 RBC (4.40 - 5.90 M/mm3) 1.29 L Hgb (13.0 - 17.0 gm/dL) 6.1 *L Hct (36.0 - 48.0 %) 12.9 *L MCV (80.0 - 94.0 UM3) 100.0 H MCH (25.5 - 32.5 UUG) 47.3 H MCHC (29.0 - 35.5 gm/dL) 47.3 H RDW (11.5 - 15.0 %) 23.9 H Plt Count (150 - 400 K/mm3) 197 MPV (7.4 - 10.4 fl) 8.7 Neut % (Auto) (49.0 - 76.0 %) 67.2 Lymph % (Auto) (23.0 - 38.0 %) 16.4 L Butler % (Auto) (1.0 - 10.0 %) 14.3 H Eos % (Auto) (1.0 - 5.0 %) 1.2 Baso % (Auto) (0.0 - 1.0 %) 0.4 Neut # (Auto) (2.4 - 6.3 K/mm3) 7.2 H Lymph # (Auto) (1.2 - 4.0 K/mm3) 1.7 Butler # (Auto) (0.0 - 0.6 K/mm3) 1.5 H Eos # (Auto) (0.0 - 0.7 K/MM3) 0.1 Baso # (Auto) (0.0 - 0.2 K/mm3) 0.0 Absolute Nucleated RBC (0.00 - 0.01 X10 3uL) 0.00 Immature Gran % (0.0 - 0.4 %) 0.5 H Nucleated RBC % (0.0 - 0.1 %) 0.0 Immature Gran # (0.00 - 0.07 x10 3/uL) 0.05 Laboratory Tests 06/16 1652 Urines Urine Osmolality (300 - 1000 MOS/KG) 452 Ur Random Sodium (40 - 220 mmol/L) 3 L Urine Creatinine (30 - 125 MG/DL) 114.47 Radiology data: Recent Impressions: ULTRASOUND - US [facility]RO [facility] 06/16 1009 Report Impression - Status: SIGNED Entered: 06/16/2024 1150 IMPRESSION: 1. No obvious abnormality with either kidney. 2. Extensive ascites. This limits evaluation of the urinary bladder which shows no obvious acute findings. Impression By: Edson Renteria M.D. Diagnosis, Assessment Plan Free Text DxA P Notes Free text DxA P notes: 1. Hepatic Encephalopathy: - Likely metabolic in nature, secondary to chronic alcohol and cannabis use. - Continue lactulose and rifaximin. 2. Acute Kidney Injury (JOHNATHON): - Resolved - Likely secondary to dehydration; monitor renal function closely. 3. Hyponatremia: - Likely related to cirrhosis. This is a chronic issue and correction is gradual. - Continue to monitor renal function, liver status, and electrolyte levels. 4. Cirrhosis with Ascites: - Confirmed by CT scan and lab results, secondary to chronic ethanol use/ abuse. - Patient had paracentesis at an outside facility before admission. - Abdomen remains distended. Paracentesis is recommended; however, note that PT is 22.5 and INR is 2, which may affect bleeding risk. 5. Anemia: - Hemoglobin decreased from 8.1 g/dL to 6.6 g/dL. - Likely due to acute blood loss compounded by chronic disease. - Monitor hemoglobin levels closely and transfuse as needed. - 2 units of blood transfused; hemoglobin was 7.1 g/dL post-first unit. - Recheck hemoglobin levels and continue Protonix. 6. Acute Gastritis: - Possibly related to alcohol abuse. - Initiate proton pump inhibitor (PPI) therapy to reduce gastric acid production and monitor for improvement in abdominal symptoms. - EGD planned for tommorow Disposition: - Regularly monitor liver function tests, renal function, electrolytes, and ammonia levels. - Repeat imaging or tests as needed based on clinical progression. - Continue supportive care and adjust treatment based on ongoing assessments. Maegan Salcido 06/18/24 1402: Attestations Teaching Physician Attestation F/U visit w/ resident: I saw the patient with the resident and . . . agree with the resident's findings and plan. JOHNATHON Hyponatremia likely chronic Decompensated cirrhosis with ascites Alcohol abuse Hypokalemia replace aggressively Anemia due to acute blood loss Nephrology consult Avoid nephrotoxins GI consult Transfuse 1 unit Repeat H H Avoid nephrotoxins Monitor sodium Fluid restrictions 06/17 After talking to the patient sounds like he was seen at outside hospital for his belly last week and was discharged home. He has no pain. Has acute gastritis Pending EGD at 1511 at 1403 [facility] #:[id number] END OF [id number] 11:21:[id number] [address] PATIENT NAME: HERNANDO AMOS ADMIT DATE: 06/15/24 ACCOUNT NO: [id number] DISCHARGE DATE: 06/19/24 ROOM NO: E.439 REPORT TYPE: CONSULTATION REPORT DATE OF : [birth year] AGE: 34 SEX: M ADMITTING PHYSICIAN:Shagufta Brink MD ATTENDING PHYSICIAN:Shagufta Brink MD CONSULTATION DATE: GASTROINTESTINAL CONSULTATION CONSULTING: ER. REASON FOR CONSULTATION: 1. Hepatic encephalopathy, patient accepted by me yesterday. 2. History of alcohol abuse. BRIEF HISTORY OF PRESENT ILLNESS: A 33-year-old male at the time of interview is being ruled in for an ultrasound. At the time of interview is lying comfortably with eyes closed. He does respond after I spoke to him. He is mainly Peruvian speaking. He knows his age. He is more alert, awake, in no distress. He did not have his breakfast this morning, only drank water, no GI bleeding. PAST MEDICAL HISTORY: Alcohol abuse. PAST SURGICAL HISTORY: Noncontributory. SOCIAL HISTORY: Positive for marijuana and alcohol. FAMILY HISTORY: No GI malignancy, pancreatic or liver disease. REVIEW OF SYSTEMS: GENERAL: No weight gain and/or loss. Denies fever and chills. EYES: Negative for vision changes and eye irritation. EARS, NOSE, THROAT: No oral lesions. No sore throat. No ear pain or sinus congestion. CARDIAC: Denies chest pain, diaphoresis, orthopnea, and palpitations. PULMONARY: Denies shortness of breath, cough, and hemoptysis. GASTROINTESTINAL: As per HPI. GENITOURINARY: No dysuria. No discharge. No hematuria. MUSCULOSKELETAL: No muscle pain. No joint abnormalities. DERMATOLOGIC: No skin rashes. No skin ulceration. PSYCHIATRIC: No depression. No anxiety. NEUROLOGIC: No headache. No dizziness. No numbness. No tingling. ENDOCRINE: Negative for polyuria, polydipsia, and polyphagia. ALLERGIES: No allergic rhinitis. No pruritus. PHYSICAL EXAMINATION: VITAL SIGNS: Stable. PATIENT NAME: HERNANDO AMOS GENERAL: The patient is awake, alert, and oriented x3, and is in no apparent distress. EYES: No pallor and icterus noted. Pupils equal, round, and reactive to light and accommodation. Extraocular muscles intact. EARS, NOSE, THROAT: No oral lesions. No oropharyngeal erythema. Nares patent. NECK: No lymphadenopathy. Supple. HEART: Regular rate and rhythm. S1, S2 heard. LUNGS: Clear to auscultation bilaterally. No wheezes or crackles. ABDOMEN: Positive bowel sounds. Soft. Nontender. Nondistended. GENITOURINARY AND RECTAL: Deferred. EXTREMITIES: The bilateral lower extremities are without clubbing, cyanosis, or edema. The bilateral upper extremities are unremarkable. SKIN: No rashes. No skin ulcerations. NEUROLOGIC: Sensory and motor grossly intact. MUSCULOSKELETAL: No muscle fasciculations and atrophy noted. LABORATORY DATA: Reviewed. IMPRESSION: 1. Hepatic encephalopathy, likely metabolic encephalopathy is likely related to use of cannabis and alcohol. We will await ultrasound results to check status of liver. 2. Acute kidney injury, likely related to dehydration. 3. Acute gastritis related to alcohol abuse. Recommend PPI. 4. We will continue to monitor the patient's progress. Dictated By: Justyn Salinas MD Date Dictated: 06/16/2024 11:21:32 Date Transcribed: 06/16/2024 12:42:16 AM/SUM Receipt ID: [id number] Authenticated by Justyn Salinas MD On 06/25/2024 06:35:44 AM at 0635 PATIENT NAME: HERNANDO AMOS 09:40:00 [facility] ([facility] Hospitalist History Physical REPORT#:[id number] REPORT STATUS: Signed REPORT INITIALIZATION DATE:06/16/24 TIME: 939 PATIENT: HERNANDO AMOS UNIT #: [id number] ROOM/BED: [place] [address] : [birth year] AGE: 33 SEX: M ATTEND: Shagufta Brink MD ADM AUTHOR: Lindsay Neil MD R1 REPT SERVICE DT/TIME: 06/16/24 0940 * ALL edits or amendments must be made on the electronic/computer document * Lindsay Neil 06/16/24 0940: History of Present Illness HPI Chief complaint: AMS PCP: PCP: Undefined Provider HPI: A 33-year-old male with a significant history of alcohol abuse presented with altered mental status, including agitation and violent behavior. On initial evaluation, his David Coma Scale score was 12. He also reported symptoms of fever, abdominal pain, nausea, vomiting, and diarrhea. Immediate management included IM Versed, Benadryl, Haldol, IV fluids, lactulose, rifaximin , and IV Ativan. The patient, who is primarily Peruvian-speaking, exhibited confusion and disorientation during the interview. He was unable to provide a detailed history , including how he arrived at the emergency room or the current date. He denied gastrointestinal bleeding and mentioned only consuming water since his last meal. Laboratory results revealed bacteriuria, cannabis use, and an increased anion gap with metabolic acidosis. No alcohol was detected in his blood. The patient was admitted for further evaluation of hepatic encephalopathy, hyponatremia, and mental status changes. Hx Obtained From Patient, Prior medical records History Past medical history: Reports: Alcoholism/subst abuse. Smoking status for patients 13 years old or older: Former Smoker Medication/Allergy-Vaccine Hx Allergies: Coded Allergies: No Known Allergies (06/15/24) Review of Systems Constitutional: fatigue, generalized weakness, lethargy. Skin: Denies: swelling. GI: Denies: abdominal pain, nausea. Objective General VS/I O: Vital Signs: Date Time Temp Pulse Resp B/P B/P Pulse O2 O2 Flow FiO2 Mean Ox Delivery Rate 06/16 1534 110 24 103/58 0.0 100 06/16 1504 24 06/16 1452 38.8 119 14 101/53 69.0 99 06/16 1135 37.5 108 14 127/66 86.1 100 06/16 0727 37.4 90 14 115/62 79.4 100 06/16 0343 36.9 107 19 119/69 85.8 100 Room air 06/16 0112 36.4 98 18 114/73 86 100 Room air 06/15 2052 36.5 95 18 107/68 80.8 100 Room air 06/15 1930 36.6 100 17 107/62 79 100 24 hour I O ending at 0700: 06/16 0700 06/15 1900 Intake Total 1000.00 Output Total Balance 1000.00 Intake, IV 1000.00 Patient 66.5 kg 70.3 kg Weight Weight Bed scale Bed scale Measurement Method PATIENT WEIGHT: Weight (lb): 146 Weight (oz): 9.72 Weight (kg): 66.500 Physical Exam General appearance: altered mental status, cachectic/emaciated, chronically ill appearing, confused, frail, lethargic Cardiovascular: murmur, tachycardic Murmur: systolic 2/6 Respiratory: aerating well, clear to auscultation Abdomen: ascites, distended, guarding, hernia, rebound, tenderness, ambilical hernia Genitourinary: urinary catheter Extremities: no edema Results Findings/Data: Laboratory Tests 06/16 Chemistry Sodium (134.0 - 147.0 mmol/l) 124 L Potassium (3.6 - 5.2 mmol/L) 3.9 Chloride (98.0 - 107.0 mmol/l) 94 L Carbon Dioxide (21.0 - 33.0 mmol/l) 20.0 L Anion Gap (0 - 20) 14.9 BUN (7.0 - 18.0 mg/dl) 51 H Creatinine (0.60 - 1.30 mg/dL) 0.89 Estimated Creat Clear (>30 mL/min) 119 Glomerular Filtr Rate (mL/min) 117 Glucose (70.0 - 110.0 mg/dl) 63 L Serum Osmolality (275 - 295 MOS/KG) 305 H Lactic Acid (0.4 - 2.0 mmol/L) 2.2 H Calcium (8.0 - 10.5 mg/dl) 6.9 L Total Bilirubin (0.0 - 1.0 mg/dl) 2.8 H AST (15 - 37 Units/L) 149 H ALT (12.0 - 78.0 Units/L) 63 Total Alk Phosphatase (50.0 - 136.0 Units/L) 200 H Ammonia (11.0 - 32.0 MCMOL/L) 24.0 Total Protein (6.0 - 8.1 GM/DL) 5.4 L Albumin (3.2 - 4.7 gm/dL) 1.5 L 06/16 Chemistry Sodium (134.0 - 147.0 mmol/l) 122 L Potassium (3.6 - 5.2 mmol/L) 4.0 Chloride (98.0 - 107.0 mmol/l) 92 L Carbon Dioxide (21.0 - 33.0 mmol/l) 19.7 L Anion Gap (0 - 20) 14.2 BUN (7.0 - 18.0 mg/dl) 56 H Creatinine (0.60 - 1.30 mg/dL) 1.06 Estimated Creat Clear (>30 mL/min) 100 Glomerular Filtr Rate (mL/min) 96 Glucose (70.0 - 110.0 mg/dl) 90 Lactic Acid (0.4 - 2.0 mmol/L) 3.2 H Calcium (8.0 - 10.5 mg/dl) 7.2 L Laboratory Tests 06/16 1238 Coagulation INR (0.89 - 1.14) 2.0 H PT Patient/Control Mix (9.9 - 12.8 SECONDS) 22.5 H Laboratory Tests 06/16 0805 Hematology WBC (4.5 - 11.0 K/mm3) 9.0 RBC (4.40 - 5.90 M/mm3) 1.28 L Hgb (13.0 - 17.0 gm/dL) 6.6 *L Hct (36.0 - 48.0 %) 12.6 *L MCV (80.0 - 94.0 UM3) 98.4 H MCH (25.5 - 32.5 UUG) 51.6 H MCHC (29.0 - 35.5 gm/dL) 52.4 H RDW (11.5 - 15.0 %) 22.7 H Plt Count (150 - 400 K/mm3) 207 MPV (7.4 - 10.4 fl) 8.8 Neut % (Auto) (49.0 - 76.0 %) 65.9 Lymph % (Auto) (23.0 - 38.0 %) 16.8 L Butler % (Auto) (1.0 - 10.0 %) 15.1 H Eos % (Auto) (1.0 - 5.0 %) 1.0 Baso % (Auto) (0.0 - 1.0 %) 0.6 Neut # (Auto) (2.4 - 6.3 K/mm3) 6.0 Lymph # (Auto) (1.2 - 4.0 K/mm3) 1.5 Butler # (Auto) (0.0 - 0.6 K/mm3) 1.4 H Eos # (Auto) (0.0 - 0.7 K/MM3) 0.1 Baso # (Auto) (0.0 - 0.2 K/mm3) 0.1 Absolute Nucleated RBC (0.00 - 0.01 X10 3uL) 0.00 Immature Gran % (0.0 - 0.4 %) 0.6 H Nucleated RBC % (0.0 - 0.1 %) 0.0 Immature Gran # (0.00 - 0.07 x10 3/uL) 0.05 Laboratory Tests 06/15 1948 Toxicology Urine Opiates Screen (NEGATIVE) NEGATIVE Urine Methadone Screen (NEGATIVE) NEGATIVE Urine Barbiturates (NEGATIVE) NEGATIVE Ur Phencyclidine Scrn (NEGATIVE) NEGATIVE Ur Amphetamines Screen (NEGATIVE) NEGATIVE U Benzodiazepines Scrn (NEGATIVE) NEGATIVE Urine Cocaine Screen (NEGATIVE) NEGATIVE Urine Cannabinoids (NEGATIVE) POSITIVE H Laboratory Tests 06/16 Urines Urine Color YELLOW Urine Appearance CLEAR Urine pH (5.0 - 9.0) 6.0 Ur Specific [place] (1.000 - 1.030) 1.015 Urine Protein (NEGATIVE mg/dl) NEGATIVE Urine Glucose (UA) (NORMAL mg/dl) NORMAL Urine Ketones (NEGATIVE mg/dl) NEGATIVE Urine Blood (NEGATIVE Marcos/micL) 25 Marcos/micL H Urine Nitrite (NEGATIVE) NEGATIVE Urine Bilirubin (NEGATIVE mg/dL) NEGATIVE Urine Urobilinogen (NORMAL mg/dl) NORMAL Ur Leukocyte Esterase (NEGATIVE Marsha/micL) 25 Marsha/micL H Urine RBC (0 - 3 RBC/HPF) 3-5 Urine WBC (NONE WBC/HPF) 10-15 H Ur Epithelial Cells (0 - 3 EPI/HPF) 2-5 H Urine Bacteria (NONE) MANY H Urine Yeast (NEGATIVE) FEW Urine Osmolality (300 - 1000 MOS/KG) 452 Ur Random Sodium (40 - 220 mmol/L) 3 L Urine Creatinine (30 - 125 MG/DL) 114.47 Radiology data: Recent Impressions: ULTRASOUND - US [facility]RO [facility] 06/16 1009 Report Impression - Status: SIGNED Entered: 06/16/2024 1150 IMPRESSION: 1. No obvious abnormality with either kidney. 2. Extensive ascites. This limits evaluation of the urinary bladder which shows no obvious acute findings. Impression By: Edson - Dontrell Renteria M.D. Diagnosis, Assessment Plan Free Text DxA P Notes Free Text DxA P Notes: 1. Hepatic Encephalopathy: - Likely metabolic in nature, related to chronic alcohol and cannabis use. - Continue lactulose and rifaximin. 2. Acute Kidney Injury: - Likely secondary to dehydration, as indicated by the increase in creatinine from 1.06 to 1.25. - Monitor renal function closely. 3. Hyponatremia: - Possibly related to chronic alcohol use, despite no alcohol detected in the blood. - Monitor electrolytes closely. Consider further investigation if sodium levels do not normalize. 4. Hyperphosphatemia: - Secondary to renal failure. - Monitor phosphate levels. 5. Anemia: - Hemoglobin decreased from 8.1 g/dL to 6.6 g/dL. - Blood transfusion ordered. - Re-check hemoglobin levels. 6. Acute Gastritis: - Possibly related to alcohol abuse. - Initiate proton pump inhibitor (PPI) therapy to reduce gastric acid production. Monitor for improvement in abdominal symptoms. Disposition: - Regularly monitor liver function tests, renal function, electrolytes, and ammonia levels. - Repeat imaging or tests as needed based on clinical progression. - Continue supportive care and adjust treatment based on ongoing assessments. Maegan Salcido 06/18/24 1401: Attestations Teaching Physician Attestation 1st visit w/ resident: I was present with the resident during the history and exam. I discussed the case with the resident and . . . agree with the findings and plan as documented in the resident's note. JOHNATHON Hyponatremia likely chronic Decompensated cirrhosis with ascites Alcohol abuse Hypokalemia replace aggressively Anemia due to acute blood loss Nephrology consult Avoid nephrotoxins GI consult Transfuse 1 unit Repeat H H Avoid nephrotoxins Monitor sodium Fluid restrictions at 1911 at 1402 [facility] #:[id number] END OF [id number] 09:11:[id number] [address] PATIENT NAME: HERNANDO AMOS ADMIT DATE: 06/15/24 ACCOUNT NO: [id number] DISCHARGE DATE: 06/19/24 ROOM NO: E.439 REPORT TYPE: CONSULTATION REPORT DATE OF : [birth year] AGE: 34 SEX: M ADMITTING PHYSICIAN:Shagufta Brink MD ATTENDING PHYSICIAN:Shagufta Brink MD CONSULTATION DATE: 06/16/2024 HISTORY OF PRESENT ILLNESS: This is a [facility] admission for this 33-year-old man without significant medical history, who is currently admitted for hepatic encephalopathy, hyponatremia, and mental status changes. I am asked by Dr. Shagufta Brink to evaluate the patient for renal abnormalities. The patient is unable to provide a history. He is unclear as to how he arrived to the emergency room. He denies any dysuria, hematuria, urgency, or frequency. Initial laboratory evaluation was significant for bacteriuria, cannabis, creatinine of 1.25, and a sodium of 121. There was no alcohol in the blood. The patient also had an increased anion gap metabolic acidosis. The patient was provided medical management in the emergency room and admitted for further evaluation and care. PAST MEDICAL HISTORY: Unremarkable. SOCIAL HISTORY: Positive for marijuana and alcohol use. Smokes. FAMILY HISTORY: Negative for renal disease. REVIEW OF SYSTEMS: GENERAL: Fever. Appetite adequate. EYES: No visual abnormalities. ENT: No auditory abnormalities. No sore throat. ENDOCRINE: No diabetes, no thyroid disease. LUNGS: No shortness of breath, cough, or hemoptysis. CARDIAC: No chest pain, PND, or orthopnea. GASTROINTESTINAL: No nausea, vomiting, or diarrhea. GENITOURINARY: As above. MUSCULOSKELETAL: No inflammatory joint abnormalities. SKIN: No rashes. PSYCHIATRIC: Confused. NEUROLOGIC: No focal complaints. PHYSICAL EXAMINATION: VITAL SIGNS: Blood pressure 115/62, pulse 90, temperature 97.6, respiratory rate 14. GENERAL: Awake, alert, disoriented, lying flat, in no apparent distress. HEENT: Eyes nonicteric, not injected. Pupils equally reactive. Oropharynx, moist mucous membranes. NECK: No JVD, no lymphadenopathy. PATIENT NAME: HERNANDO AMOS LUNGS: Good inspiratory effort. Generally clear. CARDIAC: Regular, S1, S2. ABDOMEN: Bowel sounds present, soft, nontender. No hepatosplenomegaly. EXTREMITIES: Four limbs present. No cyanosis or edema. SKIN: No rashes. PSYCHIATRIC: Oriented to person, place, and situation. NEUROLOGIC: Sensory grossly intact. LABORATORY DATA: Sodium 122, potassium 4.0, chloride 92, CO2 of 19.7, glucose 90, BUN 56, creatinine 1.06. Urinalysis significant for many bacteria and cannabis. IMPRESSION: 1. Acute kidney injury. There has been a rise in the serum creatinine from at least a level of 1.06 to a peak of 1.25. The etiology may be related to intravascular volume depletion with BUN to creatinine ratio greater than 20:1. 2. Hyponatremia. May be related to ETOH ingestion; however, there is no alcohol in the blood. 3. Recreational drug use abuse. 4. ETOH use. Has a diagnosis of hepatic encephalopathy. Liver function tests may be forthcoming. 5. Hyperphosphatemia secondary to renal failure. RECOMMENDATIONS: See orders. TOTAL TIME: 75 minutes Dictated By: Bessy Bal MD Date Dictated: 06/16/2024 09:11:03 Date Transcribed: 06/16/2024 11:09:27 ANGELA/RANDALL Receipt ID: [id number] Authenticated and Edited by Bessy Bal MD On 06/29/24 8:26:43 AM at 0827 PATIENT NAME: HERNANDO AMOS 17:04:00 [facility] ([facility]) EMERGENCY PROVIDER REPORT REPORT#:[id number] REPORT STATUS: Signed DATE:06/15/24 TIME: 170 PATIENT: HERNANDO AMOS UNIT #: [id number] ROOM/BED: [place] [address] AGE: 33 SEX: M PCP PHYS: Undefined Provider SERVICE AUTHOR: Cj Pizano MD * ALL edits or amendments must be made on the electronic/computer document * HPI-Altered Mental Status General Confirmed Patient Yes Initial Greet Date/Time 06/15/24 1653 Presentation Chief Complaint Not acting right Last Known Well Unknown LKW Unknown when last well Hx Obtained From Patient, EMS Free Text HPI Notes Free Text HPI Notes Patient presented to outside hospital with altered mental status. Patient was violent and agitated. GCS of 12. Also reported fever, abdominal pain, nausea, vomiting, diarrhea Patient was given IM Versed, Benadryl, and Haldol, IV fluids, lactulose, rifaximin, IV Ativan Workup notable for hemoglobin of 8.1, normal platelets, leukocytosis at 15.6, and elevated anion gap and decreased bicarb, trivially elevated lipase and amylase level, mildly elevated INR, normal pH, and normal procalcitonin level, hyponatremia, mildly elevated creatinine, elevated bilirubin, AST greater than ALT transaminitis, severely elevated ammonia level, severely elevated lactic acid level of 4.89 elevated alk phos negative RSV, negative COVID, negative flu, unremarkable chest x-ray No CT scan done at the outside hospital Additional history from EMS provider(s) in order to obtain history of prehospital course and augment patient/guardian history. External records reviewed by me: prior outside hospital ER notes. Information about patient's comorbidities and daily medications learned (as at least in part detailed above), which factored into medical decision making for today's visit. If present internal ER notes also reviewed Past Medical History - Adult Stated Complaint ALTERED MENTAL STATUS Allergies Coded Allergies: No Known Allergies (06/15/24) Smoking status for patients 13 years old or older: Unknown,if ever smoked Physical Exam Vital Signs Vital Signs First Documented: Result Date Time Pulse Ox 100 06/15 1653 B/P 123/83 06/15 165 B/P Mean 96 06/15 165 O2 Delivery Room air 06/15 1653 Temp 98.3 06/15 1653 Pulse 100 06/15 1653 Resp 18 06/15 1653 Last Documented: Result Date Time B/P 110/61 06/15 1837 B/P Mean 81 06/15 1837 Pulse 96 06/15 1837 Resp 25 06/15 1837 Pulse Ox 100 06/15 1730 O2 Delivery Room air 06/15 1653 Temp 98.3 06/15 1653 Review of Vital Signs Reviewed Free Text PE Notes Free Text PE Notes - Protecting airway - No clinically significant acute gross deformity or TTP to extremities - Soft compartments General: no acute distress, non-toxic appearing but he is acutely ill-appearing, Neuro: no gross focal abnormalities symmetric strength and sensation in the bilateral upper and lower extremities, grossly normal cranial nerves, appears to have asterixis, has confusion but is alert and oriented x 2 HEENT: pink mucosa, patent nares, profoundly dry mucosa Cardiac: normal S1/S2, skin well perfused, trivial tachycardia Pulmonary: no respiratory distress, CTAB, no stridor Abdomen: soft, nontender, distended abdomen, positive chronically appearing umbilical hernia that is partially reducible without overlying skin changes, no peritoneal findings : Unremarkable exam Head: normocephalic, no acute traumatic abnormalities, positive scleral icterus Skin: no acute appearing rashes, well perfused Interpretation Diagnostics Lab Results Interpretation Results Laboratory Tests 06/15/24 1732: [Embedded Image Not Available] Laboratory Tests: 06/15 06/15 173 1732 Chemistry Sodium (134.0 - 147.0 mmol/l) 121 L Potassium (3.6 - 5.2 mmol/L) 3.9 Chloride (98.0 - 107.0 mmol/l) 90 L Carbon Dioxide (21.0 - 33.0 mmol/l) 19.0 L Anion Gap (0 - 20) 15.9 BUN (7.0 - 18.0 mg/dl) 60 H Creatinine (0.60 - 1.30 mg/dL) 1.25 Estimated Creat Clear (>30 mL/min) 85 Glomerular Filtr Rate (mL/min) 78 Glucose (70.0 - 110.0 mg/dl) 102 Lactic Acid (0.4 - 2.0 mmol/L) 2.5 H Calcium (8.0 - 10.5 mg/dl) 7.2 L Phosphorus (2.5 - 4.9 mg/dl) 5.2 H Magnesium (1.8 - 2.4 mg/dl) 2.1 Toxicology Ethyl Alcohol (0.00 - 0.00 gm/dL) 0.00 Microbiology: Date/Time Procedure - Status Source Growth 06/15 1732 Blood Culture - RECD BLOOD 06/15 173 Blood Culture - RECD BLOOD 06/15 173 Blood Culture - RECD BLOOD 06/15 173 Blood Culture - RECD BLOOD Recent Impressions: CAT SCAN - CT ABD PELVIS W/CONT 06/15 1801 Report Impression - Status: SIGNED Entered: 06/15/2024 1920 IMPRESSION: Hepatic cirrhosis with large abdominopelvic ascites. Abnormal gallbladder wall thickening secondary to ascites and/or cirrhosis. Abnormal wall thickening involving the cecum and ascending colon. Differential includes colitis or secondary to cirrhosis. Impression By: Jenna Contreras M.D. CAT SCAN - CT HEAD/BRAIN W/O CONT 06/15 180 Report Impression - Status: SIGNED Entered: 06/15/2024 1858 IMPRESSION: 1. No CT evidence of acute intracranial abnormality. Impression By: Jenna Contreras M.D. ECG #1 Interpretation Text/Dict Note EKG independently reviewed and interpreted by me and performed on June 15, 2024, at 5:25 PM. Normal sinus rhythm at rate 97, no STEMI, adequate tracing, prolonged QTc Re-Evaluation MDM )( Re-Evaluation/Progress #1 Time of Re-Eval 1840 )( Re-Eval Status Improved ED Course Medication(s) Ordered Medication(s) Ordered: Anti-Infective Agents Sig/Kayla Start time Last Medication Dose Route Stop Time Status Admin Rifaximin 550 MG BID 06/15 1845 AC 06/16 PO 09/13 1844 0819 Ceftriaxone Sodium 1,000 MG X1ED STA 06/15 1715 DC 06/15 Sodium Chloride 10 ML IV 06/15 1717 1734 Metronidazole/Sodium 100 ML X1ED STA 06/15 1715 DC 06/15 Chloride IV 06/15 1814 1734 Cardiovascular Drugs Sig/Kayla Start time Last Medication Dose Route Stop Time Status Admin Hydralazine HCl 10 MG Q2H PRN PRN 06/15 1845 AC IV 06/16 1731 Central Nervous System Agents Sig/Kayla Start time Last Medication Dose Route Stop Time Status Admin Morphine Sulfate 2 MG Q4H PRN PRN 06/15 184 AC IV 06/16 1731 Diagnostic Agents Sig/Kayla Start time Last Medication Dose Route Stop Time Status Admin Iopamidol 0 .STK-MED ONE 06/15 1725 DC 06/15 IV 1802 Electrolytic, Caloric, And Robb Sig/Kayla Start time Last Medication Dose Route Stop Time Status Admin Lactated Ringer's 1,000 ML X1ED STA 06/15 1830 DC 06/15 IV 06/15 1930 1834 Sodium Chloride 1,000 ML X1ED STA 06/15 1712 DC / IV 06/15 1811 1733 Gastrointestinal Drugs Sig/Kayla Start time Last Medication Dose Route Stop Time Status Admin Lactulose 20 GM TID 06/15 1845 DC RECTAL 09/13 1844 Ondansetron HCl 4 MG Q6H PRN PRN 06/15 1845 AC IV 06/16 1731 Differential Diagnosis )( Differential Diagnosis Encephalitis Free Text MDM Notes Free Text MDM Notes Differential diagnosis includes but is not limited to the following diagnoses - Illicit or prescritpion drug ingestion/overdose - Drug withdrawal, Wernicke's - Hypoxia, hypercapnea - Hypertensive encephalopathy - Hypo/hyperglycemia, uremia, hepatic encephalopathy, - Thyroid disease, electrolyte AbNl - Carbon monoxide toxicity - Sepsis, meningoencephalitis, UTI, pneumonia, cellulitis, other infection - Intracranial hemorrhage, intracranial mass lesion, hydrocephalus - CVA, head injury - Post-ictal period, atypical migraine - Primary psychiatric pathology Differential diagnosis includes but is not limited to the following diagnoses - Line/catheter infection - UTI, pyelonephritis, STI - Cellulitis, abscess, necrotizing fasciitis, septic joint - Osteomyelitis - Pneumonia, bronchitis, empyema, pulmonary abscess - Intraabdominal: cholecystitis, abscess, colitis, etc - Meningoencephalitis - Endocarditis - Non-specific viral illness - Influenza, COVID, Butler, HIV - Tropical illness - Arthropod-borne illness - Drug reaction Differential diagnosis includes but is not limited to the following diagnoses - Anemia, malnutrition, malignancy - Electrolyte AbNl (hyperCa, hypoK, hypoNa, hypoMag) - Endocrine pathology (thyroid, DM, adrenal) - Lung, heart, kidney, liver disease - FISH PEDDLER AbNl (CVA, SC lesion, MS) - PNS AbNl (neuromuscular junction, ALS, GBS) - Myopathy/rhabdo, long COVID - Infection (UTI, PNA, COVID, etc) - Chronic/acute drug/EtOH intoxication/withdrawal - Rx medication adverse effect - Heat-related illness Patient here with clinical picture most consistent with hepatic encephalopathy and hyperbilirubinemia as a complication of cirrhosis, hyponatremia likely secondary to chronic alcohol use,, mild renal insufficiency, initially severely elevated lactic acid with significant improvement prior to arrival Status post broad-spectrum IV antibiotics, IV fluids. I initially ordered normal saline, but switched it to lactated Ringer's as he is hyponatremic and had already received crystalloid fluid prior to arrival Imaging results independently reviewed and interpreted by me: Unremarkable CT Noncon of the brain Qualified Health Professional: I discussed the case with the hospitalist. They agree with plan and admission to the floor and are comfortable with patient based on wet read of my CT head. They request 3 times daily lactulose, and twice daily rifaximin. Patient Discharge Departure Vital Signs/Condition Vital Signs First Documented: Result Date Time Pulse Ox 100 06/15 1653 B/P 123/83 06/15 1653 B/P Mean 96 08/ 1653 O2 Delivery Room air / 1653 Temp 98.3 08/ 1653 Pulse 100 08/06 1653 Resp 18 08/ 1653 Last Documented: Result Date Time B/P 110/61 06/15 1837 B/P Mean 81 08/ 1837 Pulse 96 08/ 1837 Resp 25 08/ 1837 Pulse Ox 100 08/06 1730 O2 Delivery Room air 06/15 1653 Temp 98.3 08/ 1653 All vital signs available at the time of this entry have been reviewed. Clinical Impression Clinical Impression Primary Impression: AMS (altered mental status) Secondary Impressions: Hepatic encephalopathy, Hyponatremia Disposition Decision Hospitalize Hosp Physician Name Shagufta Brink MD [facility] Physician Hospitalist Request Time 1830 Request Date 06/15/24 )( Accepts Hospitalization Yes )( Reason for Hospitalization AMS )( Accepted Time 1830 )( Accepted Date 06/15/24 Call Information will see patient, agrees with eval, agrees with plan Discharge/Care Plan Counseled Regarding Diagnosis, Lab results, Imaging studies, Need for admission at 1146 RPT #:[id number] END OF [id number] 15:18:14 Patient Care Team <thead> Team Status: Active Member Role Status Dates . NO PHYSICIAN primary care physician Active JALEESA FONSECA MD Attending Provider Active RAQUEL HEADLEY MD Admitting Provider Active RAQUEL HEADLEY MD Attending Provider [facility] Admitting Provider Active DONA [facility] Attending Provider Active SULTANA العراقي MD Emergency Provider Active LADI SUN Next of Kin Active LADI SUN Emergency Contact Active [facility] [id number] 15:18:14 Future Tests Future scheduled test information is unavailable Pending Tests <thead> Test Name Ordered Date Scheduled Date Urine Color June 15, 2024 9:23am Urine Appearance June 15, 2024 9:23am Urine Glucose (UA) June 15, 2024 9:23am Urine Bilirubin June 15, 2024 9:23am Urine Ketones June 15, 2024 9:23am Urine Specific [place] June 15, 2024 9:23am Urine Blood June 15, 2024 9:23am Urine pH June 15, 2024 9:23am Urine Protein June 15, 2024 9:23am Urine Urobilinogen June 15, 2024 9:23am Urine Nitrate June 15, 2024 9:23am Urine Leukocyte Esterase June 15, 2024 9:23am Urine RBC June 15, 2024 9:23am Urine WBC June 15, 2024 9:23am Urine Bacteria June 15, 2024 9:23am Urine Culture Reflexed June 15, 2024 9:23am Future Visits Future appointment information is unavailable Referrals to Other Providers <thead> Reason for Referral Referral Start Date Provider Provider Contact Information Provider Address NO PHYSICIAN NO PHYSICIAN NO PHYSICIAN YARIEL ESCOBAR , DO Work Phone: [place] [phone] NO PHYSICIAN NO PHYSICIAN NO PHYSICIAN Future Procedures <thead> Procedure Name Ordered Date Scheduled Date Insert Peripheral IV Access October 16, 2023 9 :31am October 16, 2023 Cardiac, BP, Pulse Ox Monitor February 25, 2024 1 0:45am February 25, 2024 10:40am Insert Peripheral IV Access February 25, 2024 10: 45am February 25, 2024 10:40am Remove Clothing/Place in Gown February 25, 2024 1 0:45am February 25, 2024 10:40am VS - Adult February 25, 2024 10:45am February 082023 10:40am Electrocardiogram, Complete February 25, 2024 10: 45am February 25, 2024 10:40am Insert Peripheral IV Access March 18, 2024 10:15a m March 18, 2024 Electrocardiogram, Complete March 18, 2024 10:15a m March 18, 2024 10:15am Discharge when criteria met April 22, 2024 1:46 pm April 22, 2024 1:45pm Discharge when criteria met May 20, 2024 5:11 pm May 20, 2024 5:10pm CRITICAL CARE CONSULT May 22, 2024 8:41pm May NEPHROLOGY CONSULT May 22, 2024 11:46pm May 22, 2024 Place in Observation May 23, 2024 10:35am May 10:34am Diet,Low Sodium May 23, 2024 4:38pm Resuscitation Status May 23, 2024 4:38pm May 23, 2024 4:35pm Discharge when criteria met June 14, 2024 1:1 3pm June 14, 2024 1:13pm URINALYSIS June 15, 2024 9:26am June 152023 9:23am NPO except Meds June 15, 2024 9:26am June 152023 9:23am Insert Peripheral IV Access June 15, 2024 9:2 6am June 15, 2024 9:23am EKG,INITIAL June 15, 2024 9:26am June 152023 9:23am Cardiac, BP, Pulse Ox Monitor June 15, 2024 9 :26am June 15, 2024 9:23am Remove Clothing/Place in Gown June 15, 2024 9 :26am June 15, 2024 9:23am VS - Adult June 15, 2024 9:26am June 152023 9:23am Electrocardiogram, Complete June 15, 2024 9:2 6am June 15, 2024 9:23am BLOOD CULTURE, ADULT June 15, 2024 9:28am Aug ust 2023 9:27am Future Medications Future medication information is unavailable Patient Instructions <tbody> Contusion, Kwls-ly-Acqi Puncture Wound, Vtyt-cn-Ylhh Ascites Alcoholic Liver Disease, Eas y-to-Read Cirrhosis Cirrhosis Abdominal Bloating Alcohol Intoxication, Easy-t o-Read Substance Use Disorder Palpitations, Jphq-dz-Iqub [facility] [id number] 16:21:00 [facility] Hospitalist Discharge Summary REPORT#:[id number] REPORT STATUS: Signed REPORT INITIALIZATION DATE:10/18/23 TIME: 162 PATIENT: HERNANDO ARRIAGA UNIT #: [id number] ROOM[address]BED: [address] : [address] AGE: 33 SEX: M ATTEND: Bhupendra Mario MD ADM AUTHOR: Bhupendra Mario MD REPT SERVICE DT/TIME: 10/18/23 1621 * ALL edits or amendments must be made on the electronic/computer document * General Information Date of admission: Observation Start Date: Date of admission: 10/16/23 Discharge date: 10/18/23 Discharge diagnosis: # Decompensated alcoholic cirrhosis # Thrombocytopenia due to cirrhosis Hospital course: 33 y/o male with a hx of alcohol abuse and alcohoic cirrhosis who is admitted for increased ascites. Interpretation was done by [employer] librarian helper. pt reports he drinks a 12 pack of beer daily. pt reports he had a paracentesis done 6 months ago. He states he was discharged home on diuretics which he ran out of 2 months later. He has continued to drink large amounts of alcohol. he states he ascites began to recur about 2 months ago. He denies any hematemesis, fevers, blood per rectum, abd pain or N/V. Consultants: gastroenterology Pt. condition on discharge: stable Allergies: Allergies: No Known Allergies (Coded, 10/16/23) Free Text DxA P Notes Free text DxA P notes: A/P: -- Decompensated alcoholic cirrhosis due to non compliance with diuretic regimen there was no evidence of any GI bleeding there was no fever or leukocytosis noted to indicate SBP he was for a large volume paracentesis with IV albumin in IR removing 12.2L of clear fluid The total cell count was 123, hence no evidence of SBP RUQ ultrasound evidence of cirrhosis and a patent main portal vein he was restarted on aldactone and lasix GI recommended starting a BB so propranolol 10 mg BID was started He felt better at the time of d/c -- Thrombocytopenia due to cirrhosis platelets as his platelet count has dropped a low of 13,000 he was transfused 2 units of platelets during his stay Her platelet count improved to 50,000 by the time of d/c -- Alcohol abuse he was placed on vitamins and CIWA protocol PO4 and Mag are stable no withdrawal symptoms noted during his stay pt was counseled on alcohol cessation Med Rec Med Rec Discharge meds: Start taking the following new medications: SPIRONOLACTONE (ALDACTONE) 50 MG TAB 100 MILLIGRAM ORAL DAILY. Qty = 60 Refills = 1 FUROSEMIDE (LASIX) 40 MG TAB 40 MILLIGRAM ORAL DAILY. Qty = 30 Refills = 1 FOLIC ACID (FOLIC ACID) 1 MG TAB 1 MILLIGRAM ORAL DAILY. Qty = 30 Refills = 1 THIAMINE (VITAMIN B-1) 100 MG TAB 100 MILLIGRAM ORAL DAILY. Qty = 30 Refills = 1 PROPRANOLOL (INDERAL) 10 MG TAB 10 MILLIGRAM ORAL TWICE DAILY. Qty = 60 Refills = 1 MULTIVITAMIN (MULTIPLE VITAMIN) 1 TAB TAB 1 TABLET ORAL DAILY. Qty = 30 Refills = 1 Objective VS/I O Last Documented: Result Date Time Pulse Ox 99 10/18 1618 B/P 125/80 10/18 1618 B/P Mean 94.8 10/18 1618 O2 Delivery Room air 10/18 1618 Temp 98.8 10/18 1618 Pulse 83 10/18 1618 Resp 18 10/18 1618 24 hour I O ending at 0700: 10/18 0700 10/17 1900 Intake Total 1206 Output Total Balance 1206 Intake, IV 1000 Intake, 206 Platelet General appearance: alert, oriented Cardiovascular: regular rate rhythm, no murmur Respiratory: clear to auscultation Abdomen: non-tender, soft, decreased distention Extremities: no edema Musculoskeletal: no CVA tenderness Neuro/FISH PEDDLER: no tremors Results Findings/Data: Laboratory Tests: 10/18 10/18 1501 0321 Chemistry Sodium (137 - 145 mmol/L) 136 L Potassium (3.4 - 5.0 mmol/L) 3.6 Chloride (98 - 107 mmol/L) 105 Carbon Dioxide (22 - 30 mmol/L) 24 Anion Gap 10 BUN (9 - 20 mg/dL) 7 L Creatinine (0.7 - 1.3 mg/dL) 0.5 L Glomerular Filtr Rate (mL/min) 139 Glucose (74 - 106 mg/dL) 96 Calcium (8.4 - 10.2 mg/dL) 7.6 L Total Bilirubin (0.2 - 1.3 mg/dL) 2.1 H Conjugated Bilirubin (0 - 0.3 mg/dL) 0 Unconjugated Bilirubin (0 - 1.1 mg/dL) 1.8 H AST (15 - 46 U/L) 79 H ALT (0 - 49 U/L) 28 Total Alk Phosphatase (38 - 126 U/L) 121 Total Protein (6.3 - 8.2 g/dL) 6.7 Albumin (3.5 - 5.0 g/dL) 2.8 L Specimen Hemolysis (0 - 100 Index/DL) < 15 Hematology WBC (5.0 - 12.0 x10 3/uL) 4.2 L 3.7 L RBC (4.70 - 6.10 x10 6/uL) 3.18 L 3.11 L Hgb (14.0 - 18.0 g/dL) 9.8 L 9.6 L Hct (37.0 - 49.0 %) 29.5 L 28.5 L MCV (80 - 94 fL) 93 92 MCH (27 - 31 pg) 30.8 30.9 MCHC (33 - 37 g/dL) 33.2 33.7 RDW (11.5 - 15.5 %) 16.1 H 16.1 H Plt Count (130 - 400 x10 3/uL) 50 L 13 *L MPV (9.4 - 16.4 fL) 11.0 11.8 Neut % (Auto) (43 - 65 %) 55.0 46.4 Lymph % (Auto) (20.5 - 45.5 %) 27.5 31.4 Butler % (Auto) (5.5 - 11.7 %) 14.6 H 18.9 H Eos % (Auto) (0.9 - 2.9 %) 2.2 2.5 Baso % (Auto) (0.2 - 1.0 %) 0.5 0.5 Neut # (Auto) (2.2 - 4.8 x10 3/uL) 2.30 1.70 L Lymph # (Auto) (1.3 - 2.9 x10 3/uL) 1.15 L 1.15 L Butler # (Auto) (0.3 - 0.8 x10 3/uL) 0.61 0.69 Eos # (Auto) (0.0 - 0.2 x10 3/uL) 0.09 0.09 Baso # (Auto) (0.0 - 0.1 x10 3/uL) 0.02 0.02 Immature Gran % (0.0 - 2.0 %) 0.2 0.3 Nucleated RBC % (0 - 1.0 %) 0.0 0.0 Platelet Estimate (ADEQUATE) SIGNIF DECREASED Plt Morphology Comment (NORMAL) LARGE PLATELETS SEEN Hypochromasia (NONE SEEN) 1+ H Anisocytosis (NONE SEEN) 3+ H Macrocytosis (NONE SEEN) 3+ H Target Cells (NONE SEEN) 1+ H Discharge Instructions PCP PCP follow-up: PCP: No Primary or Family Physician Follow-up labs,proc, tx: CBC and CMP check in 5-7 days Discharge to: Home/Self Care Additional Discharge Routines: PCP Follow-Up, [employer] Follow-Up, F/U Labs/ Procedures Diet: Cardiac Activity: As Tolerated Follow-up Appointments PCP follow-up: PCP follow up timeframe: in 5-7 days Consulting provider 1: Provider 1: Jacqueline Cabello MD Specialty: Internal Medicine Consult follow up timeframe: in 5-7 days Special instructions: Follow up in [facility] in 5-7 days for CBC and CMP check. Call for appt. Free Text DC Notes Free Text DC Notes: The total time spent engaging in discharge planning, speaking to the patient ( via thread puller) in detail about the final diagnoses/prognosis, speaking with case management, doing the discharge summary, placing orders for any referrals and completing prescriptions was 32 minutes. at 1633 [facility] #:[id number] END OF [id number] 10:10:00 [facility] ([facility]) Gastroenterology Progress Note REPORT#:[id number] REPORT STATUS: Signed REPORT INITIALIZATION DATE:10/18/23 TIME: 1010 PATIENT: HERNANDO ARRIAGA UNIT #: [id number] ROOM/BED: [id number] : 91 AGE: 33 SEX: M ATTEND: Bhupendra aMrio MD ADM AUTHOR: Rafael Dash MD REPT SERVICE DT/TIME: 10/18/23 1010 * ALL edits or amendments must be made on the electronic/computer document * Subjective Chief complaint: distended abdomen HPI: 33 male pmhx chronic alcohol use, cirrhosis, ascites presents from [facility] for concern of decompensated cirrhosis, severe thrombocytopenia (30k) and distended abdomen x1 mo. Last alcohol drink was 10/15. Patient states that he has been drinking again, about 12 beers per day. Admits to past ep of ascites where he had paracentesis and was given spironolactone and lasix to keep fluid off. After he improved, patient stopped taking both meds. Today he reports significant epigastric pain, back pain, abdominal fullness, shortness of breath and dyspnea on exhertion. Denies any chest pain, LE edema. Also reports very small red blood clots in stool that started 1 day ago. Denies melena, profuse bright red blood per rectum, nausea, vomiting, hematemesis, dysphagia, odynophagia. Other PMHx: periumbilical hernia, DT sx such as tremors but denies hallucinations, denies past dx viral hepatitis PSHx: prior paracentesis, denies abdominal surgeries/hernia repair T: 1 cigarette some weekends A: 12 beers per day D: smokes marijuana occasionally, denies IVDU Home meds: spironolactone and furosemide (stopped taking both after last ep of asictes resolved). Folate and b12 supplement. Colonoscopy:never EGD:never Personal cancer hx:denies FHx Cancer:denies, mom has DM Comments: No bleeding Objective General VS/I O: Last Documented: Result Date Time Pulse Ox 99 10/18 1618 B/P 125/80 10/18 1618 B/P Mean 94.8 10/18 1618 O2 Delivery Room air 10/18 1618 Temp 98.8 10/18 161 Pulse 83 10/18 1618 Resp 18 10/18 161 24 hour I O ending at 0700: 10/19 0700 10/18 1900 Intake Total 384 Output Total Balance 384 Intake, IV 200 Intake, 184 Platelet PATIENT WEIGHT: Weight (lb): Weight (oz): Weight (kg): 32.000 Physical Exam General appearance: awake HEENT: clear cornea, moist mucosal membranes, mild scleral icterus Cardiovascular: normal capillary refill, normal heart sounds Respiratory: shortness of breath, clear to auscultation, symmetric expansion Abdomen: ascites, distended, firm, fluid wave c/w ascites, tenderness, no guarding, reducible periumbilical hernia w/o bowel strangulation Genitourinary: no urinary catheter Extremities: moves all, no edema Musculoskeletal: normal inspection Skin: dry, intact, mild jaundice Results Interpretation I independently reviewed the [ ] and my interpretation is [ ] Diagnosis, Assessment Plan Free Text A P: 33 male pmhx chronic alcohol use, cirrhosis, ascites presents from [facility] for concern of decompensated cirrhosis, severe thrombocytopenia (30k) and distended abdomen x1 mo. Last alcohol drink was 10/15. #acute decompensated cirrhosis #pancytopenia with severe thrombocytopenia likely 2/2 alcoholic cirrhosis #periumbilical hernia, reducible and w/o bowel strangulation #mild hematochezia #hx of chornic EtOH use - supportive care: IVF, maintain normal hemodynamics and electrolytes, IV antiemetics prn and pain control - on arrival Hgb 9.8 (12/8 - 8.8), plt 22 (/8 - 14) - isolated episode of small volume blood loss per rectum, monitor per rectum output - monitor Hgb and plt, transfuse as needed to maintain hgb >7 and plt >50 - transaminitis, hyperbilirubinemia, hypoalbuminemia, INR 1.7 - monitor for sn/sx of EtOh w/d and CIWA protocol when appropriate - cirrhotic morphology of the liver with ascites is present - recommend propranolol and resume diuretics - IR consulted for paracentesis both dx and tx, r/o SBP - all other care per primary 12.9 -No abdominal pain nor bleeding -Discussed clearly about alcohol abstinence, he is in agreement -OP f/u for EGD and colonoscopy Rafael Dash MD, FACP Gastroenterology at 0830 RPT #:[id number] END OF [id number] 18:35:00 [facility] ([facility]) Hospitalist Progress Note REPORT#:[id number] REPORT STATUS: Signed REPORT INITIALIZATION DATE:10/17/23 TIME: 1834 PATIENT: HERNANDO ARRIAGA UNIT #: [id number] ROOM/BED: [address] : 91 AGE: 33 SEX: M ATTEND: Bhupendra Mario MD ADM AUTHOR: Bhupendra Mario MD REPT SERVICE DT/TIME: 10/17/231834 * ALL edits or amendments must be made on the electronic/computer document * Subjective Chief complaint: increased ascites HPI: pt is a 33 y/o male with a hx of alcohol abuse and alcohoic cirrhosis who is admitted for increased ascites. Interpretation was done by [email or web address] helper. pt reports he drinks a 12 pack of beer daily. pt reports he had a paracentesis done 6 months ago. He states he was discharged home on diuretics which he ran out of 2 months later. He has continued to drink large amounts of alcohol. he states he ascites began to recur about 2 months ago. He denies any hematemesis, fevers, blood per rectum, abd pain or N/V. Free Text Subj Notes Free Text Subj Notes: pt belly still distended Review of Systems All systems rev neg: except as noted Objective General VS/I O: Vital Signs: Date Time Temp Pulse Resp B/P B/P Pulse O2 O2 Flow FiO2 Mean Ox Delivery Rate 10/17 1526 88 17 144/86 105.1 97 10/17 1259 99.3 88 18 138/87 104.2 98 10/17 1245 98.2 92 17 142/85 103.9 97 10/17 0803 99.5 82 17 153/88 110.0 97 10/17 0100 100 18 124/73 91 97 10/17 0016 97 10/17 0015 91 19 153/110 124 10/16 1931 18 10/16 193 102 144/76 102 97 24 hour I O ending at 0700: 10/17 0700 10/16 1900 Intake Total Output Total Balance Patient 32 kg Weight Weight Stated/Reported Measurement Method PATIENT WEIGHT: Weight (lb): Weight (oz): Weight (kg): 32.000 Medications: Active Meds + DC'd Last 24 Hrs Albumin Human (ALBUMIN 25%) 100 ML Q1H IV Sodium Chloride (NS 0.9%) 500 ML .Q24H IV Albumin Human (ALBUMIN 25%) 100 ML ONCE ONE IV (DC) Sodium Chloride (SODIUM CHLORIDE FLUSH) 5 ML Q12HR IV (DC) Flumazenil (ROMAZICON,MAZICON) 0.2 MG ASDIR PRN IV Folic Acid (FOLIC ACID) 1 MG DAILY PO Lorazepam (LORazepam) 1 MG Q2H PRN PRN PO Lorazepam (LORazepam) 2 MG Q2H PRN PRN PO Multivitamins Therapeutic (THERAGRAN) 1 TAB DAILY PO Thiamine HCl (VITAMIN B-1) 100 MG DAILY PO Ondansetron HCl (ZOFRAN 4 MG/2 ML INJ) 4 MG Q4H PRN PRN IV (DC) Sodium Chloride (SODIUM CHLORIDE FLUSH) 5 ML ASDIR PRN IV (DC) Sodium Chloride (NACL 0.9%) 10 ML ASDIR PRN IV (DC) Sodium Chloride (SODIUM CHLORIDE 0.9%) 250 ML ASDIR PRN IV (DC) Physical Exam General appearance: alert, oriented Neck: non-tender, no JVD Cardiovascular: regular rate rhythm, no murmur Respiratory: clear to auscultation Abdomen: distended, fluid wave c/w ascites, non-tender Extremities: no edema Musculoskeletal: no CVA tenderness Neuro/FISH PEDDLER: no tremors Results Findings/Data: Laboratory Tests 10/173 Chemistry Sodium (137 - 145 mmol/L) 135 L Potassium (3.4 - 5.0 mmol/L) 4.0 Chloride (98 - 107 mmol/L) 107 Carbon Dioxide (22 - 30 mmol/L) 21 L Anion Gap 10 BUN (9 - 20 mg/dL) 8 L Creatinine (0.7 - 1.3 mg/dL) < 0.4 L Glomerular Filtr Rate (mL/min) 149 Glucose (74 - 106 mg/dL) 91 Calcium (8.4 - 10.2 mg/dL) 7.4 L Phosphorus (2.5 - 4.5 mg/dL) 3.9 Magnesium (1.6 - 2.3 mg/dL) 1.6 Total Bilirubin (0.2 - 1.3 mg/dL) 2.1 H Conjugated Bilirubin (0 - 0.3 mg/dL) 0 Unconjugated Bilirubin (0 - 1.1 mg/dL) 1.5 H AST (15 - 46 U/L) 103 H ALT (0 - 49 U/L) 34 Total Alk Phosphatase (38 - 126 U/L) 169 H Total Protein (6.3 - 8.2 g/dL) 7.3 Albumin (3.5 - 5.0 g/dL) 2.5 L Specimen Hemolysis (0 - 100 Index/DL) < 15 Laboratory Tests 10/17 0243 Coagulation INR 1.7 PTT ([place]) (23.4 - 37.0 SECONDS) 34.4 PT Patient/Control Mix (9.4 - 12.5 SECONDS) 18.9 H Laboratory Tests 10/17 10/17 10/17 1521 1049 0243 Hematology WBC (5.0 - 12.0 x10 3/uL) 3.7 L 4.2 L RBC (4.70 - 6.10 x10 6/uL) 2.98 L 2.88 L Hgb (14.0 - 18.0 g/dL) 9.0 L 8.8 L Hct (37.0 - 49.0 %) 27.3 L 26.3 L MCV (80 - 94 fL) 92 91 MCH (27 - 31 pg) 30.2 30.6 MCHC (33 - 37 g/dL) 33.0 33.5 RDW (11.5 - 15.5 %) 16.5 H 16.8 H Plt Count (130 - 400 x10 3/uL) 15 *L 14 *L MPV (9.4 - 16.4 fL) 12.0 11.0 Neut % (Auto) (43 - 65 %) 54.4 52.3 Lymph % (Auto) (20.5 - 45.5 %) 28.5 30.3 Butler % (Auto) (5.5 - 11.7 %) 15.2 H 15.5 H Eos % (Auto) (0.9 - 2.9 %) 1.1 1.2 Baso % (Auto) (0.2 - 1.0 %) 0.5 0.5 Neut # (Auto) (2.2 - 4.8 x10 3/uL) 2.01 L 2.19 L Lymph # (Auto) (1.3 - 2.9 x10 3/uL) 1.05 L 1.27 L Butler # (Auto) (0.3 - 0.8 x10 3/uL) 0.56 0.65 Eos # (Auto) (0.0 - 0.2 x10 3/uL) 0.04 0.05 Baso # (Auto) (0.0 - 0.1 x10 3/uL) 0.02 0.02 Total Counted 100 Immature Gran % (0.0 - 2.0 %) 0.3 0.2 Nucleated RBC % (0 - 1.0 %) 0.0 0.0 Platelet Estimate (ADEQUATE) SIGNIF DECREASED Plt Morphology Comment (NORMAL) NORMAL Hypochromasia (NONE SEEN) 2+ H Poikilocytosis (NONE SEEN) 1+ H Anisocytosis (NONE SEEN) 2+ H Macrocytosis (NONE SEEN) 2+ H Target Cells (NONE SEEN) 1+ H Laboratory Tests 10/17 1521 Miscellaneous Miscellaneous Test (%) 2 Laboratory Tests 10/17 1521 Other Body Source Peritoneal Color (COLORLESS) YELLOW Peritoneal Appearance (CLEAR) HAZY H Peritoneal WBC (0 - 10 /mm3) 123 H Peritoneal RBC (0 - 0 /mm3) 3000 H Periton Lymphocytes (%) 37 Periton Monocytes % (%) 61 Laboratory Tests 10/17 0243 Serology Hepatitis A IgM Ab (NEGATIVE) NEGATIVE Hepatitis A Ab Total (NEGATIVE) POSITIVE H Hep Bs Antigen (NEGATIVE) NEGATIVE Hep B Core IgM Ab (NEGATIVE) NEGATIVE Hepatitis C Antibody (NEGATIVE) NEGATIVE Radiology data: Recent Impressions: ULTRASOUND - US ABDOMEN LTD 10/17 0630 Report Impression - Status: SIGNED Entered: 10/17/2023 0715 IMPRESSION: 1. Cirrhotic morphology of the liver with ascites is present as above. Impression By: [email or web address] - Jaleesa Purvis MD SPECIAL PROCEDURES - SP PARACENTESIS W/IMAGE 10/17 1432 Report Impression - Status: SIGNED Entered: 10/17/2023 1718 IMPRESSION: Successful image-guided paracentesis. Impression By: [email or web address] - Baron ORLANDO Sage Diagnosis, Assessment Plan Free Text DxA P Notes Free text DxA P notes: A/P: -- Decompensated alcoholic cirrhosis there is no fever or leukocytosis noted to indicate SBP Plan to perform a large volume paracentesis with IV albumin in IR today I spoke with IR and he needs to be given platelets as his platelet count has dropped to 14,000 check RUQ ultrasound to evaluate cirrhosis and look for HCC Follow coags plan to start aldactone/lasix at some point Consult GI -- Thrombocytopenia due to cirrhosis platelets as his platelet count has dropped to 14,000 Follow CBC -- Alcohol abuse pt is at high risk for withdrawal symptoms On vitamins and CIWA protocol PO4 and Mag are stable DVT proph- SCDS only Risk of complications and/or Morbidity or Mortality of Patient Management- Moderate risk. ? d/c tomorrow after para [facility] Med Reconciliation [Y] I have utilized all available immediate resources to obtain, update, or review the patient s current medications (including all prescriptions, over-the- counter products, herbals, cannabis/cannabidiol products, and vitamin/mineral/ dietary (nutritional) supplements). [SATISFIES [facility] PERFORMANCE] If Yes, Stop Here [] The patient is not eligible for medication reconciliation; the patient is in an emergent medical situation where delaying treatment would jeopardize the patient s health. [[facility] PERFORMANCE EXCEPTION/EXCLUSION] [] I did NOT confirm, update or review the patient's current list of medications today. [DOES NOT SATISFY [facility] PERFORMANCE] at 1838 RPT #:[id number] END OF [id number] 14:30:00 [facility] ([facility]) Op/Inv Procedure Note - Brief REPORT#:[id number] REPORT STATUS: Signed REPORT INITIALIZATION DATE:10/17/23 TIME: 1429 PATIENT: HERNANDO ARRIAGA UNIT #: [id number] ROOM[address]BED: [address] : [address] AGE: 33 SEX: M ATTEND: Bhupendra Mario MD ADM AUTHOR: Esteban Ritter REPT SERVICE DT/TIME: 10/17/23 1430 * ALL edits or amendments must be made on the electronic/computer document * Op/Inv Proc Note - Brief TEXT Brief Op/Inv Procedure Note Note details: Pre-procedure: Abdominal fluid Post-procedure: Abdominal fluid Procedure: US-guided paracentesis Primary Surgeon: Riya WRIGHT Assistants: Alexandra Anesthetic: [X] Local; [] Moderate sedation; [] MAC sedation; [] General anesthesia EBL: [X] Less than 30 cc; [] 30-100 cc; [] Greater than 100 cc Specimens Removed: [12.2 liters]; sent to lab Complications: None Drains: None Implants: None Fluid Findings: [] Bloody; [] Blood-tinged; [X] Sydnee; [] Light sydnee; [] Cloudy ; [X] Non-cloudy Disposition: [X] Back to room; [] Home; [] ICU; [] IMU; [] To floor at 1503 RPT #:[id number] END OF [id number] 09:47:00 [facility] GE Consultation Note REPORT#:[id number] REPORT STATUS: Signed REPORT INITIALIZATION DATE:10/17/23 TIME: 946 PATIENT: HERNANDO ARRIAGA UNIT #: [id number] RO[address]BED: [address] : [birth year] AGE: 33 SEX: M ATTEND: Bhupendra Mario MD ADM AUTHOR: Judy Ley DO R1 REPT SERVICE DT/TIME: 10/17/23 0947 * ALL edits or amendments must be made on the electronic/computer document * Judy Ley 10/17/23 0947: History of Present Illness Reason for consult: alcohol cirrhosis Chief complaint: distended abdomen HPI: 33 male pmhx chronic alcohol use, cirrhosis, ascites presents from [facility] for concern of decompensated cirrhosis, severe thrombocytopenia (30k) and distended abdomen x1 mo. Last alcohol drink was 10/15. Patient states that he has been drinking again, about 12 beers per day. Admits to past ep of ascites where he had paracentesis and was given spironolactone and lasix to keep fluid off. After he improved, patient stopped taking both meds. Today he reports significant epigastric pain, back pain, abdominal fullness, shortness of breath and dyspnea on exhertion. Denies any chest pain, LE edema. Also reports very small red blood clots in stool that started 1 day ago. Denies melena, profuse bright red blood per rectum, nausea, vomiting, hematemesis, dysphagia, odynophagia. Other PMHx: periumbilical hernia, DT sx such as tremors but denies hallucinations, denies past dx viral hepatitis PSHx: prior paracentesis, denies abdominal surgeries/hernia repair T: 1 cigarette some weekends A: 12 beers per day D: smokes marijuana occasionally, denies IVDU Home meds: spironolactone and furosemide (stopped taking both after last ep of asictes resolved). Folate and b12 supplement. Colonoscopy:never EGD:never Personal cancer hx:denies FHx Cancer:denies, mom has DM History - Adult longitudinal Additional medical history: Alcoholic cirrhosis Additional surgical history: i reviewed and the patient denies Additional family history: I reviewed and the patient denies Alcohol use: Alcohol use Drug use: Denies recreational drugs Smoking status for patients 13 years old or older: Never Smoker Allergies: Coded Allergies: No Known Allergies (10/16/23) Review of Systems Constitutional: Denies: chills, fever. Respiratory: Reports: HAWK (dyspnea on exertion), SOB. Denies: non productive cough, productive cough (sputum), wheezing. Cardiovascular: Reports: HAWK (dyspnea on exertion). Denies: chest pain, edema. GI: Reports: abdominal pain, hematochezia, other. Denies: dysphagia, hematemesis, melena, nausea, vomiting. : Denies: dysuria, hematuria, urinary retention. Neuro: Denies: confusion, numbness, weakness. Objective Physical Exam VS/I O: Last Documented: Result Date Time Pulse Ox 97 10/17 803 B/P 153/88 10/17 803 B/P Mean 110.0 10/17 803 Temp 37.5 10/17 803 Pulse 82 10/17 803 Resp 17 10/17 803 O2 Delivery Room air 10/16 1508 24 hour I O ending at 0700: 10/17 0700 10/16 1900 Intake Total Output Total Balance Patient 32 kg Weight Weight Stated/Reported Measurement Method PATIENT WEIGHT: Weight (lb): Weight (oz): Weight (kg): 32.000 Medications: Active Meds + DC'd Last 24 Hrs Sodium Chloride (NS 0.9%) 500 ML .Q24H IV Albumin Human (ALBUMIN 25%) 100 ML ONCE ONE IV (DC) Sodium Chloride (SODIUM CHLORIDE FLUSH) 5 ML Q12HR IV (DC) Flumazenil (ROMAZICON,MAZICON) 0.2 MG ASDIR PRN IV Folic Acid (FOLIC ACID) 1 MG DAILY PO Lorazepam (LORazepam) 1 MG Q2H PRN PRN PO Lorazepam (LORazepam) 2 MG Q2H PRN PRN PO Multivitamins Therapeutic (THERAGRAN) 1 TAB DAILY PO Thiamine HCl (VITAMIN B-1) 100 MG DAILY PO Phytonadione (MEPHYTON,VITAMIN K) 5 MG ONCE ONE PO (DC) Ondansetron HCl (ZOFRAN 4 MG/2 ML INJ) 4 MG Q4H PRN PRN IV (DC) Sodium Chloride (SODIUM CHLORIDE FLUSH) 5 ML ASDIR PRN IV (DC) Sodium Chloride (NACL 0.9%) 10 ML ASDIR PRN IV (DC) Sodium Chloride (SODIUM CHLORIDE 0.9%) 250 ML ASDIR PRN IV (DC) General appearance: alert, awake, oriented HEENT: clear cornea, moist mucosal membranes, mild scleral icterus Cardiovascular: normal capillary refill, normal heart sounds Respiratory: shortness of breath, clear to auscultation, symmetric expansion Abdomen: ascites, distended, firm, fluid wave c/w ascites, tenderness, no guarding, reducible periumbilical hernia w/o bowel strangulation Genitourinary: no urinary catheter Extremities: moves all, no edema Musculoskeletal: normal inspection Skin: dry, intact, mild jaundice Results Findings/Data: Laboratory Tests 10/17/23 0243: [Embedded Image Not Available] Creatinine < 0.4 L 10/16/23 1555: [Embedded Image Not Available] Creatinine < 0.5 L Laboratory Tests 10/17 10/16 10/16 0243 1555 1554 Chemistry Sodium (137 - 145 mmol/L) 135 L 139 Potassium (3.4 - 5.0 mmol/L) 4.0 3.7 Chloride (98 - 107 mmol/L) 107 109 H Carbon Dioxide (22 - 30 mmol/L) 21 L 23 Anion Gap 10 11 BUN (9 - 20 mg/dL) 8 L 7 L Creatinine (0.7 - 1.3 mg/dL) < 0.4 L < 0.5 L Glomerular Filtr Rate (mL/min) 149 139 Glucose (74 - 106 mg/dL) 91 84 Calcium (8.4 - 10.2 mg/dL) 7.4 L 7.4 L Phosphorus (2.5 - 4.5 mg/dL) 3.9 Magnesium (1.6 - 2.3 mg/dL) 1.6 Total Bilirubin (0.2 - 1.3 mg/dL) 2.1 H 1.8 H Conjugated Bilirubin (0 - 0.3 mg/dL) 0 0 Unconjugated Bilirubin (0 - 1.1 mg/dL) 1.5 H 1.3 H AST (15 - 46 U/L) 103 H 103 H ALT (0 - 49 U/L) 34 33 Total Alk Phosphatase (38 - 126 U/L) 169 H 204 H Total Protein (6.3 - 8.2 g/dL) 7.3 7.7 Albumin (3.5 - 5.0 g/dL) 2.5 L 2.7 L Triglycerides (mg/dL) 65 Cholesterol (mg/dL) 88 LDL Cholesterol Measurd (32 - 99 mg/dL) 61.83 HDL Cholesterol (40 - 59 mg/dL) 21 L Coronary Risk Interp 4.19 Specimen Hemolysis (0 - 100 Index/DL) < 15 < 15 Laboratory Tests 10/17 1555 Coagulation INR 1.7 1.6 PTT ([place]) (23.4 - 37.0 SECONDS) 34.4 36.3 PT Patient/Control Mix (9.4 - 12.5 SECONDS) 18.9 H 17.7 H Laboratory Tests 10/17 1555 Hematology WBC (5.0 - 12.0 x10 3/uL) 4.2 L 4.7 L RBC (4.70 - 6.10 x10 6/uL) 2.88 L 3.17 L Hgb (14.0 - 18.0 g/dL) 8.8 L 9.8 L Hct (37.0 - 49.0 %) 26.3 L 29.4 L MCV (80 - 94 fL) 91 93 MCH (27 - 31 pg) 30.6 30.9 MCHC (33 - 37 g/dL) 33.5 33.3 RDW (11.5 - 15.5 %) 16.8 H 16.6 H Plt Count (130 - 400 x10 3/uL) 14 *L 22 L MPV (9.4 - 16.4 fL) 11.0 11.0 Neut % (Auto) (43 - 65 %) 52.3 45.9 Lymph % (Auto) (20.5 - 45.5 %) 30.3 35.4 Butler % (Auto) (5.5 - 11.7 %) 15.5 H 16.4 H Eos % (Auto) (0.9 - 2.9 %) 1.2 1.7 Baso % (Auto) (0.2 - 1.0 %) 0.5 0.4 Neut # (Auto) (2.2 - 4.8 x10 3/uL) 2.19 L 2.15 L Lymph # (Auto) (1.3 - 2.9 x10 3/uL) 1.27 L 1.66 Butler # (Auto) (0.3 - 0.8 x10 3/uL) 0.65 0.77 Eos # (Auto) (0.0 - 0.2 x10 3/uL) 0.05 0.08 Baso # (Auto) (0.0 - 0.1 x10 3/uL) 0.02 0.02 Immature Gran % (0.0 - 2.0 %) 0.2 0.2 Nucleated RBC % (0 - 1.0 %) 0.0 0.0 Platelet Estimate (ADEQUATE) SIGNIF DECREASED Plt Morphology Comment (NORMAL) NORMAL Target Cells (NONE SEEN) 1+ H Laboratory Tests 10/17 243 Serology Hepatitis A IgM Ab (NEGATIVE) NEGATIVE Hepatitis A Ab Total (NEGATIVE) POSITIVE H Hep Bs Antigen (NEGATIVE) NEGATIVE Hep B Core IgM Ab (NEGATIVE) NEGATIVE Hepatitis C Antibody (NEGATIVE) NEGATIVE Radiology data: Recent Impressions: ULTRASOUND - US ABDOMEN LTD 10/17 630 Report Impression - Status: SIGNED Entered: 10/17/2023 2261 IMPRESSION: 1. Cirrhotic morphology of the liver with ascites is present as above. Impression By: [email or web address] - Jaleesa Purvis MD Results: labs reviewed, vital signs reviewed, US results reviewed Diagnosis, Assessment Plan Free Text DxA P Notes Free Text DxA P Notes: 33 male pmhx chronic alcohol use, cirrhosis, ascites presents from [facility] for concern of decompensated cirrhosis, severe thrombocytopenia (30k) and distended abdomen x1 mo. Last alcohol drink was 10/15. #acute decompensated cirrhosis #pancytopenia with severe thrombocytopenia likely 2/2 alcoholic cirrhosis #periumbilical hernia, reducible and w/o bowel strangulation #mild hematochezia #hx of chornic EtOH use - supportive care: IVF, maintain normal hemodynamics and electrolytes, IV antiemetics prn and pain control - on arrival Hgb 9.8 (10/17 - 8.8), plt 22 (10/17 - 14) - isolated episode of small volume blood loss per rectum, monitor per rectum output - monitor Hgb and plt, transfuse as needed to maintain hgb >7 and plt >50 - transaminitis, hyperbilirubinemia, hypoalbuminemia, INR 1.7 - monitor for sn/sx of EtOh w/d and CIWA protocol when appropriate - cirrhotic morphology of the liver with ascites is present - recommend propranolol and resume diuretics - IR consulted for paracentesis both dx and tx, r/o SBP - all other care per primary Thank you for consult. Case pending discussion w/ Dr. Dash. Rafael Dash 10/17/23 2333: Attestations Attestation needed: supervising physician Physician Attestation Agree w/findings plan: Agree with the findings and plan as documented by the resident at 2039 at 2333 RPT #:[id number] END OF [id number] 16:37:00 [facility] ([facility]) [facility] History Physical REPORT#:[id number] REPORT STATUS: Signed REPORT INITIALIZATION DATE:10/16/23 TIME: 1637 PATIENT: HERNANDO ARRIAGA UNIT #: [id number] [address] AGE: 33 SEX: M ATTEND: Bhupendra Mario MD ADM AUTHOR: Bhupendra Mario MD REPT SERVICE DT/TIME: 10/16/23 9492 * ALL edits or amendments must be made on the electronic/computer document * History of Present Illness HPI Chief complaint: increased ascites PCP: PCP: No Primary or Family Physician HPI: pt is a 33 y/o male with a hx of alcohol abuse and alcohoic cirrhosis who is admitted for increased ascites. Interpretation was done by [email or web address] helper. pt reports he drinks a 12 pack of beer daily. pt reports he had a paracentesis done 6 months ago. He states he was discharged home on diuretics which he ran out of 2 months later. He has continued to drink large amounts of alcohol. he states he ascites began to recur about 2 months ago. He denies any hematemesis, fevers, blood per rectum, abd pain or N/V. History Past Medical Surgical Hx Additional medical history: Alcoholic cirrhosis Additional surgical history: i reviewed and the patient denies Family History Additional family history: I reviewed and the patient denies Social History Alcohol use: Alcohol use Drug use: Denies recreational drugs Smoking status for patients 13 years old or older: Never Smoker Medication/Allergy-Vaccine Hx Medications: No home meds Allergies: Coded Allergies: No Known Allergies (10/16/23) Review of Systems Constitutional: Denies: chills, fever. Cardiovascular: Denies: chest pain. All systems rev neg: except as noted OBJECTIVE VS/I O: Vital Signs Date Temp Pulse Resp B/P B/P Mean Pulse Ox FiO2 10/16 97.8 89-94 14-18 135-145/89-90 105-112 95-99 Last Documented: Result Date Time Pulse Ox 97 10/16 1600 B/P 136/89 10/16 1600 B/P Mean 107 10/16 1600 Pulse 94 / 1600 Resp 18 10/16 1600 O2 Delivery Room air 10/16 1508 Temp 97.8 10/16 1508 Patient Weight and BMI Weight (kg): 32.000 BMI: 12.9 Medications: Active Meds + DC'd Last 24 Hrs Albumin Human (ALBUMIN 25%) 100 ML ONCE ONE IV Sodium Chloride (SODIUM CHLORIDE FLUSH) 5 ML Q12HR IV Flumazenil (ROMAZICON,MAZICON) 0.2 MG ASDIR PRN IV (UNV) Folic Acid (FOLIC ACID) 1 MG DAILY PO (UNVr) Lorazepam (LORazepam) 1 MG Q2H PRN PRN PO (UNV) Lorazepam (LORazepam) 2 MG Q2H PRN PRN PO (UNV) Multivitamins Therapeutic (THERAGRAN) 1 TAB DAILY PO (UNVr) Thiamine HCl (VITAMIN B-1) 100 MG DAILY PO (UNVr) Phytonadione (MEPHYTON,VITAMIN K) 5 MG ONCE ONE PO (DC) Ondansetron HCl (ZOFRAN 4 MG/2 ML INJ) 4 MG Q4H PRN PRN IV Sodium Chloride (SODIUM CHLORIDE FLUSH) 5 ML ASDIR PRN IV Sodium Chloride (NACL 0.9%) 10 ML ASDIR PRN IV Sodium Chloride (SODIUM CHLORIDE 0.9%) 250 ML ASDIR PRN IV General appearance: alert, oriented Head/Eyes: PERRLA ENT: moist mucosal membranes Neck: non-tender, no JVD Cardiovascular: regular rate rhythm, no murmur Respiratory: clear to auscultation Abdomen: distended, fluid wave c/w ascites, non-tender Genitourinary: no flank pain Extremities: no edema Vascular pulse assessment: palpated: R dorsalis pedis, L dorsalis pedis. Musculoskeletal: no CVA tenderness Neuro/FISH PEDDLER: CNII-XII intact, no motor deficits, mild bilat arm tremor Skin: no rash Lymphatics: no lymphadenopathy Psychiatry: normal judgment/insight, no hallucinations Results Findings/Data: Laboratory Tests: 10/16 1555 Chemistry Sodium (137 - 145 mmol/L) 139 Potassium (3.4 - 5.0 mmol/L) 3.7 Chloride (98 - 107 mmol/L) 109 H Carbon Dioxide (22 - 30 mmol/L) 23 Anion Gap 11 BUN (9 - 20 mg/dL) 7 L Creatinine (0.7 - 1.3 mg/dL) < 0.5 L Glomerular Filtr Rate (mL/min) 139 Glucose (74 - 106 mg/dL) 84 Calcium (8.4 - 10.2 mg/dL) 7.4 L Total Bilirubin (0.2 - 1.3 mg/dL) 1.8 H Conjugated Bilirubin (0 - 0.3 mg/dL) 0 Unconjugated Bilirubin (0 - 1.1 mg/dL) 1.3 H AST (15 - 46 U/L) 103 H ALT (0 - 49 U/L) 33 Total Alk Phosphatase (38 - 126 U/L) 204 H Total Protein (6.3 - 8.2 g/dL) 7.7 Albumin (3.5 - 5.0 g/dL) 2.7 L Specimen Hemolysis (0 - 100 Index/DL) < 15 Coagulation INR 1.6 PTT ([place]) (23.4 - 37.0 SECONDS) 36.3 PT Patient/Control Mix (9.4 - 12.5 SECONDS) 17.7 H Hematology WBC (5.0 - 12.0 x10 3/uL) 4.7 L RBC (4.70 - 6.10 x10 6/uL) 3.17 L Hgb (14.0 - 18.0 g/dL) 9.8 L Hct (37.0 - 49.0 %) 29.4 L MCV (80 - 94 fL) 93 MCH (27 - 31 pg) 30.9 MCHC (33 - 37 g/dL) 33.3 RDW (11.5 - 15.5 %) 16.6 H Plt Count (130 - 400 x10 3/uL) 22 L MPV (9.4 - 16.4 fL) 11.0 Neut % (Auto) (43 - 65 %) 45.9 Lymph % (Auto) (20.5 - 45.5 %) 35.4 Butler % (Auto) (5.5 - 11.7 %) 16.4 H Eos % (Auto) (0.9 - 2.9 %) 1.7 Baso % (Auto) (0.2 - 1.0 %) 0.4 Neut # (Auto) (2.2 - 4.8 x10 3/uL) 2.15 L Lymph # (Auto) (1.3 - 2.9 x10 3/uL) 1.66 Butler # (Auto) (0.3 - 0.8 x10 3/uL) 0.77 Eos # (Auto) (0.0 - 0.2 x10 3/uL) 0.08 Baso # (Auto) (0.0 - 0.1 x10 3/uL) 0.02 Immature Gran % (0.0 - 2.0 %) 0.2 Nucleated RBC % (0 - 1.0 %) 0.0 Laboratory Tests 10/16/23 1555: [Embedded Image Not Available] Creatinine < 0.5 L Diagnosis, Assessment Plan Free Text A P: A/P: -- Decompensated alcoholic cirrhosis there is no fever or leukocytosis noted to indicate SBP Plan to perform a large volume paracentesis with IV albumin in IR check RUQ ultrasound to evaluate cirrhosis and look for HCC Follow coags plan to start aldactone/lasix Consult GI -- Thrombocytopenia due to cirrhosis Follow closely may have to delay paracentesis is platelets are less than 20K Follow CBC -- Alcohol abuse pt is at high risk for withdrawal symptoms start vitamins and CIWA protocol check PO4 and Mag to screen for refeeding syndrome DVT proph- SCDS only Risk of complications and/or Morbidity or Mortality of Patient Management- Moderate risk. [facility] Med Reconciliation [Y] I have utilized all available immediate resources to obtain, update, or review the patient s current medications (including all prescriptions, over-the- counter products, herbals, cannabis/cannabidiol products, and vitamin/mineral/ dietary (nutritional) supplements). [SATISFIES [facility] [employer]] If Yes, Stop Here [] The patient is not eligible for medication reconciliation; the patient is in an emergent medical situation where delaying treatment would jeopardize the patient s health. [[facility] [employer] EXCEPTION/EXCLUSION] [] I did NOT confirm, update or review the patient's current list of medications today. [DOES NOT SATISFY [facility] [employer]] at 1755 RPT #:[id number] END OF [id number] 15:48:00 [facility] ([facility]) EMERGENCY PROVIDER REPORT REPORT#:[id number] REPORT STATUS: Signed DATE:10/16/23 TIME: 1548 PATIENT: HERNANDO ARRIAGA UNIT #: [id number] [id number] AGE: 33 SEX: M PCP PHYS: No Primary or Family Physician SERVICE AUTHOR: Mike Patten DO * ALL edits or amendments must be made on the electronic/computer document * HPI-General Illness Free Text HPI Notes Free Text HPI Notes Patient transferred from house to facility. Patient was transfer for abdominal ascites. General Initial Greet Date/Time 10/16/23 1521 Presentation Chief Complaint abdominal ascites Sudden in Onset? Yes Review of Systems ROS Statements All systems rev neg except as marked. Past Medical History - Adult Stated Complaint DECOMPENSATED LIVER CIRRHOSIS / LOW PLTS Allergies Coded Allergies: No Known Allergies (10/16/23) Smoking status for patients 13 years old or older: Unknown,if ever smoked Physical Exam Vital Signs Vital Signs First Documented: Result Date Time Pulse Ox 95 10/16 1508 B/P 135/90 10/16 1508 B/P Mean 105 10/16 1508 O2 Delivery Room air 10/16 1508 Temp 97.8 10/16 1508 Pulse 92 10/16 1508 Resp 18 10/16 1508 Last Documented: Result Date Time Pulse Ox 97 10/16 1600 B/P 136/89 10/16 1600 B/P Mean 107 10/16 1600 Pulse 94 10/16 1600 Resp 18 10/16 1600 O2 Delivery Room air 10/16 1508 Temp 97.8 10/16 1508 Review of Vital Signs Reviewed Basic Physical Exam Basic PE GEN: Well appearing/NAD, HEAD: Atraumatic/NC, EYES: PERRL, conj clear, ENT: Membranes moist, NECK: Supple, RESP: No resp distress, CV: Reg rate rhythm, EXT: No gross abnormality, SKIN: No rashes, warm/dry, NEURO: alert oriented, NEURO: gross movement NL, PSYCH: NL thought content Free Text PE Notes Free Text PE Notes Patient abdomen is distended evidence of ascites. Interpretation Diagnostics Lab Results Interpretation Results Laboratory Tests 10/16/23 1555: [Embedded Image Not Available] Creatinine < 0.5 L Laboratory Tests: 10/16 10/16 1555 1554 Chemistry Sodium (137 - 145 mmol/L) 139 Potassium (3.4 - 5.0 mmol/L) 3.7 Chloride (98 - 107 mmol/L) 109 H Carbon Dioxide (22 - 30 mmol/L) 23 Anion Gap 11 BUN (9 - 20 mg/dL) 7 L Creatinine (0.7 - 1.3 mg/dL) < 0.5 L Glomerular Filtr Rate (mL/min) 139 Glucose (74 - 106 mg/dL) 84 Calcium (8.4 - 10.2 mg/dL) 7.4 L Total Bilirubin (0.2 - 1.3 mg/dL) 1.8 H Conjugated Bilirubin (0 - 0.3 mg/dL) 0 Unconjugated Bilirubin (0 - 1.1 mg/dL) 1.3 H AST (15 - 46 U/L) 103 H ALT (0 - 49 U/L) 33 Total Alk Phosphatase (38 - 126 U/L) 204 H Total Protein (6.3 - 8.2 g/dL) 7.7 Albumin (3.5 - 5.0 g/dL) 2.7 L Triglycerides (mg/dL) 65 Cholesterol (mg/dL) 88 LDL Cholesterol Measurd (32 - 99 mg/dL) 61.83 HDL Cholesterol (40 - 59 mg/dL) 21 L Coronary Risk Interp 4.19 Specimen Hemolysis (0 - 100 Index/DL) < 15 Coagulation INR 1.6 PTT ([place]) (23.4 - 37.0 SECONDS) 36.3 PT Patient/Control Mix (9.4 - 12.5 SECONDS) 17.7 H Hematology WBC (5.0 - 12.0 x10 3/uL) 4.7 L RBC (4.70 - 6.10 x10 6/uL) 3.17 L Hgb (14.0 - 18.0 g/dL) 9.8 L Hct (37.0 - 49.0 %) 29.4 L MCV (80 - 94 fL) 93 MCH (27 - 31 pg) 30.9 MCHC (33 - 37 g/dL) 33.3 RDW (11.5 - 15.5 %) 16.6 H Plt Count (130 - 400 x10 3/uL) 22 L MPV (9.4 - 16.4 fL) 11.0 Neut % (Auto) (43 - 65 %) 45.9 Lymph % (Auto) (20.5 - 45.5 %) 35.4 Butler % (Auto) (5.5 - 11.7 %) 16.4 H Eos % (Auto) (0.9 - 2.9 %) 1.7 Baso % (Auto) (0.2 - 1.0 %) 0.4 Neut # (Auto) (2.2 - 4.8 x10 3/uL) 2.15 L Lymph # (Auto) (1.3 - 2.9 x10 3/uL) 1.66 Butler # (Auto) (0.3 - 0.8 x10 3/uL) 0.77 Eos # (Auto) (0.0 - 0.2 x10 3/uL) 0.08 Baso # (Auto) (0.0 - 0.1 x10 3/uL) 0.02 Immature Gran % (0.0 - 2.0 %) 0.2 Nucleated RBC % (0 - 1.0 %) 0.0 Platelet Estimate (ADEQUATE) SIGNIF DECREASED Plt Morphology Comment (NORMAL) NORMAL Target Cells (NONE SEEN) 1+ H Re-Evaluation MDM Free Text MDM Notes Free Text MDM Notes Patient transferred from house to facility. Patient was transfer for abdominal ascites. INR 1.25 from the outside facility. Platelets of 30 History of present illness patient is complaining of abdominal pain On arrival to the emergency department patient's abdomen is distended. Consistent with extensive abdominal ascites. Patient needs a paracentesis. Patient Discharge Departure Vital Signs/Condition Vital Signs First Documented: Result Date Time Pulse Ox 95 10/16 1508 B/P 135/90 10/16 1508 B/P Mean 105 / 1508 O2 Delivery Room air 10/16 1508 Temp 97.8 10/16 1508 Pulse 92 12/ 1508 Resp 18 / 1508 Last Documented: Result Date Time Pulse Ox 97 10/16 1600 B/P 136/89 / 1600 B/P Mean 107 10/16 1600 Pulse 94 12/ 1600 Resp 18 / 1600 O2 Delivery Room air 10/16 1508 Temp 97.8 10/16 1508 All vital signs available at the time of this entry have been reviewed. Clinical Impression Clinical Impression Primary Impression: Abdominal ascites Time of Impression 161 Disposition Decision Hospitalize Hosp Physician Name Bhupendra Mario MD [facility] Physician Hospitalist Request Time 1613 Request Date 10/16/23 )( Accepts Hospitalization Yes )( Reason for Hospitalization abdominal ascites )( Accepted Time 161 )( Accepted Date 10/16/23 Call Information will see patient Discharge/Care Plan (Auto) Prescriptions Current Visit Scripts FUROSEMIDE (LASIX) 40 MG PO DAILY FUROSEMIDE (LASIX) 40 MG PO DAILY #30 TAB Ref 1 FOLIC ACID 1 MG PO DAILY FOLIC ACID 1 MG PO DAILY #30 TAB Ref 1 THIAMINE (VITAMIN B-1) 100 MG PO DAILY THIAMINE (VITAMIN B-1) 100 MG PO DAILY #30 TAB Ref 1 MULTIVITAMIN (MULTIPLE VITAMIN) 1 TAB PO DAILY MULTIVITAMIN (MULTIPLE VITAMIN) 1 TAB PO DAILY #30 TABS Ref 1 SPIRONOLACTONE (ALDACTONE) 100 MG PO DAILY SPIRONOLACTONE (ALDACTONE) 100 MG PO DAILY #60 TAB Ref 1 PROPRANOLOL (INDERAL) 10 MG PO BID PROPRANOLOL (INDERAL) 10 MG PO BID #60 TAB Ref 1 Admit Note I have spoken with the patient and/or caregivers. I have explained the patient's condition, diagnoses and treatment plan based on the information available to me at this time. I have answered the patient's and/or caregiver's questions and addressed any concerns. The patient and/or caregivers have as good an understanding of the patient's diagnosis, condition and treatment plan as can be expected at this point. The patient has been stabilized within the capability of the emergency department. The patient will be transported for further care and management or will be moved to an observation or inpatient service. I have communicated with the staff or medical practitioner taking over this patient's care. at 0625 RPT #:[id number] END OF REPORTGOPAL
[2024-09-10 23:32] LABS: Absolute Basophils 0.1 K/uL (0-0.5); Absolute Lymphocytes (CBC) 1.4 K/uL (0.7-4.9); Absolute Monocytes 0.8 K/uL (0.1-1.3); Basophils % 0.7 % (0-1.3); Eosinophils % 11.8 % (0-4.4); Hematocrit 24.9 % (39.6-49.0); Hemoglobin 8.2 g/dL (13.6-17.9); Lymphocytes % 17.5 % (15.3-44.8); MCH 34.4 pg (27.0-35.0); MCHC 33.2 g/dL (32.0-36.0); MCV 103.8 fL (80-100); MPV 6.8 fL (7.6-11.3); Monocytes % 9.8 % (3.3-12.3); Neutrophils % 60.2 % (41.7-73.7); Platelets 156 thou/uL (152-406); Red Cell Distribution Width 16.6 % (12.1-15.2)
[2024-09-10] MEDS ORDERED: MORPHINE 4 MG/ML SYR ONE (23:38)
[2024-09-10] MEDS ORDERED: NA CHLORIDE 0.9% 1,000 ML ONE (23:39)
[2024-09-10 23:52] LABS: ALT/SGPT 28 U/L (16-61); AST/SGOT 88 U/L (15-37); Alkaline Phosphatase 222 U/L (45-117); Anion Gap 9.3 mEq/L (5.0-15.0); BUN Blood Urea Nitrogen 4 mg/dL (7-18); Bicarbonate 22 mEq/L (21-32); Bilirubin Total 1.4 mg/dL (0.2-1.0); Glomerular Filtration Rate 133 ml/min (=/>90); Glucose Level 102 mg/dL (74-106); Lipase 40 U/L (13-75); Potassium 3.3 mEq/L (3.5-5.1); Protein, Total 6.9 g/dL (6.4-8.2); Sodium Level 132 mEq/L (136-145)
[2024-09-11 00:01] LABS: PT Prothrombin Time 22.2 SECONDS (9.4-12.5); PTT, Activated Partial Thromb 43.5 SECONDS (24.3-36.9); Protime INR 2.02
[2024-09-11 00:03] LABS: Albumin 0.9 g/dL (3.4-5.0); Albumin/Globulin Ratio ND (1.1-1.8)
[2024-09-11 00:04] LABS: Magnesium 1.6 mg/dL (1.6-2.4); Troponin High Sensitivity 11.6 pg/mL (<58.9)
[2024-09-11 00:22] LABS: Specific Gravity 1.009 (1.005-1.030); Sqamous Epithelial <5 /HPF (None Seen); Urine Bacteria None Seen /HPF (<20); Urine Bilirubin NEGATIVE (Negative); Urine Blood 3+ (Negative); Urine Clarity Turbid (Clear); Urine Color Yellow (Yellow); Urine Culture Reflex Order NOT NEEDED; Urine Glucose NEGATIVE (Negative); Urine Ketones NEGATIVE (Negative); Urine Microscopic Reflex YN ORDER UMIC; Urine Nitrite NEGATIVE (Negative); Urine Protein TRACE (Negative); Urine RBC <5 /HPF (None Seen); Urine Urobilinogen Normal (Normal); Urine WBC <5 /HPF (<5)
[2024-09-11 00:34] LABS: Barbiturates NEGATIVE (NEGATIVE); Benzodiazepines NEGATIVE (NEGATIVE); Cocaine NEGATIVE (NEGATIVE); METHAMPHETAM NEGATIVE (NEGATIVE); Methadone NEGATIVE (NEGATIVE); Opiates NEGATIVE (NEGATIVE); Phencyclidine NEGATIVE (NEGATIVE); THC Cannibis NEGATIVE (NEGATIVE)
[2024-09-11] MEDS ORDERED: VITAMIN K (ADULT) 10 MG/ML ONE (01:39)
[2024-09-11] MEDS ORDERED: FENTANYL CITR 100 MCG/2 ML ONE (01:39)
--- NOTE | 2024-09-11 02:32 | RAD REPORT ---
EXAM DESCRIPTION: Chest Single View CLINICAL HISTORY: 4 years Male, SOB Comparison: CT chest, abdomen and pelvis dated 01/12/2024 IMPRESSION: Large right pleural effusion with atelectasis. Underlying consolidation cannot be excluded. No pneumothorax. Cardiomegaly with vascular congestion and interstitial edema No acute osseous abnormality. Electronically signed by: Jhoan Barnhart DO 09/11/2024 01:10 AM CDT RP 9 Due to temporary technical issues with the PACS/[employer] reporting system, reports are being marlyn d by the in-house radiologist without review as a courtesy to ensure prompt reporting the interpreting radiologist is fully responsible for the content of the report. Transcribed Date/Time: 09/11/2024 2:31 AM
--- NOTE | 2024-09-11 02:38 | RAD REPORT ---
EXAM: US Duplex Bilateral Lower Extremities Veins CLINICAL HISTORY: The patient is 34 years old and is Male; SWELLING TECHNIQUE: Real-time duplex ultrasound scan of the bilateral lower extremity veins integrating B-mode two-dime nsional vascular structure, Doppler spectral analysis, color flow Doppler imaging and compression. COMPARISON: No relevant prior studies available. FINDINGS: RIGHT DEEP VEINS: Unremarkable. No DVT in the visualized common femoral, femoral, proximal deep femoral, popliteal, posterior tibial veins. The veins demonstrate normal color flow, are normally compressible, with normal phasic flow and/or augmentation response. RIGHT SUPERFICIAL VEINS: Unremarkable. No thrombus in the visualized right great saphenous vein . LEFT DEEP VEINS: Unremarkable. No DVT in the visualized common femoral, femoral, proximal deep femoral, popliteal, posterior tibial veins. The veins demonstrate normal color flow, are normally compressible, with normal phasic flow and/or augmentation response. LEFT SUPERFICIAL VEINS: Unremarkable. No thrombus in the visualized left great saphenous vein. SOFT TISSUES: No acute findings. A 1.6 cm right popliteal cyst is present. IMPRESSION: Normal bilateral lower extremity duplex venous ultrasound. Electronically signed by: Arleen Hdez MD 09/11/2024 02:26 AM CDT Due to temporary technical issues with the PACS/[employer] reporting system, reports are being sign ed by the in-house radiologist without review as a courtesy to ensure prompt reporting the interpreting rad iologist is fully responsible for the content of the report. Transcribed Date/Time: 09/11/2024 2:37 AM
--- NOTE | 2024-09-11 03:22 | RAD REPORT ---
EXAM: CT Chest, Abdomen and Pelvis Without Intravenous Contrast CLINICAL HISTORY: The patient is 34 years old and is Male; sob, abdominal pain/distention TECHNIQUE: Axial computed tomography images of the chest, abdomen and pelvis without intravenous contrast. S agittal and coronal reformatted images were created and reviewed. This CT exam was performed using one or more of the following dose reduction techniques: automated exposure control, adjustmen t of the mA and/or kV according to patient size, and/or use of iterative reconstruction technique. COMPARISON: CT abdomen pelvis June 29, 2024 FINDINGS: CHEST: LUNGS: The left lung is well-inflated and clear. Minimal aeration of the right upper lobe is pres ent. Atelectasis of the remainder of the right lung is noted. PLEURAL SPACE: A large right pleural effusion is present. No pneumothorax. HEART: No cardiomegaly. No pericardial effusion. ABDOMEN: LIVER: The liver is diffusely heterogeneous. GALLBLADDER AND BILE DUCTS: The gallbladder appears to be contracted. No calcified gallstones are seen. PANCREAS: Unremarkable. No ductal dilation. SPLEEN: Unremarkable. ADRENALS: Hyperplasia of the left adrenal gland is present. The right adrenal gland is normal. KIDNEYS AND URETERS: No obstructing stones. No hydronephrosis. No perinephric fluid. STOMACH AND BOWEL: Stomach is distended with food contents and air. The small bowel is fluid-fill ed and demonstrates diffuse mucosal thickening. A moderate amount of stool is present throughout the colon. There is no evidence of obstruction. PELVIS: APPENDIX: No findings to suggest acute appendicitis. BLADDER: The bladder is moderately distended. No stones. REPRODUCTIVE: Unremarkable as visualized. CHEST, ABDOMEN and PELVIS: INTRAPERITONEAL SPACE: Moderate amount of ascites is present throughout the abdomen and pelvis, s ome of which appears to be loculated. Suggestion of thickening and nodularity along the omentum is noted. No free air. BONES/JOINTS: No acute fracture. SOFT TISSUES: Diffuse body wall edema is present. VASCULATURE: Unremarkable. No aortic aneurysm. LYMPH NODES: Unremarkable. No enlarged lymph nodes. IMPRESSION: 1. Large right pleural effusion with atelectasis throughout the majority of the right lung. 2. Moderate volume ascites which appears to be somewhat loculated. 3. Heterogeneous appearance to the liver. Evaluation is limited secondary to lack of contrast. Unde rlying mass is not excluded. Further evaluation is warranted. 4. Suggestion of omental thickening/caking raises concern for malignancy. Further evaluation is rec ommended. 5. Diffuse body wall edema. Electronically signed by: Arleen Hdez MD 09/11/2024 02:30 AM CDT Due to temporary technical issues with the PACS/[employer] reporting system, reports are being marlyn d by the in-house radiologist without review as a courtesy to ensure prompt reporting the interpreting radiologist is fully responsible for the content of the report. Transcribed Date/Time: 09/11/2024 3:22 AM
--- NOTE | 2024-09-11 03:33 | EDPHYS ---
Physician Documentation [facility] Name: Hernando Crenshaw Age: 34 yrs Sex: Male : 1990 Arrival Date: 09/10/2024 Time: 21:19 Bed 17 Private MD: ED Physician Abilio Lopez HPI: 09/10 23:00 This 34 yrs old Male presents to ER via Wheelchair with complaints of cp Testicular Swelling, Shortness Of Breath. 23:00 The patient has shortness of breath at rest. cp 23:00 Onset: The symptoms/episode began/occurred gradually, and became worse this past cp Friday. Associated signs and symptoms: Pertinent positives: edema of legs and scrotum and abdomen, Pertinent negatives: chest pain, productive cough, diaphoresis, fever, hemoptysis. Severity of symptoms: in the emergency department the symptoms are worse moderately. The patient has experienced similar episodes in the past, several times, but today's symptoms are worse. Historical: - PMHx: 21:49 Alcoholism; cirrhosis of liver; br2 - PSHx: 21:49 paracentesis; br2 - Immunization history:: Adult Immunizations not up to date. - Social history:: Smoking status: Patient reports the use of cigarette tobacco products, denies chronic smoking, but will smoke occasionally, Patient uses alcohol, on a daily basis. claims drinking about a 6 pack/day. Patient/guardian denies using street drugs. ROS: 23:05 Constitutional: Negative for body aches, fever, poor PO intake, cp 23:05 Cardiovascular: Positive for edema, Negative for chest pain, palpitations, cp 23:05 Respiratory: Positive for shortness of breath, at rest. 23:05 Abdomen/GI: Positive for abdominal distension, Negative for vomiting, diarrhea, cp constipation, black/tarry stool, rectal bleeding, 23:05 : Positive for difficulty urinating, scrotal swelling, Negative for hematuria, burning with urination, 23:05 Neuro: Negative for altered mental status, dizziness, headache, weakness, 23:05 Skin: Negative for rash, cp Exam: 23:15 Constitutional: The patient appears in no acute distress, alert, awake, cp non-diaphoretic, non-toxic, well developed, well nourished, uncomfortable, 23:15 Head/Face: Normocephalic, atraumatic. cp 23:15 Eyes: Periorbital structures: appear normal, Conjunctiva: normal, no exudate, no injection, Sclera: no appreciated abnormality, Lids and lashes: appear normal, bilaterally, 23:15 ENT: External ear(s): are unremarkable, Nose: is normal, Mouth: Lips: moist, Oral mucosa: pink and intact, moist, Posterior pharynx: is normal, airway is patent, no erythema, no exudate, 23:15 Chest/axilla: Inspection: normal, 23:15 Cardiovascular: Rate: tachycardic, Rhythm: regular, Edema: pedal edema, that is moderate, ankle edema, that is marked, JVD: is not appreciated, 23:15 Respiratory: the patient does not display signs of respiratory distress, Respirations: labored breathing, that is mild, intercostal retractions, that is mild, Breath sounds: decreased breath sounds, that are moderate, are heard in the left posterior lower lobe, wheezing: is not appreciated, 23:15 Abdomen/GI: Inspection: distension, that is severe, mild erythema, Bowel sounds: active, all quadrants, Palpation: soft, in all quadrants, mild abdominal tenderness, in all quadrants, 23:15 Back: CVA tenderness, is absent, 23:15 Neuro: Orientation: to person, place \T\ time. Mentation: is normal, Motor: moves all fours, no focal deficits, Sensation: no obvious gross deficits, 23:35 ECG was reviewed by the Attending Physician. cp Vital Signs: 21:45 BP 125 / 85; Pulse 108; Resp 17; Pulse Ox 100% on R/A; al5 21:46 BP 133 / 87; Pulse 112; Resp 21; Temp 98.5(TE); Pulse Ox 98% on R/A; Weight 79.38 kg; br2 Height 5 ft. 8 in. ; Pain 10/10; 22:00 BP 124 / 85; Pulse 107; Resp 23; Pulse Ox 100% on R/A; al5 22:15 BP 131 / 83; Pulse 110; Resp 21; Pulse Ox 100% on R/A; al5 22:30 BP 136 / 93; Pulse 113; Resp 19; Pulse Ox 100% on R/A; al5 22:45 BP 143 / 88; Pulse 118; Resp 24; Pulse Ox 100% on R/A; al5 23:00 BP 132 / 87; Pulse 110; Resp 21; Pulse Ox 99% on R/A; al5 23:15 BP 131 / 87; Pulse 110; Resp 21; Pulse Ox 99% on R/A; al5 23:30 BP 123 / 55; Pulse 114; Resp 20; Pulse Ox 98% on R/A; al5 23:45 BP 120 / 74; Pulse 111; Resp 19; Pulse Ox 97% on R/A; al5 09/11 00:00 BP 136 / 82; Pulse 113; Resp 21; Pulse Ox 95% on R/A; al5 00:15 BP 132 / 85; Pulse 113; Resp 20; Pulse Ox 98% on R/A; al5 00:30 BP 124 / 86; Pulse 114; Resp 19; Pulse Ox 96% on R/A; al5 00:45 BP 140 / 89; Pulse 115; Resp 19; Pulse Ox 98% on R/A; al5 01:00 BP 136 / 88; Pulse 120; Resp 19; Pulse Ox 99% on R/A; al5 01:30 BP 133 / 89; Pulse 113; Resp 19; Pulse Ox 96% on R/A; al5 02:55 BP 144 / 98; Pulse 115; Resp 18; Pulse Ox 97% on R/A; al5 03:30 BP 141 / 82; Pulse 115; Resp 18; Pulse Ox 98% on R/A; al5 04:00 BP 137 / 95; Pulse 118; Resp 21; Pulse Ox 99% on R/A; al5 04:30 BP 139 / 95; Pulse 113; Resp 19; Pulse Ox 96% on R/A; al5 05:00 BP 139 / 96; Pulse 115; Resp 20; Pulse Ox 97% on R/A; al5 09/10 21:46 Body Mass Index 26.61 (79.38 kg, 172.72 cm) br2 21:46 Pain Scale: Adult br2 MDM: 09/10 21:37 Medical Screening Exam initiated john 09/11 00:00 Differential diagnosis: CHF exacerbation, pneumonia, pulmonary edema, Pulmonary cp Embolism Sepsis. 03:35 Data reviewed: vital signs, nurses notes, lab test result(s), EKG, radiologic studies, cp CT scan, plain films, I have discussed the patient's presentation/case with the attending Emergency Department Physician; and as a result, I will transfer patient. I considered the following discharge prescriptions or medication management in the emergency department Medications were administered in the Emergency Department. See MAR. Independent interpretation of the following test(s) in the Emergency Department EKG: See my EKG interpretation above. Care significantly affected by the following chronic conditions: Liver Disease. Counseling: I had a detailed discussion with the patient and/or guardian regarding the historical points, exam findings, and any diagnostic results supporting the discharge/admit diagnosis, lab results, radiology results, the need to transfer to another facility, [facility] does not immediately have the required specialist. Response to treatment: the patient's symptoms have mildly improved after treatment. 09/10 22:58 Order name: CBC with Diff; Complete Time: 01:04 09/11 01:05 Interpretation: Normal except: RBC 2.40; HGB 8.2; HCT 24.9; MCV 103.8; RDW 16.6; MPV cp 6.8; EOSINOPHIL % 11.8; EOSA 1.0. 09/10 22:58 Order name: CMP; Complete Time: 01:04 09/11 01:05 Interpretation: Normal except: NA 132; K 3.3; BUN 4; CRE 0.57; AST 88; ALK 222; BILIT cp 1.4; CA 7.1; ALB 0.9; GLOB 6.0. 09/10 22:58 Order name: Lipase; Complete Time: 01:04 ha09/10 22:58 Order name: AMMONIA; Complete Time: 01:04 ha09/11 01:06 Interpretation: Reviewed. cp 09/10 23:14 Order name: Magnesium; Complete Time: 01:04 cp 09/10 23:14 Order name: NT PRO-BNP; Complete Time: 01:04 cp 09/11 01:06 Interpretation: Reviewed. cp 09/10 23:14 Order name: PT-INR; Complete Time: 01:04 cp 09/11 03:07 Interpretation: Reviewed. cp 09/10 23:14 Order name: Troponin HS; Complete Time: 01:04 cp 09/10 23:14 Order name: Ptt, Activated; Complete Time: 01:04 cp 09/10 23:17 Order name: ETOH Level; Complete Time: 01:04 cp 09/11 01:06 Interpretation: Reviewed. cp 09/10 23:17 Order name: UDS; Complete Time: 01:04 09/10 23:17 Order name: Urinalysis w/ reflexes; Complete Time: 01:04 09/11 03:08 Interpretation: Normal except: UCLA Turbid; UBLD 3+; UPROT TRACE. 09/10 23:17 Order name: Lactate w/ 2H reflex if indic.; Complete Time: 01:04 09/11 03:09 Interpretation: Reviewed. 09/10 23:17 Order name: Blood Culture Adult (2) 09/10 23:14 Order name: XRAY Chest (1 view) 09/10 23:14 Order name: US Extremity Venous W Compression Bryson 09/11 01:11 Order name: CT Chest Abdomen Pelvis W/O Contrast 09/10 22:58 Order name: IV Saline Lock; Complete Time: 23:10 ha1 09/10 22:58 Order name: Labs collected and sent; Complete Time: 23:10 ha1 09/10 23:14 Order name: Cardiac monitoring; Complete Time: 23:30 09/10 23:14 Order name: EKG - Nurse/Tech; Complete Time: 23:30 09/10 23:14 Order name: O2 Per Protocol; Complete Time: 23:16 09/10 23:14 Order name: O2 Sat Monitoring; Complete Time: 23:16 09/11 03:27 Order name: Jeff; Complete Time: 04:12 cp EC/01 23:35 Rate is 110 beats/min. Rhythm is regular. [place] interval is normal. QRS interval is cp normal. QT interval is normal. Interpreted by me. Reviewed by me. Administered Medications: 23:52 Drug: morphine IVP or IV 4 mg IVP once over 4 mins Route: IVP; Infused Over: 4 mins; al5 Site: right antecubital; 09/11 01:07 Follow up: Response: No adverse reaction; Pain is decreased al5 09/10 23:52 Drug: NS 0.9% IV 1000 ml IV at 1000 ml once; to be given as a bolus over 60 minutes al5 Route: IV; Rate: 1000 ml; Site: right antecubital; 09/11 04:59 Follow up: Response: No adverse reaction; IV Status: Completed infusion; IV Intake: al5 1000ml 01:53 Drug: Phytonadione IM 10 mg IM once Route: IM; Site: right deltoid; al5 02:39 Follow up: Response: No adverse reaction al5 01:53 Drug: fentaNYL (PF) IVP 25 mcg IVP once Route: IVP; Site: right antecubital; al5 02:39 Follow up: Response: No adverse reaction; Pain is decreased al5 03:53 Drug: morphine IVP or IV 4 mg IVP once over 4 mins Route: IVP; Infused Over: 4 mins; al5 Site: right antecubital; 05:31 Follow up: Response: No adverse reaction; Pain is decreased al5 04:12 Drug: Rocephin IV 1 grams IV at calculated rate once; Given slow IV push per pharmacy al5 instructions Route: IV; Rate: calculated rate; Site: right antecubital; 05:31 Follow up: Response: No adverse reaction; IV Status: Completed infusion; IV Intake: [id number] 04:12 Drug: Potassium PO Effervescent Tablet 50 mEq PO once; dissolve in 4 ounces of water or al5 juice Route: PO; 05:31 Follow up: Response: No adverse reaction al5 Disposition: 09/12 03:38 Chart complete. cp Disposition Summary: 09/11/24 03:33 Transfer Ordered Notes: Transfer Location: [facility] cp Reason: Higher level of care cp Condition: Stable cp Problem: an ongoing problem cp Symptoms: have improved cp Accepting Physician: DR Yusuf(09/11/24 05:31) al5 Diagnosis - Alcoholic cirrhosis of liver with ascites cp - Hepatic failure, unspecified without coma cp - Pleural effusion in other conditions classified elsewhere cp Forms: - Medication Reconciliation Form cp - SBAR form cp Signatures: Dispatcher [employer] EDMS Abilio Lopez MD MD cha Page, Corey, PA PA cp Symone Fisher RN RN ha1 Negin Mansfield RN RN al5 Edna De La Fuente RN RN br2 Corrections: (The following items were deleted from the chart) 09/10 23:15 23:15 MAGNESIUM+C.LAB.BRZ ordered. EDMS EDMS 23:15 23:15 PROBNP+C.LAB.BRZ ordered. EDMS EDMS 23:15 23:15 PROTIME (+INR)+COAG.LAB.BRZ ordered. EDMS EDMS 23:15 23:15 Troponin High Sensitivity+C.LAB.BRZ ordered. EDMS EDMS 23:15 23:15 PTT, ACTIVATED+COAG.LAB.BRZ ordered. EDMS EDMS 23:16 23:15 Chest Single View+RAD.RAD.BRZ ordered. EDMS EDMS 23:16 23:16 Extrem Venous W Compression Bryson+US.RAD.BRZ ordered. EDMS EDMS 23:17 23:17 ETHANOL+C.LAB.BRZ ordered. EDMS EDMS 23:17 23:17 URINE DRUG SCREEN+UC.LAB.BRZ ordered. EDMS EDMS 23:17 23:17 Urinalysis+U.LAB.BRZ ordered. EDMS EDMS 23:17 23:17 LACTATE+C.LAB.BRZ ordered. EDMS EDMS 23:17 23:17 BLOOD CULTURE*+BA.LAB.BRZ ordered. EDMS EDMS 09/11 04:13 03:33 Doctor cp cp 05:31 04:13 DR Yusuf cp al5 09/12 03:24 03:21 Data reviewed: vital signs, nurses notes, cp cp
--- NOTE | 2024-09-11 03:33 | ER ---
Nurse's Notes [facility] Name: Hernando Crenshaw Age: 34 yrs Sex: Male : 1990 Arrival Date: 09/10/2024 Time: 21:19 Bed 17 Private MD: Diagnosis: Alcoholic cirrhosis of liver with ascites;Hepatic failure, unspecified without coma;Pleural effusion in other conditions classified elsewhere Presentation: 09/10 21:46 Chief complaint: Patient states: PT C/O TESTICULAR EDEMA SINCE FRIDAY AND SOB. PT HAS br2 CIRRHOSIS AND HAD A PARACENTESIS ON FRIDAY. TESTICALS WERE SWOLLEN THEN BUT WAS TOLD THAT HE NEEDED TO SEE A SPECIALIST FOR THAT AREA. PT WENT TO ER AND WAS GIVEN DIURETICS BUT HASN'T HELPED. Coronavirus screen: Client denies travel out of the [place] in the last 14 days. Ebola Screen: Patient denies travel to an Ebola-affected area in the 21 days before illness onset. Initial Sepsis Screen: Does the patient meet any 2 criteria? No. Patient's initial sepsis screen is negative. Does the patient have a suspected source of infection? No. Patient's initial sepsis screen is negative. Risk Assessment: Do you want to hurt yourself or someone else? Patient reports no desire to harm self or others. Onset of symptoms was September 06, 2024. 21:46 Method Of Arrival: Wheelchair br2 21:46 Acuity: JAMA 3 br2 Triage Assessment: 22:26 General: Appears in no apparent distress. uncomfortable, Behavior is calm, cooperative. al5 Pain: Complains of pain in abdomen, testicles. EENT: No signs and/or symptoms were reported regarding the EENT system. Neuro: Level of Consciousness is awake, alert, obeys commands, Oriented to person, place, time, situation. Cardiovascular: Patient's skin is warm and dry. Respiratory: Airway is patent Respiratory effort is even, unlabored, Respiratory pattern is regular, symmetrical, Onset: The symptoms/episode began/occurred gradually, the patient has mild shortness of breath. GI: Abdomen is round distended. : No signs and/or symptoms were reported regarding the genitourinary system. Derm: Skin is dry, Skin is jaundiced, Skin temperature is warm. Musculoskeletal: No signs and/or symptoms reported regarding the musculoskeletal system. Historical: - PMHx: 21:49 Alcoholism; cirrhosis of liver; br2 - PSHx: 21:49 paracentesis; br2 - Immunization history:: Adult Immunizations not up to date. - Social history:: Smoking status: Patient reports the use of cigarette tobacco products, denies chronic smoking, but will smoke occasionally, Patient uses alcohol, on a daily basis. claims drinking about a 6 pack/day. Patient/guardian denies using street drugs. Screenin:26 [facility] ED Fall Risk Assessment (Adult) History of falling in the last 3 months, al5 including since admission No falls in past 3 months (0 pts) Confusion or Disorientation No (0 pts) Intoxicated or Sedated No (0 pts) Impaired Gait No (0 pts) Mobility Assist Device Used No (0 pt) Altered Elimination No (0 pt) Score/Fall Risk Level 0 - 2 = Low Risk Oriented to surroundings, Maintained a safe environment, Hourly rounding (assess needs \T\ fall precautionary measures) done. Abuse screen: Denies threats or abuse. Denies injuries from another. Nutritional screening: No deficits noted. Tuberculosis screening: No symptoms or risk factors identified. Assessment: 22:22 General: Appears in no apparent distress. uncomfortable, Behavior is calm, cooperative. al5 Pain: Complains of pain in abdomen and testicles. Neuro: Level of Consciousness is awake, alert, obeys commands, Oriented to person, place, time, situation. Cardiovascular:. Cardiovascular: Patient's skin is warm and dry. GI: Abdomen is round distended, noted to have ascites, tightness to abdomen due to ascites build up Reports bloating. : Swelling noted on scrotum Reports pain testicle. EENT: No signs and/or symptoms were reported regarding the EENT system. Derm: Skin is intact, skin tear to testicles no active bleeding, massive swelling to testicles. swelling to bilateral lower extremities. Musculoskeletal: No signs and/or symptoms reported regarding the musculoskeletal system. 22:22 Cardiovascular: Rhythm is sinus tachycardia. al5 22:22 Respiratory: Airway is patent Respiratory effort is even, unlabored, Respiratory al5 pattern is regular, symmetrical, Breath sounds are clear bilaterally. 23:15 Reassessment: Patient appears in no apparent distress at this time. No changes from al5 previously documented assessment. Patient and/or family updated on plan of care and expected duration. Pain level reassessed. Patient is alert, oriented x 3, equal unlabored respirations, skin warm/dry/pink. 09/11 00:32 Reassessment: Patient appears in no apparent distress at this time. No changes from al5 previously documented assessment. Patient and/or family updated on plan of care and expected duration. Pain level reassessed. Patient is alert, oriented x 3, equal unlabored respirations, skin warm/dry/pink. 01:54 Reassessment: Patient appears in no apparent distress at this time. No changes from al5 previously documented assessment. Patient and/or family updated on plan of care and expected duration. Pain level reassessed. Patient is alert, oriented x 3, equal unlabored respirations, skin warm/dry/pink. 03:03 Reassessment: Patient appears in no apparent distress at this time. No changes from al5 previously documented assessment. Patient and/or family updated on plan of care and expected duration. Pain level reassessed. Patient is alert, oriented x 3, equal unlabored respirations, skin warm/dry/pink. 05:18 Reassessment: Patient appears in no apparent distress at this time. No changes from al5 previously documented assessment. Patient and/or family updated on plan of care and expected duration. Pain level reassessed. Patient is alert, oriented x 3, equal unlabored respirations, skin warm/dry/pink. Vital Signs: 09/10 21:45 BP 125 / 85; Pulse 108; Resp 17; Pulse Ox 100% on R/A; al5 21:46 BP 133 / 87; Pulse 112; Resp 21; Temp 98.5(TE); Pulse Ox 98% on R/A; Weight 79.38 kg; br2 Height 5 ft. 8 in. ; Pain 10/10; 22:00 BP 124 / 85; Pulse 107; Resp 23; Pulse Ox 100% on R/A; al5 22:15 BP 131 / 83; Pulse 110; Resp 21; Pulse Ox 100% on R/A; al5 22:30 BP 136 / 93; Pulse 113; Resp 19; Pulse Ox 100% on R/A; al5 22:45 BP 143 / 88; Pulse 118; Resp 24; Pulse Ox 100% on R/A; al5 23:00 BP 132 / 87; Pulse 110; Resp 21; Pulse Ox 99% on R/A; al5 23:15 BP 131 / 87; Pulse 110; Resp 21; Pulse Ox 99% on R/A; al5 23:30 BP 123 / 55; Pulse 114; Resp 20; Pulse Ox 98% on R/A; al5 23:45 BP 120 / 74; Pulse 111; Resp 19; Pulse Ox 97% on R/A; al5 09/11 00:00 BP 136 / 82; Pulse 113; Resp 21; Pulse Ox 95% on R/A; al5 00:15 BP 132 / 85; Pulse 113; Resp 20; Pulse Ox 98% on R/A; al5 00:30 BP 124 / 86; Pulse 114; Resp 19; Pulse Ox 96% on R/A; al5 00:45 BP 140 / 89; Pulse 115; Resp 19; Pulse Ox 98% on R/A; al5 01:00 BP 136 / 88; Pulse 120; Resp 19; Pulse Ox 99% on R/A; al5 01:30 BP 133 / 89; Pulse 113; Resp 19; Pulse Ox 96% on R/A; al5 02:55 BP 144 / 98; Pulse 115; Resp 18; Pulse Ox 97% on R/A; al5 03:30 BP 141 / 82; Pulse 115; Resp 18; Pulse Ox 98% on R/A; al5 04:00 BP 137 / 95; Pulse 118; Resp 21; Pulse Ox 99% on R/A; al5 04:30 BP 139 / 95; Pulse 113; Resp 19; Pulse Ox 96% on R/A; al5 05:00 BP 139 / 96; Pulse 115; Resp 20; Pulse Ox 97% on R/A; al5 09/10 21:46 Body Mass Index 26.61 (79.38 kg, 172.72 cm) br2 21:46 Pain Scale: Adult br2 ED Course: 09/10 21:20 Patient arrived in ED. jj6 21:28 Abilio García PA is PHCP. cp 21:28 Abilio Lopez MD is Attending Physician. cp 21:49 Triage completed. br2 22:22 Negin Mansfield, AURA is Primary Nurse. al5 22:22 Arm band placed on right wrist. Patient placed in the treatment room, on a stretcher. al5 22:26 Patient has correct armband on for positive identification. Bed in low position. Call al5 light in reach. Side rails up X 1. Provided Education on: plan of care. 22:26 No provider procedures requiring assistance completed. Inserted saline lock: 20 gauge al5 in right antecubital area, using aseptic technique. Blood collected. Flushed with 10 mL NS. 23:14 Lipase Sent. al5 23:14 CMP Sent. al5 23:14 CBC with Diff Sent. al5 23:30 EKG done, by technical programs manager. af3 09/11 00:37 XRAY Chest (1 view) In Process Unspecified. EDMS 01:35 US Extremity Venous W Compression Bryson In Process Unspecified. EDMS 02:25 CT Chest Abdomen Pelvis W/O Contrast In Process Unspecified. EDMS 04:12 Jeff cath inserted, using sterile technique, 14 Fr., by nm, balloon inflated, to al5 gravity drainage, clamped. Patient tolerated poorly. pain medicine given. 05:20 Patient transferred, IV remains in place. al5 Administered Medications: 09/10 23:52 Drug: morphine IVP or IV 4 mg IVP once over 4 mins Route: IVP; Infused Over: 4 mins; al5 Site: right antecubital; 09/11 01:07 Follow up: Response: No adverse reaction; Pain is decreased al5 09/10 23:52 Drug: NS 0.9% IV 1000 ml IV at 1000 ml once; to be given as a bolus over 60 minutes al5 Route: IV; Rate: 1000 ml; Site: right antecubital; 09/11 04:59 Follow up: Response: No adverse reaction; IV Status: Completed infusion; IV Intake: al5 1000ml 01:53 Drug: Phytonadione IM 10 mg IM once Route: IM; Site: right deltoid; al5 02:39 Follow up: Response: No adverse reaction al5 01:53 Drug: fentaNYL (PF) IVP 25 mcg IVP once Route: IVP; Site: right antecubital; al5 02:39 Follow up: Response: No adverse reaction; Pain is decreased al5 03:53 Drug: morphine IVP or IV 4 mg IVP once over 4 mins Route: IVP; Infused Over: 4 mins; al5 Site: right antecubital; 05:31 Follow up: Response: No adverse reaction; Pain is decreased al5 04:12 Drug: Rocephin IV 1 grams IV at calculated rate once; Given slow IV push per pharmacy al5 instructions Route: IV; Rate: calculated rate; Site: right antecubital; 05:31 Follow up: Response: No adverse reaction; IV Status: Completed infusion; IV Intake: [id number] 04:12 Drug: Potassium PO Effervescent Tablet 50 mEq PO once; dissolve in 4 ounces of water or al5 juice Route: PO; 05:31 Follow up: Response: No adverse reaction al5 Medication: 09/10 22:26 VIS not applicable for this client. al5 Intake: 09/11 04:59 IV: 1000ml; Total: 1000ml. al5 05:31 IV: 50ml; Total: 1050ml. al5 Outcome: 03:33 ER care complete, transfer ordered by . cp 05:31 Transferred by ground EMS to [facility], Transfer form completed. al5 05:31 Condition: stable 05:31 Instructed on the need for transfer, 05:31 Patient left the ED. al5 Signatures: Dispatcher [employer] EDMS Abilio García PA PA cp Alicia Cronin6 Negin Mansfield RN RN al5 Edna De La Fuente RN RN br2 Edelmira Anne3 Corrections: (The following items were deleted from the chart) 09/10 21:51 21:46 Chief complaint: Patient states: PT C/O TESTICULAR EDEMA SINCE FRIDAY. PT HAS br2 CIRRHOSIS AND HAD A PARACENTESIS ON FRIDAY. TESTICALS WERE SWOLLEN THEN BUT WAS TOLD THAT HE NEEDED TO SEE A SPECIALIST FOR THAT AREA. PT WENT TO ER AND WAS GIVEN DIURETICS BUT HASN'T HELPED. br2 09/11 00:06 09/10 23:15 General: al5 al5 09/11 00:06 09/10 23:15 Reassessment: Patient appears in no apparent distress at this time. No al5 changes from previously documented assessment. Patient and/or family updated on plan of care and expected duration. Pain level reassessed. Patient is alert, oriented x 3, equal unlabored respirations, skin warm/dry/pink. al5 09/11 00:32 00:06 Reassessment: patient able to tolerate foods and liquids, provider notified. al5 al5 01:54 09/10 22:22 General: Appears in no apparent distress. uncomfortable, Behavior is calm, al5 cooperative, al5 09/11 05:19 09/10 22:22 Derm: Skin is intact, skin tear to testicles no active bleeding, massive al5 swelling to testicles. al5
[2024-09-11] MEDS ORDERED: CEFTRIAXONE 1000 MG/VIAL ONE (03:44)
[2024-09-11] MEDS ORDERED: MORPHINE 4 MG/ML SYR ONE (03:44)
[2024-09-11] MEDS ORDERED: POTASSIUM 25 MEQ EFFERV TAB ONE (03:44)
[2024-09-11] MEDS ORDERED: NA CHLORIDE 0.9% 50 ML ONE (03:45)
[2024-09-11 05:41] VITALS: TEMP 98.5
[2024-09-11 06:03] VITALS: BP 139/96; O2SAT 97
--- NOTE | 2024-09-13 12:17 | EKG ---
Test Date: 2024-09-10 Test Time: 23:28:39 Fruit Culler: AF MEASUREMENT RESULTS: Intervals: Rate: 110 WV: 160 QRSD: 74 QT: 348 QTc: 470 [place]: P: 48 WV: 160 QRS: 50 T: 50 INTERPRETIVE STATEMENTS: Sinus tachycardia Nonspecific T wave abnormality Abnormal ECG Compared to ECG 06/24/2024 10:41:32 T-wave abnormality now present Sinus rhythm no longer present Electronically Signed On 09-13-24 12:15:46 ADOBE MAKER by Naseem Ames
== END 2024-09-11 05:31 | disposition short-term general hospital (02) ==
LOC: ER 21:19
DX: K70.31 Alcoholic cirrhosis of liver with ascites (principal); K72.90 Hepatic failure, unspecified without coma; J90 Pleural effusion, not elsewhere classified; F10.20 Alcohol dependence, uncomplicated
CPT/HCPCS: 96365; 96361; 93005; 87040 ×2; 85025; 81001; 36415; 82140; 83735; 85610; 83605; 85730; 84484; 83690; 80053; 83880; 80307; 71250; 74176; 71045; 93970; 51702; 96375; 96372; 99285; 82077; J3430; J3010; J7030; J0696

== ENCOUNTER 2024-11-04 11:13 | Emergency (ER) | payer BC ==
[2024-11-04] MEDS ORDERED: ONDANSETRON 4 MG/2 ML VIAL ONE (12:48)
[2024-11-04] MEDS ORDERED: MORPHINE 4 MG/ML SYR ONE ×2 (12:48→18:01)
[2024-11-04 12:56] LABS: Absolute Eosinophils 0.1 K/uL (0-0.5); Absolute Lymphocytes (CBC) 1.4 K/uL (0.7-4.9); Absolute Monocytes 1.2 K/uL (0.1-1.3); Absolute Neutrophil 6.7 K/uL (1.8-8.0); Basophils % 0.4 % (0-1.3); Eosinophils % 1.2 % (0-4.4); Hematocrit 23.4 % (39.6-49.0); Hemoglobin 8.1 g/dL (13.6-17.9); Lymphocytes % 14.9 % (15.3-44.8); MCH 34.9 pg (27.0-35.0); MCHC 34.5 g/dL (32.0-36.0); MCV 101.1 fL (80-100); MPV 6.8 fL (7.6-11.3); Monocytes % 12.6 % (3.3-12.3); Neutrophils % 70.9 % (41.7-73.7); Platelets 148 thou/uL (152-406); RBC Red Blood Cell Count 2.32 M/uL (4.33-5.43); Red Cell Distribution Width 14.5 % (12.1-15.2)
[2024-11-04 13:05] LABS: PT Prothrombin Time 21.3 SECONDS (9.4-12.5); PTT, Activated Partial Thromb 44.3 SECONDS (24.3-36.9); Protime INR 1.94
[2024-11-04 13:06] LABS: Specific Gravity 1.011 (1.005-1.030); Sqamous Epithelial <5 /HPF (None Seen); Urine Bacteria <20 /HPF (<20); Urine Bilirubin NEGATIVE (Negative); Urine Blood 3+ (Negative); Urine Clarity Turbid (Clear); Urine Color Yellow (Yellow); Urine Culture Reflex Order NOT NEEDED; Urine Glucose NEGATIVE (Negative); Urine Ketones NEGATIVE (Negative); Urine Microscopic Reflex YN ORDER UMIC; Urine Nitrite NEGATIVE (Negative); Urine Protein NEGATIVE (Negative); Urine RBC <5 /HPF (None Seen); Urine Urobilinogen Normal (Normal); Urine WBC None Seen /HPF (<5); Urine pH 5.5 (5.0-7.0)
[2024-11-04 13:21] LABS: Albumin 1.4 g/dL (3.4-5.0); Albumin/Globulin Ratio 0.3 (1.1-1.8); Anion Gap 10.9 mEq/L (5.0-15.0); Globulin 4.9 g/dL (2.3-3.5); Potassium 2.9 mEq/L (3.5-5.1); Protein, Total 6.3 g/dL (6.4-8.2)
--- NOTE | 2024-11-04 14:19 | EDPHYS ---
Physician Documentation [facility] Name: Hernando Crenshaw Age: 34 yrs Sex: Male : 1990 Arrival Date: 11/04/2024 Time: 11:13 Bed 18 Private MD: ED Physician Radha Wick HPI: 11/04 13:58 This 34 yrs old Male presents to ER via Ambulatory with complaints of sd2 Abdominal Swelling, Abdominal Pain, Leg Swelling. 14:12 34-year-old male with a history of alcoholic cirrhosis presents with chief complaint of sd2 abdominal swelling with pain associated due to the level of distention as well as bilateral lower extremity edema. He reports compliance with all of his medications but he is also still drinking and states he last drink yesterday approximately 6 beers. He reports he was supposed to have a paracentesis performed yesterday but his doctor was on vacation and therefore he was rescheduled for 2 weeks from now. His last paracentesis was 2 weeks ago as well.. Historical: - Allergies: 14:01 No Known Allergies; iw - PMHx: 14:01 Alcoholism; cirrhosis of liver; iw - Immunization history:: Adult Immunizations unknown. - Infectious Disease History:: Denies. - Social history:: Smoking status: Patient denies any tobacco usage or history of. Patient uses alcohol, on a daily basis. ROS: 14:12 Constitutional: Negative for fever, chills, and weight loss, Eyes: Negative for injury, sd2 pain, redness, and discharge, Cardiovascular: Negative for chest pain, palpitations, and edema, Respiratory: Positive for shortness of breath. Negative for cough and wheezing. 14:12 Cardiovascular: Negative for chest pain, palpitations, and positive for edema, MS/Extremity: Negative for injury and deformity, positive for edema Skin: Negative for injury, rash, and discoloration, 14:12 Abdomen/GI: Positive for abdominal pain, Distention, Negative for vomiting, diarrhea, Exam: 14:12 Constitutional: This is a well developed, well nourished patient who is awake, alert, sd2 and in no acute distress. Head/Face: Normocephalic, atraumatic. Eyes: EOMI, normal conjunctiva bilaterally Chest/axilla: Normal chest wall appearance and motion. Nontender with no deformity. Cardiovascular: Regular rate and rhythm with a normal S1 and S2. No gallops, murmurs, or rubs. 2+ distal pulses. Positive JVD Respiratory: Lungs have equal breath sounds bilaterally, clear to auscultation and percussion. No rales, rhonchi or wheezes noted. No increased work of breathing, no retractions or nasal flaring. Abdomen/GI: Abdomen is tense and significantly distended, no significant TTP, +fluid wave, no rebound or guarding Skin: Warm, dry with normal turgor. Normal color with no rashes, no lesions, and no evidence of cellulitis. MS/ Extremity: Pulses equal, no cyanosis. Neurovascular intact. Full, normal range of motion. 3+ pitting edema to BLEs. 14:12 ECG was reviewed by the Attending Physician. NSR, rate 81, no STEMI criteria Vital Signs: 13:00 BP 184 / 69; Pulse 79; Resp 20 S; Temp 97.6; Pulse Ox 97% on R/A; iw 14:00 BP 144 / 90; Pulse 79; Resp 14; Pulse Ox 98% ; me1 14:25 Pain 3/10; me1 15:00 BP 145 / 98; Pulse 81; Resp 13; Pulse Ox 98% ; me1 16:00 BP 143 / 98; Pulse 83; Resp 19; Pulse Ox 98% ; me1 17:00 BP 134 / 100; Pulse 89; Resp 16; Temp 98.5; Pulse Ox 98% ; me1 18:00 BP 144 / 94; Pulse 88; Resp 18; Pulse Ox 97% ; me1 14:25 Pain Scale: Adult me1 MDM: 12:12 Medical Screening Exam initiated sd2 14:12 Differential diagnosis: cirrhosis, hepatic failure, SBP, ascites, electrolyte sd2 abnormality among others. Data reviewed: vital signs, nurses notes, lab test result(s), EKG. I considered the following discharge prescriptions or medication management in the emergency department Medications were administered in the Emergency Department. See JAN. 14:16 Care significantly affected by the following chronic conditions: Liver Disease. sd2 Counseling: I had a detailed discussion with the patient and/or guardian regarding the historical points, exam findings, and any diagnostic results supporting the discharge/admit diagnosis, lab results, the need to transfer to another facility, for higher level of care, [facility] specialist, No GI physician at our facility to help manage this patient and patient with need for emergent paracentesis and no IR at our facility today.. 14:20 Counseling: I had a detailed discussion with the patient and/or guardian regarding the sd2 need to transfer to another facility. 14:29 ED course: Discussed case with hospitalist at [facility] who accepts the patient for sd2 transfer. He is stable for transfer at this time.. 15:20 ED course: Case discussed with pe manager at [facility] since they would like to place him sd2 in the ICU and patient accepted. 1g Ca gluconate ordered for hypocalcemia after discussion of patient results. . 11/04 12:35 Order name: CBC with Diff; Complete Time: 13:56 sd2 11/04 12:35 Order name: CMP; Complete Time: 13:56 sd2 11/04 12:35 Order name: PT-INR; Complete Time: 13:56 sd2 11/04 12:35 Order name: Ptt, Activated; Complete Time: 13:56 sd2 11/04 12:35 Order name: Lipase; Complete Time: 13:56 sd2 11/04 12:35 Order name: Urinalysis w/ reflexes; Complete Time: 13:56 sd2 11/04 12:35 Order name: Ethanol; Complete Time: 13:56 sd2 Administered Medications: 12:54 Drug: morphine IVP or IV 4 mg IVP once over 4 mins Route: IVP; Infused Over: 4 mins; me1 Site: left antecubital; 14:25 Follow up: Pain 3/10 Adult; Response: No adverse reaction; Pain is decreased me1 12:54 Drug: Ondansetron IVP 4 mg IVP once; over 2 minutes Route: IVP; Site: left antecubital; me1 14:25 Follow up: Response: No adverse reaction; Nausea is decreased me1 14:25 Drug: Potassium PO Effervescent Tablet 50 mEq PO once; dissolve in 4 ounces of water or me1 juice Route: PO; 14:41 Follow up: Response: No adverse reaction me1 14:28 Drug: Furosemide IVP 40 mg IVP once; give over 2 minutes Route: IVP; Site: left me1 antecubital; 14:41 Follow up: Response: No adverse reaction me1 15:38 Drug: Calcium Gluconate IVPB 1 grams IVPB once over 60 mins; (mix in NS 100 mL) Route: me1 IVPB; Infused Over: 60 mins; Site: left antecubital; 18:04 Follow up: IV Status: Completed infusion; IV Intake: 50ml me1 Disposition Summary: 11/04/24 14:18 Transfer Ordered Notes: Transfer Location: [facility] sd2 Reason: Higher level of care sd2 Condition: Fair sd2 Problem: an ongoing problem sd2 Symptoms: are unchanged sd2 Accepting Physician: MAYUR(11/04/24 18:14) me1 Diagnosis - Alcoholic cirrhosis of liver with ascites sd2 - Hypo-osmolality and hyponatremia sd2 - Hypokalemia sd2 Forms: - Medication Reconciliation Form sd2 - SBAR form sd2 Signatures: Dispatcher [employer] Erika Amin RN RN iw Radha Wick MD MD sd2 Norma Henry RN RN me1 Corrections: (The following items were deleted from the chart) 14:21 14:16 Counseling: I had a detailed discussion with the patient and/or guardian sd2 regarding the historical points, exam findings, and any diagnostic results supporting the discharge/admit diagnosis, lab results, the need to transfer to another facility, for higher level of care, [facility] does not immediately have the required specialist, No GI physician at our facility to help manage this patient and patient with need for emergent paracentesis., sd2 18:14 14:18 TBD sd2 me1
--- NOTE | 2024-11-04 14:19 | ER ---
Nurse's Notes [facility] Name: Hernando Crenshaw Age: 34 yrs Sex: Male : 1990 Arrival Date: 11/04/2024 Time: 11:13 Bed 18 Private MD: Diagnosis: Alcoholic cirrhosis of liver with ascites;Hypo-osmolality and hyponatremia;Hypokalemia Presentation: 11/04 12:02 Chief complaint: Patient states: abd swelling/distention X 1 week, hx of cirrhosis. iw Coronavirus screen: At this time, the client does not indicate any symptoms associated with coronavirus-19. Ebola Screen: No symptoms or risks identified at this time. Risk Assessment: Do you want to hurt yourself or someone else? Patient reports no desire to harm self or others. Onset of symptoms was October 27, 2024. 12:02 Method Of Arrival: Ambulatory iw 12:02 Acuity: JAMA 2 iw 16:03 Initial Sepsis Screen: Does the patient meet any 2 criteria? No. Patient's initial me1 sepsis screen is negative. Does the patient have a suspected source of infection? No. Patient's initial sepsis screen is negative. Triage Assessment: 16:03 General: Appears uncomfortable. me1 Historical: - Allergies: 14:01 No Known Allergies; iw - PMHx: 14:01 Alcoholism; cirrhosis of liver; iw - Immunization history:: Adult Immunizations unknown. - Infectious Disease History:: Denies. - Social history:: Smoking status: Patient denies any tobacco usage or history of. Patient uses alcohol, on a daily basis. Screenin:05 [facility] ED Fall Risk Assessment (Adult) History of falling in the last 3 months, me1 including since admission No falls in past 3 months (0 pts) Confusion or Disorientation No (0 pts) Intoxicated or Sedated No (0 pts) Impaired Gait Yes (1 pt) Mobility Assist Device Used Yes (1 pt) Altered Elimination No (0 pt) Score/Fall Risk Level 0 - 2 = Low Risk Maintained a safe environment, Provided non-skid footwear, Hourly rounding (assess needs \T\ fall precautionary measures) done. Abuse screen: Denies threats or abuse. Nutritional screening: No deficits noted. Tuberculosis screening: No symptoms or risk factors identified. Assessment: 12:05 General: Appears uncomfortable, well developed, Behavior is calm, cooperative, me1 appropriate for age, Reports abd swelling/distention X 1 week, +4 pitting edema to BLE. Pain: Complains of pain in abdomen, right leg and left leg Pain does not radiate. Pain currently is 8 out of 10 on a pain scale. Quality of pain is described as pressure, Pain began gradually, Is continuous. Neuro: Level of Consciousness is awake, alert, obeys commands, Oriented to person, place, time, situation, Appropriate for age. Cardiovascular: Patient's skin is warm and dry. Respiratory: Airway is patent Respiratory effort is even, unlabored, Respiratory pattern is regular, symmetrical. GI: Abdomen is distended, noted to have ascites, Bowel sounds present X 4 quads. Abd is rigid X 4 quads. : No signs and/or symptoms were reported regarding the genitourinary system. EENT: No signs and/or symptoms were reported regarding the EENT system. Derm: Skin is intact, is healthy with good turgor, Skin is jaundiced. Musculoskeletal: No signs and/or symptoms reported regarding the musculoskeletal system. Swelling present in abdomen, right leg and left leg. Vital Signs: 13:00 BP 184 / 69; Pulse 79; Resp 20 S; Temp 97.6; Pulse Ox 97% on R/A; iw 14:00 BP 144 / 90; Pulse 79; Resp 14; Pulse Ox 98% ; me1 14:25 Pain 3/10; me1 15:00 BP 145 / 98; Pulse 81; Resp 13; Pulse Ox 98% ; me1 16:00 BP 143 / 98; Pulse 83; Resp 19; Pulse Ox 98% ; me1 17:00 BP 134 / 100; Pulse 89; Resp 16; Temp 98.5; Pulse Ox 98% ; me1 18:00 BP 144 / 94; Pulse 88; Resp 18; Pulse Ox 97% ; me1 14:25 Pain Scale: Adult ri1 ED Course: 11:14 Patient arrived in ED. mr 11:29 Radha Wick MD is Attending Physician. sd2 12:01 Justin Bran, AURA is Primary Nurse. rs5 12:03 Triage completed. iw 12:05 No provider procedures requiring assistance completed. me1 12:05 Patient has correct armband on for positive identification. Call light in reach. Side me1 rails up X 1. Side rails up X2. Provided Education on: POC. Verbalized understanding.. Client placed on continuous cardiac and pulse oximetry monitoring. NIBP monitoring applied. court monitor on. Pulse ox on. NIBP on. 12:22 Norma Henry, RN is Primary Nurse. ri1 12:47 Initial lab(s) drawn, by me, sent to lab. Inserted saline lock: 22 gauge in left [facility] antecubital area, using aseptic technique. 12:58 Urinalysis w/ reflexes Sent. me1 12:58 Urine collected: clean catch specimen, tea colored. me1 14:00 [facility] called to initiate transfer. ty 14:26 Iap2Mnv. ty 16:03 Arm band placed on Patient placed in an exam room. me1 16:04 Patient transferred, IV remains in place. me1 16:11 [facility] on transfer [facility] called for patient transport ETA 45minutes. ty Administered Medications: 12:54 Drug: morphine IVP or IV 4 mg IVP once over 4 mins Route: IVP; Infused Over: 4 mins; ri1 Site: left antecubital; 14:25 Follow up: Pain 3/10 Adult; Response: No adverse reaction; Pain is decreased me1 12:54 Drug: Ondansetron IVP 4 mg IVP once; over 2 minutes Route: IVP; Site: left antecubital; [facility] 14:25 Follow up: Response: No adverse reaction; Nausea is decreased ri1 14:25 Drug: Potassium PO Effervescent Tablet 50 mEq PO once; dissolve in 4 ounces of water or me1 juice Route: PO; 14:41 Follow up: Response: No adverse reaction [facility] 14:28 Drug: Furosemide IVP 40 mg IVP once; give over 2 minutes Route: IVP; Site: left ri1 antecubital; 14:41 Follow up: Response: No adverse reaction ri1 15:38 Drug: Calcium Gluconate IVPB 1 grams IVPB once over 60 mins; (mix in NS 100 mL) Route: me1 IVPB; Infused Over: 60 mins; Site: left antecubital; 18:04 Follow up: IV Status: Completed infusion; IV Intake: 50ml me1 Medication: 12:05 VIS not applicable for this client. me1 Intake: 18:04 IV: 50ml; Total: 50ml. me1 Output: 15:51 Urine: 900ml (Voided); Total: 900ml. ri1 Outcome: 14:18 ER care complete, transfer ordered by . sd2 16:04 Transferred by ground EMS to [facility], Note: Report called to me1 AURA Barahona 16:04 Condition: stable 16:04 Instructed on the need for transfer, 18:14 Patient left the ED. ri1 Signatures: Bessy Mehta, Reg Reg mr Erika Garcia, RN RN iw aRdha Wick MD MD sd2 Justin Bran RN RN rs5 Norma Henry RN RN ri1 Omid Andrade ty Corrections: (The following items were deleted from the chart) 15:43 12:02 Chief complaint: Patient states: abd swelling/distention X 1 week, hx of me1 cirrhosis iw 16:20 16:11 [facility] called for patient transport ty ty
[2024-11-04] MEDS ORDERED: POTASSIUM 25 MEQ EFFERV TAB ONE (14:22)
[2024-11-04] MEDS ORDERED: FUROSEMIDE 40 MG/4 ML VIAL ONE (14:26)
[2024-11-04] MEDS ORDERED: CALCIUM GLUCONATE 1 GM IVPB 1 GM/50 ML BAG IV ONE (15:23)
[2024-11-04 18:48] VITALS: TEMP 98.5
[2024-11-04 18:50] VITALS: BP 144/94; O2SAT 97
--- NOTE | 2024-11-08 11:21 | EKG ---
Test Date: 2024-11-04 Test Time: 12:10:21 Ob Gyn Physician Assistant: DARLINE MEASUREMENT RESULTS: Intervals: Rate: 81 UT: 150 QRSD: 94 QT: 402 QTc: 466 Cosby: P: 15 UT: 150 QRS: 6 T: 37 INTERPRETIVE STATEMENTS: Normal sinus rhythm Normal ECG Compared to ECG 09/10/2024 23:28:39 Sinus tachycardia no longer present T-wave abnormality no longer present Electronically Signed On 11-08-24 11:15:52 [employer]ULB ASSEM[employer]ER by Naseem Ames
== END 2024-11-04 18:14 | disposition short-term general hospital (02) ==
LOC: ER 11:13
DX: K70.31 Alcoholic cirrhosis of liver with ascites (principal); E87.1 Hypo-osmolality and hyponatremia; E87.6 Hypokalemia; F10.20 Alcohol dependence, uncomplicated
CPT/HCPCS: 96365; 93005; 85025; 81001; 36415; 85610; 85730; 83690; 80053; 96375; 99285; 96366; 82077; J0612; J1940; J2405